=== PATIENT | female | born 1970 | race Caucasian/White ===

== ENCOUNTER 2024-03-07 08:49 | Outpatient (AMB) | payer MEDICARE, MEDICAID, SELFPAY ==
--- NOTE | 2024-03-07 08:51 | A.OFFPC_ITS ---
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 Appointment Specialist: Not Required per policy Accompanied by: Self / Same As Patient Allergies latex Allergy (Severe, Verified 03/07/24 09:18) Anaphylaxis Cephalosporins Allergy (Mild, Verified 03/07/24 09:18) Rash egg Allergy (Mild, Verified 03/07/24 09:18) Unknown ibuprofen [From Motrin] Adverse Reaction (Mild, Verified 03/07/24 09:18) Rash sulfur Allergy (Mild, Uncoded 03/07/24 09:18) Rash Medication List - Last Reconciled 03/07/24 by Mark Crane MD acarbose 100 mg PO TID albuterol sulfate 90 mcg/actuation 2 puffs inhalation QID cetirizine (Zyrtec) 10 mg PO DAILY PRN cyanocobalamin (vitamin B-12) 1,000 mcg IM .ONCE A MONTH escitalopram oxalate (Lexapro) 20 mg PO DAILY estradiol 1 patch transdermal QWEEK gabapentin 600 mg PO DAILY lansoprazole (Acid Scout Executive (lansoprazole)) 15 mg PO DAILY lorazepam (Ativan) 1 mg PO BEDTIME PRN ondansetron 4 mg PO Q8H sumatriptan succinate (Imitrex) 50 mg PO Q2-4H PRN Tobacco use date assessed: 03/07/24 Dental Screening Dental Screen Date: 03/07/24 Did you have a dental visit in the last 12 months?: No Did you have a dental problem in the last 6 months where you did not have access to dental care?: No Was dental information given to patient?: Patient has dentist 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 Details Patient comes in today for her annual physical examination and to establish care - is a new patient to the practice Patient states that she currently has multiple issues that she would like to have addressed as well She denies any dizziness but reports (+) on and off headaches (has Hx of migraine) - states that she takes Sumatriptan PRN with prompt relief of her headaches Denies any chest pains but reports experiencing frequent SOB, especially with increased activity Adds that her chest feels tight often - has Hx of asthma and uses her Albuterol inhaler as needed with temporary relief of her symptoms Relates that she has been tried on a few inhalers in the past and she's had trouble tolerating most of them, especially the ones that are powder-based Relates (+) on and off nausea and vomiting - states that she has cyclical vomiting and believes that these started after she had her gastric bypass surgery done back in 2009 She denies any abdominal pain but has been experiencing recurrent heartburns for a while now - states that she just takes some OTC Lansoprazole as needed with temporary relief of her heartburns No change in bowel habits noted She denies any acute urinary symptoms Adds that she has been experiencing increasing pain over both of her shoulders for a while now; does not recall any recent injury or trauma to her shoulders [facility] Medical History (Updated 03/12/24 @ 03:51 by Mark Crane MD) Vitamin B12 deficiency Allergic rhinitis GERD without esophagitis Pulmonary nodule, left Anxiety Neuropathy Asthma Diabetes mellitus Migraine Cyclical vomiting Surgical History (Updated 03/12/24 @ 03:52 by Mark Crane MD) Hx of colonoscopy Status post laparoscopic assisted vaginal hysterectomy (LAVH) (~2016) Hx of gastric bypass (~2009) Hx of cholecystectomy Family History (Updated 03/07/24 @ 09:10 by MOHAMUD Welsh) Other Diabetes Social History (Updated 03/07/24 @ 09:43 by Mark Crane MD) Housing: [place] Patient Tobacco Use Status: Former Tobacco user Quit Date: 2003 e-Cigarette/Vaping Use: Never Used Current occupational status: disabled Cognitive needs: No Hearing needs: No Vision needs: Yes Questionnaire PHQ-9 Over the last 2 weeks, how often have you been bothered by any of the following problems? 1. Little interest or pleasure in doing things: not at all 2. Feeling down, depressed, or hopeless: not at all 3. Trouble falling or staying asleep, or sleeping too much: not at all 4. Feeling tired or having little energy: not at all 5. Poor appetite or overeating: not at all 6. Feeling bad about yourself - or that you are a failure or have let yourself or your family down: not at all 7. Trouble concentrating on things, such as reading the newspaper or watching television: not at all 8. Moving or speaking so slowly that other people could have noticed. Or the opposite - being so fidgety or restless that you have been moving around a lot more than usual: not at all 9. Thoughts that you would be better off or of hurting yourself in some way: not at all Total score: 0 Depression Screening Interpretation: Negative Depression Screening Done: Yes 34492 - PHQ-9 Billing: Yes Source: Developed by Drs. Gaston Zhang, Leigh Dupree, Prashant Haley and colleagues, with an educational jenny from [employer]. Thrive Questionnaire Date Thrive assessed: 03/07/24 I am a: Patient What is your living situation today?: I have a steady place to live Within the past 12 months, did the food you bought not last and you didn't have the money to get more?: Never true Within the past 12 months, did you worry whether your food would run out before you got money to buy more?: Never true Do you have trouble paying for medicines?: No Do you have trouble getting transportation to medical appointments?: No Do you have trouble paying your heating and electricity bill?: No Do you have trouble taking care of your child, family member or friend?: No Do you have trouble with day-to-day activities such as bathing, preparing meals, shopping, managing finances, etc.?: No Are you currently unemployed and looking for a job?: No Are you interested in more education?: No Please select the resources that you would like help with: None Currently or been in a relationship where the following occur: no concerns reported THRIVE Score: 0 AUDIT C Alcohol Use Questionnaire (AUDIT-C) 1. How often do you have a drink containing alcohol?: Never 3. How often do you have six or more drinks on one occasion?: Never Total Score: 0 Score Reviewed/Action Taken: Yes KAYLENE-7 AMB Questionnaire KAYLENE-7 Date KAYLENE - 7 assessed: 03/07/24 Feeling nervous, anxious, or on edge: 3 = Nearly every day Not being able to stop or control worryin = Nearly every day Worrying too much about different things: 2 = More than half the days Trouble relaxin = More than half the days Being so restless that it is hard to sit still: 2 = More than half the days Becoming easily annoyed or irritable: 2 = More than half the days Feeling afraid as if something awful might happen: 2 = More than half the days Total KAYLENE-7 score (0-4 normal; 5-9 mild; 10-14 moderate; 15-21 severe): 16 Source: Developed by Drs. Gaston Zhang, Leigh Dupree, Prashant Haley and colleagues, with an educational jenny from [employer]. Review of Systems Const Denies chills, Reports fatigue (at times), Denies fever(s), Reports headache(s) (on and off - (+) migraines), Denies malaise and Denies night sweats Eyes Denies blurry vision, Denies change in vision, Denies irritation and Denies itchy eyes ENT Denies dysphagia, Denies dizziness, Denies otalgia, Reports headache(s) (on and off - (+) migraines), Denies nasal congestion, Denies neck pain, Denies odynophagia, Denies sinus pain and Denies sore throat Card Denies chest pain, Denies rapid heart rate, Denies irregular heart rhythm, Denies palpitations and Reports dyspnea on exertion (mild) Resp Denies chest congestion (but chest feels tight often, especially with increased activity), Denies cough, Reports dyspnea on exertion (mild) and Reports wheezing (occasionally) GI Denies abdominal pain, Denies bloating, Denies constipation, Denies dysphagia, Reports heartburn (recurrent - takes OTC Lansoprazole PRN ), Denies diarrhea, Reports nausea (on and off), Denies odynophagia and Reports vomiting (occasional) Denies hematuria, Denies urinary frequency, Reports hot flashes (on and off), Denies dysuria, Denies urinary incontinence and Denies urinary urgency Musc Denies back pain, Reports arthralgias (over both shoulders - increasing lately), Denies joint swelling, Denies muscle weakness and Denies neck pain Skin/Breast Denies breast pain, Denies breast mass, Denies change in pigmentation, Denies lesions, Denies rash and Denies unusual bruising Neuro Reports burning sensations (on and off in her feet, especially at night - (+) neuropathy), Denies dizziness, Reports headache(s) (on and off - (+) migraines) and Reports paresthesias (on and off in her feet - (+) neuropathy) Psych Reports anxiety, Denies depression and Denies suicidal ideation Endo Reports fatigue (at times) and Denies palpitations Melvin/Lymph Denies easy bruising Aller/Immun Denies itchy eyes and Reports wheezing (occasionally) Physical exam (Primary Care) Vital Signs: Last Vital Signs Pulse 63 03/07/24 08:53 BP 112/62 03/07/24 08:53 Pulse Ox 97 03/07/24 08:53 Oxygen Delivery Method Room Air 03/07/24 08:53 BMI result Body Mass Index 25.0 Tobacco/Smoking Status: Tobacco use Status Tobacco use date assessed 03/07/24 03/07/24 08:53 Patient Tobacco Use Status Former Tobacco user 03/07/24 09:43 e-Cigarette/Vaping Use Never Used 03/07/24 09:43 PHQ-9: PHQ-9 Score PHQ-9: Total score 0 03/07/24 09:23 Depression Screening Interpretation: Negative Thrive Assessment: Date of Thrive Assessment Date Thrive assessed 03/07/24 03/07/24 08:53 Currently or been in a relationship where the following occur: no concerns reported Const General: no acute distress, alert and awake Orientation/consciousness: patient oriented x3 HENMT Head: Yes normocephalic and Yes atraumatic Ears: external ears normal, TM's normal bilaterally and EAC's normal General nose exam: No nasal discharge present Face and sinus: Yes normal facial exam and Yes sinuses nontender Teeth and gingiva: dentition normal Throat: Yes posterior oropharynx normal and Yes tonsils normal (no TP congestion) Eyes Eyelids: Yes eyelids normal Conjunctivae: conjunctivae normal Pupils: Equal, round and reactive pupils present EOM: EOMs intact bilaterally Neck Neck: Yes no lymphadenopathy and Yes supple Thyroid: Thyroid normal Resp Auscultation: no rales, wheezes (occasional, faint) expiratory wheezes and throughout and diminished lung sounds bilateral Cardio Rate: regular rate Rhythm: regular rhythm Heart sounds: no murmurs GI Palpation (GI): Soft to palpation, nontender, no guarding and No hepatosplenomegaly present Auscultation: normal bowel sounds General: Yes no CVA tenderness Back/Spine/Pelvis Back: no CVA tenderness Thoracic/Lumbar Spine: thoracic and lumbar spine normal to inspection Skin Lesions: no lesions Rashes: no rashes Neuro General: patient oriented x3, moves all extremities, no focal motor deficits and CN's II-XI intact bilaterally Cranial nerves: Yes Equal, round and reactive pupils present Cognition (Neuro): normal cognition Gait exam (Neuro): Normal gait present Extrem General: Yes no clubbing, cyanosis or edema Right upper extremity: shoulder/upper arm Details: tenderness Location: of the A-C joint and normal ROM Left upper extremity: shoulder/upper arm Details: tenderness Location: of the A- C joint and normal ROM Assessment and Plan Assessment & Plan (1) Annual physical exam: Code(s): Z00.00 - Encounter for general adult medical examination without abnormal findings Plan: Check labs She is due for all of her cancer screenings and will be referred / ordered for these accordingly (2) Migraine: Code(s): G43.909 - Migraine, unspecified, not intractable, without status migrainosus Qualifiers: Intractability: not intractable Migraine type: unspecified Status migrainosus presence: without status migrainosus Qualified Code(s): G43.909 - Migraine, unspecified, not intractable, without status migrainosus Plan: Reinforced avoidance of any potential migraine triggers Continue Sumatriptan 50 mg PRN (3) Asthma: Code(s): J45.909 - Unspecified asthma, uncomplicated Qualifiers: Asthma severity: moderate Asthma persistence: persistent Asthma complication type: unspecified Qualified Code(s): J45.40 - Moderate persistent asthma, uncomplicated Plan: She is advised that she has some faint wheezing on auscultation of her lungs today, which indicates that her asthma is not really well-controlled Patient agrees as she states that her chest/lungs sometimes feel tight and congested, especially with increased activity and her symptoms are often only temporarily relieved with her rescue inhaler Relates that she's had problems tolerating steroid inhalers in the past, especially the powdered ones like Advair Diskus and Flovent Diskus, and that Dulera was the only one that she can remember using that did not give her too much trouble Will start her on Dulera 200-5 mcg 2 inhalations BID for now Continue Albuterol HFA 2 inhalations Q 6 hours PRN Will send her for PFTs for further evaluation and also refer her to pulmonary medicine for further evaluation and management (4) Cyclical vomiting: Code(s): R11.15 - Cyclical vomiting syndrome unrelated to migraine Plan: She believes that this started (was triggered?) by her gastric bypass surgery over 10 years ago Continue Ondansetron 4 mg Q 8 hours PRN (5) Diabetes mellitus: Code(s): E11.9 - Type 2 diabetes mellitus without complications Qualifiers: Diabetes mellitus type: type 2 Diabetes mellitus [facility] insulin use: without intermodal dispatcher use Diabetes mellitus complication status: without complication Qualified Code(s): E11.9 - Type 2 diabetes mellitus without complications Plan: Reinforced diabetic diet States that she used to be on meds for her diabetes but she started experiencing hypoglycemic episodes after her gastric bypass surgery back in 2009 Continue Acarbose 100 mg TID for now Will send her for some labs as well as her HgbA1c for further evaluation (6) Allergic rhinitis: Code(s): J30.9 - Allergic rhinitis, unspecified Qualifiers: Allergic rhinitis trigger: unspecified Allergic rhinitis seasonality: non-seasonal Qualified Code(s): J30.89 - Other allergic rhinitis Plan: Continue Cetirizine 10 mg QD PRN (7) Neuropathy: Code(s): G62.9 - Polyneuropathy, unspecified Plan: Continue Gabapentin 600 mg QD (8) Vitamin B12 deficiency: Code(s): E53.8 - Deficiency of other specified B group vitamins Plan: States that this started after she had her gastric bypass done back in 2009 Continue Vitamin B12 injections 1000 mcg IM once a month Will recheck her Vitamin B12 level for follow up (9) Pulmonary nodule, left: Code(s): R91.1 - Solitary pulmonary nodule Plan: Patient recalls being advised in the past that she has a left lung nodule that needs to be monitored and that it has been a while since she's had imaging studies done to check into this Will send her for chest x-rays for further evaluation (10) GERD without esophagitis: Code(s): K21.9 - Gastro-esophageal reflux disease without esophagitis Plan: Dietary restrictions reinforced Continue OTC Lansoprazole 15 mg QD PRN - notes that she's had to take this often lately due to recurrent symptoms (11) Bilateral shoulder pain: Code(s): M25.511 - Pain in right shoulder; M25.512 - Pain in left shoulder Qualifiers: Chronicity: unspecified Qualified Code(s): M25.511 - Pain in right shoulder; M25.512 - Pain in left shoulder Plan: Will send her for x-rays of both shoulders for further evaluation Will send her for some additional labs for further evaluation of her joint pains Will refer her to orthopedics for further evaluation and management of her shoulder pains (12) Menopausal symptoms: Code(s): N95.1 - Menopausal and female climacteric states Plan: Continue Estradiol 0.075 mg patch once a week (13) Anxiety: Code(s): F41.9 - Anxiety disorder, unspecified Plan: Continue Escitalopram 20 mg QD and Lorazepam 1 mg Q HS PRN (14) Breast cancer screening: Code(s): Z12.39 - Encounter for other screening for malignant neoplasm of breast Qualifiers: Breast cancer screening modality: mammogram Qualified Code(s): Z12.31 - Encounter for screening mammogram for malignant neoplasm of breast Plan: Will send her for annual mammogram (15) Colon cancer screening: Code(s): Z12.11 - Encounter for screening for malignant neoplasm of colon Plan: Will refer her to GI for repeat colonoscopy (16) Cervical cancer screening: Code(s): Z12.4 - Encounter for screening for malignant neoplasm of cervix Plan: Will refer her to gynecology for her annual pap smear and gynecology exam - states that she has not had one done in a few years (17) Osteoporosis screening: Code(s): Z13.820 - Encounter for screening for osteoporosis Plan: Will send her for BMD for osteoporosis screening - this will be her index screen Plan Follow up in 3 months Orders: Orders PFT pulmonary function test 03/07/24 J45.909 - Unspecified asthma, uncomplicated MM tomosynthesis screening BI 03/07/24 Z12.31 - Encounter for screening mammogram for malignant neoplasm of breast XR chest 2V 03/07/24 J45.909 - Unspecified asthma, uncomplicated, R91.1 - Solitary pulmonary nodule Complete Blood Count Auto Diff 03/07/24 D64.9 - Anemia, unspecified, Z00.00 - Encounter for general adult medical examination without abnormal findings Comprehensive [place]. Panel Fast 03/07/24 E78.00 - Pure hypercholesterolemia, unspecified, Z00.00 - Encounter for general adult medical examination without abnormal findings TSH reflex Free T4 03/07/24 E78.00 - Pure hypercholesterolemia, unspecified, Z00.00 - Encounter for general adult medical examination without abnormal findings Vitamin B12 and Folate 03/07/24 E53.8 - Deficiency of other specified B group vitamins, Z00.00 - Encounter for general adult medical examination without abnormal findings IRON PROFILE 03/07/24 D50.9 - Iron deficiency anemia, unspecified, Z00.00 - Encounter for general adult medical examination without abnormal findings JESSI Reflex Titer and Pattern 03/07/24 M25.50 - Pain in unspecified joint XR DEXA axial skeleton 03/07/24 Z78.0 - Asymptomatic menopausal state XR shoulder RT min 2V 03/07/24 M25.511 - Pain in right shoulder, M25.512 - Pain in left shoulder Lipid Panel 03/07/24 E78.00 - Pure hypercholesterolemia, unspecified, Z00.00 - Encounter for general adult medical examination without abnormal findings UA CC w/rflx Micro + Cult 03/07/24 R30.0 - Dysuria, Z00.00 - Encounter for general adult medical examination without abnormal findings Vitamin D 25-OH Total 03/07/24 E55.9 - Vitamin D deficiency, unspecified, Z00.00 - Encounter for general adult medical examination without abnormal findings Hemoglobin A1c 03/07/24 E11.9 - Type 2 diabetes mellitus without complications, Z00.00 - Encounter for general adult medical examination without abnormal findings Rheumatoid Factor 03/07/24 M25.50 - Pain in unspecified joint C Reactive Protein 03/07/24 M25.50 - Pain in unspecified joint Erythrocyte Sedimentation Rate 03/07/24 M25.50 - Pain in unspecified joint, M79.7 - Fibromyalgia Ferritin 03/07/24 D64.9 - Anemia, unspecified XR shoulder LT min 2V 03/07/24 M25.511 - Pain in right shoulder, M25.512 - Pain in left shoulder Referrals Gastroenterology Referral K21.9 - Gastro-esophageal reflux disease without esophagitis, Z12.11 - Encounter for screening for malignant neoplasm of colon Orthopedics Referral M25.511 - Pain in right shoulder, M25.512 - Pain in left shoulder Pulmonary Medicine Referral J45.40 - Moderate persistent asthma, uncomplicated, R91.1 - Solitary pulmonary nodule CURB SETTER HELPER Referral N95.1 - Menopausal and female climacteric states, Z90.710 - Acquired absence of both cervix and uterus Medications: New mometasone-formoterol 200-5 mcg/actuation (Dulera) 2 puffs inhalation BID 8.8 grams 3RF Coding Level of Care Code New Pt Prev Care 40-64y(33102) Diagnoses Annual physical exam Z00.00 Migraine without status migrainosus, not intractable, unspecified migraine type G43.909 Intractability: not intractable Migraine type: unspecified Status migrainosus presence: without status migrainosus Moderate persistent asthma, unspecified whether complicated J45.40 Asthma severity: moderate Asthma persistence: persistent Asthma complication type: unspecified Cyclical vomiting R11.15 Type 2 diabetes mellitus without complication, without long-term current use of insulin E11.9 Diabetes mellitus type: type 2 Diabetes mellitus [facility] insulin use: without [facility] use Diabetes mellitus complication status: without complication Non-seasonal allergic rhinitis, unspecified trigger J30.89 Allergic rhinitis trigger: unspecified Allergic rhinitis seasonality: non-seasonal Neuropathy G62.9 Vitamin B12 deficiency E53.8 Pulmonary nodule, left R91.1 GERD without esophagitis K21.9 Bilateral shoulder pain, unspecified chronicity M25.511; M25.512 Chronicity: unspecified Menopausal symptoms N95.1 Anxiety F41.9 Encounter for screening mammogram for malignant neoplasm of breast Z12.31 Breast cancer screening modality: mammogram Colon cancer screening Z12.11 Cervical cancer screening Z12.4 Osteoporosis screening Z13.820
[2024-03-07 08:53] VITALS: BP 112/62; PULSE 63; O2SAT 97; BMI 25.0
== END 2024-03-07 10:01 | disposition home or self-care (01) ==
PROVIDERS: PCP Internal Medicine; Visit Provider Internal Medicine
DX: Z00.00 Encounter for general adult medical examination without abnormal findings (principal); E11.51 Type 2 diabetes mellitus with diabetic peripheral angiopathy without gangrene; G43.909 Migraine, unspecified, not intractable, without status migrainosus; J45.40 Moderate persistent asthma, uncomplicated; R11.15 Cyclical vomiting syndrome unrelated to migraine; J30.89 Other allergic rhinitis; G62.9 Polyneuropathy, unspecified; E53.8 Deficiency of other specified B group vitamins; R91.1 Solitary pulmonary nodule; K21.9 Gastro-esophageal reflux disease without esophagitis; M25.511 Pain in right shoulder; M25.512 Pain in left shoulder
CPT/HCPCS: 99386

== ENCOUNTER 2024-03-13 06:40 | Outpatient (REF) | payer MEDICARE, MEDICAID, SELFPAY ==
[2024-03-13 10:27] LABS: MANUAL DIFF FLAG NO
[2024-03-13 10:40] LABS: Appearance Urine Clear; Color Urine Dark Yellow; Glucose Urine UA Negative (Negative); Leukocyte Esterase Urine Negative (Negative); Nitrite Urine Negative (Negative); Specific Gravity - Urine 1.025 (1.005-1.025); UMIC TRIGGER UACC YES; Urine Ketones Negative (Negative); Urine Protein Negative (Neg-Trace)
[2024-03-13 10:41] LABS: Basophils Percent Auto 2.1 % (0-2); Hematocrit 42.5 % (37.0-47.0); Mean Corpuscular HGB Conc 32.9 g/dl (31.0-35.0); Mean Corpuscular Volume 87.1 fL (80.0-98.0); Platelet Count 235 X10*3/uL (160-400); Red Blood Count 4.88 X10*6/uL (4.20-5.50); Red Cell Distribution Width 13.5 % (11.0-16.0); White Blood Count 3.9 X10*3/uL (4.8-10.8)
[2024-03-13 11:42] LABS: Alkaline Phosphatase 42 U/L (39-117); Anion Gap 12 (12-20); Calcium 8.6 mg/dL (8.4-10.2); Carbon Dioxide 23 mmol/L (22-29); Chloride 109 mmol/L (96-108); Cholesterol 218 mg/dL (<200); Estimated Glomerular Filt Rate > 60; Glucose Fasting 80 mg/dL (60-99); HDL Cholesterol 67 mg/dL (>40); LDL Cholesterol Calculated 130 mg/dL (<100); Sodium 140 mmol/L (135-145); Triglycerides 106 mg/dL (<150)
[2024-03-13 11:49] LABS: Vitamin D 25-OH Total 5.9 ng/mL (>30)
[2024-03-17 07:43] LABS: Anti Nuclear Antibody Screen NEGATIVE (NEGATIVE)
== END 2024-03-13 06:41 | disposition home or self-care (01) ==
LOC: HO.HMGCLDS 06:40
PROVIDERS: PCP Internal Medicine; Visit Provider Internal Medicine
DX: Z00.00 Encounter for general adult medical examination without abnormal findings (principal); E78.00 Pure hypercholesterolemia, unspecified; E53.8 Deficiency of other specified B group vitamins; E55.9 Vitamin D deficiency, unspecified; E11.9 Type 2 diabetes mellitus without complications; M25.50 Pain in unspecified joint; D50.9 Iron deficiency anemia, unspecified; M79.7 Fibromyalgia
CPT/HCPCS: 36415; 80053; 80061; 81001; 82306; 82607; 82728; 82746; 83036; 83540; 84443; 85025; 85652; 86038; 86140; 86431

== ENCOUNTER 2024-03-19 07:50 | Outpatient (AMB) | payer MEDICARE, MEDICAID, SELFPAY ==
[2024-03-19 07:51] VITALS: BMI 25.0
--- NOTE | 2024-03-19 07:51 | MHC.OFFVIS ---
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 The patient states that she injured her shoulders many years ago while playing football. She has undergone 2 surgeries on both of her shoulders. Those surgeries were performed in [place], [place]. The patient states that her symptoms have gotten worse over the last few years in spite of continued non operative treatments. She has had injections given into both shoulders which gave her minimal relief. She has also done physical therapy exercises which aggravated her pain. The patient states that she has difficulty lifting both of her hands above shoulder height. Allergies latex Allergy (Severe, Verified 03/07/24 09:18) Anaphylaxis Cephalosporins Allergy (Mild, Verified 03/07/24 09:18) Rash egg Allergy (Mild, Verified 03/07/24 09:18) Unknown ibuprofen [From Motrin] Adverse Reaction (Mild, Verified 03/07/24 09:18) Rash sulfur Allergy (Mild, Uncoded 03/07/24 09:18) Rash Medication List - Last Reconciled 03/19/24 by Pedro Cruz MD acarbose 100 mg PO TID albuterol sulfate 90 mcg/actuation 2 puffs inhalation QID cetirizine (Zyrtec) 10 mg PO DAILY PRN cyanocobalamin (vitamin B-12) 1,000 mcg IM .ONCE A MONTH escitalopram oxalate (Lexapro) 20 mg PO DAILY estradiol 1 patch transdermal QWEEK gabapentin 600 mg PO DAILY lansoprazole (Acid Rental Sales Associate (lansoprazole)) 15 mg PO DAILY lorazepam (Ativan) 1 mg PO BEDTIME PRN mometasone-formoterol 200-5 mcg/actuation (Dulera) 2 puffs inhalation BID ondansetron 4 mg PO Q8H sumatriptan succinate (Imitrex) 50 mg PO Q2-4H PRN PFSH Medical History (Updated 03/18/24 @ 14:25 by Pedro Cruz MD) Vitamin B12 deficiency Allergic rhinitis GERD without esophagitis Pulmonary nodule, left Anxiety Neuropathy Asthma Diabetes mellitus Migraine Cyclical vomiting Surgical History (Updated 03/19/24 @ 08:03 by Jessika Leos CMA) Hx of shoulder surgery Hx of shoulder surgery Hx of colonoscopy Status post laparoscopic assisted vaginal hysterectomy (LAVH) (~2016) Hx of gastric bypass (~2009) Hx of cholecystectomy Family History (Updated 03/07/24 @ 09:10 by MOHAMUD Welsh) Other Diabetes Social History (Updated 03/19/24 @ 08:03 by Jessika Leos CMA) Housing: House Patient Tobacco Use Status: Former Tobacco user Quit Date: 2003 e-Cigarette/Vaping Use: Never Used Current occupational status: disabled Current occupation: Left hand dominant Cognitive needs: No Hearing needs: No Vision needs: Yes Physical Exam Vital Signs: BMI result Body Mass Index 25.0 Const Other: Well-nourished well-developed very friendly female awake alert and oriented x3 in no acute distress Extrem Other: Bilateral upper extremity examination shows good capillary refill, no skin lesions noted, normal sensation light touch Bilateral shoulder examination shows active forward flexion to 130 degrees, 3/5 strength with supraspinatus testing, positive impingement signs, no instability Results Reviewed Results Reviewed: X-rays of the patient's bilateral shoulder show severe acromioclavicular joint narrowing, type 2 acromion, no acute bony abnormalities Assessment & Plan Assessment & Plan (1) Right shoulder pain: Code(s): M25.511 - Pain in right shoulder Category: Medical (2) Left shoulder pain: Code(s): M25.512 - Pain in left shoulder Category: Medical Plan Ms. Kim presents with bilateral shoulder pains and weakness, right greater than left, most likely due to full-thickness rotator cuff tears. Thus, I will send the patient for an MRI of her right shoulder for further evaluation. I will see the patient back once the MRI is available to discuss the findings and treatment options. Feel free to call me at any time should questions regarding her orthopedic management arise. Thank you very much for asking me to see this very friendly patient. I spent 20 minutes in reviewing the patient's records and imaging studies, seeing the patient and documenting in the medical record. Orders: Orders XR shoulder LT min 2V Today M25.512 - Pain in left shoulder XR shoulder RT min 2V Today M25.511 - Pain in right shoulder MR shoulder RT wo con Today M75.121 - Complete rotator cuff tear or rupture of right shoulder, not specified as traumatic Coding Level of Care Code New Pt Level 2 (61793) Diagnoses Right shoulder pain M25.511 Left shoulder pain M25.512
== END 2024-03-19 08:25 | disposition home or self-care (01) ==
PROVIDERS: PCP Internal Medicine; Visit Provider Orthopaedic Surgery
DX: M25.511 Pain in right shoulder (principal); M25.512 Pain in left shoulder
CPT/HCPCS: 99202

== ENCOUNTER 2024-03-19 08:35 | Outpatient (REF) | payer MEDICARE, MEDICAID, SELFPAY ==
--- NOTE | ~2024-03-19 | XR_ITS ---
EXAMINATION: XR SHOULDER, RIGHT CLINICAL INFORMATION: Pain in right shoulder COMPARISON: None available. TECHNIQUE: AP neutral and scapular Y views of the right shoulder. FINDINGS: The bones are intact no fracture. Glenohumeral and acromioclavicular alignment is anatomic with normal joint space. No abnormal soft tissue calcifications. XR/XR shoulder RT min 2V IMPRESSION: No bony abnormality.
--- NOTE | ~2024-03-19 | XR_ITS ---
EXAMINATION: XR SHOULDER, LEFT CLINICAL INFORMATION: Pain in left shoulder COMPARISON: None available. TECHNIQUE: AP neutral and scapular Y of the left shoulder. FINDINGS: The bones are intact. No fracture. Glenohumeral and acromioclavicular alignment is anatomic with normal joint space. No abnormal soft tissue calcifications. XR/XR shoulder LT min 2V IMPRESSION: No bony abnormality.
== END 2024-03-19 08:36 | disposition home or self-care (01) ==
LOC: HO.HOSX 08:35
PROVIDERS: Visit Provider Orthopaedic Surgery
DX: M25.511 Pain in right shoulder (principal); M25.512 Pain in left shoulder
CPT/HCPCS: 73030; 99202

== ENCOUNTER 2024-03-22 11:56 | Outpatient (REF) | payer MEDICARE, MEDICAID, SELFPAY ==
--- NOTE | ~2024-03-22 | XR_ITS ---
EXAMINATION: XR CHEST CLINICAL INFORMATION: Asthma. COMPARISON: None available. TECHNIQUE: 2 views of the chest were obtained. FINDINGS: Normal appearance of the cardiomediastinal silhouette. No focal airspace opacities, pleural effusion or pneumothorax. No acute osseous findings. Visualized upper abdomen is within normal limits. XR/XR chest 2V IMPRESSION: No acute cardiopulmonary findings.
== END 2024-03-22 11:57 | disposition home or self-care (01) ==
LOC: HO.HMGCX 11:56
PROVIDERS: PCP Internal Medicine; Visit Provider Internal Medicine
DX: J45.909 Unspecified asthma, uncomplicated (principal); R91.1 Solitary pulmonary nodule; M25.511 Pain in right shoulder; M25.512 Pain in left shoulder
CPT/HCPCS: 71046

== ENCOUNTER 2024-04-05 09:48 | Outpatient (REF) | payer MEDICARE, MEDICAID, SELFPAY ==
--- NOTE | ~2024-04-05 | MM_ITS ---
EXAMINATION: MM SCREENING DIGITAL BREAST TOMOSYNTHESIS, BILATERAL CLINICAL INFORMATION: Screening. Asymptomatic. History of 2 benign stereotactic biopsies left breast in 2021. COMPARISON: Mammography: 12/29/2022, 07/14/2022 stereo biopsy, 07/05/2022, 06/16/2022 ([place]) TECHNIQUE: Digital breast tomosynthesis is performed in both the craniocaudal and mediolateral oblique views along with computer-aided detection (CAD). Synthesized 2D images are generated from the tomosynthesis. In addition, an added full-field 3-D left CC view was obtained. FINDINGS: There are scattered areas of fibroglandular density (ACR BI-RADS breast composition Category b). In the right breast, upper outer quadrant, mid depth, approximately 10:00 axis, there is a subtle area of parenchymal distortion which in retrospect has been present on prior studies dating back to 2021. Despite stability, this may represent a radial scar or other etiology and is indeterminant. Recommend spot compression views in the CC and MLO projections, as well as targeted right breast ultrasound should it persist. Otherwise, no additional abnormality is noted in the right breast. There are 2 post benign biopsy marker is in the lower inner left breast, directly abutting each other. There is a stable focal asymmetry abutting the biopsy clips. There are no suspicious masses, grouped microcalcifications, or additional regions of architectural distortion in either breast. There is no skin or axillary abnormality. MM/MM tomosynthesis screening BI IMPRESSION: -Focus of architectural distortion right breast upper outer quadrant, approximately 10:00 axis, middle depth. Recommend diagnostic views as described above, with ultrasound to follow. -No suspicious abnormalities left breast. Post benign biopsy changes. ASSESSMENT: BI-RADS BI-RADS 0 - Incomplete: Needs additional Imaging. RECOMMENDATION: 1. Additional views of the right breast. 2. Targeted ultrasound if warranted after review of the additional views. 3. Radiology department staff will contact the patient for additional imaging. Additional Imaging required This examination should not preclude the clinical evaluation of a suspicious palpable abnormality.
--- NOTE | ~2024-04-05 | MM_ITS ---
EXAMINATION: BONE DENSITOMETRY CLINICAL INDICATION: Menopause. COMPARISON: This is the patient's baseline examination. TECHNIQUE: Using a [employer] DXA System (software version: 13.1) manufactured by [employer], dual-energy x-ray absorptiometry was performed of the lumbar spine and left hip. The images are of good technical quality. Summary results are attached. FINDINGS: LEFT FEMUR, NECK: BMD 0.976 g/cm2, Z-score 0.1, T-score -0.4, normal. LEFT FEMUR, TOTAL: BMD 1.002 g/cm2, Z-score 0.1, T-score 0.0, normal. AP SPINE L1-L2 (excluding L3 and L4): The data of L1-L4 has been changed to exclude the L3 and L4 vertebral bodies, because degenerative sclerosis at these levels may cause overestimation of lumbar spine density. BMD 1.361 g/cm2, Z-score 1.7, T-score 1.6, normal. IDENTIFIED RISK FACTORS: Early menopause, glucocorticoids (chronic), height loss, bilateral oophorectomy, history of fracture (adult), hysterectomy, low calcium intake, secondary osteoporosis (partial gastrectomy). HISTORY OF FRACTURE: Other. MEDICATIONS: Calcium or multivitamin. Vitamin D, ERT/SERMS. MM/XR DEXA axial skeleton IMPRESSION: 1. DIAGNOSIS: Normal bone density based on the lowest T-score value of -0.4 in the femoral neck applying World Health Organization criteria. 2. 10-YEAR FRACTURE RISK PREDICTION, FRAX: According to the guidelines, FRAX calculation should only be performed on patients in the osteopenia bone density category. Therefore, FRAX was not performed on this patient. 3. Treatment Recommendations: NOF guidelines recommend consideration for treatment in postmenopausal women and men age 50 and older presenting with the following: -A hip or vertebral (clinical or morphometric) fracture. -T-score less than or equal to -2.5 at the femoral neck or spine after appropriate evaluation to exclude secondary causes. -Low bone mass at the hip or spine and a 10-year fracture probability by FRAX of greater than or equal to 3% for hip fracture or greater than or equal to 20% for major osteoporotic fracture based on the [place] adapted WHO algorithm. 4. Other Recommendations: All treatment decisions require clinical judgment and consideration of individual patient factors, including patient preferences, comorbidities, previous drug use, risk factors not captured in the FRAX model (e.g. frailty, falls, vitamin D deficiency, increased bone turnover, interval significant decline in bone density) and possible under or overestimation of fracture risk by FRAX. FUTURE SCAN RECOMMENDATION: People with diagnosed cases of osteoporosis or at high risk for fracture should have regular bone mineral density tests. For patients eligible for Medicare, routine testing is allowed once every 2 years. The testing frequency can be increased to one year for patients who have rapidly progressing disease, those who are receiving or discontinuing medical therapy to restore bone mass, or have additional risk factors.
== END 2024-04-05 09:49 | disposition home or self-care (01) ==
LOC: HO.MAMMO 09:48
PROVIDERS: PCP Internal Medicine; Visit Provider Internal Medicine
DX: Z12.31 Encounter for screening mammogram for malignant neoplasm of breast (principal); Z13.820 Encounter for screening for osteoporosis; Z78.0 Asymptomatic menopausal state
CPT/HCPCS: 77063; 77067; 77080

== ENCOUNTER → 2024-04-05 10:30 | Outpatient (BNV) | payer MEDICARE, MEDICAID, SELFPAY | PROVIDERS: PCP Internal Medicine; Visit Provider Radiology Diagnostic Radiology | DX: Z12.31 Encounter for screening mammogram for malignant neoplasm of breast (principal) | CPT/HCPCS: 77063; 77067 ==

== ENCOUNTER 2024-04-11 20:10 | Outpatient (REF) | payer MEDICARE, MEDICAID, SELFPAY ==
--- NOTE | ~2024-04-11 | MR_ITS ---
EXAMINATION: MR SHOULDER WITHOUT CONTRAST, RIGHT CLINICAL INFORMATION: Rotator cuff tear. Patient reports pain, prior surgery 2019. COMPARISON: None available. TECHNIQUE: MRI of the shoulder without contrast was performed on a high-field scanner. FINDINGS: Motion artifact degrading some sequences, limiting evaluation. ROTATOR CUFF: Postsurgical changes in the greater tuberosity/lateral humeral head, with bone anchors present. There is prominent thinning of the supraspinatus tendon, with intermediate T2 signal changes. This involves the tendon involving a segment approximately 3.7 cm medial-lateral. No measurable full-thickness defect is identified. Mild distal infraspinatus tendinosis. Teres minor, subscapularis are intact. Mild supraspinatus muscle atrophy. BICEPS: Intact. CORACOACROMIAL ARCH: The undersurface of the acromion is flat with no subacromial spur. Mild acromioclavicular arthritis. Mild subacromial-subdeltoid bursitis. LABRUM/CAPSULE: No definitive labral tear. GLENOHUMERAL JOINT/MARROW: Postsurgical changes, as detailed above. No acute fracture. No significant glenohumeral joint arthropathy. No significant effusion. MR/MR shoulder RT wo con IMPRESSION: 1. Motion artifact degrading some sequences, limiting evaluation. 2. Supraspinatus tendon prominent thinning measuring approximately 3.7 cm ML with intermediate T2 signal changes. This could reflect postsurgical result, tendinosis/partial tearing, or a combination of these. No measurable full-thickness defect is identified. 3. Mild distal infraspinatus tendinosis. 4. Mild AC joint arthritis. Mild subacromial-subdeltoid bursitis.
== END 2024-04-11 20:11 | disposition home or self-care (01) ==
LOC: HO.MRI 20:10
PROVIDERS: PCP Internal Medicine; Visit Provider Orthopaedic Surgery
DX: M75.121 Complete rotator cuff tear or rupture of right shoulder, not specified as traumatic (principal)
CPT/HCPCS: 73221

== ENCOUNTER 2024-04-16 10:30 | Outpatient (AMB) | payer MEDICARE, MEDICAID, SELFPAY ==
[2024-04-16 10:32] VITALS: BP 102/64; PULSE 83; O2SAT 96; BMI 25.1
--- NOTE | 2024-04-16 10:32 | A.OFFVIS_ITS ---
Vital Signs 04/16/24 10:32 Height 6 ft Weight 185 lb BMI 25.1 BP 102/64 Blood Pressure Location Rt brachial Position Sitting Pulse 83 Pulse Source Doppler Pulse Oximetry (%) 96 Oxygen Delivery Method Room Air Intake Visit Reasons: Unspecified asthma Allergies latex Allergy (Severe, Verified 03/07/24 09:18) Anaphylaxis Cephalosporins Allergy (Mild, Verified 03/07/24 09:18) Rash egg Allergy (Mild, Verified 03/07/24 09:18) Unknown ibuprofen [From Motrin] Adverse Reaction (Mild, Verified 03/07/24 09:18) Rash sulfur Allergy (Mild, Uncoded 03/07/24 09:18) Rash HPI HPI Unspecified asthma: Details: 53-year-old lady, former approximately 10 pack-year smoker, quit over 20 years prior, with underlying history of asthma and environmental allergies since childhood, previously managed with Dulera and albuterol MDI with suboptimal control of her symptoms presents to [facility] care. Patient recently moved from [facility]. She does complain of multiple environmental allergies. Patient also has prior history of sleep apnea, with recent significant weight changes. She denies exposure to industrial dusts. Patient does have multiple first-degree relatives with asthma. [facility] Medical History (Updated 04/16/24 @ 10:54 by Varun Levy MD) Vitamin B12 deficiency Allergic rhinitis GERD without esophagitis Pulmonary nodule, left Anxiety Neuropathy Asthma Diabetes mellitus Migraine Cyclical vomiting Surgical History (Updated 03/19/24 @ 08:03 by Jessika Leos [facility]) Hx of shoulder surgery Hx of shoulder surgery Hx of colonoscopy Status post laparoscopic assisted vaginal hysterectomy (LAVH) (~2016) Hx of gastric bypass (~2009) Hx of cholecystectomy Family History (Updated 03/07/24 @ 09:10 by Tavia Thapa Shrei) Other Diabetes Social History (Updated 04/16/24 @ 10:38 by MOHAMUD Singer) Housing: House Patient Tobacco Use Status: Former Tobacco user Tobacco use type: Cigarette Cigarette Packs Per Day: 1.5 Years Smoked: quit more than 15 years ago, started as a teen e-Cigarette/Vaping Use: Never Used Current occupational status: disabled Current occupation: Left hand dominant Cognitive needs: No Hearing needs: No Vision needs: Yes Review of Systems Const Denies daytime sleepiness, Denies excessive sweating, Denies fatigue, Denies fever(s), Denies lethargy, Denies malaise, Denies night sweats, Denies snoring and Denies weight loss Eyes Denies blurry vision and Denies itchy eyes ENT Denies nasal congestion, Denies post nasal drip, Denies sinus pain, Denies sinus pressure and Denies other ( Thrush) Card Denies chest pain, Denies pedal edema, Denies dyspnea, Denies orthopnea and Denies paroxysmal nocturnal dyspnea Resp Denies cough, Denies hemoptysis, Denies excessive phlegm production, Denies dys pnea, Denies snoring and Reports wheezing GI Denies abdominal pain and Denies heartburn Musc Denies myalgias, Denies arthralgias and Denies joint swelling Skin/Breast Denies rash Neuro Denies memory loss and Denies seizure-like activity Psych Denies abnormal sleep pattern, Denies anxiety and Denies memory loss Endo Denies excessive sweating, Denies fatigue and Denies heat intolerance Melvin/Lymph Denies easy bruising Aller/Immun Denies itchy eyes, Denies seasonal rhinorrhea and Reports wheezing Physical Exam Vital Signs: Last Vital Signs Pulse 83 04/16/24 10:32 BP 102/64 04/16/24 10:32 Pulse Ox 96 04/16/24 10:32 Oxygen Delivery Method Room Air 04/16/24 10:32 BMI result Body Mass Index 25.1 Const General: no acute distress and alert Nutritional Appearance: not obese Orientation/consciousness: Other orientation findings ( oriented) HEENT Head: Yes atraumatic Eyes General: appearance normal, both eyes and all related structures Sclerae: sclerae normal EOM: EOMs intact bilaterally Neck Neck: Yes supple Lymphatic: no lymphadenopathy noted Resp Effort & Inspection: normal respiratory effort and no use of accessory muscles Auscultation: wheezes (Mild expiratory bilateral) Cardio Rate: regular rate Rhythm: regular rhythm Heart sounds: no gallops, no murmurs and no rubs Skin General skin exam: other ( warm) Extrem General: No clubbing, No cyanosis and No edema Assessment & Plan Assessment & Plan (1) Asthma: Code(s): J45.909 - Unspecified asthma, uncomplicated Category: Medical Qualifiers: Asthma severity: moderate Asthma persistence: persistent Asthma complication type: unspecified Qualified Code(s): J45.40 - Moderate persistent asthma, uncomplicated Plan: Suboptimally controlled on Dulera, will switch to BrezTri and obtain full PFT. Continue albuterol MDI. (2) GUNJAN (obstructive sleep apnea): Code(s): G47.33 - Obstructive sleep apnea (adult) (pediatric) Category: Medical Plan: Underlying unrestful sleep, snoring, prior history of sleep apnea with recent weight changes. [place] Sleepiness Scale score of 14. Will obtain home sleep study. (3) Environmental allergies: Code(s): Z91.09 - Other allergy status, other than to drugs and biological substances Category: Medical Plan: Will obtain IgE level, CBC with differential, and RAST panel for further evaluation. Orders: Orders Resp Allergy Profile Region I Today J45.40 - Moderate persistent asthma, uncomplicated PFT pulmonary function test Today J45.40 - Moderate persistent asthma, uncomplicated Complete Blood Count Auto Diff Today J45.40 - Moderate persistent asthma, uncomplicated RT home sleep study Today G47.33 - Obstructive sleep apnea (adult) (pediatric) Medications: New pgqmlxwkvk-ywardvwg-ifnougortx 160-9-4.8 mcg/actuation (Breztri Aerosphere) 2 inhalations inhalation BID 1 ea 6RF 30 days J45.40 - Moderate persistent asthma, uncomplicated Discontinued mometasone-formoterol 200-5 mcg/actuation (Dulera) Discontinued Reason: Doctor's Order 2 puffs inhalation BID 8.8 grams 3RF Coding Level of Care Code New Pt Level 4 (20758) Diagnoses Moderate persistent asthma, unspecified whether complicated J45.40 Asthma severity: moderate Asthma persistence: persistent Asthma complication type: unspecified GUNJAN (obstructive sleep apnea) G47.33 Environmental allergies Z91.09
== END 2024-04-16 10:53 | disposition home or self-care (01) ==
PROVIDERS: PCP Internal Medicine; Visit Provider Internal Medicine Pulmonary Disease
DX: J45.40 Moderate persistent asthma, uncomplicated (principal); G47.33 Obstructive sleep apnea (adult) (pediatric); Z91.09 Other allergy status, other than to drugs and biological substances
CPT/HCPCS: 99204

== ENCOUNTER 2024-04-16 10:30 | Outpatient (REF) | payer MEDICARE, MEDICAID, SELFPAY ==
[2024-04-16 11:09] LABS: MANUAL DIFF FLAG NO
[2024-04-16 12:47] LABS: Basophils Absolute Auto 0.1 X10*3/uL (0.0-0.2); Basophils Percent Auto 1.7 % (0-2); Eosinophils Absolute Auto 0.2 X10*3/uL (0.0-0.4); Hematocrit 43.1 % (37.0-47.0); Hemoglobin 14.3 g/dl (12.0-16.0); Imm Gran Abs Auto 0.02 X10*3/uL (0.00-0.03); Imm Gran Pct Auto 0.3 % (0.0-0.4); Lymphocytes Percent Auto 35.4 % (20-40); Mean Corpuscular HGB Conc 33.2 g/dl (31.0-35.0); Mean Corpuscular Hemoglobin 28.9 pg (27.0-33.0); Mean Corpuscular Volume 87.1 fL (80.0-98.0); Mean Platelet Volume 10.9 fL (9.4-12.3); Monocytes Absolute Auto 0.4 X10*3/uL (0.1-1.2); Monocytes Percent Auto 6.9 % (2-11); Neutrophils Percent Auto 51.7 % (45-73); Platelet Count 272 X10*3/uL (160-400); Red Blood Count 4.95 X10*6/uL (4.20-5.50); Red Cell Distribution Width 13.7 % (11.0-16.0); White Blood Count 5.8 X10*3/uL (4.8-10.8)
[2024-04-18 03:48] LABS: Class Alternaria alternata 0; Class Aspergillus fumigatus 0; Class Bermuda Grass 1; Class Birch 3; Class Cat Dander 6; Class Cladosporium herbarum 0; Class Cockroach 0; Class Common Ragweed 0/1; Class Cottonwood 0; Class Derm. pterony 3; Class Dermatophagoides farinae 3; Class Dog Dander 5; Class Elm 0/1; Class Maple Box Elder 0/1; Class Mountain Cedar 0; Class Mouse Urine Protein 3; Class Mugwort 0; Class Oak 3; Class Penicillium crysogenum 0; Class Rough Pigweed 0; Class Sheep Sorrel 0; Class Sycamore 0/1; Class Timothy Grass 2; Class Walnut Tree 0; Class White Ash 0; Class White Mulberry 0; D001 IgE D pteronyssinus 7.67 kU/L; D002 - IgE D farinae 5.25 kU/L; E001 - IgE Cat Dander >100 kU/L; G002 IgE Bermuda Grass 0.46 kU/L; G006 - IgE Timothy Grass 1.18 kU/L; I006-IgE Cockroach, German <0.10 kU/L; Immunoglobulin E 774 kU/L (<OR=114); M001 IgE Penicillium chrysogen <0.10 kU/L; M002 - IgE Cladosporium herbar <0.10 kU/L; M003 - IgE Aspergillus fumigat <0.10 kU/L; M006 - IgE Alternaria alternat <0.10 kU/L; T001 IgE Maple/Box Elder 0.21 kU/L; T006 - IgE Cedar, Mountain <0.10 kU/L; T007 - IgE Oak, White 3.73 kU/L; T008 IgE Elm, American 0.11 kU/L; T010 - IgE Walnut <0.10 kU/L; T011 - IgE Maple Leaf Sycamore 0.17 kU/L; T014 - IgE Cottonwood <0.10 kU/L; T015 - IgE Ash, White <0.10 kU/L; T070 - IgE White Mulberry <0.10 kU/L; W001 - IgE Ragweed, Short 0.28 kU/L; W006 - IgE Mugwort <0.10 kU/L; W014 IgE Pigweed, Common <0.10 kU/L; W018 IgE Sheep Sorrel <0.10 kU/L
== END 2024-04-16 10:31 | disposition home or self-care (01) ==
LOC: HO.LAB 10:30
PROVIDERS: PCP Internal Medicine; Visit Provider Internal Medicine Pulmonary Disease
DX: J45.40 Moderate persistent asthma, uncomplicated (principal)
CPT/HCPCS: 36415; 82785; 85025; 86003; 99202

== ENCOUNTER 2024-04-26 13:43 | Outpatient (AMB) | payer MEDICARE, MEDICAID, SELFPAY ==
--- NOTE | 2024-04-26 13:54 | A.OFFVIS_ITS ---
Vital Signs 04/26/24 13:55 Height 6 ft Weight 185 lb BMI 25.1 Handedness Left Intake Visit Reasons: OV - right shoulder MRI review Intake Note: Emani is a 53 year old Left hand dominant female who presents with progressively worsening bilateral shoulder pains and weakness, right greater than left. The patient states that she injured her shoulders many years ago while playing football. She has undergone 2 surgeries on both of her shoulders. Those surgeries were performed in [place], [place]. The patient states that after right shoulder surgery the shoulder surgeon told her that her rotator cuff tendon is ?quite thin and frayed?. The patient states that her symptoms have gotten worse over the last few years in spite of continued non operative treatments. She has had injections given into both shoulders which gave her minimal relief. She has also done physical therapy exercises which aggravated her pain. The patient states that she has difficulty lifting both of her hands above shoulder height. Allergies latex Allergy (Severe, Verified 04/26/24 13:57) Anaphylaxis Cephalosporins Allergy (Mild, Verified 04/26/24 13:57) Rash egg Allergy (Mild, Verified 04/26/24 13:57) Unknown ibuprofen [From Motrin] Adverse Reaction (Mild, Verified 04/26/24 13:57) Rash sulfur Allergy (Mild, Uncoded 03/07/24 09:18) Rash Medication List - Last Reconciled 04/26/24 by Pedro Cruz MD acarbose 100 mg PO TID albuterol sulfate 90 mcg/actuation 2 puffs inhalation QID usjpnekasr-aydrykoy-xgwyshktoi 160-9-4.8 mcg/actuation (Breztri Aerosphere) 2 inhalations inhalation BID 30 days cetirizine (Zyrtec) 10 mg PO DAILY PRN cyanocobalamin (vitamin B-12) 1,000 mcg IM .ONCE A MONTH escitalopram oxalate (Lexapro) 20 mg PO DAILY estradiol 1 patch transdermal QWEEK gabapentin 600 mg PO DAILY lansoprazole (Acid Chemical Equipment Repairer (lansoprazole)) 15 mg PO DAILY lorazepam (Ativan) 1 mg PO BEDTIME PRN ondansetron 4 mg PO Q8H ropinirole 1 - 2 mg PO BEDTIME sumatriptan succinate (Imitrex) 50 mg PO Q2-4H PRN PFSH Medical History Vitamin B12 deficiency Allergic rhinitis GERD without esophagitis Pulmonary nodule, left Anxiety Neuropathy Asthma Diabetes mellitus Migraine Cyclical vomiting Surgical History Hx of shoulder surgery Hx of shoulder surgery Hx of colonoscopy Status post laparoscopic assisted vaginal hysterectomy (LAVH) (~2017) Hx of gastric bypass (~2009) Hx of cholecystectomy Family History Other Diabetes Social History Housing: House Patient Tobacco Use Status: Former Tobacco user Tobacco use type: Cigarette Cigarette Packs Per Day: 1.5 Years Smoked: quit more than 15 years ago, started as a teen e-Cigarette/Vaping Use: Never Used Current occupational status: disabled Current occupation: Left hand dominant Cognitive needs: No Hearing needs: No Vision needs: Yes Physical Exam Vital Signs: BMI result Body Mass Index 25.1 Const Other: Well-nourished well-developed very friendly female awake alert and oriented x3 in no acute distress Extrem Other: Bilateral upper extremity examination shows good capillary refill, no skin lesions noted, normal sensation light touch Right shoulder examination shows decreased range of motion when compared to her left shoulder, 4/5 strength with supraspinatus testing, positive impingement signs, no instability Results Reviewed Results Reviewed: MRI of the patient's right shoulder shows diffuse thinning of her infraspinatus and supraspinatus tendons as well as a recurrent full-thickness tear of the supraspinatus tendon with retraction skilled nursing to the glenoid Assessment & Plan Assessment & Plan (1) Right shoulder pain: Code(s): M25.511 - Pain in right shoulder Category: Medical Plan Ms. Kim presents with right shoulder pain and weakness due to a large full-thickness rotator cuff tear. I had a lengthy discussion with the patient regarding the treatment options. At this point the patient has failed continued non operative treatments. The risks and benefits of revision right shoulder surgery were discussed at length with the patient. The patient is interested in proceeding with surgery. The patient did question the significance of her rotator cuff tendon ?thinning? and it is possible effect on having a strong tendon repair. I did discuss with the patient the fact that she may be a candidate for reinforcement of the repair if needed with a surgical patch. The patient is interested in learning more about this from Dr. Diaz. Thus, I will arrange for a follow-up appointment with Dr. Diaz. Feel free to call me at any time should questions regarding her orthopedic management arise. I spent 20 minutes in reviewing the patient's records and imaging studies, seeing the patient and documenting in the medical record. Coding Level of Care Code Est Pt Level 3 (07310) Diagnoses Right shoulder pain M25.511
[2024-04-26 13:55] VITALS: BMI 25.1
== END 2024-04-26 14:22 | disposition home or self-care (01) ==
PROVIDERS: PCP Internal Medicine; Visit Provider Orthopaedic Surgery
DX: M25.511 Pain in right shoulder (principal)
CPT/HCPCS: 99214

== ENCOUNTER → 2024-04-26 13:43 | Outpatient (BNVA) | payer MEDICARE, MEDICAID, SELFPAY | PROVIDERS: PCP Internal Medicine; Visit Provider Orthopaedic Surgery | DX: M75.101 Unspecified rotator cuff tear or rupture of right shoulder, not specified as traumatic (principal) | CPT/HCPCS: 99212 ==

== ENCOUNTER 2024-04-30 13:37 | Outpatient (REF) | payer MEDICARE, MEDICAID, SELFPAY ==
--- NOTE | ~2024-04-30 | MM_ITS ---
EXAMINATION: MM DIAGNOSTIC DIGITAL BREAST TOMOSYNTHESIS, RIGHT CLINICAL INFORMATION: Follow-up for right breast architectural distortion seen upper outer quadrant approximately 10:00 axis, middle one third. COMPARISON: Mammography: Screening mammography 04/05/2024, and mammography from [place] 06/16/2022. TECHNIQUE: Digital breast tomosynthesis is performed. 2D images are generated from the tomosynthesis. The following views are obtained: Full-field right 3-D mediolateral view, as well as small paddle spot compression 3-D right CC, and right MLO view x2. This was followed by targeted right breast ultrasound. FINDINGS: There are scattered areas of fibroglandular density (ACR BI-RADS breast composition Category b). Additional views demonstrate persistence of a focus of architectural distortion in the 10:00 axis of the right breast, middle one third, similar to 04/05/2024, and 06/16/2022 exams. Patient reports no history of trauma to this region. No history of surgeries. This likely represents either fat necrosis or region of radial scar. Recommend stereotactic biopsy of the distortion to err on the side of caution. No adenopathy evident. No additional suspicious findings right breast. MM/MM tomosynthesis added views R IMPRESSION: -Focus of architectural distortion right breast 10:00 axis, middle one third, for which stereotactic biopsy is recommended. This may be a radial scar. Differential also includes fat necrosis, and possibly lobular CA. -Findings and recommendations discussed with the patient in detail, who is in agreement with the overall plan. ASSESSMENT: BI-RADS BI-RADS 4 - Suspicious finding RECOMMENDATION: Biopsy recommended
--- NOTE | ~2024-04-30 | US_ITS ---
EXAMINATION: US DIAGNOSTIC ULTRASOUND BREAST, RIGHT CLINICAL INFORMATION: Subtle distortion right breast upper outer quadrant. Evaluate with ultrasound. COMPARISON: No prior right. Right diagnostic mammogram same date. TECHNIQUE: Ultrasound of the right breast is performed with real-time lópez scale imaging and color Doppler. The upper outer quadrant of the right breast was interrogated. FINDINGS: There is no mass, abnormal shadowing, cystic abnormality, or area of architectural distortion identified to correlate with the finding seen on mammography. Only normal scattered fibroglandular normal breast tissue is seen. Results were discussed with the patient at time of visit. US/US breast RT limited mamm only IMPRESSION: No sonographic correlate to the subtle distortion in the upper outer right breast approximately 10:00 axis. ASSESSMENT: BI-RADS 1: Negative RECOMMENDATION: Stereotactic biopsy right breast as per recommended on the right breast mammogram of same date.
== END 2024-04-30 13:38 | disposition home or self-care (01) ==
LOC: HO.MAMMO 13:37
PROVIDERS: PCP Internal Medicine; Visit Provider Internal Medicine
DX: N64.89 Other specified disorders of breast (principal)
CPT/HCPCS: 76642; 77061; 77065

== ENCOUNTER → 2024-04-30 14:00 | Outpatient (BNV) | payer MEDICARE, MEDICAID, SELFPAY | PROVIDERS: PCP Internal Medicine; Visit Provider Radiology Diagnostic Radiology | DX: N63.11 Unspecified lump in the right breast, upper outer quadrant (principal) | CPT/HCPCS: 76642; 77065; G0279 ==

== ENCOUNTER 2024-05-02 08:27 | Outpatient (AMB) | payer MEDICARE, MEDICAID, SELFPAY ==
--- NOTE | 2024-05-02 08:29 | MHC.OFFVIS ---
Vital Signs 05/02/24 08:34 Height 6 ft Weight 188 lb BMI 25.5 BP 104/65 Blood Pressure Location Rt brachial Position Sitting Pulse 74 Intake Visit Reasons: stereo Rt. brst. bx , RUQ architectural distortion Intake Note: Patient is seen in office for stereo biopsy consult of the right breast right upper quadrant, architectural distortion. Pt c/o: denies feeling lumps or bumps. No personal or family hx of breast CA. us & mm:04/30/24 Pharmacovigilance Specialist Required: No Accompanied by: Self / Same As Patient Allergies latex Allergy (Severe, Verified 05/02/24 08:33) Anaphylaxis Cephalosporins Allergy (Mild, Verified 05/02/24 08:33) Rash egg Allergy (Mild, Verified 05/02/24 08:33) Unknown ibuprofen [From Motrin] Adverse Reaction (Mild, Verified 05/02/24 08:33) Rash sulfur Allergy (Mild, Uncoded 05/02/24 08:33) Rash Medication List - Last Reconciled 05/02/24 by Duy Lara MD acarbose 100 mg PO TID albuterol sulfate 90 mcg/actuation 2 puffs inhalation QID tkhmsazhmu-ycpzcgjk-fqqeviqofs 160-9-4.8 mcg/actuation (Breztri Aerosphere) 2 inhalations inhalation BID 30 days cetirizine (Zyrtec) 10 mg PO DAILY PRN cyanocobalamin (vitamin B-12) 1,000 mcg IM .ONCE A MONTH escitalopram oxalate (Lexapro) 20 mg PO DAILY estradiol 1 patch transdermal QWEEK gabapentin 600 mg PO DAILY lansoprazole (Acid Tuckpointer Cleaner Caulker (lansoprazole)) 15 mg PO DAILY lorazepam (Ativan) 1 mg PO BEDTIME PRN ondansetron 4 mg PO Q8H ropinirole 1 - 2 mg PO BEDTIME sumatriptan succinate (Imitrex) 50 mg PO Q2-4H PRN HPI Comments Details: 53-year-old female patient presenting with a recent screening mammogram performed on 04/05/2024 with subsequent additional views of the right breast an ultrasound right breast performed on 04/30/2024. Studies revealed an area of architectural distortion in the upper outer quadrant of the right breast, confirmed on the additional views were not seen on ultrasound. Findings were felt to be suspicious for malignancy and stereotactic guided core biopsy recommended. She is scheduled for this procedure later today at the [facility]. She reports a previous left breast biopsy x2 with markers in the left breast several years ago. This was benign biopsy. Her family history is negative for breast cancer. Her mother from lung cancer. She is 10 para 3 with 6 miscarriages. She breastfed 2 of her children but does report developing mastitis in 1 of her breasts, unsure which side. She denies a history of breast trauma or breast surgery. [facility] Medical History Vitamin B12 deficiency Allergic rhinitis GERD without esophagitis Pulmonary nodule, left Anxiety Neuropathy Asthma Diabetes mellitus Migraine Cyclical vomiting Surgical History Hx of shoulder surgery Hx of shoulder surgery Hx of colonoscopy Status post laparoscopic assisted vaginal hysterectomy (LAVH) (~2016) Hx of gastric bypass (~2009) Hx of cholecystectomy Family History Other Diabetes Social History Housing: House Patient Tobacco Use Status: Former Tobacco user Tobacco use type: Cigarette Cigarette Packs Per Day: 1.5 Years Smoked: quit more than 15 years ago, started as a teen e-Cigarette/Vaping Use: Never Used Current occupational status: disabled Current occupation: Left hand dominant Cognitive needs: No Hearing needs: No Vision needs: Yes Review of Systems Const All systems reviewed & are unremarkable except as noted in HPI and below Denies chills, Denies fever(s), Denies headache(s), Denies poor appetite and Denies weakness ENT Denies headache(s) Card Denies chest pain, Denies irregular heart rhythm, Denies palpitations and Denies dyspnea Resp Denies cough, Denies excessive phlegm production and Denies dyspnea GI Denies abdominal pain, Denies bloating, Denies change in bowel habits, Denies constipation, Denies heartburn, Denies diarrhea, Denies nausea and Denies vomiting Denies urinary frequency Musc Denies back pain, Reports arthralgias (Right shoulder), Denies muscle weakness and Denies numbness Skin/Breast Denies changing lesions and Denies unusual bruising Neuro Denies headache(s), Denies numbness, Denies paresthesias and Denies weakness Psych Denies anxiety and Denies depression Endo Denies palpitations Melvin/Lymph Denies lymphadenopathy Physical Exam Vital Signs: Last Vital Signs Pulse 74 05/02/24 08:34 BP 104/65 05/02/24 08:34 BMI result Body Mass Index 25.5 Const General: cooperative and no acute distress Nutritional Appearance: well nourished Orientation/consciousness: patient oriented x3 Limitations: no limitations HEENT Head: Yes normocephalic and Yes atraumatic Ears: hearing grossly normal bilaterally Chest Other: Left breast: No skin change, no nipple retraction, no nipple discharge, no palpable mass, no enlarged lymph nodes. Right breast: No skin change, no nipple retraction, no nipple discharge, no palpable mass, no enlarged lymph nodes Resp Effort & Inspection: normal respiratory effort, no audible wheezes, no cough and no respiratory distress Cardio Jugular venous distension: no JVD GI Inspection: Yes normal to inspection Skin Other: Warm, dry, no rash Neuro Other: Mobility Assessment: 1. 3 meter assessment time (seconds):4 2. Gait observations: Normal balance and gait General: patient oriented x3 Extrem General: Yes no clubbing, cyanosis or edema Assessment & Plan Assessment & Plan (1) Abnormal mammogram of right breast: Code(s): R92.8 - Other abnormal and inconclusive findings on diagnostic imaging of breast Category: Medical Plan 53-year-old female patient presenting with an area of architectural distortion located in the right breast at the upper outer quadrant. Examination today reveals no suspicious findings in either breast and no enlarged lymph nodes. She has scheduled for a stereotactic guided core biopsy later today at the [facility]. We review the images and discussed the procedure in detail. She expressed understanding and agrees with the plan. I recommended she return in approximately 1 week to review the pathology results and discuss treatment options. Orders: Orders MM stereotactic biopsy RT Today R92.8 - Other abnormal and inconclusive findings on diagnostic imaging of breast Coding Level of Care Code New Pt Level 4 (61550) Diagnoses Abnormal mammogram of right breast R92.8
[2024-05-02 08:34] VITALS: BP 104/65; PULSE 74; BMI 25.5
== END 2024-05-02 08:49 | disposition home or self-care (01) ==
PROVIDERS: PCP Internal Medicine; Visit Provider Surgery
DX: R92.8 Other abnormal and inconclusive findings on diagnostic imaging of breast (principal)
CPT/HCPCS: 99204

== ENCOUNTER 2024-05-02 08:54 | Outpatient (REF) | payer MEDICARE, MEDICAID, SELFPAY ==
--- NOTE | ~2024-05-02 | MM_ITS ---
EXAMINATION: STEREOTACTIC TOMOSYNTHESIS-GUIDED VACUUM-ASSISTED BREAST BIOPSY, RIGHT POST PROCEDURE DIGITAL MAMMOGRAM, RIGHT CLINICAL INFORMATION: Subtle distortion mid right breast upper outer quadrant.? Radial scar versus other. COMPARISON: 04/30/2024 mammography and ultrasound. Mammography 06/16/2022 from [facility]. TECHNIQUE/PROCEDURE: Informed consent was obtained from the patient after discussion of the benefits, risks, and alternatives to biopsy today. Patient appeared to understand. Gave opportunity for questions. Patient signed consent form. BIOPSY TABLE: InCytu Affirm Prone Biopsy System. LESION: Focus of architectural distortion upper outer right breast, middle one third. LOCAL ANESTHESIA: 2 mL 1% lidocaine; 9 mL 1% lidocaine with epinephrine. DERMATOTOMY: Single skin stevan dermatotomy performed. NEEDLE: Optimizelyiva 9-gauge vacuum assisted core biopsy device. APPROACH: Lateral to medial. TARGETING: Combination of digital breast tomosynthesis and stereotactic digital mammography used for targeting. CORES: 7. CLIP: M[employer]friends SecurMark Cylinder-shaped marker. SPECIMEN RADIOGRAPH: Not required. POST PROCEDURE UNILATERAL DIGITAL MAMMOGRAM: The post biopsy mammogram is performed in separate room using separate digital mammography equipment from the biopsy procedure. Right CC and ML views are obtained. There are scattered areas of fibroglandular density (breast composition category: b). The biopsy clip is noted to have migrated approximately 3 cm medial and posteroinferior to the distortion. This migration happened after the biopsy, likely secondary to tissue rebound. The patient tolerated the procedure well. No immediate complications. Home instructions reviewed with the patient. Final pathology results are pending. MM/MM stereotactic biopsy RT IMPRESSION: 1. Digital tomosynthesis-guided core biopsy right breast distortion with clip placement. 2. Specimen radiograph taken and post procedure mammogram. Biopsy clip migrated 3 cm posteroinferior and medial to the distortion. This should be taken into account should this distortion require excision and localization. We will localize the distortion, not the biopsy clip. 3. Final pathology results pending. An addendum report will be issued.
[2024-05-02] MEDS: Lidocaine HCl 1 % 20 ML VIAL SUBCUT (11:03)
[2024-05-02] MEDS: Sodium Bicarbonate 8.4% 50 MEQ/50 ML VIAL SUBCUT (11:06)
== END 2024-05-02 08:55 | disposition home or self-care (01) ==
LOC: HO.MAMMO 08:54
PROVIDERS: PCP Internal Medicine; Visit Provider Surgery
DX: R92.8 Other abnormal and inconclusive findings on diagnostic imaging of breast (principal)
CPT/HCPCS: 19081; 88305; 88341; 88342; 99202; A4648

== ENCOUNTER 2024-05-09 09:49 | Outpatient (AMB) | payer MEDICARE, MEDICAID, SELFPAY ==
--- NOTE | 2024-05-09 09:54 | MHC.OFFVIS ---
Vital Signs 05/09/24 09:57 Height 6 ft Weight 186 lb BMI 25.2 BP 102/65 Blood Pressure Location Lt brachial Position Sitting Pulse 81 Intake Visit Reasons: s/p stereo Rt. brst. bx , RUQ Intake Note: Patient is seen in office for stereo biopsy results, right breast right upper quadrant. Pt c/o: admits to bruise, denies redness, discharge or other concerns Cvicu Nurse Required: No Accompanied by: Self / Same As Patient Allergies latex Allergy (Severe, Verified 05/09/24 09:57) Anaphylaxis Cephalosporins Allergy (Mild, Verified 05/09/24 09:57) Rash egg Allergy (Mild, Verified 05/09/24 09:57) Unknown ibuprofen [From Motrin] Adverse Reaction (Mild, Verified 05/09/24 09:57) Rash sulfur Allergy (Mild, Uncoded 05/09/24 09:57) Rash HPI Comments Details: 53-year-old female patient presenting with a recent screening mammogram performed on 04/05/2024 with subsequent additional views of the right breast an ultrasound right breast performed on 04/30/2024. Studies revealed an area of architectural distortion in the upper outer quadrant of the right breast, confirmed on the additional views were not seen on ultrasound. Findings were felt to be suspicious for malignancy and stereotactic guided core biopsy recommended. She reports a previous left breast biopsy x2 with markers in the left breast several years ago. This was benign biopsy. Her family history is negative for breast cancer. Her mother from lung cancer. She is 9 para 3 with 6 miscarriages. She breastfed 2 of her children but does report developing mastitis in 1 of her breasts, unsure which side. She denies a history of breast trauma or breast surgery. Stereotactic guided core biopsy was performed on 05/02/2024. Pathology revealed ?radial sclerosing lesion/radial scar with ductal hyperplasia without atypia, intraductal papilloma, sclerosing adenosis, apocrine metaplasia, and focal columnar cell change.? Wider excision is recommended to assure complete removal. [facility] Medical History Vitamin B12 deficiency Allergic rhinitis GERD without esophagitis Pulmonary nodule, left Anxiety Neuropathy Asthma Diabetes mellitus Migraine Cyclical vomiting Surgical History Hx of shoulder surgery Hx of shoulder surgery Hx of colonoscopy Status post laparoscopic assisted vaginal hysterectomy (LAVH) (~2017) Hx of gastric bypass (~2009) Hx of cholecystectomy Family History Other Diabetes Social History Housing: House Patient Tobacco Use Status: Former Tobacco user Tobacco use type: Cigarette Cigarette Packs Per Day: 1.5 Years Smoked: quit more than 15 years ago, started as a teen e-Cigarette/Vaping Use: Never Used Current occupational status: disabled Current occupation: Left hand dominant Cognitive needs: No Hearing needs: No Vision needs: Yes Review of Systems Const All systems reviewed & are unremarkable except as noted in HPI and below Denies chills, Denies fever(s), Denies headache(s), Denies poor appetite and Denies weakness ENT Denies headache(s) Card Denies chest pain, Denies irregular heart rhythm, Denies palpitations and Denies dyspnea Resp Denies cough, Denies excessive phlegm production and Denies dyspnea GI Denies abdominal pain, Denies bloating, Denies change in bowel habits, Denies constipation, Denies heartburn, Denies diarrhea, Denies nausea and Denies vomiting Denies urinary frequency Musc Denies back pain, Reports arthralgias (Right shoulder), Denies muscle weakness and Denies numbness Skin/Breast Denies changing lesions and Denies unusual bruising Neuro Denies headache(s), Denies numbness, Denies paresthesias and Denies weakness Psych Denies anxiety and Denies depression Endo Denies palpitations Melvin/Lymph Denies lymphadenopathy Physical Exam Vital Signs: Last Vital Signs Pulse 81 05/09/24 09:57 BP 102/65 05/09/24 09:57 BMI result Body Mass Index 25.2 Const General: cooperative and no acute distress Nutritional Appearance: well nourished Orientation/consciousness: patient oriented x3 Limitations: no limitations HEENT Head: Yes normocephalic and Yes atraumatic Ears: hearing grossly normal bilaterally Chest Other: Left breast: No skin change, no nipple retraction, no nipple discharge, no palpable mass, no enlarged lymph nodes. Right breast: No skin change, no nipple retraction, no nipple discharge, no palpable mass, no enlarged lymph nodes Resp Effort & Inspection: normal respiratory effort, no audible wheezes, no cough and no respiratory distress Cardio Jugular venous distension: no JVD GI Inspection: Yes normal to inspection Skin Other: Warm, dry, no rash Neuro Other: Mobility Assessment: 1. 3 meter assessment time (seconds):4 2. Gait observations: Normal balance and gait General: patient oriented x3 Extrem General: Yes no clubbing, cyanosis or edema Assessment & Plan Assessment & Plan (1) Abnormal mammogram of right breast: Code(s): R92.8 - Other abnormal and inconclusive findings on diagnostic imaging of breast Category: Medical Plan 53-year-old female patient presenting with an area of architectural distortion located in the right breast at the upper outer quadrant. Examination revealed no suspicious findings in either breast and no enlarged lymph nodes. She underwent a stereotactic guided core biopsy at the [facility] on 05/02/2024. Pathology revealed radial sclerosing lesion/radial scar with ductal hyperplasia without atypia, intraductal papilloma, sclerosing adenosis, apocrine metaplasia, and focal columnar cell change. A copy of the report was provided to the patient. We discussed lumpectomy with localizer to assure complete removal. After discussion of the procedure, risks and alternatives, she consents to a right breast lumpectomy with localizer. Coding Level of Care Code Est Pt Level 4 (93643) Diagnoses Abnormal mammogram of right breast R92.8
[2024-05-09 09:57] VITALS: BP 102/65; PULSE 81; BMI 25.2
== END 2024-05-09 10:11 | disposition home or self-care (01) ==
PROVIDERS: PCP Internal Medicine; Visit Provider Surgery
DX: R92.8 Other abnormal and inconclusive findings on diagnostic imaging of breast (principal)
CPT/HCPCS: 99214

== ENCOUNTER → 2024-05-09 09:49 | Outpatient (BNVA) | payer MEDICARE, MEDICAID, SELFPAY | PROVIDERS: PCP Internal Medicine; Visit Provider Surgery | DX: R92.8 Other abnormal and inconclusive findings on diagnostic imaging of breast (principal) | CPT/HCPCS: 99212 ==

== ENCOUNTER 2024-05-13 15:15 | Outpatient (AMB) | payer MEDICARE, MEDICAID, SELFPAY ==
[2024-05-13 15:15] VITALS: BP 126/68; BMI 25.2
--- NOTE | 2024-05-13 15:15 | MHC.OFFVIS ---
Vital Signs 05/13/24 15:15 Height 6 ft Weight 186 lb BMI 25.2 BP 126/68 Blood Pressure Location Lt brachial Position Sitting Intake Visit Reasons: menopause/referral/DO NOT RS x2 Allergies latex Allergy (Severe, Verified 05/13/24 15:16) Anaphylaxis Cephalosporins Allergy (Mild, Verified 05/13/24 15:16) Rash egg Allergy (Mild, Verified 05/13/24 15:16) Unknown ibuprofen [From Motrin] Adverse Reaction (Mild, Verified 05/13/24 15:16) Rash sulfur Allergy (Mild, Uncoded 05/13/24 15:16) Rash HPI Comments Details: Presenting complaining of urinary frequency and leakage upon coughing, sneezing or lifting heavy objects in addition to urgency and urge incontinence. The patient has been on estradiol patch 0.075 mg per week since her hysterectomy with BSO in 2017 for myomas and abnormal uterine bleeding. Recently had a breast biopsy, the pathology of which showed the following: Breast, right, stereotactic core biopsy of distortion, upper outer quadrant middle one third: -Radial sclerosing lesion/radial scar with ductal hyperplasia without atypia, intraductal papilloma, sclerosing adenosis, apocrine metaplasia, and focal columnar cell change. Negative for atypia or malignancy. Please see pathology report for comprehensive information regarding the specimen. Pathology results are considered concordant with imaging expectations. Results were communicated to Dr. Vega and myself via secure text and secure fax 05/06/2024, at 13;28. RECOMMENDATIONS: 1. Surgical management recommended due to radial scar and intraductal papilloma. Patient will require excision of this area The patient was seen by Dr. Lara and scheduled for a right breast lumpectomy on 05/29 [facility] Medical History Vitamin B12 deficiency Allergic rhinitis GERD without esophagitis Pulmonary nodule, left Anxiety Neuropathy Asthma Diabetes mellitus Migraine Cyclical vomiting Surgical History Hx of shoulder surgery Hx of shoulder surgery Hx of colonoscopy Status post laparoscopic assisted vaginal hysterectomy (LAVH) (~2016) Hx of gastric bypass (~2009) Hx of cholecystectomy Family History Other Diabetes Social History Housing: House Patient Tobacco Use Status: Former Tobacco user Tobacco use type: Cigarette Cigarette Packs Per Day: 1.5 Years Smoked: quit more than 15 years ago, started as a teen e-Cigarette/Vaping Use: Never Used Current occupational status: disabled Current occupation: Left hand dominant Cognitive needs: No Hearing needs: No Vision needs: Yes Review of Systems Const All systems reviewed & are unremarkable except as noted in HPI and below Reports as per HPI and Reports no additional complaints GI Reports no additional complaints Reports no additional complaints Physical Exam Vital Signs: Last Vital Signs BP 126/68 05/13/24 15:15 BMI result Body Mass Index 25.2 Assessment & Plan Assessment & Plan (1) Urine incontinence: Code(s): R32 - Unspecified urinary incontinence Category: Medical Plan: Discussed with the patient the different types of Urine incontinence, stress urinary incontinence, intrinsic sphincter deficiency, overactive bladder and its work up. We will refer to Urology. All questions answered, the patient verbalized understanding. Instructed the patient to call our office back in case a referral appointment is not scheduled, missed or canceled so that we will assist on rescheduling another appointment, the patient verbalized understanding agreed with the plan. (2) Abnormal mammogram of right breast: Code(s): R92.8 - Other abnormal and inconclusive findings on diagnostic imaging of breast Category: Medical Plan: Recommended the patient to discontinue her estradiol patch till breast lumpectomy pathology is back and negative and the pathology results is not associated with an increase in the risk of breast cancer. All questions answered the patient verbalized understanding and agreed with the plan Orders: Referrals Urology Referral R32 - Unspecified urinary incontinence Coding Level of Care Code New Pt Level 3 (95874) Diagnoses Urine incontinence R32 Abnormal mammogram of right breast R92.8
== END 2024-05-13 15:53 | disposition home or self-care (01) ==
PROVIDERS: PCP Internal Medicine; Visit Provider Obstetrics & Gynecology
DX: R32 Unspecified urinary incontinence (principal); R92.8 Other abnormal and inconclusive findings on diagnostic imaging of breast
CPT/HCPCS: 99203

== ENCOUNTER → 2024-05-13 15:15 | Outpatient (BNVA) | payer MEDICARE, MEDICAID, SELFPAY | PROVIDERS: PCP Internal Medicine; Visit Provider Obstetrics & Gynecology | DX: R32 Unspecified urinary incontinence (principal); R39.15 Urgency of urination; R92.8 Other abnormal and inconclusive findings on diagnostic imaging of breast; Z78.0 Asymptomatic menopausal state | CPT/HCPCS: 99202 ==

== ENCOUNTER 2024-05-20 | Outpatient (REF) | payer MEDICARE, MEDICAID, SELFPAY | END 2024-05-20 00:01 | disposition home or self-care (01) | LOC: CF | PROVIDERS: PCP Internal Medicine; Visit Provider Orthopaedic Surgery | DX: M75.101 Unspecified rotator cuff tear or rupture of right shoulder, not specified as traumatic (principal); J45.40 Moderate persistent asthma, uncomplicated; Z98.890 Other specified postprocedural states | CPT/HCPCS: 99212 ==

== ENCOUNTER 2024-05-20 12:52 | Outpatient (AMB) | payer MEDICARE, MEDICAID, SELFPAY ==
--- NOTE | 2024-05-20 12:58 | MHC.OFFVIS ---
Vital Signs 05/20/24 12:59 Height 6 ft Weight 186 lb BMI 25.2 Intake Visit Reasons: OV- discuss possible RT shoulder procedure per DR Intake Note: Emani is a 53 year old female who presents today for a follow up visit for right shoulder pain. Referred by Dr Cruz. Patient would like to discuss surgical treatment. Allergies latex Allergy (Severe, Verified 05/20/24 13:00) Anaphylaxis Cephalosporins Allergy (Mild, Verified 05/20/24 13:00) Rash egg Allergy (Mild, Verified 05/20/24 13:00) Unknown ibuprofen [From Motrin] Adverse Reaction (Mild, Verified 05/20/24 13:00) Rash sulfur Allergy (Mild, Uncoded 05/13/24 15:16) Rash HPI HPI OV- discuss possible RT shoulder procedure per DR: Details: Emani is a 53 year old female who presents today for a follow up visit for right shoulder pain. Referred by Dr Cruz. Patient would like to discuss surgical treatment. She had right RTC repair 5 years ago and has started having worsening pain over past 4 years. She has difficulty with overhead tasks such as cleaning curtains and states that the injections have not been helping. She has done lots of PT over the years [facility] Medical History Vitamin B12 deficiency Allergic rhinitis GERD without esophagitis Pulmonary nodule, left Anxiety Neuropathy Asthma Diabetes mellitus Migraine Cyclical vomiting Surgical History Hx of shoulder surgery Hx of shoulder surgery Hx of colonoscopy Status post laparoscopic assisted vaginal hysterectomy (LAVH) (~2017) Hx of gastric bypass (~2009) Hx of cholecystectomy Family History Other Diabetes Social History Housing: House Patient Tobacco Use Status: Former Tobacco user Tobacco use type: Cigarette Cigarette Packs Per Day: 1.5 Years Smoked: quit more than 15 years ago, started as a teen e-Cigarette/Vaping Use: Never Used Current occupational status: disabled Current occupation: Left hand dominant Cognitive needs: No Hearing needs: No Vision needs: Yes Physical Exam Vital Signs: BMI result Body Mass Index 25.2 Extrem Other: Right shoulder with 4+/5 EC + hawkin and Neer Neg lag Neg lift off 35/90/125/L5 Results Reviewed Results Reviewed: I personally reviewed relevant radiographs. Assessment & Plan Assessment & Plan (1) Rotator cuff tear, right: Code(s): M75.101 - Unspecified rotator cuff tear or rupture of right shoulder, not specified as traumatic Category: Medical Plan: This is a 53 yo F with a recurrent right rtc tear. She had a rtc 5 years ago. Her MRI and exam suggest reinjury and I recommend revision RTC tear. I suspect this will require bioinductive allograft as well. I explained this to her. I discussed the risks benefits and alternatives including but not limited to the risk of pain, infection, stiffness, need for further surgery as well as potential medical complications such as blood clots, pulmonary embolism and cardiac complications. She expressed understanding and would liek to proceed forward accordingly. (2) History of repair of right rotator cuff: Code(s): Z98.890 - Other specified postprocedural states Category: Surgical Plan: Coding Level of Care Code Est Pt Level 4 (98464) Diagnoses Rotator cuff tear, right M75.101 History of repair of right rotator cuff Z98.890
[2024-05-20 12:59] VITALS: BMI 25.2
== END 2024-05-20 13:25 | disposition home or self-care (01) ==
PROVIDERS: PCP Internal Medicine; Visit Provider Orthopaedic Surgery
DX: M75.101 Unspecified rotator cuff tear or rupture of right shoulder, not specified as traumatic (principal)
CPT/HCPCS: 99214

== ENCOUNTER → 2024-05-20 13:00 | Outpatient (BNV) | payer MEDICARE, MEDICAID, SELFPAY | PROVIDERS: PCP Internal Medicine; Visit Provider Internal Medicine | DX: R06.83 Snoring (principal) | CPT/HCPCS: 95806 ==

== ENCOUNTER → 2024-05-20 13:31 | Outpatient (REF) | payer MEDICARE, MEDICAID, SELFPAY | LOC: HO.SL 13:31 | PROVIDERS: PCP Internal Medicine; Visit Provider Internal Medicine Pulmonary Disease | DX: G47.33 Obstructive sleep apnea (adult) (pediatric) (principal) | CPT/HCPCS: 95806 ==

== ENCOUNTER 2024-05-21 07:47 | Outpatient (REF) | payer MEDICARE, MEDICAID, SELFPAY ==
--- NOTE | ~2024-05-21 | MM_ITS ---
EXAMINATION: MM MAMMOGRAM GUIDED RFID LOCALIZATION BREAST, RIGHT CLINICAL INFORMATION: -Radial sclerosing lesion/radial scar with ductal hyperplasia without atypia, intraductal papilloma right breast 10:00 axis, on stereotactic biopsy right breast 05/02/2024. COMPARISON: Stereotactic biopsy 05/02/2024, right breast ultrasound and diagnostic mammography 04/30/2024. Screening mammography 05/06/2024. TECHNIQUE NEEDLE LOC: Proper informed consent is obtained from the patient after discussion of the procedure, potential risks and complications, and alternatives including declining the procedure today. Patient was given an opportunity for questions. The patient appeared to understand. The patient consented to the procedure and signed the consent form. GUIDANCE: Digital mammography. APPROACH: Lateral Medial. TARGET: Distortion and cylinder shaped clip. ANESTHESIA: carbonated lidocaine 1%: 5 mL. LOCALIZATION SYSTEM: [employer] LOCallizer Wire-Free Guidance System with 7 cm, 12g needle applicator. RADIOFREQUENCY TAG: ID # [id number] DERMATOTOMY: Single 1 mm skin-stevan dermatotomy performed. RF Tag ID confirmed with LOCalizer Guidance System prior to placement. The skin is prepped and local anesthesia administered. The needle is positioned and RFID tag deployed. Final images demonstrate the LOCalizer RF tag to reside immediately adjacent to the biopsy clip and distortion, in good position for localization. The patient tolerated the procedure well and had no immediate complications. Dressing placed and home instructions reviewed. MM/MM RF Tag device RT IMPRESSION: -Status post right breast RFID localization for radial scar with intraductal papilloma 10:00 axis right breast, middle one third. -Final CC and ML images were appropriately labeled and marked for operating room reference.
== END 2024-05-21 07:48 | disposition home or self-care (01) ==
LOC: HO.MAMMO 07:47
PROVIDERS: Visit Provider Surgery
DX: R92.8 Other abnormal and inconclusive findings on diagnostic imaging of breast (principal)
CPT/HCPCS: 19281; C1819

== ENCOUNTER → 2024-05-21 08:00 | Outpatient (BNV) | payer MEDICARE, MEDICAID, SELFPAY | PROVIDERS: Visit Provider Radiology Diagnostic Radiology | DX: R92.8 Other abnormal and inconclusive findings on diagnostic imaging of breast (principal) | CPT/HCPCS: 19281 ==

== ENCOUNTER 2024-05-29 07:23 | Day surgery (SDC) | payer MEDICARE, MEDICAID, SELFPAY ==
[2024-05-27 08:32] VITALS: BMI 25.2
--- NOTE | 2024-05-27 14:38 | HO.ANESPROP2 ---
Documented by User: Barbara Brush NP 05/27/24 14:39 HPI - Anesthesia Eval Consult details Narrative: 54yo F for Breast Lumpectomy w/LOCalizer PMFSH Active Problems Active Problems: All Active Problems History of repair of right rotator cuff (Acute) Rotator cuff tear, right (Acute) Urine incontinence (Acute) Abnormal mammogram of right breast (Acute) Environmental allergies (Acute) GUNJAN (obstructive sleep apnea) (Acute) Right shoulder pain (Acute) Left shoulder pain (Acute) Menopausal symptoms (Acute) Vitamin B12 deficiency (Acute) Allergic rhinitis (Acute) Osteoporosis screening (Acute) Cervical cancer screening (Acute) Colon cancer screening (Acute) Bilateral shoulder pain (Acute) GERD without esophagitis (Acute) Breast cancer screening (Acute) Pulmonary nodule, left (Acute) Anxiety (Acute) Neuropathy (Acute) Asthma (Acute) Diabetes mellitus (Acute) Migraine (Acute) Cyclical vomiting (Acute) Annual physical exam (Acute) Past Medical History Medical History Vitamin B12 deficiency Allergic rhinitis GERD without esophagitis Pulmonary nodule, left Anxiety Neuropathy Asthma Diabetes mellitus Migraine Cyclical vomiting Family History Family History Other Diabetes Surgical History Surgical History Hx of shoulder surgery Hx of shoulder surgery Hx of colonoscopy Status post laparoscopic assisted vaginal hysterectomy (LAVH) (~2017) Hx of gastric bypass (~2009) Hx of cholecystectomy Social History Social History Housing: House Patient Tobacco Use Status: Former Tobacco user Tobacco use type: Cigarette Cigarette Packs Per Day: 1.5 Years Smoked: quit more than 15 years ago, started as a teen e-Cigarette/Vaping Use: Never Used Use of substances other than those prescribed or required for medical reasons: No Are you DNR?: No Advance Directives: No Advance Directives Information Provided: Yes Current occupational status: disabled Current occupation: Left hand dominant Cognitive needs: No Hearing needs: No Vision needs: Yes Meds Allergies Allergy/AdvReac Type Severity Reaction Status Date / Time latex Allergy Severe Anaphylaxis Verified 05/20/24 13:00 Cephalosporins Allergy Mild Rash Verified 05/20/24 13:00 egg Allergy Mild Unknown Verified 05/20/24 13:00 Sulfa (Sulfonamide Allergy Mild Rash Verified 05/29/24 07:51 Antibiotics) ibuprofen [From Motrin] AdvReac Mild Rash Verified 05/20/24 13:00 Home Medications ?Medication ?Instructions ?Recorded ?Confirmed ?Last Taken ?Type acarbose 100 mg tablet 100 mg PO TID 03/07/24 05/29/24 Unknown History albuterol sulfate 90 mcg/actuation 2 puff inhalation QID PRN 03/07/24 05/29/24 05/29/24 06:45 History aerosol inhaler Shortness Of Breath Or Wheezing cetirizine 10 mg tablet (Zyrtec) 10 mg PO DAILY PRN allergies 03/07/24 05/29/24 Unknown History cyanocobalamin (vitamin B-12) 1,000 mcg IM .ONCE A MONTH 03/07/24 05/29/24 Unknown History 1,000 mcg/mL injection kit escitalopram oxalate 20 mg tablet 20 mg PO DAILY 03/07/24 05/29/24 Unknown History (Lexapro) estradiol 0.075 mg/24 hr weekly 1 patch transdermal QWEEK 03/07/24 05/29/24 Unknown History transdermal patch gabapentin 600 mg tablet 600 mg PO DAILY 03/07/24 05/29/24 Unknown History lansoprazole 15 mg capsule,delayed 15 mg PO DAILY 03/07/24 05/29/24 05/29/24 06:45 History release (Acid Header Setup Operator (lansoprazole)) ondansetron 4 mg disintegrating 4 mg PO Q8H 03/07/24 05/29/24 Unknown History tablet sumatriptan succinate 50 mg tablet 50 mg PO Q2-4H PRN migraines 03/07/24 05/29/24 Unknown History (Imitrex) ropinirole 1 mg tablet 1 - 2 mg PO BEDTIME 04/16/24 05/29/24 Unknown History Exam Height,Weight and Vital Signs: Height 6 ft Weight 84.368 kg Pertinent Lab Results Pertinent Lab Results: Laboratory Tests 03/13/24 04/16/24 09:53 11:07 WBC 5.8 Hgb 14.3 Hct 43.1 Plt Count 272 Sodium 140 Potassium 4.0 Chloride 109 H Carbon Dioxide 23 BUN 9 Creatinine 0.71 Assessment and Plan Assessment Anesthesia Assessment: Chart Reviewed Documented by User: Tiffanie Vides MD 05/29/24 10:38 PMFSH Past Medical History Medical History Vitamin B12 deficiency Allergic rhinitis GERD without esophagitis Pulmonary nodule, left Anxiety Neuropathy Asthma Diabetes mellitus Migraine Cyclical vomiting Family History Family History Other Diabetes Family history of problems with anesthesia: No Surgical History Surgical History Hx of shoulder surgery Hx of shoulder surgery Hx of colonoscopy Status post laparoscopic assisted vaginal hysterectomy (LAVH) (~2016) Hx of gastric bypass (~2009) Hx of cholecystectomy History of Problems with Anesthesia: No Social History Social History Housing: House Patient Tobacco Use Status: Former Tobacco user Tobacco use type: Cigarette Cigarette Packs Per Day: 1.5 Years Smoked: quit more than 15 years ago, started as a teen e-Cigarette/Vaping Use: Never Used Use of substances other than those prescribed or required for medical reasons: No Are you DNR?: No Advance Directives: No Advance Directives Information Provided: Yes Current occupational status: disabled Current occupation: Left hand dominant Cognitive needs: No Hearing needs: No Vision needs: Yes Meds Allergies Allergy/AdvReac Type Severity Reaction Status Date / Time latex Allergy Severe Anaphylaxis Verified 05/20/24 13:00 Cephalosporins Allergy Mild Rash Verified 05/20/24 13:00 egg Allergy Mild Unknown Verified 05/20/24 13:00 Sulfa (Sulfonamide Allergy Mild Rash Verified 05/29/24 07:51 Antibiotics) ibuprofen [From Motrin] AdvReac Mild Rash Verified 05/20/24 13:00 Home Medications ?Medication ?Instructions ?Recorded ?Confirmed ?Last Taken ?Type acarbose 100 mg tablet 100 mg PO TID 03/07/24 05/29/24 Unknown History albuterol sulfate 90 mcg/actuation 2 puff inhalation QID PRN 03/07/24 05/29/24 05/29/24 06:45 History aerosol inhaler Shortness Of Breath Or Wheezing cetirizine 10 mg tablet (Zyrtec) 10 mg PO DAILY PRN allergies 03/07/24 05/29/24 Unknown History cyanocobalamin (vitamin B-12) 1,000 mcg IM .ONCE A MONTH 03/07/24 05/29/24 Unknown History 1,000 mcg/mL injection kit escitalopram oxalate 20 mg tablet 20 mg PO DAILY 03/07/24 05/29/24 Unknown History (Lexapro) estradiol 0.075 mg/24 hr weekly 1 patch transdermal QWEEK 03/07/24 05/29/24 Unknown History transdermal patch gabapentin 600 mg tablet 600 mg PO DAILY 03/07/24 05/29/24 Unknown History lansoprazole 15 mg capsule,delayed 15 mg PO DAILY 03/07/24 05/29/24 05/29/24 06:45 History release (Acid Header Setup Operator (lansoprazole)) ondansetron 4 mg disintegrating 4 mg PO Q8H 03/07/24 05/29/24 Unknown History tablet sumatriptan succinate 50 mg tablet 50 mg PO Q2-4H PRN migraines 03/07/24 05/29/24 Unknown History (Imitrex) ropinirole 1 mg tablet 1 - 2 mg PO BEDTIME 04/16/24 05/29/24 Unknown History Exam Airway Mallampati Class: II TM Dist: >3cm Neck ROM: Full Heart: rrr Lungs: cta Assessment and Plan Assessment Anesthesia Assessment: Anesthesia Plan Discussed Final Anesthetic Review Family History of Problems with Anesthesia: No History of Problems with Anesthesia: No NPO: Yes ASA Class: II Final Preanesthetic Review: No Changes in Pt Med Stat, Meds/Allgs Chart Reviewed, Consent Obtained/Reviewed and Anes Risks/Benef Reviewed Patient Risk: Low Procedure Risk: Low Anesthetic Plan Anesthetic Plan: GA Disposition: Standard PACU
--- NOTE | ~2024-05-29 | MM_ITS ---
EXAMINATION: MM SPECIMEN X-RAY BREAST, RIGHT BREAST CLINICAL INDICATION: Radial scar with intraductal papilloma. COMPARISON: RFID localization right breast 05/21/2024. Stereotactic right breast biopsy 12/02/2023. TECHNIQUE: Single radiograph of the excised right breast tissue is performed using digital mammography. FINDINGS: Specimen radiograph demonstrates the RF ID chip, the cylinder-shaped biopsy clip, and presumably the subtle distortion contained within the specimen. Await pathology. Results were called to Dr. Duy Lara in the operating room at the time of imaging.
[2024-05-29 07:50] VITALS: BMI 25.1
[2024-05-29] MEDS: Lactated Ringers 1,000 ML 100 ML IVCONT (08:15)
[2024-05-29 08:16] VITALS: BP 102/75; PULSE 64; RESP 18; TEMP 36.8; O2SAT 95
[2024-05-29] MEDS: vancomycin HCL 1,500 MG in 0.9 % Sodium Chloride 500 ML 333.33 MG IV (08:16)
--- NOTE | 2024-05-29 09:42 | MHC.SHP ---
Pre-Procedural Eval Section A - 24 Hr Update-Section A only Date of Service: 05/29/24 The patient is an INPATIENT: No Changes since office visit: Yes Patient answered all questions; No Cold of Flu in the past 2 weeks, No New Medical Problems and No Changes in Medication The patient has been examined within 24 hours of the surgical procedure. The History & Physical has been completed within 30 days and I have reviewed it.: Yes Section B - Complete if H&P > 30 days Chief Complaint: Other abnormal and inconclusive findings on diagno Allergies: Allergies Allergy/AdvReac Type Severity Reaction Status Date / Time latex Allergy Severe Anaphylaxis Verified 05/20/24 13:00 Cephalosporins Allergy Mild Rash Verified 05/20/24 13:00 egg Allergy Mild Unknown Verified 05/20/24 13:00 Sulfa (Sulfonamide Allergy Mild Rash Verified 05/29/24 07:51 Antibiotics) ibuprofen [From Motrin] AdvReac Mild Rash Verified 05/20/24 13:00 Plan Diagnosis/Plan: Unchanged I have reviewed the history and physical and performed a pertinent physical examination on my patient. No changes have occurred unless specified. Time Spent With Patient Time: Total time managing care of this patient today ____ minutes.
[2024-05-29] MEDS: Scopolamine 1.5 MG PATCH.TD.3 TRANSDERMA (10:00)
[2024-05-29 11:09] VITALS: BP 126/73; PULSE 81; RESP 18; TEMP 36.2; O2SAT 99
[2024-05-29 11:10] VITALS: BP 121/74; PULSE 70; RESP 18; O2SAT 98
[2024-05-29 11:15] VITALS: BP 112/68; PULSE 70; RESP 18; O2SAT 98
--- NOTE | 2024-05-29 11:18 | P.OP_ITS ---
Operative Note Operative Note Date of Service: 05/29/24 Narrative: Preoperative diagnosis:Right breast radial scar Postoperative diagnosis:same Procedure:Right breast lumpectomy with localizer Surgeon: Duy Lara MD Environmental Services Lead: Imani Sawant PA-C Anesthesia:general LMA Indications for procedure: 84-year-old female patient presenting with a radial scar located in the right breast at the upper outer quadrant, 10 o'clock position. Biopsy revealed intraductal papilloma and radial scar. Patient presents for wider excision to assure complete removal. Operative findings: Marking clip and localizer tag within the specimen. Specimen: Right breast lumpectomy with localizer Estimated blood loss: 5 mL Complications: None Procedure details: Patient was brought to the OR and placed in a supine position. After administering general anesthesia patient's right breast was prepped with ChloraPrep and draped in a sterile fashion. A surgical time-out was called the consent confirmed. Patient received preoperative antibiotics and Venodyne boots were in place. LOCalizer was identified using the scanner. A curvilinear incision was then made in the upper outer quadrant of the nipple- areolar complex. This was carried out through subcutaneous tissue using el ectrocautery. Superior and inferior skin flaps were then created. A core of tissue surrounding the localizer clip was then obtained beginning in the superior margin followed by the medial margin, inferior margin, posterior margin and lateral margin. Specimen was removed from the patient and marked with a long suture in the lateral margin, short suture in the superior margin, and looped suture in the deep margin. This was then passed off the table and specimen x-ray performed. This confirmed the marking clip and localizer clip within the specimen. Specimen was sent to pathology for further examination. Wounds were then irrigated with saline solution and suctioned dry. Wounds were checked for hemostasis. Deep breast tissue was then reapproximated using interrupted 3-0 Polysorb sutures. Dermis was reapproximated using interrupted 3-0 Polysorb sutures. Skin was closed using a running subcuticular 4-0 Polysorb suture. Steri-Strips, 2 x 2 gauze and Tegaderm were then applied. The patient tolerated the procedure well. Sponge, instrument, needle counts reported as correct. The patient was transferred to PACU in stable condition.
[2024-05-29 11:20] VITALS: BP 96/72; PULSE 70; RESP 16; O2SAT 96
[2024-05-29 11:30] VITALS: BP 113/69; PULSE 69; RESP 16; TEMP 36.1; O2SAT 96
== END 2024-05-29 11:56 | disposition home or self-care (01) ==
PROVIDERS: PCP Internal Medicine; Visit Provider Surgery
PROC: (CPT 19301; principal; 2024-05-29 09:00)
DX: N64.89 Other specified disorders of breast (principal); N60.11 Diffuse cystic mastopathy of right breast; D24.1 Benign neoplasm of right breast; N60.81 Other benign mammary dysplasias of right breast; N62 Hypertrophy of breast; G62.9 Polyneuropathy, unspecified; E11.9 Type 2 diabetes mellitus without complications; J45.909 Unspecified asthma, uncomplicated; Z79.51 Long term (current) use of inhaled steroids; Z79.899 Other long term (current) drug therapy; Z88.6 Allergy status to analgesic agent; Z88.2 Allergy status to sulfonamides; Z91.040 Latex allergy status; Z98.890 Other specified postprocedural states; Z98.84 Bariatric surgery status; Z87.891 Personal history of nicotine dependence
CPT/HCPCS: 19301; 88307; 88329; J0131; J1100; J1885; J2405; J2704; J2795; J3010; J3371

== ENCOUNTER → 2024-05-29 07:23 | Outpatient (BNV) | payer MEDICARE, MEDICAID, SELFPAY | PROVIDERS: PCP Internal Medicine; Visit Provider Surgery | DX: R92.8 Other abnormal and inconclusive findings on diagnostic imaging of breast (principal) | CPT/HCPCS: 19301 ==

== ENCOUNTER 2024-06-06 09:18 | Outpatient (AMB) | payer MEDICARE, MEDICAID, SELFPAY ==
--- NOTE | 2024-06-06 09:24 | MHC.OFFVIS ---
Vital Signs 06/06/24 09:27 Height 6 ft Weight 185 lb BMI 25.1 Handedness Left Intake Visit Reasons: Preop RT RTC 06/12/24 NE Intake Note: Emani is a 54 year old left hand dominant female who presents today for a pre op appointment for her RT RTC 06/12/24 NE. Allergies latex Allergy (Severe, Verified 05/20/24 13:00) Anaphylaxis Cephalosporins Allergy (Mild, Verified 05/20/24 13:00) Rash egg Allergy (Mild, Verified 05/20/24 13:00) Unknown Sulfa (Sulfonamide Antibiotics) Allergy (Mild, Verified 05/29/24 07:51) Rash ibuprofen [From Motrin] Adverse Reaction (Mild, Verified 05/20/24 13:00) Rash HPI HPI Preop RT RTC 06/12/24 NE: Details: 54-year-old left hand dominant female who presents in the office today for his/her preoperative history and physical exam prior to a right rotator cuff repair to be performed on 06/12/[address] Onofre Diaz.? ? Patient has an allergy history, as follows:? -Latex; anaphylaxis? -Cephalosporins; rash? -Egg; unknown? -Sulfa; rash? -Ibuprofen; rash? ? Patient is currently taking, as follows:? -Acarbose 100 mg PO TID? -Albuterol sulfate 90 mcg/actuation 2 puffs inhalation QID PRN? -Zygyebzkzx-cnrlpqmq-qpynyaqbgf 160-9-4.8 mcg/actuation 2 inhalations BID? -Cetirizine 10 mg PO daily PRN? -Cyanocobalamin 1,000 mcg once a month? -Escitalopram oxalate 20 mg PO daily? -Estradiol 1 patch transdermal QWeek? -Gabapentin 600 mg PO daily? -Lansoprazole 15 mg PO daily? -Ondansetron 4 mg PO Q8H? -Ropinirole 1-2 mg PO bedtime? -Sumatriptan succinate 50 PO Q2-4H PRN? ? Patient has a medical history, as follows:? -Urine incontinence? -Abnormal mammogram of right breast? -Enviromental allergies? -GUNJAN? -Menopausal syndrome? -Vitamin B12 deficiency? -Allergic rhinitis? -GERD without esophagitis? -Pulmonary nodule? -Anxiety? -Neuropathy? -Asthma? -Diabetes mellitus? -Migraine? -Cyclical vomiting? ? Patient has a surgical history, as follows:? -Hx of lumpectomy of right breast with localizer- uDy Lara MD - 05/29/24? -Hx of shoulder surgery; left x2, right x2? -Hx of colonoscopy? -Hx of?laparoscopic assisted vaginal hysterectomy (LAVH); 2017 w BSO? -Hx of gastric bypass; 2009? -Hx of cholecystectomy? ? Patient has a social history, as follows:? -Former smoker? ? PFSH Medical History Vitamin B12 deficiency Allergic rhinitis GERD without esophagitis Pulmonary nodule, left Anxiety Neuropathy Asthma Diabetes mellitus Migraine Cyclical vomiting Surgical History (Updated 06/05/24 @ 12:22 by Karina Yoon Sheri) History of lumpectomy of right breast (05/29/24) Hx of shoulder surgery Hx of shoulder surgery Hx of colonoscopy Status post laparoscopic assisted vaginal hysterectomy (LAVH) (~2016) Hx of gastric bypass (~2009) Hx of cholecystectomy Family History Other Diabetes Social History (Updated 06/06/24 @ 09:28 by Dulce Jim) Housing: House Alcohol intake: never Patient Tobacco Use Status: Former Tobacco user Tobacco use type: Cigarette Cigarette Packs Per Day: 1.5 Years Smoked: quit more than 15 years ago, started as a teen e-Cigarette/Vaping Use: Never Used Current occupational status: disabled Current occupation: Left hand dominant Cognitive needs: No Hearing needs: No Vision needs: Yes Review of Systems Const All systems reviewed & are unremarkable except as noted in HPI and below Physical Exam Vital Signs: BMI result Body Mass Index 25.1 Const General: cooperative, healthy appearing, comfortable, no acute distress, well developed, alert and awake Orientation/consciousness: patient oriented x3 HEENT Head: Yes normal to inspection, Yes normocephalic and Yes atraumatic Eyes General: appearance normal, both eyes and all related structures Neck Neck: Yes normal visual inspection and Yes no lymphadenopathy Resp Effort & Inspection: normal respiratory effort and able to speak in complete sentences Cardio Rate: regular rate Peripheral pulses: Peripheral pulses 2+ throughout GI Inspection: Yes normal to inspection Palpation (GI): Soft to palpation Skin General skin exam: no rashes or lesions noted Neuro General: patient oriented x3 Extrem Other: Right shoulder with 4+/5 EC + hawkin and Neer Neg lag Neg lift off 35/90/125/L5 Psych Mental Status: mental status grossly normal Assessment & Plan Assessment & Plan (1) Rotator cuff tear, right: Code(s): M75.101 - Unspecified rotator cuff tear or rupture of right shoulder, not specified as traumatic Category: Medical (2) History of repair of right rotator cuff: Code(s): Z98.890 - Other specified postprocedural states Category: Surgical Plan Ms. Kim is a 54-year-old left hand dominant female who presents in the office today for his/her preoperative history and physical exam prior to a right rotator cuff repair to be performed on 06/12/[address] Onofre Diaz.? ? Patient has an allergy history, as follows:? -Latex; anaphylaxis? -Cephalosporins; rash? -Egg; unknown? -Sulfa; rash? -Ibuprofen; rash? ? Patient is currently taking, as follows:? -Acarbose 100 mg PO TID? -Albuterol sulfate 90 mcg/actuation 2 puffs inhalation QID PRN? -Odojoxniry-gdegrchh-rrramqjtfz 160-9-4.8 mcg/actuation 2 inhalations BID? -Cetirizine 10 mg PO daily PRN? -Cyanocobalamin 1,000 mcg once a month? -Escitalopram oxalate 20 mg PO daily? -Estradiol 1 patch transdermal QWeek? -Gabapentin 600 mg PO daily? -Lansoprazole 15 mg PO daily? -Ondansetron 4 mg PO Q8H? -Ropinirole 1-2 mg PO bedtime? -Sumatriptan succinate 50 PO Q2-4H PRN? ? Patient has a medical history, as follows:? -Urine incontinence? -Abnormal mammogram of right breast? -Enviromental allergies? -GUNJAN? -Menopausal syndrome? -Vitamin B12 deficiency? -Allergic rhinitis? -GERD without esophagitis? -Pulmonary nodule? -Anxiety? -Neuropathy? -Asthma? -Diabetes mellitus? -Migraine? -Cyclical vomiting? ? Patient has a surgical history, as follows:? -Hx of lumpectomy of right breast with localizer- Duy Lara MD - 05/29/24? -Hx of shoulder surgery; left x2, right x2? -Hx of colonoscopy? -Hx of?laparoscopic assisted vaginal hysterectomy (LAVH); 2017 w BSO? -Hx of gastric bypass; 2009? -Hx of cholecystectomy? ? Patient has a social history, as follows:? -Former smoker? ? I discussed in detail the procedure and what to expect pre and post operatively. We discussed the risks, benefits, alternatives to the surgery and the rehabilitation course. The risks include infection, bleeding, nerve injury, ongoing pain, swelling, and stiffness, perioperative risk of injury to bones and soft tissues, and blood clots.?? ? I have answered all questions and with their understanding they have consented to move forward with a right rotator cuff repair to be performed on 06/12/[address] Onofre Diaz.? ? Post operative medications were sent to the pharmacy, oxycodone-acetaminophen 5-325 mg (Percocet) PO Q4-6H PRN, quantity 42 tabs for 7 days, morphine ER 15 mg (MS Contin) PO Q12H PRN quantity 6 tabs for 3 days and scopolamine patch 1 mg over a three day period per transdermal patch, while in the office today. The patient was instructed that she should obtain the prescription prior to surgery but should not consume until after the procedure; as these should only be taken for post operative pain management. Should the patient take these medications before surgery, a refill will not be sent to the pharmacy until their scheduled refill date.?? The office will also attempt to aid the patient in getting an ice machine for after surgery. ? Follow-up will be at the post operative appointment on 06/20/2024, or sooner if needed.? Orders: Orders PT Evaluation and Treatment Today M75.101 - Unspecified rotator cuff tear or rupture of right shoulder, not specified as traumatic Medications: New oxycodone-acetaminophen 5-325 mg Partial Fill upon patient request. 1 tab PO Q4-6H PRN 42 tabs 0RF pain 7 days scopolamine base 1 patch transdermal Q3D PRN 4 ea 0RF motion sickness morphine ER (MS Contin) Partial Fill upon patient request. 15 mg PO Q12H 6 tabs 0RF 3 days Patient Instructions: Scribed by Stella Osorio spanish medical interpreter, for Shakila Bermudez PA-C on 06/06/2024 at 9:34 am, EST.? Coding Level of Care Code Global (64217) Diagnoses Rotator cuff tear, right M75.101 History of repair of right rotator cuff Z98.890
[2024-06-06 09:27] VITALS: BMI 25.1
== END 2024-06-06 09:50 | disposition home or self-care (01) ==
PROVIDERS: PCP Internal Medicine; Visit Provider Physician Assistant
DX: M75.101 Unspecified rotator cuff tear or rupture of right shoulder, not specified as traumatic (principal); Z98.890 Other specified postprocedural states
CPT/HCPCS: 99024

== ENCOUNTER → 2024-06-06 09:18 | Outpatient (BNVA) | payer MEDICARE, MEDICAID, SELFPAY | PROVIDERS: PCP Internal Medicine; Visit Provider Physician Assistant | DX: M75.101 Unspecified rotator cuff tear or rupture of right shoulder, not specified as traumatic (principal); Z98.890 Other specified postprocedural states | CPT/HCPCS: 99212 ==

== ENCOUNTER 2024-06-07 10:23 | Outpatient (AMB) | payer MEDICARE, MEDICAID, SELFPAY ==
--- NOTE | 2024-06-07 10:24 | MHC.OFFVIS ---
Vital Signs 06/07/24 10:30 Height 6 ft Weight 191 lb 8 oz BMI 26.0 BP 81/51 L Blood Pressure Location Lt brachial Position Sitting Pulse 68 Intake Visit Reasons: S/P Rt. breast lumpectomy w/localizer Intake Note: Patient is seen in office for post op assessment post right breast lumpectomy with localizer. Pt c/o: denies any concerns healing as expected Op: 05/29/24 Picker Box Operator Required: No Accompanied by: Self / Same As Patient Allergies latex Allergy (Severe, Verified 06/07/24 10:31) Anaphylaxis Cephalosporins Allergy (Mild, Verified 06/07/24 10:31) Rash egg Allergy (Mild, Verified 06/07/24 10:31) Unknown Sulfa (Sulfonamide Antibiotics) Allergy (Mild, Verified 06/07/24 10:31) Rash ibuprofen [From Motrin] Adverse Reaction (Mild, Verified 06/07/24 10:31) Rash HPI Comments Details: 54-year-old female patient returning 1 week following lumpectomy with localizer for a architectural distortion. Pathology revealed no atypia or malignancy. She tolerated the procedure well and denies any ongoing breast symptoms. [facility] Medical History (Updated 06/07/24 @ 10:33 by Duy Lara MD) Vitamin B12 deficiency Allergic rhinitis GERD without esophagitis Pulmonary nodule, left Anxiety Neuropathy Asthma Diabetes mellitus Migraine Cyclical vomiting Surgical History (Updated 06/05/24 @ 12:22 by Karina Yoon Sheri) History of lumpectomy of right breast (05/29/24) Hx of shoulder surgery Hx of shoulder surgery Hx of colonoscopy Status post laparoscopic assisted vaginal hysterectomy (LAVH) (~2016) Hx of gastric bypass (~2009) Hx of cholecystectomy Family History Other Diabetes Social History (Updated 06/06/24 @ 09:28 by Dulce Jim) Housing: House Alcohol intake: never Patient Tobacco Use Status: Former Tobacco user Tobacco use type: Cigarette Cigarette Packs Per Day: 1.5 Years Smoked: quit more than 15 years ago, started as a teen e-Cigarette/Vaping Use: Never Used Current occupational status: disabled Current occupation: Left hand dominant Cognitive needs: No Hearing needs: No Vision needs: Yes Physical Exam Vital Signs: Last Vital Signs Pulse 68 06/07/24 10:30 BP 81/51 L 06/07/24 10:30 BMI result Body Mass Index 26.0 Const General: no acute distress Nutritional Appearance: well nourished Orientation/consciousness: patient oriented x3 Chest Other: Exam deferred Resp Effort & Inspection: normal respiratory effort Skin Other: Warm, dry, no rash Neuro General: patient oriented x3 Assessment & Plan Assessment & Plan (1) Abnormal mammogram of right breast: Code(s): R92.8 - Other abnormal and inconclusive findings on diagnostic imaging of breast Category: Medical (2) Radial scar of breast: Code(s): N64.89 - Other specified disorders of breast Category: Medical Plan Patient returns 1 week following right breast lumpectomy a radial scar. She tolerated the procedure well and her wounds are healing appropriately. Pathology revealed no evidence of atypia or malignancy. She should follow up as needed. Coding Level of Care Code Global (32760) Diagnoses Abnormal mammogram of right breast R92.8 Radial scar of breast N64.89
[2024-06-07 10:30] VITALS: BP 81/51; PULSE 68; BMI 26.0
== END 2024-06-07 10:34 | disposition home or self-care (01) ==
PROVIDERS: PCP Internal Medicine; Visit Provider Surgery
DX: R92.8 Other abnormal and inconclusive findings on diagnostic imaging of breast (principal); N64.89 Other specified disorders of breast
CPT/HCPCS: 99024

== ENCOUNTER → 2024-06-07 10:23 | Outpatient (BNVA) | payer MEDICARE, MEDICAID, SELFPAY | PROVIDERS: PCP Internal Medicine; Visit Provider Surgery | DX: R92.8 Other abnormal and inconclusive findings on diagnostic imaging of breast (principal); N64.89 Other specified disorders of breast | CPT/HCPCS: 99212 ==

== ENCOUNTER 2024-06-11 09:18 | Outpatient (AMB) | payer MEDICARE, MEDICAID, SELFPAY ==
--- NOTE | 2024-06-11 09:20 | A.OFFPC_ITS ---
Vital Signs 06/11/24 09:21 Height 6 ft Weight 190 lb BMI 25.8 BP 114/62 Blood Pressure Location Lt brachial Position Sitting Pulse 76 Pulse Source Pulse Oximeter Pulse Oximetry (%) 97 Oxygen Delivery Method Room Air Intake Visit Reasons: DM, asthma, migraine Allergies latex Allergy (Severe, Verified 06/11/24 09:36) Anaphylaxis Cephalosporins Allergy (Mild, Verified 06/11/24 09:36) Rash egg Allergy (Mild, Verified 06/11/24 09:36) Unknown Sulfa (Sulfonamide Antibiotics) Allergy (Mild, Verified 06/11/24 09:36) Rash ibuprofen [From Motrin] Adverse Reaction (Mild, Verified 06/11/24 09:36) Rash Medication List - Last Reconciled 06/11/24 by Mark Crane MD acarbose 100 mg PO TID albuterol sulfate 90 mcg/actuation 2 puffs inhalation QID PRN xgiemaakor-ersursxp-fytwsvnalc 160-9-4.8 mcg/actuation (Breztri Aerosphere) 2 inhalations inhalation BID 30 days cetirizine (Zyrtec) 10 mg PO DAILY PRN cyanocobalamin (vitamin B-12) 1,000 mcg IM .ONCE A MONTH escitalopram oxalate (Lexapro) 20 mg PO DAILY estradiol 1 patch transdermal QWEEK gabapentin 600 mg PO DAILY lansoprazole (Acid Shortage Worker (lansoprazole)) 15 mg PO DAILY lorazepam (Ativan) 1 mg PO BEDTIME PRN morphine ER (MS Contin) 15 mg PO Q12H 3 days ondansetron 4 mg PO Q8H oxycodone-acetaminophen 5-325 mg 1 tab PO Q4-6H PRN 7 days ropinirole 1 - 2 mg PO BEDTIME scopolamine base 1 patch transdermal Q3D PRN sumatriptan succinate (Imitrex) 50 mg PO Q2-4H PRN Tobacco use date assessed: 03/07/24 Dental Screening Dental Screen Date: 03/07/24 HPI DM, asthma, migraine HPI Details Patient comes in today for her follow up visit States that she feels okay She is scheduled for right shoulder surgery (rotator cuff repair) tomorrow with Dr. Diaz She also had breast biopsy done recently that came out benign She denies any headaches or dizziness Denies any chest pains, no increased SOB No nausea/vomiting, no abdominal pain No change in bowel habits noted She would like to go over the results of her labs and tests done over the past few months Adds that she has been on Lexapro for a few years now for her anxiety and feels that it has not been helping as much recently as she has been experiencing increased anxiety often lately despite her Rx She would also like to get a referral to dermatology to evaluate several skin lesions that she has, especially over her back She has also noticed a lot of freckles on her upper back and would like to have these checked out as well Needs several of her Rx refilled PFSH Medical History (Updated 06/11/24 @ 10:54 by Mark Crane MD) Pure hypercholesterolemia Vitamin D deficiency Vitamin B12 deficiency Allergic rhinitis GERD without esophagitis Pulmonary nodule, left Anxiety Neuropathy Asthma Diabetes mellitus Migraine Cyclical vomiting Surgical History History of lumpectomy of right breast (05/29/24) Hx of shoulder surgery Hx of shoulder surgery Hx of colonoscopy Status post laparoscopic assisted vaginal hysterectomy (LAVH) (~2016) Hx of gastric bypass (~2009) Hx of cholecystectomy Family History Other Diabetes Social History Housing: House Alcohol intake: never Patient Tobacco Use Status: Former Tobacco user Tobacco use type: Cigarette Cigarette Packs Per Day: 1.5 Years Smoked: quit more than 15 years ago, started as a teen e-Cigarette/Vaping Use: Never Used Current occupational status: disabled Current occupation: Left hand dominant Cognitive needs: No Hearing needs: No Vision needs: Yes Questionnaire PHQ-9 Over the last 2 weeks, how often have you been bothered by any of the following problems? 1. Little interest or pleasure in doing things: not at all 2. Feeling down, depressed, or hopeless: not at all 3. Trouble falling or staying asleep, or sleeping too much: not at all 4. Feeling tired or having little energy: not at all 5. Poor appetite or overeating: not at all 6. Feeling bad about yourself - or that you are a failure or have let yourself or your family down: not at all 7. Trouble concentrating on things, such as reading the newspaper or watching television: not at all 8. Moving or speaking so slowly that other people could have noticed. Or the opposite - being so fidgety or restless that you have been moving around a lot more than usual: not at all 9. Thoughts that you would be better off or of hurting yourself in some way: not at all Total score: 0 Depression Screening Interpretation: Negative Depression Screening Done: Yes 85043 - PHQ-9 Billing: Yes Source: Developed by Drs. Gaston Zhang, Leigh Dupree, Prashant Haley and colleagues, with an educational jenny from [employer]. Thrive Questionnaire Date Thrive assessed: 03/07/24 AUDIT C Alcohol Use Questionnaire (AUDIT-C) 1. How often do you have a drink containing alcohol?: Never 3. How often do you have six or more drinks on one occasion?: Never Total Score: 0 Score Reviewed/Action Taken: Yes KAYLENE-7 AMB Questionnaire KAYLENE-7 Date KAYLENE - 7 assessed: 03/07/24 Source: Developed by Drs. Gaston Zhang, Leigh Dupree, Prashant Haley and colleagues, with an educational jenny from [employer]. Review of Systems Const Denies chills, Reports difficulty sleeping, Denies fatigue, Denies fever(s) and Denies headache(s) ENT Denies dysphagia, Denies dizziness, Denies otalgia, Denies headache(s), Denies neck pain, Denies odynophagia and Denies sore throat Card Denies chest pain, Denies palpitations and Denies dyspnea Resp Denies cough and Denies dyspnea GI Denies abdominal pain, Denies constipation, Denies dysphagia, Denies heartburn, Denies diarrhea, Denies nausea, Denies odynophagia and Denies vomiting Denies difficulty voiding, Denies nocturia and Denies dysuria Musc Reports arthralgias (right shoulder) and Denies neck pain Skin/Breast Reports lesions (scattered multiple skin lesions, especially over her upper back) and Denies rash Neuro Denies dizziness and Denies headache(s) Psych Reports anxiety (increased) Endo Denies fatigue and Denies palpitations Physical exam (Primary Care) Vital Signs: Last Vital Signs Pulse 76 06/11/24 09:21 BP 114/62 06/11/24 09:21 Pulse Ox 97 06/11/24 09:21 Oxygen Delivery Method Room Air 06/11/24 09:21 BMI result Body Mass Index 25.8 Tobacco/Smoking Status: Tobacco use Status Tobacco use date assessed 03/07/24 06/11/24 09:25 Patient Tobacco Use Status Former Tobacco user 06/11/24 09:25 Tobacco use type Cigarette 06/11/24 09:25 e-Cigarette/Vaping Use Never Used 06/11/24 09:25 PHQ-9: PHQ-9 Score PHQ-9: Total score 0 06/11/24 09:25 Depression Screening Interpretation: Negative Thrive Assessment: Date of Thrive Assessment Date Thrive assessed 03/07/24 06/11/24 09:25 Const General: no acute distress and alert HENMT Ears: TM's normal bilaterally and EAC's normal Throat: Yes posterior oropharynx normal and Yes tonsils normal (no TP congesti on) Neck Neck: Yes no lymphadenopathy and Yes supple Thyroid: Thyroid normal Resp Auscultation: clear to auscultation bilaterally, no rales and no wheezes Cardio Rate: regular rate Rhythm: regular rhythm Heart sounds: no murmurs GI Palpation (GI): Soft to palpation and nontender Auscultation: normal bowel sounds General: Yes no CVA tenderness Back/Spine/Pelvis Back: no CVA tenderness Skin Other: (+) scattered hyperpigmented skin lesions, especially over her upper back Rashes: no rashes Extrem General: Yes no clubbing, cyanosis or edema Right upper extremity: shoulder/upper arm Details: tenderness Location: of the A-C joint Results Reviewed Results Reviewed: Laboratory Tests 03/13/24 03/13/24 03/13/24 06:53 06:56 09:53 WBC 3.9 L Hgb 14.0 Hct 42.5 Plt Count 235 Sodium 140 Potassium 4.0 Creatinine 0.71 Estimated GFR > 60 Fasting Glucose 80 Hemoglobin A1c % 5.2 Calcium 8.6 AST 14 ALT 8 Triglycerides 106 Cholesterol 218 H LDL Cholesterol, Calc 130 H HDL Cholesterol 67 Vitamin B12 554 25-OH Vitamin D Total 5.9 L TSH 2.31 Assessment and Plan Assessment & Plan (1) Migraine: Code(s): G43.909 - Migraine, unspecified, not intractable, without status migrainosus Qualifiers: Migraine type: unspecified Status migrainosus presence: without status migrainosus Intractability: not intractable Qualified Code(s): G43.909 - Migraine, unspecified, not intractable, without status migrainosus Plan: Reinforced avoidance of any potential migraine triggers Continue Sumatriptan 50 mg PRN (2) Asthma: Code(s): J45.909 - Unspecified asthma, uncomplicated Qualifiers: Asthma severity: moderate Asthma persistence: persistent Asthma complication type: unspecified Qualified Code(s): J45.40 - Moderate persistent asthma, uncomplicated Plan: Continue Breztri Aerosphere 160-9-4.8 mcg 2 inhalations BID (was started on this by pulmonary) and Albuterol HFA 2 inhalations Q 6 hours PRN Follow up with pulmonary as scheduled (3) Diabetes mellitus: Code(s): E11.9 - Type 2 diabetes mellitus without complications Qualifiers: Diabetes mellitus type: type 2 Diabetes mellitus terminal press operator insulin use: without correction use Diabetes mellitus complication status: without complication Qualified Code(s): E11.9 - Type 2 diabetes mellitus without co mplications Plan: Reinforced diabetic diet States that she used to be on meds for her diabetes but she started experiencing hypoglycemic episodes after her gastric bypass surgery back in 2009 Her HgbA1c was at 5.2% when last checked a couple of months ago in March 2024 Continue Acarbose 100 mg TID (4) Pure hypercholesterolemia: Code(s): E78.00 - Pure hypercholesterolemia, unspecified Plan: Results of her labs done a couple of months ago reviewed and discussed with patient - have advised her that her total and LDL cholesterol levels are elevated, with total cholesterol at 218 mg/dl and LDL cholesterol at 130 mg/dl Discussed low cholesterol diet Will recheck her labs and fasting lipids in 4 months for follow up (5) Allergic rhinitis: Code(s): J30.9 - Allergic rhinitis, unspecified Qualifiers: Allergic rhinitis trigger: unspecified Allergic rhinitis seasonality: non-seasonal Qualified Code(s): J30.89 - Other allergic rhinitis Plan: Continue Cetirizine 10 mg QD PRN (6) Neuropathy: Code(s): G62.9 - Polyneuropathy, unspecified Plan: Continue Gabapentin 600 mg QD (7) Vitamin B12 deficiency: Code(s): E53.8 - Deficiency of other specified B group vitamins Plan: States that this started after she had her gastric bypass done back in 2009 Continue Vitamin B12 injections 1000 mcg IM once a month Her Vitamin B12 level came back normal on her recent labs (8) Cyclical vomiting: Code(s): R11.15 - Cyclical vomiting syndrome unrelated to migraine Plan: She believes that this started (was triggered?) by her gastric bypass surgery over 10 years ago Continue Ondansetron 4 mg Q 8 hours PRN (9) Vitamin D deficiency: Code(s): E55.9 - Vitamin D deficiency, unspecified Plan: She is advised that her Vitamin D level is very low on her labs done a couple of months ago Will start her on Vitamin D3 2000 units QD Her BMD done a couple of months ago came out normal (10) GERD without esophagitis: Code(s): K21.9 - Gastro-esophageal reflux disease without esophagitis Plan: Dietary restrictions reinforced Continue OTC Lansoprazole 15 mg QD PRN (11) Rotator cuff tear, right: Code(s): M75.101 - Unspecified rotator cuff tear or rupture of right shoulder, not specified as traumatic Qualifiers: Rotator cuff tear extent: unspecified tear extent Rotator cuff tear trauma status: unspecified whether traumatic Qualified Code(s): M75.101 - Unspecified rotator cuff tear or rupture of right shoulder, not specified as traumatic Plan: MRI of the right shoulder done on 04/11/2024 revealed (+) tendinosis/partial tearing of the right supraspinatus tendon, mild distal infraspinatus tendinosis, mild AC joint arthritis and mild subacromial-subdeltoid bursitis She is scheduled for right shoulder rotator cuff repair at [facility] tomorrow Follow up with orthopedics as scheduled (12) Skin lesions, generalized: Code(s): L98.9 - Disorder of the skin and subcutaneous tissue, unspecified Plan: Will refer her to dermatology for further evaluation and management (13) Menopausal symptoms: Code(s): N95.1 - Menopausal and female climacteric states Plan: Continue Estradiol 0.075 mg patch once a week (14) Anxiety: Code(s): F41.9 - Anxiety disorder, unspecified Plan: Continue Escitalopram 20 mg QD and Lorazepam 1 mg Q HS PRN Will start her additionally on Wellbutrin XL 150 mg Q AM Plan Follow up in 4 months Orders: Orders Comprehensive Freedom. Panel Fast 4 Months E78.00 - Pure hypercholesterolemia, unspecified Complete Blood Count Auto Diff 4 Months D64.9 - Anemia, unspecified Hemoglobin A1c 4 Months E11.9 - Type 2 diabetes mellitus without complications Lipid Panel 4 Months E78.00 - Pure hypercholesterolemia, unspecified UA CC w/rflx Micro + Cult 4 Months R30.0 - Dysuria Referrals Dermatology Referral L98.9 - Disorder of the skin and subcutaneous tissue, unspecified Medications: New cholecalciferol (vitamin D3) 50 mcg PO DAILY 90 days 90 caps 3RF E55.9 - Vitamin D deficiency, unspecified bupropion HCl XL 150 mg PO QAM 30 days 30 tabs 3RF Changed From gabapentin 600 mg PO DAILY To gabapentin 600 mg PO DAILY 90 days 90 tabs 1RF From escitalopram oxalate (Lexapro) 20 mg PO DAILY To escitalopram oxalate (Lexapro) 20 mg PO DAILY 90 days 90 tabs 1RF From ropinirole 1 - 2 mg PO BEDTIME To ropinirole 1 to 2 tablets orally bedtime; 30 days 60 tabs 1RF Coding Level of Care Code Est Pt Level 4 (87000) Complex EM visit Add On G2211 Diagnoses Migraine without status migrainosus, not intractable, unspecified migraine type G43.909 Migraine type: unspecified Status migrainosus presence: without status migrainosus Intractability: not intractable Moderate persistent asthma, unspecified whether complicated J45.40 Asthma severity: moderate Asthma persistence: persistent Asthma complication type: unspecified Type 2 diabetes mellitus without complication, without long-term current use of insulin E11.9 Diabetes mellitus type: type 2 Diabetes mellitus terminal press operator insulin use: without terminal press operator use Diabetes mellitus complication status: without complication Pure hypercholesterolemia E78.00 Non-seasonal allergic rhinitis, unspecified trigger J30.89 Allergic rhinitis trigger: unspecified Allergic rhinitis seasonality: non-seasonal Neuropathy G62.9 Vitamin B12 deficiency E53.8 Cyclical vomiting R11.15 Vitamin D deficiency E55.9 GERD without esophagitis K21.9 Tear of right rotator cuff, unspecified tear extent, unspecified whether traumatic M75.101 Rotator cuff tear extent: unspecified tear extent Rotator cuff tear trauma status: unspecified whether traumatic Skin lesions, generalized L98.9 Menopausal symptoms N95.1 Anxiety F41.9
[2024-06-11 09:21] VITALS: BP 114/62; PULSE 76; O2SAT 97; BMI 25.8
== END 2024-06-11 09:50 | disposition home or self-care (01) ==
PROVIDERS: PCP Internal Medicine; Visit Provider Internal Medicine
DX: G43.909 Migraine, unspecified, not intractable, without status migrainosus (principal); J45.40 Moderate persistent asthma, uncomplicated; E11.42 Type 2 diabetes mellitus with diabetic polyneuropathy; E78.00 Pure hypercholesterolemia, unspecified; J30.89 Other allergic rhinitis; E53.8 Deficiency of other specified B group vitamins; R11.15 Cyclical vomiting syndrome unrelated to migraine; E55.9 Vitamin D deficiency, unspecified; K21.9 Gastro-esophageal reflux disease without esophagitis; M75.101 Unspecified rotator cuff tear or rupture of right shoulder, not specified as traumatic; L98.9 Disorder of the skin and subcutaneous tissue, unspecified; N95.1 Menopausal and female climacteric states; F41.9 Anxiety disorder, unspecified
CPT/HCPCS: 99214; G2211

== ENCOUNTER 2024-06-12 10:33 | Day surgery (SDC) | payer MEDICARE, MEDICAID, SELFPAY ==
[2024-06-10 11:13] VITALS: BMI 25.1
--- NOTE | 2024-06-11 10:24 | P.CONAN_ITS ---
Documented by User: Barbara Brush NP 06/11/24 10:25 HPI - Anesthesia Eval Consult details Narrative: 54yo F for Right Arthroscopic Rotator Cuff Repair/REVISION s/p lumptectomy 05/2024 with GA-LMA 4 (scop patch) PMFSH Active Problems Active Problems: All Active Problems Skin lesions, generalized (Acute) Radial scar of breast (Acute) History of repair of right rotator cuff (Acute) Rotator cuff tear, right (Acute) Urine incontinence (Acute) Abnormal mammogram of right breast (Acute) Environmental allergies (Acute) GUNJAN (obstructive sleep apnea) (Acute) Right shoulder pain (Acute) Left shoulder pain (Acute) Menopausal symptoms (Acute) Vitamin B12 deficiency (Acute) Allergic rhinitis (Acute) Osteoporosis screening (Acute) Cervical cancer screening (Acute) Colon cancer screening (Acute) Bilateral shoulder pain (Acute) GERD without esophagitis (Acute) Breast cancer screening (Acute) Pulmonary nodule, left (Acute) Anxiety (Acute) Neuropathy (Acute) Asthma (Acute) Diabetes mellitus (Acute) Migraine (Acute) Cyclical vomiting (Acute) Annual physical exam (Acute) Past Medical History Medical History Pure hypercholesterolemia Vitamin D deficiency Vitamin B12 deficiency Allergic rhinitis GERD without esophagitis Pulmonary nodule, left Anxiety Neuropathy Asthma Diabetes mellitus Migraine Cyclical vomiting Family History Family History Other Diabetes Family history of problems with anesthesia: No Surgical History Surgical History History of lumpectomy of right breast (05/29/24) Hx of shoulder surgery Hx of shoulder surgery Hx of colonoscopy Status post laparoscopic assisted vaginal hysterectomy (LAVH) (~2016) Hx of gastric bypass (~2009) Hx of cholecystectomy History of Problems with Anesthesia: No Social History Social History Housing: House Alcohol intake: never Patient Tobacco Use Status: Former Tobacco user Tobacco use type: Cigarette Cigarette Packs Per Day: 1.5 Years Smoked: quit more than 15 years ago, started as a teen e-Cigarette/Vaping Use: Never Used Use of substances other than those prescribed or required for medical reasons: No Are you DNR?: No Advance Directives: No Advance Directives Information Provided: Yes Current occupational status: disabled Current occupation: Left hand dominant Cognitive needs: No Hearing needs: No Vision needs: Yes Meds Allergies Allergy/AdvReac Type Severity Reaction Status Date / Time latex Allergy Severe Anaphylaxis Verified 06/11/24 09:36 Cephalosporins Allergy Mild Rash Verified 06/11/24 09:36 egg Allergy Mild Unknown Verified 06/11/24 09:36 Sulfa (Sulfonamide Allergy Mild Rash Verified 06/11/24 09:36 Antibiotics) ibuprofen [From Motrin] AdvReac Mild Rash Verified 06/11/24 09:36 Home Medications ?Medication ?Instructions ?Recorded ?Confirmed ?Last Taken ?Type acarbose 100 mg tablet 100 mg PO TID 03/07/24 06/11/24 Unknown History albuterol sulfate 90 mcg/actuation 2 puff inhalation QID PRN 03/07/24 06/11/24 05/29/24 06:45 History aerosol inhaler Shortness Of Breath Or Wheezing cetirizine 10 mg tablet (Zyrtec) 10 mg PO DAILY PRN allergies 03/07/24 06/11/24 Unknown History cyanocobalamin (vitamin B-12) 1,000 mcg IM .ONCE A MONTH 03/07/24 06/11/24 Unknown History 1,000 mcg/mL injection kit estradiol 0.075 mg/24 hr weekly 1 patch transdermal QWEEK 03/07/24 06/11/24 Unknown History transdermal patch lansoprazole 15 mg capsule,delayed 15 mg PO DAILY 03/07/24 06/11/24 06/12/24 History release (Acid Configuration Engineer (lansoprazole)) ondansetron 4 mg disintegrating 4 mg PO Q8H 03/07/24 06/11/24 Unknown History tablet sumatriptan succinate 50 mg tablet 50 mg PO Q2-4H PRN migraines 03/07/24 06/11/24 Unknown History (Imitrex) Exam Height,Weight and Vital Signs: Height 6 ft Weight 83.915 kg Pertinent Lab Results Pertinent Lab Results: Laboratory Tests 03/13/24 04/16/24 09:53 11:07 WBC 5.8 Hgb 14.3 Hct 43.1 Plt Count 272 Sodium 140 Potassium 4.0 Chloride 109 H Carbon Dioxide 23 BUN 9 Creatinine 0.71 Assessment and Plan Assessment Anesthesia Assessment: Chart Reviewed Final Anesthetic Review Family History of Problems with Anesthesia: No History of Problems with Anesthesia: No Documented by User: Tiffanie Vides MD 06/12/24 14:18 PMFSH Past Medical History Medical History Pure hypercholesterolemia Vitamin D deficiency Vitamin B12 deficiency Allergic rhinitis GERD without esophagitis Pulmonary nodule, left Anxiety Neuropathy Asthma Diabetes mellitus Migraine Cyclical vomiting Family History Family History Other Diabetes Surgical History Surgical History History of lumpectomy of right breast (05/29/24) Hx of shoulder surgery Hx of shoulder surgery Hx of colonoscopy Status post laparoscopic assisted vaginal hysterectomy (LAVH) (~2016) Hx of gastric bypass (~2009) Hx of cholecystectomy Social History Social History Housing: House Alcohol intake: never Patient Tobacco Use Status: Former Tobacco user Tobacco use type: Cigarette Cigarette Packs Per Day: 1.5 Years Smoked: quit more than 15 years ago, started as a teen e-Cigarette/Vaping Use: Never Used Use of substances other than those prescribed or required for medical reasons: No Are you DNR?: No Advance Directives: No Advance Directives Information Provided: Yes Current occupational status: disabled Current occupation: Left hand dominant Cognitive needs: No Hearing needs: No Vision needs: Yes Meds Allergies Allergy/AdvReac Type Severity Reaction Status Date / Time latex Allergy Severe Anaphylaxis Verified 06/11/24 09:36 Cephalosporins Allergy Mild Rash Verified 06/11/24 09:36 egg Allergy Mild Unknown Verified 06/11/24 09:36 Sulfa (Sulfonamide Allergy Mild Rash Verified 06/11/24 09:36 Antibiotics) ibuprofen [From Motrin] AdvReac Mild Rash Verified 06/11/24 09:36 Home Medications ?Medication ?Instructions ?Recorded ?Confirmed ?Last Taken ?Type acarbose 100 mg tablet 100 mg PO TID 03/07/24 06/11/24 Unknown History albuterol sulfate 90 mcg/actuation 2 puff inhalation QID PRN 03/07/24 06/11/24 05/29/24 06:45 History aerosol inhaler Shortness Of Breath Or Wheezing cetirizine 10 mg tablet (Zyrtec) 10 mg PO DAILY PRN allergies 03/07/24 06/11/24 Unknown History cyanocobalamin (vitamin B-12) 1,000 mcg IM .ONCE A MONTH 03/07/24 06/11/24 Unknown History 1,000 mcg/mL injection kit estradiol 0.075 mg/24 hr weekly 1 patch transdermal QWEEK 03/07/24 06/11/24 Unknown History transdermal patch lansoprazole 15 mg capsule,delayed 15 mg PO DAILY 03/07/24 06/11/24 06/12/24 History release (Acid Configuration Engineer (lansoprazole)) ondansetron 4 mg disintegrating 4 mg PO Q8H 03/07/24 06/11/24 Unknown History tablet sumatriptan succinate 50 mg tablet 50 mg PO Q2-4H PRN migraines 03/07/24 06/11/24 Unknown History (Imitrex) Exam Airway Mallampati Class: II TM Dist: >3cm Neck ROM: Full Heart: rrr Lungs: cta Assessment and Plan Assessment Anesthesia Assessment: Anesthesia Plan Discussed Final Anesthetic Review NPO: Yes ASA Class: III Final Preanesthetic Review: No Changes in Pt Med Stat, Meds/Allgs Chart Re viewed, Consent Obtained/Reviewed and Anes Risks/Benef Reviewed Patient Risk: Intermediate Procedure Risk: Intermediate Anesthetic Plan Anesthetic Plan: GA, Regional Block and Agree w/ Assess. and Plan Disposition: Standard PACU
[2024-06-12 11:34] VITALS: BMI 25.2
[2024-06-12 11:46] VITALS: BP 105/62; PULSE 73; RESP 18; TEMP 37.2; O2SAT 98
[2024-06-12] MEDS: Lactated Ringers 1,000 ML 100 ML IVCONT (11:59)
--- NOTE | 2024-06-12 11:59 | MHC.SHP ---
Pre-Procedural Eval Section A - 24 Hr Update-Section A only Date of Service: 06/12/24 The patient is an INPATIENT: No Changes since office visit: No Cold of Flu in the past 2 weeks, No New Medical Problems, No Changes in Medication and No Patient answered all questions The patient has been examined within 24 hours of the surgical procedure. The History & Physical has been completed within 30 days and I have reviewed it.: Yes Section B - Complete if H&P > 30 days Chief Complaint: Unspecified rotator cuff tear or rupture of right Allergies: Allergies Allergy/AdvReac Type Severity Reaction Status Date / Time latex Allergy Severe Anaphylaxis Verified 06/11/24 09:36 Cephalosporins Allergy Mild Rash Verified 06/11/24 09:36 egg Allergy Mild Unknown Verified 06/11/24 09:36 Sulfa (Sulfonamide Allergy Mild Rash Verified 06/11/24 09:36 Antibiotics) ibuprofen [From Motrin] AdvReac Mild Rash Verified 06/11/24 09:36 Plan I have reviewed the history and physical and performed a pertinent physical examination on my patient. No changes have occurred unless specified. Time Spent With Patient Time: Total time managing care of this patient today ____ minutes.
--- NOTE | 2024-06-12 15:57 | PM.OP ---
Brief Operative Note Date of Service: 06/12/24 Pre-op diagnosis: right rtc tear Post-op diagnosis: same Procedure: Revision RTC repair ( supraspinatus and SUbscapularis) Biceps tenotomy Implants: Irais and Nephlakia Healcoil 4.75 x 2 Knotless .0 x 1 Knotless 5.5 x 2 Regeneten bioinductive collagen allograft, large Surgeon: Onofre Diaz MD Anesthesia: GETA and regional Was an Bilingual Spanish Inbound Sales used for this Procedure?: No Bilingual Spanish Inbound Sales: Shakila Bermudez Estimated blood loss (mL): 25 IV fluids (mL): 1,000 Pathology: none sent Condition: stable Disposition: PACU Assessment and Plan (No Qualifiers) Assessment and Plan (1) Status post right rotator cuff repair: Status: Acute Plan: LARGE REPAIR PROTOCOL
[2024-06-12 16:07] VITALS: BP 112/66; PULSE 82; RESP 18; TEMP 36.6; O2SAT 95
[2024-06-12 16:12] VITALS: BP 104/63; PULSE 74; RESP 18; O2SAT 97
[2024-06-12 16:17] VITALS: BP 101/56; PULSE 73; RESP 20; O2SAT 96
[2024-06-12 16:22] VITALS: BP 106/56; PULSE 72; RESP 20; O2SAT 97
[2024-06-12 16:35] VITALS: BP 104/55; PULSE 69; RESP 20; TEMP 37.1; O2SAT 96
--- NOTE | 2024-06-21 11:53 | P.OP_ITS ---
Operative Note Operative Note Date of Service: 06/12/24 Narrative: Date of Service: 06/12/24 Pre-op diagnosis: right rtc tear Post-op diagnosis: same Procedure: Revision RTC repair ( supraspinatus and SUbscapularis) Biceps tenotomy Implants: Irais and Nephlakia Healcoil 4.75 x 2 Knotless .0 x 1 Knotless 5.5 x 2 Regeneten bioinductive collagen allograft, large Surgeon: Onofre Diaz MD Anesthesia: GETA and regional Was an Assembler Installer Structures used for this Procedure?: No Assembler Installer Structures: Shakila Bermudez Estimated blood loss (mL): 25 IV fluids (mL): 1,000 Pathology: none sent Condition: stable Disposition: PACU Procedure in detail: Patient was brought to the operating room and placed the the beach chair position. All bony prominences were well padded and the limb was prepped and draped in standard sterile fashion. A time out was called to identify proper site, proper procedure and proper surgeon. IV antibiotics per weight were administered. I began by making a posterolateral stab incision with a 15 blade. A blunt trochar was placed into the glenohumeral joint and I insufflated the joint with saline and a 30 degree arthroscope was placed. I established an outside- in anterior portal just distal to the biceps tendon. I then began my inspection of the glenohumeral joint. There were minimal cartilage changes at the inferior glenoid without humeral head changes. There was a full thickness undersurface RTC tear. The subcapularis was intact. I debrided the loose cartilage of the glenoid and the degenerative labral tearing. I then removed the trochar and entered the subacromial space. A direct lateral portal was then established and I performed a bursectomy. The cuff was then exam ined. There was a full thickness tear of the supra and infraspinatus with mild retraction. There were loose suture remnants and visible suture anchors. These were removed and the cuff debrided. I release anteriorly and medially and then placed two medial row double loaded anchors after using a tap just adjacent to the articular cartilage and then brought the suture limbs ( 8) through the medial cuff. I then debrided the bare area down to bleeding bone and, using a cross bridge configuration, brought 4 limbs to each of two lateral 5.0 anchors. This re-approximated the cuff anatomically. The tissue quality, however, was poor. I supplemented therefore with a Regeneten bioindctive graft, large. PEEK flakito were used medially and 2 bone flakito were used laterally. Once I was satisfied with the repair the final images were captured and I removed all instrumentation. Portals were closed with nylon. Patient was placed in an abduction sling, extubated and brought to the recovery room in stable condition. There were no known complications.
== END 2024-06-12 16:45 | disposition home or self-care (01) ==
LOC: HO.SSS 10:33
PROVIDERS: PCP Internal Medicine; Visit Provider Orthopaedic Surgery
PROC: (CPT 29827; principal; 2024-06-12 14:40)
DX: M75.101 Unspecified rotator cuff tear or rupture of right shoulder, not specified as traumatic (principal); E11.9 Type 2 diabetes mellitus without complications; G62.9 Polyneuropathy, unspecified; J45.909 Unspecified asthma, uncomplicated; R91.1 Solitary pulmonary nodule; G47.33 Obstructive sleep apnea (adult) (pediatric); Z79.51 Long term (current) use of inhaled steroids; Z79.899 Other long term (current) drug therapy; Z91.040 Latex allergy status; Z88.1 Allergy status to other antibiotic agents; Z88.2 Allergy status to sulfonamides; Z88.6 Allergy status to analgesic agent; Z98.890 Other specified postprocedural states; Z98.84 Bariatric surgery status; Z87.891 Personal history of nicotine dependence
CPT/HCPCS: 29827; 29822; C1713; C1763; J0131; J0171; J0665; J0736; J1100; J1885; J2250; J2405; J2704; J3010

== ENCOUNTER → 2024-06-12 10:33 | Outpatient (BNV) | payer MEDICARE, MEDICAID, SELFPAY | PROVIDERS: PCP Internal Medicine; Visit Provider Orthopaedic Surgery | DX: M75.121 Complete rotator cuff tear or rupture of right shoulder, not specified as traumatic (principal) | CPT/HCPCS: 29827 ==

== ENCOUNTER 2024-06-19 13:38 | Outpatient (AMB) | payer MEDICARE, MEDICAID, SELFPAY ==
--- NOTE | 2024-06-19 13:40 | MHC.OFFVIS ---
Vital Signs 06/19/24 13:43 Height 6 ft Weight 188 lb 4.396 oz BMI 25.5 BP 112/70 Blood Pressure Location Lt brachial Position Sitting Pulse 74 Pulse Source Pulse Oximeter Pulse Oximetry (%) 95 Oxygen Delivery Method Room Air Intake Visit Reasons: Gastroesophageal reflux disease (GERD) Intake Note: Emani presents in office today for an initial assessment. CC; Sx presenting as GERD. Pt reports that they are here to re[place]establish care [place]. Pt reports that they are doing fairly well with their lansoprazole. However, they do find they are experiencing intermittent breakthrough symptoms. Pt is open to changing the medication or dosage based on provider discretion. Insurance Follow Up Rep Required: No Allergies latex Allergy (Severe, Verified 06/20/24 14:19) Anaphylaxis Cephalosporins Allergy (Mild, Verified 06/20/24 14:19) Rash egg Allergy (Mild, Verified 06/20/24 14:19) Unknown Sulfa (Sulfonamide Antibiotics) Allergy (Mild, Verified 06/20/24 14:19) Rash ibuprofen [From Motrin] Adverse Reaction (Mild, Verified 06/20/24 14:19) Rash HPI HPI Gastroesophageal reflux disease (GERD): Details: 54-year-old female with past medical history of GERD, hypercholesteremia, vitamin-D deficiency, rotator cuff tear, environmental allergies, GUNJAN, allergic rhinitis, GERD, anxiety, neuropathy, diabetes, migraine headaches, cyclic vomiting, history of gastric bypass in 2009 is here today for initial consultation. Patient recently [place] [facility] and is trying to reestablish care with PCP and other providers. Patient previously seen by GI and was on lansoprazole for acid reflux. Patient reports that she usually feels well when taking the medication. Occasional nausea and vomiting. Patient states that she is trying to stay away from certain food. History of gastric bypass and she knows she is not supposed to eats certain food and eating small amounts. Low vitamin-D and vitamin-B levels most likely from bariatric surgery. Patient denies any melena, hematochezia, unintentional weight loss or ribbon like stools. Patient reports dyspepsia without dysphagia or odynophagia [facility] Medical History Pure hypercholesterolemia Vitamin D deficiency Vitamin B12 deficiency Allergic rhinitis GERD without esophagitis Pulmonary nodule, left Anxiety Neuropathy Asthma Diabetes mellitus Migraine Cyclical vomiting Surgical History History of lumpectomy of right breast (05/29/24) Hx of shoulder surgery Hx of shoulder surgery Hx of colonoscopy Status post laparoscopic assisted vaginal hysterectomy (LAVH) (~2017) Hx of gastric bypass (~2009) Hx of cholecystectomy Family History Other Diabetes Social History Housing: House Alcohol intake: never Patient Tobacco Use Status: Former Tobacco user Tobacco use type: Cigarette Cigarette Packs Per Day: 1.5 Years Smoked: quit more than 15 years ago, started as a teen e-Cigarette/Vaping Use: Never Used Current occupational status: disabled Current occupation: Left hand dominant Cognitive needs: No Hearing needs: No Vision needs: Yes Review of Systems Const Denies weight gain and Denies weight loss ENT Reports no additional complaints, Denies dysphagia and Denies odynophagia Card Reports no additional complaints Resp Reports no additional complaints GI Reports abdominal pain (Epigastric), Denies belching, Denies melena, Reports bloating, Denies change in bowel habits, Reports constipation, Denies dysphagia, Denies excessive flatus, Denies dyspepsia, Reports heartburn, Denies diarrhea, Denies loose stools, Reports nausea, Denies odynophagia and Denies vomiting Reports no additional complaints Musc Reports no additional complaints Neuro Reports no additional complaints Psych Reports no additional complaints Endo Reports no additional complaints Physical Exam Vital Signs: Last Vital Signs Pulse 74 06/19/24 13:43 BP 112/70 06/19/24 13:43 Pulse Ox 95 06/19/24 13:43 Oxygen Delivery Method Room Air 06/19/24 13:43 BMI result Body Mass Index 25.5 Const General: healthy appearing, no acute distress and well developed Nutritional Appearance: well nourished Orientation/consciousness: patient oriented x3 Resp Effort & Inspection: normal respiratory effort, able to speak in complete sentences, no tracheal deviation and symmetric chest movement Auscultation: clear to auscultation bilaterally Cardio Rate: regular rate GI Inspection: Yes normal to inspection and No distended Palpation (GI): Soft to palpation, not firm, nontender and No hepatosplenomegaly present Auscultation: normal bowel sounds General: Yes no CVA tenderness Back/Spine/Pelvis Back: no CVA tenderness Skin General skin exam: elasticity normal, turgor normal and dry skin Neuro General: patient oriented x3 Psych Appearance: grossly normal Mental Status: mental status grossly normal Assessment & Plan Assessment & Plan (1) GERD without esophagitis: Code(s): K21.9 - Gastro-esophageal reflux disease without esophagitis Category: Medical (2) Postprandial abdominal bloating: Code(s): R14.0 - Abdominal distension (gaseous) (3) Constipation: Code(s): K59.00 - Constipation, unspecified Qualifiers: Constipation type: slow transit constipation Qualified Code(s): K59.01 - Slow transit constipation (4) Postprandial epigastric pain: Code(s): R10.13 - Epigastric pain Plan Patient will continue taking lansoprazole in the gutierrez being and famotidine at bedtime. Avoid dietary triggers and late night snacking. Staying upright for minimum 3 hours after meals discussed with patient. Will check transglutaminase to rule out celiac. Will check lipase. Upper GI small-bowel ordered. Patient will start taking senna to help her move her bowels better. Increase fluid intake and activity to promote better bowel motility. Patient will follow-up in the office in 2 months, sooner on as needed basis. She is agreeable to this plan and verbalizes understanding of instructions. She was given the opportunity to ask questions and all questions answered. Thank you for allowing me to participate in her care Orders: Orders Transglutaminase Ab IgG 06/19/24 R10.9 - Unspecified abdominal pain Transglutaminase IgA 06/19/24 R10.9 - Unspecified abdominal pain FL upper GI small bowel 06/19/24 K21.9 - Gastro-esophageal reflux disease without esophagitis Lipase 06/19/24 R10.9 - Unspecified abdominal pain Medications: New famotidine 40 mg PO BEDTIME 30 tabs 3RF K21.9 - Gastro-esophageal reflux disease without esophagitis lansoprazole 30 mg PO DAILY 30 caps 3RF K21.9 - Gastro-esophageal reflux disease without esophagitis sennosides (Natural Senna Laxative) 17.2 mg (2 x 8.6 mg) PO BEDTIME 60 tabs 3RF constipation K59.00 - Constipation, unspecified Coding Level of Care Code New Pt Level 4 (59029) Diagnoses GERD without esophagitis K21.9 Postprandial abdominal bloating R14.0 Slow transit constipation K59.01 Constipation type: slow transit constipation Postprandial epigastric pain R10.13 Time Spent (min) 45 Comment 30 minutes spent with patient and additional 15 minutes spent reviewing her records
[2024-06-19 13:43] VITALS: BP 112/70; PULSE 74; O2SAT 95; BMI 25.5
== END 2024-06-19 14:55 | disposition home or self-care (01) ==
PROVIDERS: PCP Internal Medicine; Visit Provider Nurse Practitioner Family
DX: K21.9 Gastro-esophageal reflux disease without esophagitis (principal); R14.0 Abdominal distension (gaseous); K59.01 Slow transit constipation; R10.13 Epigastric pain
CPT/HCPCS: 99204

== ENCOUNTER → 2024-06-19 13:38 | Outpatient (BNVA) | payer MEDICARE, MEDICAID, SELFPAY | PROVIDERS: PCP Internal Medicine; Visit Provider Nurse Practitioner Family | DX: K21.9 Gastro-esophageal reflux disease without esophagitis (principal); K59.01 Slow transit constipation; R14.0 Abdominal distension (gaseous); R10.13 Epigastric pain | CPT/HCPCS: 99202 ==

== ENCOUNTER 2024-06-20 14:12 | Outpatient (AMB) | payer MEDICARE, MEDICAID, SELFPAY ==
--- NOTE | 2024-06-20 14:17 | MHC.OFFVIS ---
Intake Visit Reasons: PO RT RTC 06/12/24 NE Intake Note: Emani is a 54 year old partient who presents today for a post op appointment s/p right RTC 06/12/24 NE. Patient reports she is still having soreness. Allergies latex Allergy (Severe, Verified 06/20/24 14:19) Anaphylaxis Cephalosporins Allergy (Mild, Verified 06/20/24 14:19) Rash egg Allergy (Mild, Verified 06/20/24 14:19) Unknown Sulfa (Sulfonamide Antibiotics) Allergy (Mild, Verified 06/20/24 14:19) Rash ibuprofen [From Motrin] Adverse Reaction (Mild, Verified 06/20/24 14:19) Rash HPI HPI PO RT RTC 06/12/24 NE: Details: 54-year-old female who presents in the office today 8 days status post revision of a right rotator cuff repair, which was performed on 06/12/[address] Diaz.? ? While in the office today, the patient reports she is still having some soreness. ? PFSH Medical History Pure hypercholesterolemia Vitamin D deficiency Vitamin B12 deficiency Allergic rhinitis GERD without esophagitis Pulmonary nodule, left Anxiety Neuropathy Asthma Diabetes mellitus Migraine Cyclical vomiting Surgical History History of lumpectomy of right breast (05/29/24) Hx of shoulder surgery Hx of shoulder surgery Hx of colonoscopy Status post laparoscopic assisted vaginal hysterectomy (LAVH) (~2016) Hx of gastric bypass (~2009) Hx of cholecystectomy Family History Other Diabetes Social History Housing: House Alcohol intake: never Patient Tobacco Use Status: Former Tobacco user Tobacco use type: Cigarette Cigarette Packs Per Day: 1.5 Years Smoked: quit more than 15 years ago, started as a teen e-Cigarette/Vaping Use: Never Used Current occupational status: disabled Current occupation: Left hand dominant Cognitive needs: No Hearing needs: No Vision needs: Yes Review of Systems Const All systems reviewed & are unremarkable except as noted in HPI and below Physical Exam Const General: cooperative, healthy appearing and no acute distress Resp Effort & Inspection: normal respiratory effort and able to speak in complete sentences Cardio Rate: regular rate Peripheral pulses: Peripheral pulses 2+ throughout GI Palpation (GI): Soft to palpation Skin Lesions: no lesions Rashes: no rashes Extrem Other: Right shoulder: Incision sites are clean, dry, and intact. Sutures are intact. No surrounding erythema or drainage. No signs of infection. Forward flexion and abduction to 45 degrees. External rotation to neutral. NVI. ? Assessment & Plan Assessment & Plan (1) Status post right rotator cuff repair: Code(s): Z98.890 - Other specified postprocedural states Category: Surgical Plan Ms. Kim is a 54-year-old female who presents in the office today 8 days status post revision of a right rotator cuff repair, which was performed on 06/12/[address] Diaz.? ? While in the office today, the patient reports she is still having some soreness.? ? Sutures were removed and steri-stripes were applied. A refill of the oxycodone-acetaminophen 5-325 mg PO Q4-6H PRN for pain was sent to the pharmacy today. She has not been able to attend physical therapy and may not attend due to issues with finding a truly latex free facility. I stressed the importance of physical therapy. The protocol would be for a large rotator cuff repair. I did inform the patient she is able to take an anti-inflammatory and therefore I have sent ibuprofen 800 mg PO TID to the pharmacy. Follow-up will be in four weeks with , or sooner if needed. ? Medications: New ibuprofen 800 mg PO TID PRN 90 tabs 0RF pain Refilled oxycodone-acetaminophen 5-325 mg Partial Fill upon patient request. 1 tab PO Q4-6H PRN 42 tabs 0RF pain 7 days Patient Instructions: Scribed by Stella Osorio biomedical engineering internship, for Shakila Bermudez PA-C on 06/20/2024 at 2:18 pm, EST.? Coding Level of Care Code Global (58110) Diagnoses Status post right rotator cuff repair Z98.890
== END 2024-06-20 14:32 | disposition home or self-care (01) ==
PROVIDERS: PCP Internal Medicine; Visit Provider Physician Assistant
DX: Z98.890 Other specified postprocedural states (principal)
CPT/HCPCS: 99024

== ENCOUNTER → 2024-06-20 14:12 | Outpatient (BNVA) | payer MEDICARE, MEDICAID, SELFPAY | PROVIDERS: PCP Internal Medicine; Visit Provider Physician Assistant | DX: Z47.89 Encounter for other orthopedic aftercare (principal); Z98.890 Other specified postprocedural states | CPT/HCPCS: 99212 ==

== ENCOUNTER 2024-07-16 08:43 | Outpatient (AMB) | payer MEDICARE, MEDICAID, SELFPAY ==
[2024-07-16 08:57] VITALS: BP 90/60; PULSE 74; O2SAT 96; BMI 25.9
--- NOTE | 2024-07-16 08:57 | A.OFFVIS_ITS ---
Vital Signs 07/16/24 08:57 Height 6 ft Weight 190 lb 11.198 oz BMI 25.9 BP 90/60 Blood Pressure Location Lt brachial Position Sitting Pulse 74 Pulse Source Doppler Pulse Oximetry (%) 96 Oxygen Delivery Method Room Air Intake Visit Reasons: Asthma Allergies latex Allergy (Severe, Verified 06/20/24 14:19) Anaphylaxis Cephalosporins Allergy (Mild, Verified 06/20/24 14:19) Rash egg Allergy (Mild, Verified 06/20/24 14:19) Unknown Sulfa (Sulfonamide Antibiotics) Allergy (Mild, Verified 06/20/24 14:19) Rash ibuprofen [From Motrin] Adverse Reaction (Mild, Verified 06/20/24 14:19) Rash HPI HPI Asthma: Details: 54-year-old lady, former approximately 10 pack-year smoker, quit over 20 years prior, with underlying history of asthma and environmental allergies since childhood, previously managed with Dulera and albuterol MDI with suboptimal control of her symptoms presents to establish care. Patient recently moved from [facility]. She does complain of multiple environmental allergies. Patient also has prior history of sleep apnea, with recent significant weight changes. She denies exposure to industrial dusts. Patient does have multiple first-degree relatives with asthma. After the last office visit patient had home sleep study that showed no evidence of underlying obstructive sleep apnea. Her pulmonary function test is still pending. Her immunologic studies show significant allergic component to her underlying asthma symptoms. She also was switched to BrezTri and now reports improved, however still suboptimal symptom control. She requires to use albuterol MDI 2 to 3 times a day. [facility] Medical History Pure hypercholesterolemia Vitamin D deficiency Vitamin B12 deficiency Allergic rhinitis GERD without esophagitis Pulmonary nodule, left Anxiety Neuropathy Asthma Diabetes mellitus Migraine Cyclical vomiting Surgical History History of lumpectomy of right breast (05/29/24) Hx of shoulder surgery Hx of shoulder surgery Hx of colonoscopy Status post laparoscopic assisted vaginal hysterectomy (LAVH) (~2016) Hx of gastric bypass (~2009) Hx of cholecystectomy Family History Other Diabetes Social History Housing: House Alcohol intake: never Patient Tobacco Use Status: Former Tobacco user Tobacco use type: Cigarette Cigarette Packs Per Day: 1.5 Years Smoked: quit more than 15 years ago, started as a teen e-Cigarette/Vaping Use: Never Used Current occupational status: disabled Current occupation: Left hand dominant Cognitive needs: No Hearing needs: No Vision needs: Yes Review of Systems Const Denies daytime sleepiness, Denies excessive sweating, Denies fatigue, Denies fever(s), Denies lethargy, Denies malaise, Denies night sweats, Denies snoring and Denies weight loss Eyes Denies blurry vision and Denies itchy eyes ENT Denies nasal congestion, Denies post nasal drip, Denies sinus pain, Denies sinus pressure and Denies other ( Thrush) Card Denies chest pain, Denies pedal edema, Denies dyspnea, Denies orthopnea and Denies paroxysmal nocturnal dyspnea Resp Denies cough, Denies hemoptysis, Denies excessive phlegm production, Denies dy spnea, Denies snoring and Reports wheezing GI Denies abdominal pain and Denies heartburn Musc Denies myalgias, Denies arthralgias and Denies joint swelling Skin/Breast Denies rash Neuro Denies memory loss and Denies seizure-like activity Psych Denies abnormal sleep pattern, Denies anxiety and Denies memory loss Endo Denies excessive sweating, Denies fatigue and Denies heat intolerance Melvin/Lymph Denies easy bruising Aller/Immun Denies itchy eyes, Denies seasonal rhinorrhea and Reports wheezing Physical Exam Vital Signs: Last Vital Signs Pulse 74 07/16/24 08:57 BP 90/60 07/16/24 08:57 Pulse Ox 96 07/16/24 08:57 Oxygen Delivery Method Room Air 07/16/24 08:57 BMI result Body Mass Index 25.9 Const General: no acute distress and alert Nutritional Appearance: not obese Orientation/consciousness: Other orientation findings ( oriented) HEENT Head: Yes atraumatic Eyes General: appearance normal, both eyes and all related structures Sclerae: sclerae normal EOM: EOMs intact bilaterally Neck Neck: Yes supple Lymphatic: no lymphadenopathy noted Resp Effort & Inspection: normal respiratory effort and no use of accessory muscles Auscultation: clear to auscultation bilaterally Cardio Rate: regular rate Rhythm: regular rhythm Heart sounds: no gallops, no murmurs and no rubs Skin General skin exam: other ( warm) Extrem General: No clubbing, No cyanosis and No edema Assessment & Plan Assessment & Plan (1) Asthma: Code(s): J45.909 - Unspecified asthma, uncomplicated Category: Medical Qualifiers: Asthma severity: moderate Asthma persistence: persistent Asthma complication type: unspecified Qualified Code(s): J45.40 - Moderate persistent asthma, uncomplicated Plan: Improved, but still suboptimal control on BrezTri. PFT is pending. Will request Xolair approval. Continue current regimen. (2) Environmental allergies: Code(s): Z91.09 - Other allergy status, other than to drugs and biological substances Category: Medical Plan: Results immunologic testing reviewed. Patient does have significant allergic component to her symptoms. She is also complaining of worsening environmental allergies symptoms. Will request Xolair approval. Orders: Orders Rast Allergen Today Z91.09 - Other allergy status, other than to drugs and biological substances Coding Level of Care Code Est Pt Level 4 (37024) Diagnoses Moderate persistent asthma, unspecified whether complicated J45.40 Asthma severity: moderate Asthma persistence: persistent Asthma complication type: unspecified Environmental allergies Z91.09
== END 2024-07-16 09:15 | disposition home or self-care (01) ==
PROVIDERS: PCP Internal Medicine; Visit Provider Internal Medicine Pulmonary Disease
DX: J45.40 Moderate persistent asthma, uncomplicated (principal); Z91.09 Other allergy status, other than to drugs and biological substances
CPT/HCPCS: 99214

== ENCOUNTER → 2024-07-16 08:43 | Outpatient (BNVA) | payer MEDICARE, MEDICAID, SELFPAY | PROVIDERS: PCP Internal Medicine; Visit Provider Internal Medicine Pulmonary Disease | DX: Z13.89 Encounter for screening for other disorder (principal) | CPT/HCPCS: 99212 ==

== ENCOUNTER 2024-07-16 09:20 | Outpatient (REF) | payer MEDICARE, MEDICAID, SELFPAY ==
[2024-07-16 10:56] LABS: Lipase 22 U/L (8-78)
[2024-07-17 15:04] LABS: Transglutaminase Ab IgG <1.0 U/mL; Transglutaminase IgA <1.0 U/mL
== END 2024-07-16 09:21 | disposition home or self-care (01) ==
LOC: HO.RESP 09:20
PROVIDERS: Absent Provider Nurse Practitioner Family; PCP Internal Medicine; Visit Provider Internal Medicine Pulmonary Disease
DX: Z91.09 Other allergy status, other than to drugs and biological substances (principal); R10.9 Unspecified abdominal pain
CPT/HCPCS: 36415; 83690; 86003; 86364; 99212

== ENCOUNTER 2024-07-17 10:37 | Outpatient (REF) | payer MEDICARE, MEDICAID, SELFPAY ==
[2024-07-19 07:10] LABS: Urine Cytology See Pathology rpt
== END 2024-07-17 10:38 | disposition home or self-care (01) ==
LOC: HO.LNP 10:37
PROVIDERS: PCP Internal Medicine; Visit Provider Nurse Practitioner Family
DX: R31.29 Other microscopic hematuria (principal); R39.16 Straining to void; N39.3 Stress incontinence (female) (male); Z87.898 Personal history of other specified conditions
CPT/HCPCS: 51798; 81003; 88112; 99202

== ENCOUNTER 2024-07-17 10:37 | Outpatient (AMB) | payer MEDICARE, MEDICAID, SELFPAY ==
--- NOTE | 2024-07-17 10:47 | MHC.OFFVIS ---
Intake Visit Reasons: urinary incontinence/urinary urgency Intake Note: New Patient presents for initial visit for incontinence and urgency Urology Medications: none Blood Thinner: none PVR: 23ml's Non Destructive Testing Technician Required: No Accompanied by: Self / Same As Patient Allergies latex Allergy (Severe, Verified 07/17/24 11:30) Anaphylaxis Cephalosporins Allergy (Mild, Verified 07/17/24 11:30) Rash egg Allergy (Mild, Verified 07/17/24 11:30) Unknown Sulfa (Sulfonamide Antibiotics) Allergy (Mild, Verified 07/17/24 11:30) Rash ibuprofen [From Motrin] Adverse Reaction (Mild, Verified 07/17/24 11:30) Rash Medication List - Last Reconciled 07/17/24 by YUN Toscano acarbose 100 mg PO TID albuterol sulfate 90 mcg/actuation 2 puffs inhalation QID PRN albuterol sulfate mg inhalation Q4-6H PRN lcpkunrxgx-xpmpsasg-ajyxtkoafd 160-9-4.8 mcg/actuation (Breztri Aerosphere) 2 inhalations inhalation BID 30 days bupropion HCl XL 150 mg PO QAM 30 days cetirizine (Zyrtec) 10 mg PO DAILY PRN cholecalciferol (vitamin D3) 50 mcg PO DAILY 90 days cyanocobalamin (vitamin B-12) 1,000 mcg IM .ONCE A MONTH escitalopram oxalate (Lexapro) 20 mg PO DAILY 90 days estradiol 1 patch transdermal QWEEK famotidine 40 mg PO BEDTIME gabapentin 600 mg PO DAILY 90 days insulin syringe-needle U-100 (BD Insulin Syringe Ultra-Fine) As directed lansoprazole 30 mg PO DAILY lorazepam (Ativan) 1 mg PO BEDTIME PRN ondansetron 4 mg PO Q8H ropinirole 1 to 2 tablets orally bedtime; 30 days scopolamine base 1 patch transdermal Q3D PRN sennosides (Natural Senna Laxative) 17.2 mg (2 x 8.6 mg) PO BEDTIME sumatriptan succinate (Imitrex) 50 mg PO Q2-4H PRN HPI Comments Details: Adina a very pleasant 54-year-old female patient of Dr. Crane. She has a past medical history of hypercholesteremia, vitamin-D deficiency, vitamin B12 deficiency, allergic rhinitis, GERD, anxiety, neuropathy, asthma, diabetes, and migraines. She presents to the office today as a new patient for ongoing lower urinary tract symptoms. In discussion with the patient today she reports noting worsening ongoing lower urinary tract symptoms of stress incontinence, straining with urination, and urinary hesitancy. She reports symptoms have been present for quite some time however feels they are worsening. We discussed at length potential causes of lower urinary tract symptoms patient is experiencing. In review of patient's chart it appears last A1c 04/05 5.2. We discussed further treatment options to include pelvic floor therapy as well as near future in office urodynamics for further assessment evaluation. Will obtain retroperitoneal ultrasound for further assessment evaluation. In office urinalysis results reviewed with the patient today trace microscopic hematuria. When asked she denies any previous smoking history and or workplace chemical exposure. We discussed further workup to include in office cystoscopy. When asked she denies gross hematuria, dysuria, foul smelling urine, flank pain, fever, and or chills. PVR 23 mL. She otherwise offers no other issues or concerns at this time. [facility] Medical History Pure hypercholesterolemia Vitamin D deficiency Vitamin B12 deficiency Allergic rhinitis GERD without esophagitis Pulmonary nodule, left Anxiety Neuropathy Asthma Diabetes mellitus Migraine Cyclical vomiting Surgical History History of lumpectomy of right breast (05/29/24) Hx of shoulder surgery Hx of shoulder surgery Hx of colonoscopy Status post laparoscopic assisted vaginal hysterectomy (LAVH) (~2016) Hx of gastric bypass (~2009) Hx of cholecystectomy Family History Other Diabetes Social History Housing: House Alcohol intake: never Patient Tobacco Use Status: Former Tobacco user Tobacco use type: Cigarette Cigarette Packs Per Day: 1.5 Years Smoked: quit more than 15 years ago, started as a teen e-Cigarette/Vaping Use: Never Used Current occupational status: disabled Current occupation: Left hand dominant Cognitive needs: No Hearing needs: No Vision needs: Yes Review of Systems Eyes Reports no additional complaints ENT Reports no additional complaints Card Reports as per HPI Resp Reports no additional complaints GI Reports as per HPI Reports as per HPI Musc Reports no additional complaints Neuro Reports as per HPI Psych Reports as per HPI Endo Reports as per HPI Melvin/Lymph Reports no additional complaints Aller/Immun Reports no additional complaints Physical Exam Const General: cooperative, comfortable, no acute distress, well developed, alert and awake Orientation/consciousness: patient oriented x3 Limitations: no limitations HEENT Head: Yes normal to inspection, Yes normocephalic and Yes atraumatic Ears: hearing grossly normal bilaterally Eyes General: appearance normal, both eyes and all related structures Neck Neck: Yes normal visual inspection and Yes trachea midline Chest Chest palpation & inspection: normal inspection of the chest Resp Effort & Inspection: normal respiratory effort and able to speak in complete sentences Cardio Rate: regular rate GI Inspection: Yes normal to inspection General: Yes no CVA tenderness Back/Spine/Pelvis Back: no CVA tenderness Skin General skin exam: no rashes or lesions noted Neuro General: patient oriented x3 Extrem General: Yes normal to inspection Psych Appearance: grossly normal and well kempt Mental Status: mental status grossly normal Speech and movement: Normal speech and movement present and Clear speech present Affect: normal affect Attitude: cooperative Thought process: Normal thought process present Thought content: Normal thought content present Insight: Fair insight present (Psych) Judgement: Fair judgement present (Psych) Office Procedures Post Void Residual Post Residual Void Post Void Residual (PVR): 23 [id number]-[id number] Void Residual by ultrasound Results AMB Urinalysis, Automated UA Leukoctes 0 Bakari/uL Last Edit by Dillan Leonardo on 07/17/24 11:12 UA Nitrite Negative Last Edit by HolgerAcacia Interactivealanis Leonardo on 07/17/24 11:12 UA Urobilinogen 0.2 mg/dL Last Edit by Dillan Leonardo on 07/17/24 11:12 UA Protein 0 mg/dL Last Edit by [employer] Malissa on 07/17/24 11:12 UA pH 7.0 Last Edit by [employer] Malissa on 07/17/24 11:12 UA Blood 10 Keo/uL Last Edit by [employer]ana[employer] Leonardo on 07/17/24 11:12 UA Specific Alder 1.015 Last Edit by Picol[employer]alanis Leonardo on 07/17/24 11:12 UA Ketone Negative Last Edit by Picol[employer]alanis Leonardo on 07/17/24 11:12 UA Bilirubin 0 mg/dL Last Edit by Dillan Leonardo on 07/17/24 11:12 UA Glucose 0 mg/dL Last Edit by Dillan Leonardo on 07/17/24 11:12 Results Reviewed Results Reviewed: Laboratory Last Values Urine pH (Auto) 7.0 07/17/24 10:52 Specific Alder (Auto) 1.015 07/17/24 10:52 Urine Protein (Auto) 0 mg/dL 07/17/24 10:52 Glucose (UA)(Auto) 0 mg/dL 07/17/24 10:52 Urine Ketones (Auto) Negative 07/17/24 10:52 Urine Blood (Auto) 10 Keo/uL 07/17/24 10:52 Urine Nitrite (Auto) Negative 07/17/24 10:52 Urine Bilirubin (Auto) 0 mg/dL 07/17/24 10:52 Urine Urobilinogen (Auto) 0.2 mg/dL 07/17/24 10:52 Leukocyte Esterase (Auto) 0 Bakari/uL 07/17/24 10:52 Assessment & Plan Assessment & Plan (1) Hematuria, microscopic: Code(s): R31.29 - Other microscopic hematuria Category: Medical (2) History of urinary hesitancy: Code(s): Z87.898 - Personal history of other specified conditions Category: Medical (3) Straining on urination: Code(s): R39.16 - Straining to void Category: Medical Plan In office urinalysis results reviewed with the patient today; as noted above; will send for urine cytology. We discussed at length potential causes of microscopic hematuria we discussed further workup to include in office cystoscopy versus surveillance monitoring; risks and benefits of these interventions were discussed. PVR 23 mL. Discussed at length potential causes of lower urinary tract symptoms patient is experiencing Discussed pelvic floor therapy. Will obtain retroperitoneal ultrasound for further assessment evaluation. Discussed possible near future in office cystoscopy and or urodynamics if symptoms persist and/or worsen. Follow-up in 1-3 months with imaging to be completed prior; or sooner with any issues, concerns, and or questions. Orders: Orders AMB Post Void Residual by ultrasound Today R32 - Unspecified urinary incontinence Urine Cytology Today Z13.9 - Encounter for screening, unspecified US retroperitoneal comp Today N39.3 - Stress incontinence (female) (male), R31.29 - Other microscopic hematuria, R39.16 - Straining to void, Z87.898 - Personal history of other specified conditions AMB Urinalysis Automated Today Z13.9 - Encounter for screening, unspecified Patient Instructions: The patient had an opportunity to ask questions regarding the treatment plan. All questions were answered. Physical exam, labs, and imaging were discussed and reviewed in detail. As well as risks, benefits, and discussion of treatment choices. No major barriers to understanding were identified. The patient expressed understanding and agreement with the above treatment plan. The patient was made aware they should contact our office by phone for worsening of their current condition, the appearance of new symptoms, or with any questions or concerns. Compliance is encouraged with any medications and follow up testing that is ordered. It is a privilege to be allowed the opportunity to participate in? your urological care.? Again, if you have any questions or concerns If you have any questions or concerns please do not hesitate to contact me. The office is [phone]. This note is constructed using voice recognition software. While every effort has been made to ensure accuracy highway safety engineer errors may have been included. Yours sincerely, AMANDA Toscano- Coding Level of Care Code New Pt Level 3 (58802) Diagnoses Hematuria, microscopic R31.29 History of urinary hesitancy Z87.898 Straining on urination R39.16 CPT Codes Post Residual Void - PVR CPT Code: 71300-[id number] Void Residual by ultrasound ([id number]) Time Spent (min) 20
== END 2024-07-17 11:28 | disposition home or self-care (01) ==
PROVIDERS: PCP Internal Medicine; Visit Provider Nurse Practitioner Family
DX: R31.29 Other microscopic hematuria (principal); Z87.898 Personal history of other specified conditions; R39.16 Straining to void; Z13.9 Encounter for screening, unspecified
CPT/HCPCS: 99203; 99213

== ENCOUNTER 2024-07-18 13:52 | Outpatient (AMB) | payer MEDICARE, MEDICAID, SELFPAY ==
--- NOTE | 2024-07-18 13:53 | MHC.OFFVIS ---
Vital Signs 07/18/24 13:54 Height 6 ft Weight 190 lb BMI 25.8 Intake Visit Reasons: PO RT RTC 06/12/24 NE Intake Note: Emani is a 54 year old left hand dominant female who presents today for a follow up of her Right shoulder S/p Right RTC 06/12/24. Patient reports that she is kdong better, she has not present concerns. She has not yet started PT. Denies numbness and tingling. Allergies latex Allergy (Severe, Verified 07/17/24 11:30) Anaphylaxis Cephalosporins Allergy (Mild, Verified 07/17/24 11:30) Rash egg Allergy (Mild, Verified 07/17/24 11:30) Unknown Sulfa (Sulfonamide Antibiotics) Allergy (Mild, Verified 07/17/24 11:30) Rash ibuprofen [From Motrin] Adverse Reaction (Mild, Verified 07/17/24 11:30) Rash HPI HPI PO RT RTC 06/12/24 NE: Details: Emani is a 54 year old left hand dominant female who presents today for a follow up of her Right shoulder S/p Right RTC 06/12/24. Patient reports that she is doing better, she has not present concerns. She has not yet started PT. Denies numbness and tingling. PFSH Medical History Pure hypercholesterolemia Vitamin D deficiency Vitamin B12 deficiency Allergic rhinitis GERD without esophagitis Pulmonary nodule, left Anxiety Neuropathy Asthma Diabetes mellitus Migraine Cyclical vomiting Surgical History History of lumpectomy of right breast (05/29/24) Hx of shoulder surgery Hx of shoulder surgery Hx of colonoscopy Status post laparoscopic assisted vaginal hysterectomy (LAVH) (~2016) Hx of gastric bypass (~2009) Hx of cholecystectomy Family History Other Diabetes Social History Housing: House Alcohol intake: never Patient Tobacco Use Status: Former Tobacco user Tobacco use type: Cigarette Cigarette Packs Per Day: 1.5 Years Smoked: quit more than 15 years ago, started as a teen e-Cigarette/Vaping Use: Never Used Current occupational status: disabled Current occupation: Left hand dominant Cognitive needs: No Hearing needs: No Vision needs: Yes Physical Exam Vital Signs: BMI result Body Mass Index 25.8 Extrem Other: Portals clean dry and intact 70 degrees abduction 20 degrees external rotation 120 degrees forward flexion Assessment & Plan Assessment & Plan (1) History of repair of right rotator cuff: Code(s): Z98.890 - Other specified postprocedural states Category: Surgical Plan: Status post revision with 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 She is doing very well. I cautioned her to be careful in terms of activity. Continue physical therapy follow up in 6 weeks. Overall she is doing quite well. Coding Level of Care Code Global (90492) Diagnoses History of repair of right rotator cuff Z98.890
[2024-07-18 13:54] VITALS: BMI 25.8
== END 2024-07-18 15:22 | disposition home or self-care (01) ==
PROVIDERS: PCP Internal Medicine; Visit Provider Orthopaedic Surgery
DX: Z98.890 Other specified postprocedural states (principal)
CPT/HCPCS: 99024

== ENCOUNTER → 2024-07-18 13:52 | Outpatient (BNVA) | payer MEDICARE, MEDICAID, SELFPAY | PROVIDERS: PCP Internal Medicine; Visit Provider Orthopaedic Surgery | DX: Z47.89 Encounter for other orthopedic aftercare (principal); Z87.39 Personal history of other diseases of the musculoskeletal system and connective tissue; Z98.890 Other specified postprocedural states | CPT/HCPCS: 99212 ==

== ENCOUNTER 2024-07-20 13:53 | Outpatient (REF) | payer MEDICARE, MEDICAID, SELFPAY ==
[2024-07-20 10:20] VITALS: PULSE 72; RESP 16; O2SAT 98
--- NOTE | 2024-07-20 13:30 | PFT_ITS ---
Flows: FEV1: 91 % of predicted at 2.94 L FVC: 118 % of predicted at 4.88 L FEV1/FVC: 60 % Bronchodilator response: Absent Volumes: Total lung capacity: 121 % of predicted at 7.67 L Residual volume: 144 % of predicted at 2.79 L Slow vital capacity: 111 % of predicted at 4.88 L Expiratory reserve volume: 103 % of predicted at 1.29 L Diffusion capacity: Normal Impression: Mild obstructive ventilatory defect with no bronchodilator response. Increased total lung capacity suggests hyperinflation. Increased residual volume suggests air trapping. MTDD
== END 2024-07-20 13:54 | disposition home or self-care (01) ==
LOC: HO.RESP 13:53
PROVIDERS: PCP Internal Medicine; Visit Provider Internal Medicine Pulmonary Disease
DX: J45.40 Moderate persistent asthma, uncomplicated (principal)
CPT/HCPCS: 94010; 94640; 94727; 94729

== ENCOUNTER 2024-07-22 11:16 | Outpatient (REF) | payer MEDICARE, MEDICAID, SELFPAY ==
--- NOTE | ~2024-07-22 | US_ITS ---
EXAMINATION: US RETROPERITONEAL COMPLETE (RENAL) CLINICAL INFORMATION: Straining to void. COMPARISON: None available. TECHNIQUE: Real-time imaging of the kidneys and bladder. FINDINGS: RIGHT KIDNEY: 13.4 x 5.3 x 6.7 cm (SAG x AP x TRV). The kidney is normal in size, contour, and echogenicity. Renal cortical thickness is normal. No calculi or focal parenchymal lesions. Mild pelviectasis with mild proximal hydroureter. LEFT KIDNEY: 13.2 x 6.0 x 5.0 cm (SAG x AP x TRV). The kidney is normal in size, contour, and echogenicity. Renal cortical thickness is normal. No calculi or focal parenchymal lesions. No hydronephrosis. BLADDER: Focal nodular-like thickening of the anterior bladder wall measuring 1.7 x 0.9 x 2.3 cm. Bilateral ureteral jets are demonstrated. Prevoid bladder volume is 233 mL. Postvoid bladder volume is 43 mL. US/US retroperitoneal comp IMPRESSION: 1. Focal nodular-like thickening of the anterior bladder wall measuring up to 2.3 cm. Recommend urology referral and correlation with cystoscopy, underlying urothelial malignancy is not excluded. 2. Mild right-sided pelviectasis and hydroureter of indeterminate etiology. The report will be called to the ordering clinician by a [facility] Physician Permit Review Assistant. Electronically signed by: Jyoti Luna MD 07/25/2024 04:31 PM EDT
== END 2024-07-22 11:17 | disposition home or self-care (01) ==
LOC: HO.HMGCX 11:16
PROVIDERS: PCP Internal Medicine; Visit Provider Nurse Practitioner Family
DX: R39.16 Straining to void (principal); N39.3 Stress incontinence (female) (male); R31.29 Other microscopic hematuria; Z87.898 Personal history of other specified conditions
CPT/HCPCS: 76770

== ENCOUNTER 2024-07-27 10:27 | Outpatient (REF) | payer MEDICARE, MEDICAID, SELFPAY ==
[2024-07-27 11:24] LABS: Appearance Urine Clear; Color Urine Yellow; Glucose Urine UA Negative (Negative); Leukocyte Esterase Urine Negative (Negative); Nitrite Urine Negative (Negative); PH 7.5 (5.0-9.0); Urine Blood Negative (Negative); Urine Ketones Negative (Negative); Urine Protein Negative (Neg-Trace)
[2024-07-27 11:33] LABS: Bacteria Urine None Seen (None Seen); Hyaline Casts Urine 0-2 /LPF (0-2); RBC Urine 0-2 /HPF (0-2); Squamous Epithelial Cell Urine 0-2 /HPF (0-2); WBC Urine 0-5 /HPF (0-5)
== END 2024-07-27 10:28 | disposition home or self-care (01) ==
LOC: HO.LAB 10:27
PROVIDERS: PCP Internal Medicine; Visit Provider Nurse Practitioner Family
DX: R31.29 Other microscopic hematuria (principal); R39.16 Straining to void; R32 Unspecified urinary incontinence; Z87.898 Personal history of other specified conditions
CPT/HCPCS: 81001; 87086

== ENCOUNTER 2024-08-12 07:59 | Outpatient (REF) | payer MEDICARE, MEDICAID, SELFPAY ==
--- NOTE | ~2024-08-12 | FL_ITS ---
EXAMINATION: XR FLUOROSCOPY UPPER GI WITH AIR WITH SMALL BOWEL SERIES. CLINICAL INFORMATION: Reflux. History of gastric bypass. COMPARISON: None TECHNIQUE: Fluoroscopic air contrast upper GI examination was performed utilizing standard techniques with thin and thick barium and effervescent granules. Numerous spot images were obtained. FINDINGS: UPPER GI SERIES: Lateral cine images of the oropharynx and hypopharynx demonstrate normal swallow mechanism with normal epiglottic inversion and soft palate elevation. No tracheal penetration, glottic or subglottic aspiration identified. No nasopharyngeal reflux present. Hypopharyngeal structures appear normal without evidence of mass or diverticulum. There was no significant cricopharyngeal achalasia. Dual and single contrast images of the esophagus demonstrate normal caliber and contour. There is an irregular appearance/focal area of contrast pooling in the mid esophageal wall, suggestive of a small mucosal ulceration (RF 1-14,128/242). No strictures or masses are present.. Esophageal peristalsis was normal. A small type I hiatal hernia is present. Gastroesophageal reflux is seen up to the thoracic inlet. Dual contrast and single contrast images of the stomach demonstrated post surgical changes consistent with prior history of Rosemarie-en-Y gastric bypass. The gastrojejunostomy is widely patent, without evidence of stricture. No masses or ulcerations are seen. Contrast freely passed into the alimentary limb without delay. SMALL BOWEL SERIES: -Bottom Loader views of the abdomen and pelvis demonstrate abundant stool within the colon with sparing of the sigmoid and rectum. No abnormally dilated loops of bowel. -No organomegaly. Lung bases are clear. Anastomotic staple lines and surgical clips seen in the epigastric region and left upper quadrant from gastric bypass. -No abnormal soft tissue calcifications. -No suspicious bony abnormality is evident. Mild degenerative lumbar changes with a mild levoconvex scoliosis. -Normal SI joints and hip joints. -Imaged small bowel demonstrates normal fold pattern without definite mucosal abnormality, stricture, or mass lesion. After 120 minutes, the contrast has not yet reached the right colon. The patient declined further interval imaging, on the study was terminated. FLUOROSCOPY TIME: 4 minutes. Number of Spot Images: 8 Number of Cine: 14 DOSE AREA PRODUCT: 2049 uGy-m2 (microgray-meter squared) FL/FL upper GI w air w SBFT IMPRESSION: 1. Irregular appearance/focal area of contrast pooling in the mid right lateral esophageal wall, suggestive of a small superficial mucosal ulceration. Recommend correlation with EGD. 2. Small type I hiatal hernia with significant gastroesophageal reflux seen. 3. Post surgical changes consistent with prior history of Rosemarie-en-Y gastric bypass. No evidence of anastomotic stricture. 4. Normal-appearing small bowel series although contrast remained in the distal ileum after 120 minutes. The patient declined further interval imaging, and the study was terminated. 5. Ancillary findings as discussed in the body of the report. This procedure was performed by Joni Gill PA-C, and supervised by Dr. Ramos Electronically signed by: Jim Ramos MD 08/14/2024 03:20 PM EDT
== END 2024-08-12 08:00 | disposition home or self-care (01) ==
LOC: HO.XRAY 07:59
PROVIDERS: PCP Internal Medicine; Visit Provider Nurse Practitioner Family
DX: K21.9 Gastro-esophageal reflux disease without esophagitis (principal)
CPT/HCPCS: 74246; 74248

== ENCOUNTER → 2024-08-12 08:03 | Outpatient (BNV) | payer MEDICARE, MEDICAID, SELFPAY | PROVIDERS: PCP Internal Medicine; Visit Provider Radiology Diagnostic Radiology | DX: K21.9 Gastro-esophageal reflux disease without esophagitis (principal); Z98.84 Bariatric surgery status | CPT/HCPCS: 74246; 74248 ==

== ENCOUNTER 2024-08-29 10:33 | Outpatient (AMB) | payer MEDICARE, MEDICAID, SELFPAY ==
--- NOTE | 2024-08-29 10:43 | A.OFFVIS_ITS ---
Intake Visit Reasons: PO RT RTC 06/12/24 NE-6 week follow up Intake Note: Emani is a 54 year old left hand dominant female who presents today for a follow up of her Right shoulder S/p Right RTC 06/12/24. Patient reports that she is doing well with no concerns at this time. Allergies latex Allergy (Severe, Verified 07/17/24 11:30) Anaphylaxis Cephalosporins Allergy (Mild, Verified 07/17/24 11:30) Rash egg Allergy (Mild, Verified 07/17/24 11:30) Unknown Sulfa (Sulfonamide Antibiotics) Allergy (Mild, Verified 07/17/24 11:30) Rash ibuprofen [From Motrin] Adverse Reaction (Mild, Verified 07/17/24 11:30) Rash HPI HPI PO RT RTC 06/12/24 NE-6 week follow up: Details: Emani is a 54 year old left hand dominant female who presents today for a follow up of her Right shoulder S/p Right RTC 06/12/24. Patient reports that she is doing well with no concerns at this time. [facility] Medical History Pure hypercholesterolemia Vitamin D deficiency Vitamin B12 deficiency Allergic rhinitis GERD without esophagitis Pulmonary nodule, left Anxiety Neuropathy Asthma Diabetes mellitus Migraine Cyclical vomiting Surgical History History of lumpectomy of right breast (05/29/24) Hx of shoulder surgery Hx of shoulder surgery Hx of colonoscopy Status post laparoscopic assisted vaginal hysterectomy (LAVH) (~2016) Hx of gastric bypass (~2009) Hx of cholecystectomy Family History Other Diabetes Social History Housing: House Alcohol intake: never Patient Tobacco Use Status: Former Tobacco user Tobacco use type: Cigarette Cigarette Packs Per Day: 1.5 Years Smoked: quit more than 15 years ago, started as a teen e-Cigarette/Vaping Use: Never Used Current occupational status: disabled Current occupation: Left hand dominant Cognitive needs: No Hearing needs: No Vision needs: Yes Physical Exam Extrem Other: Excellent and full range of motion with a negative empty can. Assessment & Plan Assessment & Plan (1) Status post right rotator cuff repair: Code(s): Z98.890 - Other specified postprocedural states Category: Surgical Plan: Status post revision rotator cuff tear doing exceptionally well. I cautioned her with overhead lifting and recommend that she continue her motion and gentle strengthening. She can follow up as needed. Coding Level of Care Code Global (84782) Diagnoses Status post right rotator cuff repair Z98.890
== END 2024-08-29 11:21 | disposition home or self-care (01) ==
PROVIDERS: PCP Internal Medicine; Visit Provider Orthopaedic Surgery
DX: Z98.890 Other specified postprocedural states (principal)
CPT/HCPCS: 99024

== ENCOUNTER → 2024-08-29 10:33 | Outpatient (BNVA) | payer MEDICARE, MEDICAID, SELFPAY | PROVIDERS: PCP Internal Medicine; Visit Provider Orthopaedic Surgery | DX: Z47.89 Encounter for other orthopedic aftercare (principal); Z98.890 Other specified postprocedural states | CPT/HCPCS: 99212 ==

== ENCOUNTER 2024-09-06 08:16 | Outpatient (REF) | payer MEDICARE, MEDICAID, SELFPAY ==
--- NOTE | ~2024-09-06 | CT_ITS ---
EXAMINATION: CT ABDOMEN AND PELVIS WITHOUT AND WITH CONTRAST CLINICAL INFORMATION: Gross hematuria. COMPARISON: No prior CT imaging available. TECHNIQUE: Noncontrast CT urogram of the abdomen and pelvis is performed followed by split bolus contrast-enhanced images using 85 mL Omnipaque 350 contrast. Postcontrast imaging is performed during the combined nephrogram and excretion phase. Sagittal and coronal reformatted images were obtained on the technologist's workstation for both the precontrast and postcontrast phases. This CT examination was performed using dose optimization techniques as appropriate, variously including the following: *Automated exposure control *Adjustment of mA and/or kV according to patient size (this includes techniques or standardized protocols for targeted exams where dose is matched to indication/reason for exam; i.e. extremities or head) *Use of iterative reconstruction technique DLP: 1024 mGy-cm FINDINGS: LUNG BASES: -Lung bases are clear bilaterally. Heart size is normal. -No effusions. -Small hiatus hernia present above a gastric bypass procedure. LIVER, GALLBLADDER, AND BILIARY TREE: -The liver is normal in size, shape, and attenuation. No focal hepatic lesion. Gallbladder is not well seen and is likely surgically absent. -No intra or extrahepatic biliary ductal dilatation. PANCREAS: Unremarkable. SPLEEN: Unremarkable. ADRENAL GLANDS: Unremarkable. KIDNEYS AND URETERS: -Normal in size and attenuation. No masses or cysts. -No hydronephrosis. No calculi. -No pyelocalyceal filling defects on either side. -Normal opacification of both ureters: Normal in caliber and course. BLADDER: -There is contrast jet artifact in the left aspect of the urinary bladder from ureteral jet. Bladder is otherwise normal in appearance without evidence of mass or wall thickening. GASTROINTESTINAL TRACT: -Patient has undergone a Rosemarie-en-Y gastric bypass procedure. Anastomotic sites appear patent. -Excluded stomach is decompressed, and duodenal loop is normal. -Small bowel is normal in caliber and course. No inflammation. -Colon is normal in caliber, course, and appearance. There is a mobile appearing cecum. -A normal contrast-filled appendix is present. -No rectal abnormalities. ABDOMINAL WALL: No significant hernia is appreciated. LYMPH NODES: Normal. VASCULAR: -Minimal atheromatous calcification of the aorta. No aneurysms. -No venous thrombosis. PELVIC VISCERA: There has been a hysterectomy. No adnexal masses. OSSEUS STRUCTURES: -No suspicious lytic or blastic bone lesions. Mild levoconvex scoliosis with degenerative changes of the lumbar spine spanning L3-L5. CT/CT urogram IMPRESSION: 1. Normal kidneys, ureters, collecting systems, and urinary bladder. No explanation for hematuria. 2. Patient has undergone prior cholecystectomy and Rosemarie-en-Y gastric bypass. 3. No acute or suspicious findings in the abdomen or pelvis. Electronically signed by: Jim Ramos MD 09/20/2024 10:16 AM SARA
[2024-09-06] MEDS: iohexoL 350 MG/ML 100 ML INFUS..BTL IV (09:24)
[2024-09-09 06:08] LABS: Creatinine POC 0.9 mg/dL (0.5-1.4); GFR POC > 60
== END 2024-09-06 08:17 | disposition home or self-care (01) ==
LOC: HO.CT 08:16
PROVIDERS: PCP Internal Medicine; Visit Provider Nurse Practitioner Family
DX: R31.0 Gross hematuria (principal)
CPT/HCPCS: 74178; 82565; Q9967

== ENCOUNTER → 2024-09-06 08:46 | Outpatient (BNV) | payer MEDICARE, MEDICAID, SELFPAY | PROVIDERS: PCP Internal Medicine; Visit Provider Radiology Diagnostic Radiology | DX: R31.0 Gross hematuria (principal) | CPT/HCPCS: 74178 ==

== ENCOUNTER 2024-09-11 13:39 | Outpatient (AMB) | payer MEDICARE, MEDICAID, SELFPAY ==
[2024-09-11 13:41] VITALS: BP 100/70; PULSE 72; O2SAT 94; BMI 26.6
--- NOTE | 2024-09-11 13:41 | MHC.OFFVIS ---
Vital Signs 09/11/24 13:41 Height 6 ft Weight 196 lb 3.382 oz BMI 26.6 BP 100/70 Blood Pressure Location Rt brachial Position Sitting Pulse 72 Pulse Source Pulse Oximeter Pulse Oximetry (%) 94 Oxygen Delivery Method Room Air Intake Visit Reasons: 2 month follow up Intake Note: PRESCRIPTIONS LAST GENERATED sennosides 8.6 mg tablet?(Natural Senna Laxative)?17.2 mg (2 x 8.6 mg) PO BEDTIME 60 tabs 3RF Susan,Nora D 06/19/24 14:10 (Transmitted) famotidine 40 mg tablet?40 mg PO BEDTIME 30 tabs 3RF Susan,Nora D 06/19/24 14:10 (Transmitted) Pt reports no longer taking either of these medications. Relevant Flags or Indicators ? Requires Operations Support Coordinator? Dexter Venturaen presents in office today for a scheduled 2 mos FUV. CC; Labs and diagnostics performed since last visit (GI and Small Bowel included) Relevant GI Sx as reported per pt? Reflux ? Dysphagia ? Hx of any recent surgeries? None Operations Support Coordinator Required: No Allergies latex Allergy (Severe, Verified 09/25/24 14:45) Anaphylaxis Cephalosporins Allergy (Mild, Verified 09/25/24 14:45) Rash egg Allergy (Mild, Verified 09/25/24 14:45) Unknown Sulfa (Sulfonamide Antibiotics) Allergy (Mild, Verified 09/25/24 14:45) Rash ibuprofen [From Motrin] Adverse Reaction (Mild, Verified 09/25/24 14:45) Rash HPI HPI 2 month follow up: Details: LAST VISIT: GERD without esophagitis Postprandial abdominal bloating Constipation Postprandial epigastric pain Plan Patient will continue taking lansoprazole in the gutierrez being and famotidine at bedtime. Avoid dietary triggers and late night snacking. Staying upright for minimum 3 hours after meals discussed with patient. Will check transglutaminase to rule out celiac. Will check lipase. Upper GI small-bowel ordered. Patient will start taking senna to help her move her bowels better. Increase fluid intake and activity to promote better bowel motility. Patient will follow-up in the office in 2 months, sooner on as needed basis. She is agreeable to this plan and verbalizes understanding of instructions. She was given the opportunity to ask questions and all questions answered. ? Thank you for allowing me to participate in her care Orders Orders Transglutaminase Ab IgG 06/19/24 R10.9 Transglutaminase IgA 06/19/24 R10.9 FL upper GI small bowel 06/19/24 K21.9 Lipase 06/19/24 R10.9 Medications New famotidine 40 mg PO BEDTIME 30 tabs 3RF K21.9 lansoprazole 30 mg PO DAILY 30 caps 3RF K21.9 sennosides (Natural Senna Laxative) 17.2 mg (2 x 8.6 mg) PO BEDTIME 60 tabs 3RF constipation K59.00 TODAY'S VISIT: Patient is here today for follow-up and to discuss going for upper endoscopy. Patient had upper GI series which will be discussed with patient today as well. Disorganized motility as well as contrast pooling noted in esophagus suggesting ulceration. Patient has upper endoscopy scheduled for the . Patient reports trouble swallowing feels like the food is getting stuck, severe acid reflux with epigastric pain almost all the time not necessarily after meals. Currently patient is taking esomeprazole in the morning and sucralfate twice a day at 14:00 and at bedtime. Patient called couple weeks ago and was complaining of worsening symptoms at that time she was on lansoprazole in the morning and famotidine at bedtime and that is when we change PPI in added sucralfate. Patient reports that sucralfate helps, however she continues to have epigastric pain worse after meals and acid reflux worsening towards the end of the day. Patient denies any nausea or vomiting. [facility] Medical History Pure hypercholesterolemia Vitamin D deficiency Vitamin B12 deficiency Allergic rhinitis GERD without esophagitis Pulmonary nodule, left Anxiety Neuropathy Asthma Diabetes mellitus Migraine Cyclical vomiting Surgical History History of lumpectomy of right breast (05/29/24) Hx of shoulder surgery Hx of shoulder surgery Hx of colonoscopy Status post laparoscopic assisted vaginal hysterectomy (LAVH) (~2017) Hx of gastric bypass (~2009) Hx of cholecystectomy Family History Other Diabetes Social History Housing: House Are you a primary transitional care manager to a significant other at home: No Do you presently have visiting nurse or other home services: No Alcohol intake: never Patient Tobacco Use Status: Former Tobacco user Tobacco use type: Cigarette Cigarette Packs Per Day: 1.5 Years Smoked: quit more than 15 years ago, started as a teen e-Cigarette/Vaping Use: Never Used Current occupational status: disabled Current occupation: Left hand dominant Cognitive needs: No Hearing needs: No Vision needs: Yes Review of Systems Const Denies weight gain and Denies weight loss ENT Reports no additional complaints, Reports dysphagia and Denies odynophagia Card Reports no additional complaints Resp Reports no additional complaints GI Denies abdominal pain, Denies belching, Denies melena, Reports bloating, Denies change in bowel habits, Reports constipation, Reports dysphagia, Denies excessive flatus, Reports dyspepsia, Reports heartburn, Denies diarrhea, Denies loose stools, Denies nausea, Denies odynophagia and Denies vomiting Reports no additional complaints Musc Reports no additional complaints Neuro Reports no additional complaints Psych Reports no additional complaints Endo Reports no additional complaints Physical Exam Vital Signs: Last Vital Signs Pulse 72 09/11/24 13:41 BP 100/70 09/11/24 13:41 Pulse Ox 94 09/11/24 13:41 Oxygen Delivery Method Room Air 09/11/24 13:41 BMI result Body Mass Index 26.6 Const General: healthy appearing, no acute distress and well developed Nutritional Appearance: well nourished Orientation/consciousness: patient oriented x3 Resp Effort & Inspection: normal respiratory effort, able to speak in complete sentences, no tracheal deviation and symmetric chest movement Auscultation: clear to auscultation bilaterally Cardio Rate: regular rate GI Inspection: Yes normal to inspection and No distended Palpation (GI): Soft to palpation, not firm, nontender and No hepatosplenomegaly present Auscultation: normal bowel sounds General: Yes no CVA tenderness Back/Spine/Pelvis Back: no CVA tenderness Skin General skin exam: elasticity normal, turgor normal and dry skin Neuro General: patient oriented x3 Psych Appearance: grossly normal Mental Status: mental status grossly normal Results Reviewed Results Reviewed: UPPER GI SERIES 1. Irregular appearance/focal area of contrast pooling in the mid right lateral esophageal wall, suggestive of a small superficial mucosal ulceration. Recommend correlation with EGD. 2. Small type I hiatal hernia with significant gastroesophageal reflux seen. 3. Post surgical changes consistent with prior history of Rosemarie-en-Y gastric bypass. No evidence of anastomotic stricture. 4. Normal-appearing small bowel series although contrast remained in the distal ileum after 120 minutes. The patient declined further interval imaging, and the study was terminated. 5. Ancillary findings as discussed in the body of the report. Laboratory Tests 07/16/24 09:35 Lipase 22 Tiss Transglutamin IgG <1.0 Tiss Transglutamin IgA <1.0 ALLERGEN TEST Allergy to Patricia not, egg white, cow's milk, soy Assessment & Plan Assessment & Plan (1) Asthma: Comment: follows [facility] Pulmonology Code(s): J45.909 - Unspecified asthma, uncomplicated Category: Medical Qualifiers: Asthma complication type: unspecified Asthma persistence: persistent Asthma severity: moderate Qualified Code(s): J45.40 - Moderate persistent asthma, uncomplicated (2) GERD without esophagitis: Code(s): K21.9 - Gastro-esophageal reflux disease without esophagitis Category: Medical (3) Postprandial abdominal bloating: Code(s): R14.0 - Abdominal distension (gaseous) (4) Constipation: Code(s): K59.00 - Constipation, unspecified Qualifiers: Constipation type: slow transit constipation Qualified Code(s): K59.01 - Slow transit constipation (5) Postprandial epigastric pain: Code(s): R10.13 - Epigastric pain (6) Dysphagia: Code(s): R13.10 - Dysphagia, unspecified Qualifiers: Dysphagia type: unspecified Qualified Code(s): R13.10 - Dysphagia, unspecified Plan Patient will start taking Nexium twice a day. Patient does admit that her symptoms are worsened in the afternoon and at night time. She will take sucralfate at bedtime. Avoid dietary triggers and late night snacking. Upper endoscopy scheduled for the 23 of September. Will referral her to lard renderer. Patient was encouraged to rinse her mouth after using her inhaler. I will see patient after the procedure, sooner on as needed basis. She is agreeable to this plan and verbalizes understanding of instructions. She was the opportunity to ask questions and all questions answered. Thank you for allowing me to participate in her care Orders: Referrals Allergy & Immunology Referral J45.40 - Moderate persistent asthma, uncomplicated, Z91.018 - Allergy to other foods Medications: Changed From sucralfate 1 g PO BID 60 tabs 2RF K21.9 - Gastro-esophageal reflux disease without esophagitis To sucralfate 1 g PO BEDTIME 30 tabs 2RF K21.9 - Gastro-esophageal reflux disease without esophagitis From esomeprazole magnesium 40 mg PO DAILY 30 caps 5RF K21.9 - Gastro-esophageal reflux disease without esophagitis To esomeprazole magnesium (Nexium) 40 mg PO BID 60 caps 5RF K21.9 - Gastro-esophageal reflux disease without esophagitis Coding Level of Care Code Est Pt Level 4 (53755) Complex EM visit Add On G2211 Diagnoses Moderate persistent asthma, unspecified whether complicated J45.40 Asthma complication type: unspecified Asthma persistence: persistent Asthma severity: moderate GERD without esophagitis K21.9 Postprandial abdominal bloating R14.0 Slow transit constipation K59.01 Constipation type: slow transit constipation Postprandial epigastric pain R10.13 Dysphagia, unspecified type R13.10 Dysphagia type: unspecified Time Spent (min) 40 Comment 25 minutes spent with patient and additional 15 minutes spent reviewing her records
== END 2024-09-11 14:34 | disposition home or self-care (01) ==
LOC: HO.HGI 13:40
PROVIDERS: PCP Internal Medicine; Visit Provider Nurse Practitioner Family
DX: J45.40 Moderate persistent asthma, uncomplicated (principal); K21.9 Gastro-esophageal reflux disease without esophagitis; R14.0 Abdominal distension (gaseous); K59.01 Slow transit constipation; R10.13 Epigastric pain; R13.10 Dysphagia, unspecified
CPT/HCPCS: 99214; G2211

== ENCOUNTER → 2024-09-11 13:39 | Outpatient (BNVA) | payer MEDICARE, MEDICAID, SELFPAY | PROVIDERS: PCP Internal Medicine; Visit Provider Nurse Practitioner Family | DX: K21.9 Gastro-esophageal reflux disease without esophagitis (principal); K59.01 Slow transit constipation; J45.40 Moderate persistent asthma, uncomplicated; R14.0 Abdominal distension (gaseous); R10.13 Epigastric pain; R13.10 Dysphagia, unspecified | CPT/HCPCS: 99212 ==

== ENCOUNTER 2024-09-23 11:30 | Day surgery (SDC) | payer MEDICARE, MEDICAID, SELFPAY ==
[2024-09-19 13:09] VITALS: BMI 26.6
--- NOTE | 2024-09-20 12:47 | P.CONAN_ITS ---
Documented by User: Barbara Brush NP 09/20/24 12:48 HPI - Anesthesia Eval Consult details Narrative: 54yo F for Upper Endoscopy and Colonoscopy PMFSH Active Problems Active Problems: All Active Problems Severe persistent asthma (Acute) Hematuria, microscopic (Acute) History of urinary hesitancy (Acute) Straining on urination (Acute) Status post right rotator cuff repair (Acute) Skin lesions, generalized (Acute) Radial scar of breast (Acute) History of repair of right rotator cuff (Acute) Rotator cuff tear, right (Acute) Urine incontinence (Acute) Abnormal mammogram of right breast (Acute) Environmental allergies (Acute) GUNJAN (obstructive sleep apnea) (Acute) Right shoulder pain (Acute) Left shoulder pain (Acute) Menopausal symptoms (Acute) Osteoporosis screening (Acute) Cervical cancer screening (Acute) Colon cancer screening (Acute) Bilateral shoulder pain (Acute) Breast cancer screening (Acute) Annual physical exam (Acute) Pure hypercholesterolemia (Acute) Vitamin D deficiency (Acute) Vitamin B12 deficiency (Acute) Allergic rhinitis (Acute) GERD without esophagitis (Acute) Pulmonary nodule, left (Acute) Anxiety (Acute) Neuropathy (Acute) Asthma (Acute) Diabetes mellitus (Acute) Migraine (Acute) Cyclical vomiting (Acute) Past Medical History Medical History Pure hypercholesterolemia Vitamin D deficiency Vitamin B12 deficiency Allergic rhinitis GERD without esophagitis Pulmonary nodule, left Anxiety Neuropathy Asthma Diabetes mellitus Migraine Cyclical vomiting Family History Family History Other Diabetes Family history of problems with anesthesia: No Surgical History Surgical History History of lumpectomy of right breast (05/29/24) Hx of shoulder surgery Hx of shoulder surgery Hx of colonoscopy Status post laparoscopic assisted vaginal hysterectomy (LAVH) (~2017) Hx of gastric bypass (~2009) Hx of cholecystectomy History of Problems with Anesthesia: No Social History Social History Housing: House Are you a primary care provider to a significant other at home: No Do you presently have visiting nurse or other home services: No Alcohol intake: never Patient Tobacco Use Status: Former Tobacco user Tobacco use type: Cigarette Cigarette Packs Per Day: 1.5 Years Smoked: quit more than 15 years ago, started as a teen e-Cigarette/Vaping Use: Never Used Have you been hit, kicked, punched, or otherwise hurt by someone within the past year? If so, by whom?: No Are you DNR?: No Advance Directives: No Advance Directives Information Provided: Yes Recently lost weight without trying: No Nutrition Risks: No Nutritional Risk Current occupational status: disabled Current occupation: Left hand dominant Cognitive needs: No Hearing needs: No Vision needs: Yes Meds Allergies Allergy/AdvReac Type Severity Reaction Status Date / Time latex Allergy Severe Anaphylaxis Verified 09/23/24 12:35 Cephalosporins Allergy Mild Rash Verified 09/23/24 12:35 egg Allergy Mild Unknown Verified 09/23/24 12:35 Sulfa (Sulfonamide Allergy Mild Rash Verified 09/23/24 12:35 Antibiotics) ibuprofen [From Motrin] AdvReac Mild Rash Verified 09/23/24 12:35 Home Medications ?Medication ?Instructions ?Recorded ?Confirmed ?Last Taken ?Type acarbose 100 mg tablet 100 mg PO TID 03/07/24 09/19/24 Unknown History cetirizine 10 mg tablet (Zyrtec) 10 mg PO DAILY PRN allergies 03/07/24 09/19/24 Unknown History ondansetron 4 mg disintegrating 4 mg PO Q8H 03/07/24 09/19/24 Unknown History tablet sumatriptan succinate 50 mg tablet 50 mg PO Q2-4H PRN migraines 03/07/24 09/19/24 Unknown History (Imitrex) albuterol sulfate 2.5 mg/3 mL 2.5 mg inhalation Q4-6H PRN 06/19/24 09/19/24 Unknown History (0.083 %) solution for nebulization wheezing oxybutynin chloride 5 mg tablet 5 mg PO DAILY 09/11/24 09/19/24 Unknown History Exam Height,Weight and Vital Signs: Height 6 ft Weight 88.904 kg Assessment and Plan Assessment Anesthesia Assessment: Chart Reviewed Final Anesthetic Review Family History of Problems with Anesthesia: No History of Problems with Anesthesia: No Documented by User: Mariza Lu MD 09/23/24 13:41 PMF Past Medical History Medical History Pure hypercholesterolemia Vitamin D deficiency Vitamin B12 deficiency Allergic rhinitis GERD without esophagitis Pulmonary nodule, left Anxiety Neuropathy Asthma Diabetes mellitus Migraine Cyclical vomiting Family History Family History Other Diabetes Surgical History Surgical History History of lumpectomy of right breast (05/29/24) Hx of shoulder surgery Hx of shoulder surgery Hx of colonoscopy Status post laparoscopic assisted vaginal hysterectomy (LAVH) (~2016) Hx of gastric bypass (~2009) Hx of cholecystectomy Social History Social History Housing: House Are you a primary care provider to a significant other at home: No Do you presently have visiting nurse or other home services: No Alcohol intake: never Patient Tobacco Use Status: Former Tobacco user Tobacco use type: Cigarette Cigarette Packs Per Day: 1.5 Years Smoked: quit more than 15 years ago, started as a teen e-Cigarette/Vaping Use: Never Used Have you been hit, kicked, punched, or otherwise hurt by someone within the past year? If so, by whom?: No Are you DNR?: No Advance Directives: No Advance Directives Information Provided: Yes Recently lost weight without trying: No Nutrition Risks: No Nutritional Risk Current occupational status: disabled Current occupation: Left hand dominant Cognitive needs: No Hearing needs: No Vision needs: Yes Meds Allergies Allergy/AdvReac Type Severity Reaction Status Date / Time latex Allergy Severe Anaphylaxis Verified 09/23/24 12:35 Cephalosporins Allergy Mild Rash Verified 09/23/24 12:35 egg Allergy Mild Unknown Verified 09/23/24 12:35 Sulfa (Sulfonamide Allergy Mild Rash Verified 09/23/24 12:35 Antibiotics) ibuprofen [From Motrin] AdvReac Mild Rash Verified 09/23/24 12:35 Home Medications ?Medication ?Instructions ?Recorded ?Confirmed ?Last Taken ?Type acarbose 100 mg tablet 100 mg PO TID 03/07/24 09/19/24 Unknown History cetirizine 10 mg tablet (Zyrtec) 10 mg PO DAILY PRN allergies 03/07/24 09/19/24 Unknown History ondansetron 4 mg disintegrating 4 mg PO Q8H 03/07/24 09/19/24 Unknown History tablet sumatriptan succinate 50 mg tablet 50 mg PO Q2-4H PRN migraines 03/07/24 09/19/24 Unknown History (Imitrex) albuterol sulfate 2.5 mg/3 mL 2.5 mg inhalation Q4-6H PRN 06/19/24 09/19/24 Unknown History (0.083 %) solution for nebulization wheezing oxybutynin chloride 5 mg tablet 5 mg PO DAILY 09/11/24 09/19/24 Unknown History Exam Airway Mallampati Class: II TM Dist: >3cm Neck ROM: Full Heart: rrr Lungs: cta Assessment and Plan Assessment Anesthesia Assessment: Anesthesia Plan Discussed Final Anesthetic Review NPO: Yes ASA Class: III Final Preanesthetic Review: No Changes in Pt Med Stat, Meds/Allgs Chart Reviewed and Consent Obtained/Reviewed Patient Risk: Low Procedure Risk: Intermediate Anesthetic Plan Anesthetic Plan: MAC: Disposition: Standard PACU
[2024-09-23 12:36] VITALS: BMI 25.5
[2024-09-23] MEDS: Lactated Ringers 1,000 ML 100 ML IVCONT (12:40)
[2024-09-23 12:48] VITALS: BP 99/54; PULSE 69; RESP 18; TEMP 36.8; O2SAT 99
--- NOTE | 2024-09-23 13:15 | MHC.SHP ---
Pre-Procedural Eval Section A - 24 Hr Update-Section A only Date of Service: 09/23/24 The patient is an INPATIENT: No The patient has been examined within 24 hours of the surgical procedure. The History & Physical has been completed within 30 days and I have reviewed it.: No Section B - Complete if H&P > 30 days Chief Complaint: screening, GERD Relevant Family History (Specify if Yes): No Relevant Social History: Tobacco Use (Former smoker) Present Medications: see Short Stay Collaborative assessment Medical History: Significant History (Pure hypercholesterolemia Vitamin D deficiency Vitamin B12 deficiency Allergic rhinitis GERD without esophagitis Pulmonary nodule, left Anxiety Neuropathy Asthma Diabetes mellitus Migraine Cyclical vomiting) History of Previous Operations: Relevant previous surgery/procedure and date(s) (History of lumpectomy of right breast (05/29/24) Hx of shoulder surgery Hx of shoulder surgery Hx of colonoscopy Status post laparoscopic assisted vaginal hysterectomy (LAVH) (~2016) Hx of gastric bypass (~2009) Hx of cholecystectomy) Allergies: Allergies Allergy/AdvReac Type Severity Reaction Status Date / Time latex Allergy Severe Anaphylaxis Verified 09/23/24 12:35 Cephalosporins Allergy Mild Rash Verified 09/23/24 12:35 egg Allergy Mild Unknown Verified 09/23/24 12:35 Sulfa (Sulfonamide Allergy Mild Rash Verified 09/23/24 12:35 Antibiotics) ibuprofen [From Motrin] AdvReac Mild Rash Verified 09/23/24 12:35 Review of Systems Sugical H&P ROS: Negative: Constitution, Cardiovascular and Respiratory and Yes, Specify: Gastrointestinal (GERD) Exam Surgical H&P Exam: Normal: Heart, Normal: Lungs, Normal: Extremities and Normal: Abdomen Plan Diagnosis/Plan: Unchanged I have reviewed the history and physical and performed a pertinent physical examination on my patient. No changes have occurred unless specified. Time Spent With Patient Time: Total time managing care of this patient today ____ minutes.
--- NOTE | 2024-09-23 13:48 | HO.OPN-COLON ---
Colonoscopy Operative Note Operative Note Date of Service: 09/23/24 Narrative: FLEXIBLE TRANSORAL UPPER GASTROINTESTINAL ENDOSCOPY WITH BIOPSIES AND ESOPHAGEAL BRUSHINGS AND COLONOSCOPY TILL CECUM WITH SNARE POLYPECTOMY Pre-op diagnosis: Colon cancer screening, GERD, odynophagia Post-op diagnosis: Esophagitis, GERD, Gastritis, Rosemarie en Y gastric bypass status Colon Polyps, Diverticulosis, hemorrhoids Endoscopist:? Celeste Mansfield MD Anesthesia:?MAC UPPER ENDOSCOPY Consent: Indications for the procedure and potential complications of bleeding, perforation, reaction to medications and missed diagnosis were discussed with the patient and informed consent was obtained. Instrument: Olympus GIF H 190 mid size upper endoscope Monitoring: Vital signs and clinical assessment, continuous EKG monitoring, Pulse oximetry, Carbon Dioxide monitoring and blood pressure monitoring were done throughout the procedure. Procedure: The patient was placed in the left lateral decubitis position and pre-procedure medications were administered and a bite block was placed. The endoscope was inserted into the mouth and advanced under direct vision to the third part of duodenum. A careful inspection was made as the upper endoscope was withdrawn including a retroflexed examination of the proximal stomach; Findings and interventions are described below. Findings: Larynx: Normal Esophagus: GE junction at 40 cms. Irregular Z line - biopsies were obtained to check for Salvador's. Thick yellow exudates coating the entire esophagus - brushings were obtained to check for Amelia. Biopsies were obtained from proximal esophagus. Stomach: Gastro-jejunal anastomosis at 45 cms - biopsied Moderate diffuse gastric erythema of the gastric pouch mucosa - biopsies were obtained. Jejunum: Normal mucosa - Biopsies were obtained to check for celiac sprue Intervention: Biopsies as noted above COLONOSCOPY PROCEDURE NOTE Instrument: Olympus CF H 190 L variable stiffness adult colonoscope Monitoring: Vital signs and clinical assessment, intermittent blood pressure monitoring, continuous EKG monitoring, Pulse oximetry and Carbon Dioxide monitoring were done throughout the procedure. Please see anesthesia flowsheet. Colon withdrawl time was 25 minutes. Procedure: The patient was placed in the left lateral decubitis position and pre-procedure medications were administered. After a digital rectal examination of the ano-rectum, the video colonoscope was inserted into the rectum and advanced through the colon to the cecum. The colonoscope was slowly withdrawn in a retrograde panoramic fashion and the colon mucosa was carefully examined including a retroflexed view of the rectum. Findings and interventions are described below. Procedure Difficulty: without difficulty - colon was long and tortuous and there was some loop formation Findings: Terminal Ileum: Not evaluated Cecum: Two 8 to 10 mm sessile polyps -removed with a cold snare Ascending Colon: Normal Transverse Colon: Three 8 - 12 mm sessile polyps - removed with a hot snare Descending Colon: Normal Sigmoid Colon: Moderate diverticulosis Rectum: Normal Ano-rectum: Small internal hemorrhoids Colon preparation: Good Fair despite copious irrigation. Halsey Bowel Preparation Scale Right colon; 2 Transverse colon: 2 Left colon; 1 (0 = Unprepared colon segment with mucosa not seen due to solid stool that cannot be cleared. 1 = Portion of mucosa of the colon segment seen, but other areas of the colon segment not well seen due to staining, residual stool and/or opaque liquid. 2 = Minor amount of residual staining, small fragments of stool and/or opaque liquid, but mucosa of colon segment seen well. 3 = Entire mucosa of colon segment seen well with no residual staining, small fragments of stool or opaque liquid) Impression and Post Procedure Diagnosis: Endoscopy Findings: ESOPHAGUS: Irregular Z line - biopsies were obtained to check for Salvador's. Thick yellow exudates coating the entire esophagus - brushings were obtained to check for Amelia. STOMACH: Gastro-jejunal anastomosis at 45 cms - biopsied Moderate diffuse gastric erythema of the gastric pouch mucosa - biopsies were obtained. JEJUNUM: Normal - random biopsies were obtained to check for celiac sprue Colonoscopy Findings: Five small to medium sized polyps were removed Moderate diverticulosis seen in the sigmoid colon small hemorrhoids on retroflexed exam. Plan: Pt has a FU appointment on 10/15/24 with Radha Davis NP If biopsies and brushings confirm esophageal candidiasis, pt can be treated with Fluconazole (she will need to hold Escitalopram due tp QTc prolongation while taking the Fluconazole after checking with Dr Crane) Repeat Colonoscopy in 2-3 years if polyps are adenomatous and due to fair prep in the left colon (Duloclax 10 mg daily starting 5 days prior to next colonoscopy appointment) Above findings were reviewed with the patient and relevant handouts were given and the discharge area. BIOPSIES SHOWED: A. Small bowel, biopsy: Small intestinal mucosa with mildly increased intraepithelial lymphocytes and preserved villous architecture. See comment. B. Gastroduodenal anastomosis, biopsy: Oxyntic mucosa with mild chronic inactive inflammation; no Helicobacter organisms seen. C. Stomach, pouch, biopsy: Oxyntic mucosa within normal limits; no Helicobacter organisms seen. D. EG junction, biopsy: - Cardiofundic-type mucosa with moderate chronic active inflammation; no intestinal metaplasia seen. - No squamous epithelium present. E. Esophagus, proximal, biopsy: Amelia esophagitis. F. Colon, transverse, polypectomies: - Tubular adenomata (2); negative for high-grade dysplasia or carcinoma. - Colonic mucosa with prominent lymphoid aggregate. G. Cecum, polypectomies: Colonic mucosa with mild surface hyperplastic and inflammatory changes Pt called and biopsy results were reviewed with her Prescription sent for Fluconazole 200 mg daily x 14 days for esophageal candidiasis Pt advised to hold Escitalopram while taking the Fluconazole Repeat Colonoscopy in 3 years Patient was placed on the colonoscopy recall list.
[2024-09-23 15:00] VITALS: BP 112/71; PULSE 65; RESP 16; TEMP 36.5; O2SAT 99
[2024-09-23 15:15] VITALS: BP 102/57; PULSE 67; RESP 17; TEMP 36.2; O2SAT 96
== END 2024-09-23 15:33 | disposition home or self-care (01) ==
PROVIDERS: PCP Internal Medicine; Visit Provider Internal Medicine Gastroenterology
PROC: (CPT 45385; principal; 2024-09-23 14:10)
DX: Z12.11 Encounter for screening for malignant neoplasm of colon (principal); D12.3 Benign neoplasm of transverse colon; K63.5 Polyp of colon; K57.30 Diverticulosis of large intestine without perforation or abscess without bleeding; K64.8 Other hemorrhoids; K59.01 Slow transit constipation; K21.9 Gastro-esophageal reflux disease without esophagitis; B37.81 Candidal esophagitis; R14.0 Abdominal distension (gaseous); R10.13 Epigastric pain; K29.70 Gastritis, unspecified, without bleeding; Z98.84 Bariatric surgery status; Z98.0 Intestinal bypass and anastomosis status
CPT/HCPCS: 45385; 43239; 87102; 87106; 88305; 88313; 88342; J2003; J2405; J2704

== ENCOUNTER → 2024-09-23 11:30 | Outpatient (BNV) | payer MEDICARE, MEDICAID, SELFPAY | PROVIDERS: PCP Internal Medicine; Visit Provider Internal Medicine Gastroenterology | DX: Z12.11 Encounter for screening for malignant neoplasm of colon (principal); D12.3 Benign neoplasm of transverse colon; K63.5 Polyp of colon; K57.30 Diverticulosis of large intestine without perforation or abscess without bleeding; K21.00 Gastro-esophageal reflux disease with esophagitis, without bleeding; R13.10 Dysphagia, unspecified; K29.70 Gastritis, unspecified, without bleeding; Z98.84 Bariatric surgery status | CPT/HCPCS: 43239; 45385 ==

== ENCOUNTER 2024-09-24 10:10 | Outpatient (AMB) | payer MEDICARE, MEDICAID, SELFPAY ==
[2024-09-24 10:18] VITALS: BP 122/62; PULSE 76; O2SAT 96; BMI 26.3
--- NOTE | 2024-09-24 10:18 | A.OFFVIS_ITS ---
Vital Signs 09/24/24 10:18 Height 6 ft Weight 194 lb BMI 26.3 BP 122/62 Blood Pressure Location Rt brachial Position Sitting Pulse 76 Pulse Source Doppler Pulse Oximetry (%) 96 Oxygen Delivery Method Room Air Intake Visit Reasons: Asthma Allergies latex Allergy (Severe, Verified 09/23/24 12:35) Anaphylaxis Cephalosporins Allergy (Mild, Verified 09/23/24 12:35) Rash egg Allergy (Mild, Verified 09/23/24 12:35) Unknown Sulfa (Sulfonamide Antibiotics) Allergy (Mild, Verified 09/23/24 12:35) Rash ibuprofen [From Motrin] Adverse Reaction (Mild, Verified 09/23/24 12:35) Rash HPI HPI Asthma: Details: 54-year-old lady, former approximately 10 pack-year smoker, quit over 20 years prior, with underlying history of asthma and environmental allergies since childhood, previously managed with Dulera and albuterol MDI with suboptimal control of her symptoms presents to establish care. Patient recently moved from [facility]. She does complain of multiple environmental allergies. Patient also has prior history of sleep apnea, with recent significant weight changes. She denies exposure to industrial dusts. Patient does have multiple first-degree relatives with asthma. After the last office visit patient was approved for Xolair, however she has not started on yet. She continues on BrezTri and albuterol MDI with suboptimal control of her symptoms. She did food allergy profile that shows allergies to his on that is an egg whites. She does complain of a cough and inability to bring up phlegm. [facility] Medical History Pure hypercholesterolemia Vitamin D deficiency Vitamin B12 deficiency Allergic rhinitis GERD without esophagitis Pulmonary nodule, left Anxiety Neuropathy Asthma Diabetes mellitus Migraine Cyclical vomiting Surgical History History of lumpectomy of right breast (05/29/24) Hx of shoulder surgery Hx of shoulder surgery Hx of colonoscopy Status post laparoscopic assisted vaginal hysterectomy (LAVH) (~2016) Hx of gastric bypass (~2009) Hx of cholecystectomy Family History Other Diabetes Social History Housing: House Are you a primary urgent care physician to a significant other at home: No Do you presently have visiting nurse or other home services: No Alcohol intake: never Patient Tobacco Use Status: Former Tobacco user Tobacco use type: Cigarette Cigarette Packs Per Day: 1.5 Years Smoked: quit more than 15 years ago, started as a teen e-Cigarette/Vaping Use: Never Used Current occupational status: disabled Current occupation: Left hand dominant Cognitive needs: No Hearing needs: No Vision needs: Yes Review of Systems Const Denies daytime sleepiness, Denies excessive sweating, Denies fatigue, Denies fever(s), Denies lethargy, Denies malaise, Denies night sweats, Denies snoring and Denies weight loss Eyes Denies blurry vision and Denies itchy eyes ENT Denies nasal congestion, Denies post nasal drip, Denies sinus pain, Denies sinus pressure and Denies other ( Thrush) Card Denies chest pain, Denies pedal edema, Denies dyspnea, Denies orthopnea and Denies paroxysmal nocturnal dyspnea Resp Reports cough, Denies hemoptysis, Denies excessive phlegm production, Denies dyspnea, Denies snoring, Denies wheezing and Reports other (Rhonchus sound in the lung) GI Denies abdominal pain and Denies heartburn Musc Denies myalgias, Denies arthralgias and Denies joint swelling Skin/Breast Denies rash Neuro Denies memory loss and Denies seizure-like activity Psych Denies abnormal sleep pattern, Denies anxiety and Denies memory loss Endo Denies excessive sweating, Denies fatigue and Denies heat intolerance Melvin/Lymph Denies easy bruising Aller/Immun Denies itchy eyes, Denies seasonal rhinorrhea and Denies wheezing Physical Exam Vital Signs: Last Vital Signs Pulse 76 09/24/24 10:18 BP 122/62 09/24/24 10:18 Pulse Ox 96 09/24/24 10:18 Oxygen Delivery Method Room Air 09/24/24 10:18 BMI result Body Mass Index 26.3 Const General: no acute distress and alert Nutritional Appearance: not obese Orientation/consciousness: Other orientation findings ( oriented) HEENT Head: Yes atraumatic Eyes General: appearance normal, both eyes and all related structures Sclerae: sclerae normal EOM: EOMs intact bilaterally Neck Neck: Yes supple Lymphatic: no lymphadenopathy noted Resp Effort & Inspection: normal respiratory effort and no use of accessory muscles Auscultation: rhonchi (Bilateral) Cardio Rate: regular rate Rhythm: regular rhythm Heart sounds: no gallops, no murmurs and no rubs Skin General skin exam: other ( warm) Extrem General: No clubbing, No cyanosis and No edema Assessment & Plan Assessment & Plan (1) Environmental allergies: Code(s): Z91.09 - Other allergy status, other than to drugs and biological substances Category: Medical Plan: Results of allergy testing reviewed. Expect symptoms to improve on Xolair. (2) Severe persistent asthma: Code(s): J45.50 - Severe persistent asthma, uncomplicated Category: Medical Plan: Approved, but has not started on Xolair yet. First injection scheduled. Continue current regimen of BrezTri and albuterol MDI. Also with bronchitic symptoms, will treat with a course of azithromycin. Medications: New azithromycin For 250 mg dose pack: take 500 mg today (day 1), then 250 mg for 4 days (days 2-5) PO 6 tabs 0RF Coding Level of Care Code Est Pt Level 4 (24089) Diagnoses Environmental allergies Z91.09 Severe persistent asthma J45.50
== END 2024-09-24 10:44 | disposition home or self-care (01) ==
PROVIDERS: PCP Internal Medicine; Visit Provider Internal Medicine Pulmonary Disease
DX: Z91.09 Other allergy status, other than to drugs and biological substances (principal); J45.50 Severe persistent asthma, uncomplicated
CPT/HCPCS: 99214

== ENCOUNTER → 2024-09-24 10:10 | Outpatient (BNVA) | payer MEDICARE, MEDICAID, SELFPAY | PROVIDERS: PCP Internal Medicine; Visit Provider Internal Medicine Pulmonary Disease | DX: J45.50 Severe persistent asthma, uncomplicated (principal); G47.39 Other sleep apnea; Z91.09 Other allergy status, other than to drugs and biological substances; Z87.891 Personal history of nicotine dependence | CPT/HCPCS: 99212 ==

== ENCOUNTER 2024-09-25 14:41 | Outpatient (AMB) | payer MEDICARE, MEDICAID, SELFPAY ==
--- NOTE | 2024-09-25 14:44 | A.OFFVIS_ITS ---
Intake Visit Reasons: cysto Intake Note: Patient is present for Cystoscopy Urology Medication:VITAMIN B12,SOLIFENACIN Antibiotic Allergy:SULFA Blood Thinner:NONE Lot:[id number] Exp:09/16/27 Spout Worker Required: No Allergies latex Allergy (Severe, Verified 09/25/24 14:45) Anaphylaxis Cephalosporins Allergy (Mild, Verified 09/25/24 14:45) Rash egg Allergy (Mild, Verified 09/25/24 14:45) Unknown Sulfa (Sulfonamide Antibiotics) Allergy (Mild, Verified 09/25/24 14:45) Rash ibuprofen [From Motrin] Adverse Reaction (Mild, Verified 09/25/24 14:45) Rash HPI Comments Details: Review of chart: 07/17/24--Emani a very pleasant 54-year-old female patient of Dr. Crane. She has a past medical history of hypercholesteremia, vitamin-D deficiency, vitamin B12 deficiency, allergic rhinitis, GERD, anxiety, neuropathy, asthma, diabetes, and migraines. She presents to the office today as a new patient for ongoing lower urinary tract symptoms. In discussion with the patient today she reports noting worsening ongoing lower urinary tract symptoms of stress incontinence, straining with urination, and urinary hesitancy. She reports symptoms have been present for quite some time however feels they are worsening. We discussed at length potential causes of lower urinary tract symptoms patient is experiencing. In review of patient's chart it appears last A1c 04/05 5.2. We discussed further treatment options to include pelvic floor therapy as well as near future in office urodynamics for further assessment evaluation. Will obtain retroperitoneal ultrasound for further assessment evaluation. In office urinalysis results reviewed with the patient today trace microscopic hematuria. When asked she denies any previous smoking history and or workplace chemical exposure. We discussed further workup to include in office cystoscopy. When asked she denies gross hematuria, dysuria, foul smelling urine, flank pain, fever, and or chills. PVR 23 mL. She otherwise offers no other issues or concerns at this time. [facility] Medical History (Reviewed 09/23/24 @ 12: by Eliz Bell RN) Pure hypercholesterolemia Vitamin D deficiency Vitamin B12 deficiency Allergic rhinitis GERD without esophagitis Pulmonary nodule, left Anxiety Neuropathy Asthma Diabetes mellitus Migraine Cyclical vomiting Surgical History (Reviewed 09/23/24 @ 12: by Eliz Bell RN) History of lumpectomy of right breast (05/29/24) Hx of shoulder surgery Hx of shoulder surgery Hx of colonoscopy Status post laparoscopic assisted vaginal hysterectomy (LAVH) (~2017) Hx of gastric bypass (~2009) Hx of cholecystectomy Family History Other Diabetes Social History Housing: House Are you a primary healthcare administrative assistant to a significant other at home: No Do you presently have visiting nurse or other home services: No Alcohol intake: never Patient Tobacco Use Status: Former Tobacco user Tobacco use type: Cigarette Cigarette Packs Per Day: 1.5 Years Smoked: quit more than 15 years ago, started as a teen e-Cigarette/Vaping Use: Never Used Current occupational status: disabled Current occupation: Left hand dominant Cognitive needs: No Hearing needs: No Vision needs: Yes Office Procedures Cystoscopy Consent Discussed risk and benefit or proposed procedure with the patient. Information consent for procedure given to the patient. Discussed technical aspects, risks, benefits and alternatives in full. Addressed all of the patient's questions and concerns regarding the procedure. The patient demonstrated knowledge and understanding. They wish to proceed with this procedure. Preparation The patient was prepped in the usual manner. A cosmetic assembler was present and in the room. Genitalia was prepped with betadine solution in a sterile manner. Lidocaine Jelly 2% was placed into the urethra and 16Fr flexible Olympus cystoscope was inserted into the meatus after adequate lubrication. Results AMB Urinalysis, Automated UA Leukoctes 0 Bakari/uL Last Edit by LORA Marroquin on 09/25/24 14:54 UA Nitrite Negative Last Edit by LORA Marroquin on 09/25/24 14:54 UA Urobilinogen 0.2 mg/dL Last Edit by LORA Marroquin on 09/25/24 14:5 4 UA Protein 0 mg/dL Last Edit by LORA Marroquin on 09/25/24 14:54 UA pH 6.5 Last Edit by LORA Marroquin on 09/25/24 14:54 UA Blood 0 Keo/uL Last Edit by LORA Marroquin on 09/25/24 14:54 UA Specific Pepin 1.015 Last Edit by LORA Marroquin on 09/25/24 14: 54 UA Ketone Negative Last Edit by LORA Marroquin on 09/25/24 14:54 UA Bilirubin 1 mg/dL Last Edit by LORA Marroquin on 09/25/24 14:54 UA Glucose 0 mg/dL Last Edit by LORA Marroquin on 09/25/24 14:54 Results Reviewed Results Reviewed: Laboratory Last Values Urine pH (Auto) 6.5 09/25/24 14:53 Specific Pepin (Auto) 1.015 09/25/24 14:53 Urine Protein (Auto) 0 mg/dL 09/25/24 14:53 Glucose (UA)(Auto) 0 mg/dL 09/25/24 14:53 Urine Ketones (Auto) Negative 09/25/24 14:53 Urine Blood (Auto) 0 Keo/uL 09/25/24 14:53 Urine Nitrite (Auto) Negative 09/25/24 14:53 Urine Bilirubin (Auto) 1 mg/dL 09/25/24 14:53 Urine Urobilinogen (Auto) 0.2 mg/dL 09/25/24 14:53 Leukocyte Esterase (Auto) 0 Bakari/uL 09/25/24 14:53 Date of Service: 09/06/24 CT ABDOMEN AND PELVIS WITHOUT AND WITH CONTRAST CLINICAL INFORMATION: Gross hematuria. COMPARISON: No prior CT imaging available. TECHNIQUE: Noncontrast CT urogram of the abdomen and pelvis is performed followed by split bolus contrast-enhanced images using 85 mL Omnipaque 350 contrast. Postcontrast imaging is performed during the combined nephrogram and excretion phase. Sagittal and coronal reformatted images were obtained on the technologist's workstation for both the precontrast and postcontrast phases. This CT examination was performed using dose optimization techniques as appropriate, variously including the following: *Automated exposure control *Adjustment of mA and/or kV according to patient size (this includes techniques or standardized protocols for targeted exams where dose is matched to indication/reason for exam; i.e. extremities or head) *Use of iterative reconstruction technique DLP: 1024 mGy-cm FINDINGS: LUNG BASES: -Lung bases are clear bilaterally. Heart size is normal. -No effusions. -Small hiatus hernia present above a gastric bypass procedure. LIVER, GALLBLADDER, AND BILIARY TREE: -The liver is normal in size, shape, and attenuation. No focal hepatic lesion. Gallbladder is not well seen and is likely surgically absent. -No intra or extrahepatic biliary ductal dilatation. PANCREAS: Unremarkable. SPLEEN: Unremarkable. ADRENAL GLANDS: Unremarkable. KIDNEYS AND URETERS: -Normal in size and attenuation. No masses or cysts. -No hydronephrosis. No calculi. -No pyelocalyceal filling defects on either side. -Normal opacification of both ureters: Normal in caliber and course. BLADDER: -There is contrast jet artifact in the left aspect of the urinary bladder from ureteral jet. Bladder is otherwise normal in appearance without evidence of mass or wall thickening. GASTROINTESTINAL TRACT: -Patient has undergone a Rosemarie-en-Y gastric bypass procedure. Anastomotic sites appear patent. -Excluded stomach is decompressed, and duodenal loop is normal. -Small bowel is normal in caliber and course. No inflammation. -Colon is normal in caliber, course, and appearance. There is a mobile appearing cecum. -A normal contrast-filled appendix is present. -No rectal abnormalities. ABDOMINAL WALL: No significant hernia is appreciated. LYMPH NODES: Normal. VASCULAR: -Minimal atheromatous calcification of the aorta. No aneurysms. -No venous thrombosis. PELVIC VISCERA: There has been a hysterectomy. No adnexal masses. OSSEUS STRUCTURES: -No suspicious lytic or blastic bone lesions. Mild levoconvex scoliosis with degenerative changes of the lumbar spine spanning L3-L5. IMPRESSION: 1. Normal kidneys, ureters, collecting systems, and urinary bladder. No explanation for hematuria. 2. Patient has undergone prior cholecystectomy and Rosemarie-en-Y gastric bypass. 3. No acute or suspicious findings in the abdomen or pelvis. 07/22/2408/06/1126 TD/TT: 07/22/2408/06/1142 EXAMINATION: US RETROPERITONEAL COMPLETE (RENAL) CLINICAL INFORMATION: Straining to void. COMPARISON: None available. TECHNIQUE: Real-time imaging of the kidneys and bladder. FINDINGS: RIGHT KIDNEY: 13.4 x 5.3 x 6.7 cm (SAG x AP x TRV). The kidney is normal in size, contour, and echogenicity. Renal cortical thickness is normal. No calculi or focal parenchymal lesions. Mild pelviectasis with mild proximal hydroureter. LEFT KIDNEY: 13.2 x 6.0 x 5.0 cm (SAG x AP x TRV). The kidney is normal in size, contour, and echogenicity. Renal cortical thickness is normal. No calculi or focal parenchymal lesions. No hydronephrosis. BLADDER: Focal nodular-like thickening of the anterior bladder wall measuring 1.7 x 0.9 x 2.3 cm. Bilateral ureteral jets are demonstrated. Prevoid bladder volume is 233 mL. Postvoid bladder volume is 43 mL. US/US retroperitoneal comp IMPRESSION: 1. Focal nodular-like thickening of the anterior bladder wall measuring up to 2.3 cm. Recommend urology referral and correlation with cystoscopy, underlying urothelial malignancy is not excluded. 2. Mild right-sided pelviectasis and hydroureter of indeterminate etiology. Assessment & Plan Assessment & Plan (1) Hematuria, microscopic: Code(s): R31.29 - Other microscopic hematuria Category: Medical Orders: Orders AMB Urinalysis Automated Today Z13.9 - Encounter for screening, unspecified AMB Cystoscopy Today R31.29 - Other microscopic hematuria Medications: New ciprofloxacin HCl 500 mg PO ONCE 1 tab 0RF R31.29 - Other microscopic hematuria lidocaine HCl 2% 10 mL intra-urethral ONCE 10 mL 0RF R31.29 - Other microscopic hematuria naproxen 500 mg PO ONCE 1 tab 0RF R31.29 - Other microscopic hematuria Coding Diagnoses Hematuria, microscopic R31.29
== END 2024-09-25 15:54 | disposition home or self-care (01) ==
PROVIDERS: PCP Internal Medicine; Visit Provider Urology
DX: Z13.9 Encounter for screening, unspecified (principal)

== ENCOUNTER → 2024-09-25 14:41 | Outpatient (BNVA) | payer MEDICARE, MEDICAID, SELFPAY | PROVIDERS: PCP Internal Medicine; Visit Provider Urology | DX: R31.29 Other microscopic hematuria (principal); R39.11 Hesitancy of micturition; R39.15 Urgency of urination | CPT/HCPCS: 52000; 81003 ==

== ENCOUNTER 2024-10-09 08:23 | Outpatient (REF) | payer MEDICARE, MEDICAID, SELFPAY ==
[2024-10-09 08:38] LABS: MANUAL DIFF FLAG NO
[2024-10-09 09:05] LABS: Basophils Absolute Auto 0.1 X10*3/uL (0.0-0.2); Basophils Percent Auto 1.7 % (0-2); Eosinophils Absolute Auto 0.2 X10*3/uL (0.0-0.4); Eosinophils Percent Auto 2.9 % (0-4); Hematocrit 41.1 % (37.0-47.0); Hemoglobin 13.6 g/dl (12.0-16.0); Imm Gran Abs Auto 0.02 X10*3/uL (0.00-0.03); Imm Gran Pct Auto 0.3 % (0.0-0.4); Mean Corpuscular HGB Conc 33.1 g/dl (31.0-35.0); Mean Corpuscular Volume 84.6 fL (80.0-98.0); Mean Platelet Volume 10.3 fL (9.4-12.3); Monocytes Absolute Auto 0.5 X10*3/uL (0.1-1.2); Monocytes Percent Auto 7.6 % (2-11); Neutrophils Absolute Auto 3.2 x10*3/uL (2.0-8.3); Neutrophils Percent Auto 54.5 % (45-73); Platelet Count 266 X10*3/uL (160-400); Red Blood Count 4.86 X10*6/uL (4.20-5.50); Red Cell Distribution Width 14.2 % (11.0-16.0); White Blood Count 5.9 X10*3/uL (4.8-10.8)
[2024-10-09 09:15] LABS: Appearance Urine Cloudy; Color Urine Yellow; Glucose Urine UA Negative (Negative); Leukocyte Esterase Urine Negative (Negative); Nitrite Urine Negative (Negative); PH 6.5 (5.0-9.0); Specific Gravity - Urine 1.015 (1.005-1.025); Urine Blood Negative (Negative); Urine Ketones Trace mg/dL (Negative); Urine Protein Negative (Neg-Trace)
[2024-10-09 09:18] LABS: Estimated Average Glucose 103 mg/dL; Hemoglobin A1C 115.6161 umol/L; Hemoglobin A1c % 5.2 % (<6.0); Total Hemoglobin (HGBA1C) 3469.2396 umol/L
[2024-10-09 09:41] LABS: Alanine Aminotransferase 6 U/L (0-31); Alkaline Phosphatase 55 U/L (39-117); Anion Gap 12 (12-20); Aspartate Amino Transferase 16 U/L (5-31); Bilirubin Total 0.3 mg/dL (0.0-1.0); Blood Urea Nitrogen 6 mg/dL (9-16); Calcium 8.2 mg/dL (8.4-10.2); Carbon Dioxide 23 mmol/L (22-29); Chloride 109 mmol/L (96-108); Cholesterol 228 mg/dL (<200); Estimated Glomerular Filt Rate > 60; Glucose Fasting 83 mg/dL (60-99); HDL Cholesterol 61 mg/dL (>40); LDL Cholesterol Calculated 143 mg/dL (<100); Potassium 4.3 mmol/L (3.3-5.1); Sodium 140 mmol/L (135-145); Total Protein 6.6 g/dL (6.5-8.0); Triglycerides 122 mg/dL (<150)
== END 2024-10-09 08:24 | disposition home or self-care (01) ==
LOC: HO.LAB 08:23
PROVIDERS: PCP Internal Medicine; Visit Provider Internal Medicine
DX: D64.9 Anemia, unspecified (principal); R30.0 Dysuria; E78.00 Pure hypercholesterolemia, unspecified; E11.9 Type 2 diabetes mellitus without complications
CPT/HCPCS: 36415; 80053; 80061; 81003; 83036; 85025

== ENCOUNTER 2024-10-14 08:41 | Outpatient (AMB) | payer MEDICARE, MEDICAID, SELFPAY ==
[2024-10-14 08:49] VITALS: BP 110/68; PULSE 82; O2SAT 93; BMI 25.8
--- NOTE | 2024-10-14 08:49 | A.OFFPC_ITS ---
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 Required: No Accompanied by: Self / Same As Patient Allergies latex Allergy (Severe, Verified 10/14/24 09:11) Anaphylaxis Cephalosporins Allergy (Mild, Verified 10/14/24 09:11) Rash egg Allergy (Mild, Verified 10/14/24 09:11) Unknown Sulfa (Sulfonamide Antibiotics) Allergy (Mild, Verified 10/14/24 09:11) Rash ibuprofen [From Motrin] Adverse Reaction (Mild, Verified 10/14/24 09:11) Rash Medication List - Last Reconciled 10/14/24 by Mark Crane MD acarbose 100 mg PO TID albuterol sulfate 2.5 mg inhalation Q4-6H PRN [id number] 160-9-4.8 mcg/actuation (Breztri Aerosphere) 2 inhalations inhalation BID 30 days bupropion HCl XL 150 mg PO QAM 90 days cetirizine (Zyrtec) 10 mg PO DAILY PRN cholecalciferol (vitamin D3) 50 mcg PO DAILY 90 days cyanocobalamin (vitamin B-12) 1,000 mcg IM .ONCE A MONTH escitalopram oxalate (Lexapro) 20 mg PO DAILY 90 days esomeprazole magnesium (Nexium) 40 mg PO BID estradiol 1 patch transdermal QWEEK 4 weeks fluconazole 200 mg PO DAILY 14 days gabapentin 600 mg PO DAILY 90 days lorazepam (Ativan) 1 mg PO BEDTIME PRN ondansetron 4 mg PO Q8H ropinirole 1 to 2 tablets orally bedtime; 30 days solifenacin (Vesicare) 5 mg PO DAILY 90 days sucralfate 1 g PO BEDTIME sumatriptan succinate (Imitrex) 50 mg PO Q2-4H PRN Ventolin HFA 90 mcg/actuation (albuterol sulfate) 2 puffs inhalation QID PRN NS Tobacco use date assessed: 10/14/24 Dental Screening Dental Screen Date: 10/14/24 Did you have a dental visit in the last 12 months?: No Did you have a dental problem in the last 6 months where you did not have access to dental care?: No Was dental information given to patient?: No HPI 4 Month F/U HPI Details Patient comes in today for her follow up visit States that she feels okay She denies any headaches or dizziness Denies any chest pains; states that she has been experiencing recurrent chest tightness lately since she had to stop using her Breztri inhaler when she was diagnosed with oral thrush Is looking to see if she can be prescribed something steroid-free in the meantime while she is dealing with her thrush No nausea/vomiting, no abdominal pain No change in bowel habits noted She had her follow up labs done last week - to discuss her results [facility] Medical History Pure hypercholesterolemia Vitamin D deficiency Vitamin B12 deficiency Allergic rhinitis GERD without esophagitis Pulmonary nodule, left Anxiety Neuropathy Asthma Diabetes mellitus Migraine Cyclical vomiting Surgical History History of lumpectomy of right breast (05/29/24) Hx of shoulder surgery Hx of shoulder surgery Hx of colonoscopy Status post laparoscopic assisted vaginal hysterectomy (LAVH) (~2016) Hx of gastric bypass (~2009) Hx of cholecystectomy Family History Other Diabetes Social History Housing: House Are you a primary human services care specialist to a significant other at home: No Do you presently have visiting nurse or other home services: No Alcohol intake: never Patient Tobacco Use Status: Former Tobacco user Tobacco use type: Cigarette Cigarette Packs Per Day: 1.5 Years Smoked: quit more than 15 years ago, started as a teen e-Cigarette/Vaping Use: Never Used Current occupational status: disabled Current occupation: Left hand dominant Cognitive needs: No Hearing needs: No Vision needs: Yes Questionnaire PHQ-9 Over the last 2 weeks, how often have you been bothered by any of the following problems? 1. Little interest or pleasure in doing things: not at all 2. Feeling down, depressed, or hopeless: not at all 3. Trouble falling or staying asleep, or sleeping too much: not at all 4. Feeling tired or having little energy: not at all 5. Poor appetite or overeating: not at all 6. Feeling bad about yourself - or that you are a failure or have let yourself or your family down: not at all 7. Trouble concentrating on things, such as reading the newspaper or watching television: not at all 8. Moving or speaking so slowly that other people could have noticed. Or the opposite - being so fidgety or restless that you have been moving around a lot more than usual: not at all 9. Thoughts that you would be better off or of hurting yourself in some way: not at all Total score: 0 Depression Screening Interpretation: Negative Depression Screening Done: Yes 62221 - PHQ-9 Billing: Yes Source: Developed by Drs. Gaston Zhang, Leigh Dupree, Prashant Haley and colleagues, with an educational jenny from [employer]. Thrive Questionnaire Date Thrive assessed: 10/14/24 I am a: Patient What is your living situation today?: I have a steady place to live Within the past 12 months, did the food you bought not last and you didn't have the money to get more?: Never true Within the past 12 months, did you worry whether your food would run out before you got money to buy more?: Never true Do you have trouble paying for medicines?: No Do you have trouble getting transportation to medical appointments?: No Do you have trouble paying your heating and electricity bill?: No Do you have trouble taking care of your child, family member or friend?: No Do you have trouble with day-to-day activities such as bathing, preparing meals, shopping, managing finances, etc.?: No Are you currently unemployed and looking for a job?: No Are you interested in more education?: No Please select the resources that you would like help with: None Currently or been in a relationship where the following occur: No concerns reported THRIVE Score: 0 AUDIT C Alcohol Use Questionnaire (AUDIT-C) 1. How often do you have a drink containing alcohol?: Never 3. How often do you have six or more drinks on one occasion?: Never Total Score: 0 Score Reviewed/Action Taken: Yes KAYLENE-7 AMB Questionnaire KAYLENE-7 Date KAYLENE - 7 assessed: 10/14/24 Feeling nervous, anxious, or on edge: 0 = Not at all Not being able to stop or control worryin = Not at all Worrying too much about different things: 0 = Not at all Trouble relaxin = Not at all Being so restless that it is hard to sit still: 0 = Not at all Becoming easily annoyed or irritable: 0 = Not at all Feeling afraid as if something awful might happen: 0 = Not at all Total KAYLENE-7 score (0-4 normal; 5-9 mild; 10-14 moderate; 15-21 severe): 0 Source: Developed by Drs. Gaston Zhang, Leigh Dupree, Prashant Haley and colleagues, with an educational jenny from [employer]. Review of Systems Const Denies chills, Reports difficulty sleeping, Denies fatigue, Denies fever(s) and Denies headache(s) ENT Denies dysphagia, Denies dizziness, Denies otalgia, Denies headache(s), Denies neck pain, Denies odynophagia and Denies sore throat Card Denies chest pain, Denies palpitations and Denies dyspnea Resp Denies chest congestion, Denies cough and Denies dyspnea GI Denies abdominal pain, Denies constipation, Denies dysphagia, Denies heartburn, Denies diarrhea, Denies nausea, Denies odynophagia and Denies vomiting Denies difficulty voiding, Denies nocturia, Denies dysuria and Denies urinary urgency Musc Denies back pain, Reports arthralgias (right shoulder) and Denies neck pain Skin/Breast Denies rash Neuro Denies dizziness and Denies headache(s) Psych Reports anxiety Endo Denies fatigue and Denies palpitations Physical exam (Primary Care) Vital Signs: Last Vital Signs Pulse 82 10/14/24 08:49 BP 110/68 10/14/24 08:49 Pulse Ox 93 10/14/24 08:49 Oxygen Delivery Method Room Air 10/14/24 08:49 BMI result Body Mass Index 25.8 Tobacco/Smoking Status: Tobacco use Status Tobacco use date assessed 10/14/24 10/14/24 08:57 Patient Tobacco Use Status Former Tobacco user 10/14/24 08:57 Tobacco use type Cigarette 10/14/24 08:57 e-Cigarette/Vaping Use Never Used 10/14/24 08:57 PHQ-9: PHQ-9 Score PHQ-9: Total score 0 10/14/24 08:57 Depression Screening Interpretation: Negative Thrive Assessment: Date of Thrive Assessment Date Thrive assessed 10/14/24 10/14/24 08:57 Currently or been in a relationship where the following occur: No concerns reported Const General: no acute distress and alert HENMT Ears: TM's normal bilaterally and EAC's normal Throat: Yes posterior oropharynx normal and Yes tonsils normal (no TP congestion) Neck Neck: Yes no lymphadenopathy and Yes supple Thyroid: Thyroid normal Resp Auscultation: clear to auscultation bilaterally, no rales and no wheezes Cardio Rate: regular rate Rhythm: regular rhythm Heart sounds: no murmurs GI Palpation (GI): Soft to palpation and nontender Auscultation: normal bowel sounds General: Yes no CVA tenderness Back/Spine/Pelvis Back: no CVA tenderness Skin Rashes: no rashes Extrem General: Yes no clubbing, cyanosis or edema Right upper extremity: shoulder/upper arm Details: tenderness Location: of the A-C joint Results Reviewed Results Reviewed: Laboratory Tests 10/09/24 10/09/24 08:35 08:36 WBC 5.9 Hgb 13.6 Hct 41.1 Plt Count 266 Sodium 140 Potassium 4.3 Creatinine 0.78 Estimated GFR > 60 Fasting Glucose 83 Hemoglobin A1c % 5.2 Calcium 8.2 L AST 16 ALT 6 Triglycerides 122 Cholesterol 228 H LDL Cholesterol, Calc 143 H HDL Cholesterol 61 Urine pH 6.5 Ur Specific Carmen 1.015 Urine Protein Negative Urine Glucose (UA) Negative Urine Blood Negative Urine Nitrite Negative Ur Leukocyte Esterase Negative Coding Level of Care Code Est Pt Level 4 (35427) Complex EM visit Add On G2211 Diagnoses Pure hypercholesterolemia E78.00 Type 2 diabetes mellitus without complication, without long-term current use of insulin E11.9 Diabetes mellitus type: type 2 Diabetes mellitus jail insulin use: without terminal carman use Diabetes mellitus complication status: without complication Moderate persistent asthma, unspecified whether complicated J45.40 Asthma severity: moderate Asthma persistence: persistent Asthma complication type: unspecified Migraine without status migrainosus, not intractable, unspecified migraine type G43.909 Migraine type: unspecified Status migrainosus presence: without status migrainosus Intractability: not intractable Non-seasonal allergic rhinitis, unspecified trigger J30.89 Allergic rhinitis trigger: unspecified Allergic rhinitis seasonality: non-seasonal Neuropathy G62.9 Vitamin B12 deficiency E53.8 Vitamin D deficiency E55.9 Cyclical vomiting R11.15 GERD without esophagitis K21.9 Menopausal symptoms N95.1 Anxiety F41.9 Additional Codes PHQ-9 - 78507 - PHQ-9 Billing: Yes ([id number]) Assessment & Plan Assessment & Plan (1) Pure hypercholesterolemia: Code(s): E78.00 - Pure hypercholesterolemia, unspecified Category: Medical Plan: Results of her labs done last week reviewed and discussed with patient - she is cautioned that her LDL cholesterol has gone up from before and is now at 143 mg/dl (was at 130 mg/dl back in March 2024) Reinforced low cholesterol diet Will recheck her labs and fasting lipids in 4 months for follow up (2) Diabetes mellitus: Comment: no Rx at this time Code(s): E11.9 - Type 2 diabetes mellitus without complications Category: Medical Qualifiers: Diabetes mellitus type: type 2 Diabetes mellitus jail insulin use: without jail use Diabetes mellitus complication status: without complication Qualified Code(s): E11.9 - Type 2 diabetes mellitus without complications Plan: Reinforced diabetic diet States that she used to be on meds for her diabetes (including insulin) but she started experiencing hypoglycemic episodes after her gastric bypass surgery back in 2009 Her HgbA1c was again at 5.2% on her recent labs; was also at 5.2% back in March 2024 Continue Acarbose 100 mg TID (3) Asthma: Comment: follows /[facility] [place] Pulmonology Code(s): J45.909 - Unspecified asthma, uncomplicated Category: Medical Qualifiers: Asthma severity: moderate Asthma persistence: persistent Asthma complication type: unspecified Qualified Code(s): J45.40 - Moderate persistent asthma, uncomplicated Plan: She was on Breztri Aerosphere 160-9-4.8 mcg 2 inhalations BID (was started on this by pulmonary) and Albuterol HFA 1 to 2 inhalations every 6 hours PRN but had to stop that recently when she was diagnosed with oral thrush Is presently requesting for a steroid-free inhaler for now while she is currently trying to get her oral thrush cleared up Will start her for now on Combivent Respimat 1 inhalation Q 6 hours Have advised patient that she should check back with Dr. Levy as soon as possible to see how he wants to go about treating her asthma if she is unable to continue with Brelaurentri (4) Migraine: Code(s): G43.909 - Migraine, unspecified, not intractable, without status migrainosus Category: Medical Qualifiers: Migraine type: unspecified Status migrainosus presence: without status migrainosus Intractability: not intractable Qualified Code(s): G43.909 - Migraine, unspecified, not intractable, without status migrainosus Plan: Reinforced again avoidance of any potential migraine triggers Continue Sumatriptan 50 mg PRN (5) Allergic rhinitis: Code(s): J30.9 - Allergic rhinitis, unspecified Category: Medical Qualifiers: Allergic rhinitis trigger: unspecified Allergic rhinitis seasonality: non-seasonal Qualified Code(s): J30.89 - Other allergic rhinitis Plan: Continue Cetirizine 10 mg QD PRN States that she recently tested positive for multiple allergies, including dairy products She is now scheduled to be seen by an commercial credit specialist in a few weeks (11/07/24) for further evaluation (6) Neuropathy: Code(s): G62.9 - Polyneuropathy, unspecified Category: Medical Plan: Continue Gabapentin 600 mg QD (7) Vitamin B12 deficiency: Code(s): E53.8 - Deficiency of other specified B group vitamins Category: Medical Plan: States that this started after she had her gastric bypass done back in 2009 Continue Vitamin B12 injections 1000 mcg IM once a month Her Vitamin B12 level came back normal on her recent labs (8) Vitamin D deficiency: Code(s): E55.9 - Vitamin D deficiency, unspecified Category: Medical Plan: Continue Vitamin D3 2000 units QD Will recheck her Vitamin D level in 4 months for follow up (9) Cyclical vomiting: Code(s): R11.15 - Cyclical vomiting syndrome unrelated to migraine Category: Medical Plan: She believes that this started (was triggered?) by her gastric bypass surgery over 10 years ago Continue Ondansetron 4 mg Q 8 hours PRN (10) GERD without esophagitis: Code(s): K21.9 - Gastro-esophageal reflux disease without esophagitis Category: Medical Plan: Dietary restrictions reinforced Continue OTC Lansoprazole 15 mg QD PRN (11) Menopausal symptoms: Code(s): N95.1 - Menopausal and female climacteric states Category: Medical Plan: Continue Estradiol 0.075 mg patch once a week (12) Anxiety: Code(s): F41.9 - Anxiety disorder, unspecified Category: Medical Plan: Continue Escitalopram 20 mg QD, Wellbutrin XL 150 mg Q AM and Lorazepam 1 mg Q HS PRN States that she had to hold her Escitalopram for the past week as she is on oral Fluconazole for her thrush - plans to go back on Escitalopram as soon as she is done with her Fluconazole Plan Follow up in 4 months Orders: Orders Complete Blood Count Auto Diff 4 Months D64.9 - Anemia, unspecified Lipid Panel 4 Months E78.00 - Pure hypercholesterolemia, unspecified Hemoglobin A1c 4 Months E11.9 - Type 2 diabetes mellitus without complications Vitamin D 25-OH Total 4 Months E55.9 - Vitamin D deficiency, unspecified Comprehensive [place]. Panel Fast 4 Months E78.00 - Pure hypercholesterolemia, unspecified TSH reflex Free T4 4 Months E78.00 - Pure hypercholesterolemia, unspecified UA CC w/rflx Micro + Cult 4 Months R30.0 - Dysuria Vitamin B12 and Folate 4 Months E53.8 - Deficiency of other specified B group vitamins Medications: New ipratropium-albuterol 20-100 mcg/actuation (Combivent Respimat) 1 puff inhalation Q6H 4 grams 1RF
== END 2024-10-14 09:39 | disposition home or self-care (01) ==
PROVIDERS: PCP Internal Medicine; Visit Provider Internal Medicine
DX: E78.00 Pure hypercholesterolemia, unspecified (principal); E11.9 Type 2 diabetes mellitus without complications; J45.40 Moderate persistent asthma, uncomplicated; G43.909 Migraine, unspecified, not intractable, without status migrainosus; J30.89 Other allergic rhinitis; G62.9 Polyneuropathy, unspecified; E53.8 Deficiency of other specified B group vitamins; E55.9 Vitamin D deficiency, unspecified; R11.15 Cyclical vomiting syndrome unrelated to migraine; K21.9 Gastro-esophageal reflux disease without esophagitis; N95.1 Menopausal and female climacteric states; F41.9 Anxiety disorder, unspecified

== ENCOUNTER → 2024-10-14 08:41 | Outpatient (BNVA) | payer MEDICARE, MEDICAID, SELFPAY | PROVIDERS: PCP Internal Medicine; Visit Provider Internal Medicine | DX: E78.00 Pure hypercholesterolemia, unspecified (principal); E11.9 Type 2 diabetes mellitus without complications; J45.40 Moderate persistent asthma, uncomplicated; G43.909 Migraine, unspecified, not intractable, without status migrainosus; J30.89 Other allergic rhinitis; G62.9 Polyneuropathy, unspecified; E53.8 Deficiency of other specified B group vitamins; R11.15 Cyclical vomiting syndrome unrelated to migraine; E55.9 Vitamin D deficiency, unspecified | CPT/HCPCS: 96127; 99212 ==

== ENCOUNTER 2024-10-15 15:45 | Outpatient (AMB) | payer MEDICARE, MEDICAID, SELFPAY ==
[2024-10-15 15:47] VITALS: BP 98/60; PULSE 84; O2SAT 94; BMI 26.1
--- NOTE | 2024-10-15 15:47 | MHC.OFFVIS ---
Vital Signs 10/15/24 15:47 Height 6 ft Weight 192 lb 3.889 oz BMI 26.1 BP 98/60 Blood Pressure Location Rt brachial Position Sitting Pulse 84 Pulse Source Pulse Oximeter Pulse Oximetry (%) 94 Oxygen Delivery Method Room Air Intake Visit Reasons: s/p egd/colon Intake Note: Emani presents in office today for a scheduled s/p double FUV. CC; Relevant GI Sx as reported per pt? Any changes since last visit? Pt states that the thrush has improved since last visit. No other significant changes. ? Recent hx of relevant surgeries? No other recent surgeries. 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 Patient does admit that her symptoms are worsened in the afternoon and at night time. She will take sucralfate at bedtime. Avoid dietary triggers and late night snacking. Upper endoscopy scheduled for the 23 of September. Will referral her to highway engineer. Patient was encouraged to rinse her mouth after using her inhaler. I will see patient after the procedure, sooner on as needed basis. She is agreeable to this plan and verbalizes understanding of instructions. She was the opportunity to ask questions and all questions answered. ? Thank you for allowing me to participate in her care Orders Referrals Allergy & Immunology Referral J45.40, Z91.018 Medications Changed Changed From sucralfate 1 g PO BID 60 tabs 2RF K21.9 Changed To sucralfate 1 g PO BEDTIME 30 tabs 2RF K21.9 Changed From esomeprazole magnesium 40 mg PO DAILY 30 caps 5RF K21.9 Changed To esomeprazole magnesium (Nexium) 40 mg PO BID 60 caps 5RF K21.9 UPPER ENDOSCOPY AND COLONOSCOPY Findings: Larynx: Normal Esophagus: GE junction at 40 cms. Irregular Z line - biopsies were obtained to check for Salvador's. Thick yellow exudates coating the entire esophagus - brushings were obtained to check for Amelia. Biopsies were obtained from proximal esophagus. Stomach: Gastro-jejunal anastomosis at 45 cms - biopsied Moderate diffuse gastric erythema of the gastric pouch mucosa - biopsies were obtained. Jejunum: Normal mucosa - Biopsies were obtained to check for celiac sprue Intervention: Biopsies as noted above COLONOSCOPY PROCEDURE NOTE Instrument: Olympus CF H 190 L variable stiffness adult colonoscope Monitoring: Vital signs and clinical assessment, intermittent blood pressure monitoring, continuous EKG monitoring, Pulse oximetry and Carbon Dioxide monitoring were done throughout the procedure. Please see anesthesia flowsheet. Colon withdrawl time was 25 minutes. Procedure: The patient was placed in the left lateral decubitis position and pre-procedure medications were administered. After a digital rectal examination of the ano-rectum, the video colonoscope was inserted into the rectum and advanced through the colon to the cecum. The colonoscope was slowly withdrawn in a retrograde panoramic fashion and the colon mucosa was carefully examined including a retroflexed view of the rectum. Findings and interventions are described below. Procedure Difficulty: without difficulty - colon was long and tortuous and there was some loop formation Findings: Terminal Ileum: Not evaluated Cecum: Two 8 to 10 mm sessile polyps -removed with a cold snare Ascending Colon: Normal Transverse Colon: Three 8 - 12 mm sessile polyps - removed with a hot snare Descending Colon: Normal Sigmoid Colon: Moderate diverticulosis Rectum: Normal Ano-rectum: Small internal hemorrhoids Colon preparation: Good Fair despite copious irrigation. Dora Bowel Preparation Scale Right colon; 2 Transverse colon: 2 Left colon; 1 (0 = Unprepared colon segment with mucosa not seen due to solid stool that cannot be cleared. 1 = Portion of mucosa of the colon segment seen, but other areas of the colon segment not well seen due to staining, residual stool and/or opaque liquid. 2 = Minor amount of residual staining, small fragments of stool and/or opaque liquid, but mucosa of colon segment seen well. 3 = Entire mucosa of colon segment seen well with no residual staining, small fragments of stool or opaque liquid) Impression and Post Procedure Diagnosis: Endoscopy Findings: ESOPHAGUS: Irregular Z line - biopsies were obtained to check for Salvador's. Thick yellow exudates coating the entire esophagus - brushings were obtained to check for Amelia. STOMACH: Gastro-jejunal anastomosis at 45 cms - biopsied Moderate diffuse gastric erythema of the gastric pouch mucosa - biopsies were obtained. JEJUNUM: Normal - random biopsies were obtained to check for celiac sprue Colonoscopy Findings: Five small to medium sized polyps were removed Moderate diverticulosis seen in the sigmoid colon small hemorrhoids on retroflexed exam. Plan: If biopsies and brushings confirm esophageal candidiasis, pt can be treated with Fluconazole (she will need to hold Escitalopram due tp QTc prolongation while taking the Fluconazole after checking with Dr Crane) Repeat Colonoscopy in 2-3 years if polyps are adenomatous and due to fair prep in the left colon (Duloclax 10 mg daily starting 5 days prior to next colonoscopy appointment) Above findings were reviewed with the patient and relevant handouts were given and the discharge area. BIOPSIES SHOWED: A. Small bowel, biopsy: Small intestinal mucosa with mildly increased intraepithelial lymphocytes and preserved villous architecture. See comment. B. Gastroduodenal anastomosis, biopsy: Oxyntic mucosa with mild chronic inactive inflammation; no Helicobacter organisms seen. C. Stomach, pouch, biopsy: Oxyntic mucosa within normal limits; no Helicobacter organisms seen. D. EG junction, biopsy: - Cardiofundic-type mucosa with moderate chronic active inflammation; no intestinal metaplasia seen. - No squamous epithelium present. E. Esophagus, proximal, biopsy: Amelia esophagitis. F. Colon, transverse, polypectomies: - Tubular adenomata (2); negative for high-grade dysplasia or carcinoma. - Colonic mucosa with prominent lymphoid aggregate. G. Cecum, polypectomies: Colonic mucosa with mild surface hyperplastic and inflammatory changes Pt called and biopsy results were reviewed with her Prescription sent for Fluconazole 200 mg daily x 14 days for esophageal candidiasis Pt advised to hold Escitalopram while taking the Fluconazole Repeat Colonoscopy in 3 years Patient was placed on the colonoscopy recall list. TODAY'S VISIT Patient is here today for follow-up and to discuss upper endoscopy and colonoscopy results. Patient denies any ill effects from the prep, anesthesia or procedure itself. Patient denies any dyspepsia, dysphagia or odynophagia. Significant improvement after taking fluconazole. Patient was found to have Amelia esophagus. Prior to treatment she did reported having significant pain when swallowing and acid reflux. Trouble swallowing almost anything that she ate even drinking fluids were cousin her pain and dysphagia. Patient is taking Nexium daily and sucralfate at bedtime. Patient denies any nausea or vomiting. Reports that she is moving her bowels without any issues. Denies any melena, hematochezia, unintentional weight loss or ribbon like stools. Colonoscopy and endoscopy results discussed with patient in great detail. Two tubular adenoma found in transverse colon otherwise rest of the polyps were hyperplastic. Patient had suboptimal prep to left side of her colon and recommendation was made for patient to repeat colonoscopy in 2-3 years. [facility] Medical History (Updated 11/10/24 @ 14:55 by Nora Davis, [facility]) Tubular adenoma of colon Pure hypercholesterolemia Vitamin D deficiency Vitamin B12 deficiency Allergic rhinitis GERD without esophagitis Pulmonary nodule, left Anxiety Neuropathy Asthma Diabetes mellitus Migraine Cyclical vomiting Surgical History History of lumpectomy of right breast (05/29/24) Hx of shoulder surgery Hx of shoulder surgery Hx of colonoscopy Status post laparoscopic assisted vaginal hysterectomy (LAVH) (~2016) Hx of gastric bypass (~2009) Hx of cholecystectomy Family History Other Diabetes Social History Housing: House Are you a primary hospice patient care secretary to a significant other at home: No Do you presently have visiting nurse or other home services: No Alcohol intake: never Patient Tobacco Use Status: Former Tobacco user Tobacco use type: Cigarette Cigarette Packs Per Day: 1.5 Years Smoked: quit more than 15 years ago, started as a teen e-Cigarette/Vaping Use: Never Used Current occupational status: disabled Current occupation: Left hand dominant Cognitive needs: No Hearing needs: No Vision needs: Yes Physical Exam Vital Signs: Last Vital Signs Pulse 84 10/15/24 15:47 BP 98/60 10/15/24 15:47 Pulse Ox 94 10/15/24 15:47 Oxygen Delivery Method Room Air 10/15/24 15:47 BMI result Body Mass Index 26.1 Const General: healthy appearing, no acute distress and well developed Nutritional Appearance: well nourished Orientation/consciousness: patient oriented x3 Resp Effort & Inspection: normal respiratory effort, able to speak in complete sentences, no tracheal deviation and symmetric chest movement Auscultation: clear to auscultation bilaterally Cardio Rate: regular rate GI Inspection: Yes normal to inspection and No distended Palpation (GI): Soft to palpation, not firm, nontender and No hepatosplenomegaly present Auscultation: normal bowel sounds General: Yes no CVA tenderness Back/Spine/Pelvis Back: no CVA tenderness Skin General skin exam: elasticity normal, turgor normal and dry skin Neuro General: patient oriented x3 Psych Appearance: grossly normal Mental Status: mental status grossly normal Assessment & Plan Assessment & Plan (1) Esophageal candidiasis: Code(s): B37.81 - Candidal esophagitis Category: Medical (2) Asthma: Code(s): J45.909 - Unspecified asthma, uncomplicated Category: Medical Qualifiers: Asthma severity: moderate Asthma persistence: persistent Asthma complication type: unspecified Qualified Code(s): J45.40 - Moderate persistent asthma, uncomplicated (3) GERD without esophagitis: Code(s): K21.9 - Gastro-esophageal reflux disease without esophagitis Category: Medical (4) Tubular adenoma of colon: Code(s): D12.6 - Benign neoplasm of colon, unspecified Category: Medical (5) Postprandial abdominal bloating: Code(s): R14.0 - Abdominal distension (gaseous) (6) Constipation: Code(s): K59.00 - Constipation, unspecified Qualifiers: Constipation type: slow transit constipation Qualified Code(s): K59.01 - Slow transit constipation (7) Postprandial epigastric pain: Code(s): R10.13 - Epigastric pain (8) Dysphagia: Code(s): R13.10 - Dysphagia, unspecified Qualifiers: Dysphagia type: esophageal phase Qualified Code(s): R13.19 - Other dysphagia Plan Patient completed treatment with fluconazole and her symptoms have improved. She can continue taking Nexium as ordered and sucralfate at bedtime. Patient will start taking Linzess as she does have constipation and occasional abdominal cramping. Patient was encouraged to avoid dietary triggers and late night snacking. Staying upright for minimum 3 hours after meals discussed with patient. Two tubular adenoma found in transverse colon without high-grade dysplasia or carcinoma. Recommendation was made for patient to return for colorectal screening in 2-3 years due to TA and suboptimal prep to left side of her colon. Patient does report abdominal bloating occasionally which could be related to patient not emptying her bowels as well as diet. List of food recommended as well as list of food to avoid given to patient. Low FODMAP diet discussed with her. Simethicone order for her to take as needed for bloating. Patient will return in 3 months, sooner on as needed basis. She is agreeable to this plan and verbalizes understanding of instructions. She was given the opportunity to ask questions and all questions answered. Thank you for allowing me to participate in her care Medications: New simethicone 125 mg PO BID-QID PRN 120 caps 3RF abdominal distention K21.9 - Gastro-esophageal reflux disease without esophagitis linaclotide (Linzess) 145 mcg PO DAILY 30 caps 2RF Discontinued fluconazole Pt advised to hold Escitalopram while taking the Fluconazole Discontinued Reason: Patient Completed Course 200 mg PO DAILY 14 days 14 tabs 0RF B37.81 - Candidal esophagitis Coding Level of Care Code Est Pt Level 4 (80959) Complex EM visit Add On G2211 Diagnoses Esophageal candidiasis B37.81 Moderate persistent asthma, unspecified whether complicated J45.40 Asthma severity: moderate Asthma persistence: persistent Asthma complication type: unspecified GERD without esophagitis K21.9 Tubular adenoma of colon D12.6 Postprandial abdominal bloating R14.0 Slow transit constipation K59.01 Constipation type: slow transit constipation Postprandial epigastric pain R10.13 Esophageal dysphagia R13.19 Dysphagia type: esophageal phase Time Spent (min) 35 Comment 25 minutes spent with patient and additional 10 minutes spent reviewing her records
--- OUTSIDE RECORDS SUMMARY | 2024-10-22 15:19 | XMS_ITS | Clinical Summary ---
Author Organization Unknown Care Team Providers Care Reference Data Expert Name Role Phone IDALIA MEJIA, ROSEMARIE Unavailable Unavailable NICOLE PT, ELEUTERIO Unavailable Unavailable URBAN TRAILER TECHNICIAN, CHLOÉ Unavailable Unavailable SPAFFORD OT, KUMAR Unavailable Unavailable CONDINO ALYSON/GLASGOW, DOMINIQUE Unavailable Unav ailable Payers Payer Name Policy Type Policy Number Effective Date Expira tion Date MEDICARE.[facility] [place] [id number] Problems Condition Name Condition Details Condition Category Status Onset Date Resolution Date Last Treatment Date Treating Clinician Comments ENCOUNTER FOR OTHER ORTHOPEDIC AFTERCARE Active 07-05 00:00: 00 TYPE 2 DIABETES MELLITUS WITH DIABETIC NEUROPATHY, UNSP Active 11-13 00:00: 00 PURE HYPERCHOLEST EROLEMIA, UNSPECIFIED Active 11-13 00:00: 00 DEFICIENCY OF OTHER SPECIFIED B GROUP VITAMINS Active 11-13 00:00: 00 ALLERGIC RHINITIS, UNSPECIFIED Active 11-13 00:00: 00 GASTRO-ESOPH AGEAL REFLUX DISEASE WITHOUT ESOPHAGITIS Active 11-13 00:00: 00 ANXIETY DISORDER, UNSPECIFIED Active 11-13 00:00: 00 MIGRAINE, UNSP, NOT INTRACTABLE, WITHOUT STATUS MIGRAINOSUS Active 11-13 00:00: 00 UNSPECIFIED ASTHMA, UNCOMPLICATE D Active 11-13 00:00: 00 SOLITARY PULMONARY NODULE Active 11-13 00:00: 00 MULTILITH OPERATOR (CURRENT) USE OF OPIATE ANALGESIC Active 11-13 00:00: 00 BARIATRIC SURGERY STATUS Active 11-13 00:00: 00 ACQUIRED ABSENCE OF OTHER SPECIFIED PARTS OF DIGESTIVE TRACT Active 11-13 00:00: 00 PERSONAL HISTORY OF NICOTINE DEPENDENCE Active 11-13 00:00: 00 Allergies, Adverse Reactions, Alerts Allergy Name Allergy Type Status Severity Reaction(s) Onset Date Inactive Date Treating Clinician Comments LATEX, ALL Propensity to adverse reactions Active 07-06 15:08: 20 CEPHALOSPORI NS Propensity to adverse reactions Active 07-06 15:08: 33 EGG Propensity to adverse reactions Active 07-06 15:08: 47 SULFA ... Propensity to adverse reactions Active 07-06 15:09: 04 IBUPROFEN Propensity to adverse reactions Active 07-06 15:09: 20 Medications Ordered Medication Name Filled Medication Name Start Date Stop Date Current Medication? Ordering Clinician Indication Dosage Frequency Signature (SIG) Comments Components ropinirole 1 mg tablet 07-01 00:00: 00 Yes [id number] RESTLESS LEGS 1 tablet BEDTIME 1 tablet BEDTIME (route: oral) Med Classific ation: Central Nervous System Agents lorazepam 1 mg tablet 06-28 00:00: 00 Yes [id number] ANXIETY Per instruc tions AT BEDTIME NEEDED Per instructio ns AT BEDTIME NEEDED (route: oral) Med Classific ation: Central Nervous System Agents Ventolin HFA 90 mcg/actuati on aerosol inhaler 06-24 00:00: 00 Yes [id number] ASTHMA Per instruc tions INTO THE LUNGS EVERY 4 TO 6 HOURS NEEDED Per instructio ns INTO THE LUNGS EVERY 4 TO 6 HOURS NEEDED (route: inhalation ) Med Classific ation: Respirato ry Therapy Agents ibuprofen 800 mg tablet 06-20 00:00: 00 Yes [id number] PAIN Per instruc tions THREE TIMES DAILY NEEDED Per instructio ns THREE TIMES DAILY NEEDED (route: oral) Med Classific ation: Analgesic , Anti-infl ammatory or Antipyret ic oxycodone-a cetaminophe n 5 mg-325 mg tablet 06-20 00:00: 00 Yes [id number] PAIN Per instruc tions EVERY 4 TO 6 HOURS FOR 7 DAYS NEEDED Per instructio ns EVERY 4 TO 6 HOURS FOR 7 DAYS NEEDED (route: oral) Med Classific ation: Analgesic , Anti-infl ammatory or Antipyret ic famotidine 40 mg tablet 06-19 00:00: 00 Yes [id number] GERD Per instruc tions AT BEDTIME Per instructio ns AT BEDTIME (route: oral) Med Classific ation: Gastroint estinal Therapy Agents lansoprazol e 30 mg capsule,del ayed release 06-19 00:00: 00 Yes [id number] GERD Per instruc tions DAILY Per instructio ns DAILY (route: oral) Med Classific ation: Gastroint estinal Therapy Agents senna 8.6 mg tablet 06-19 00:00: 00 Yes [id number] 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 SOFTNER Per instruc tions AT BEDTIME Per instructio ns AT BEDTIME (route: oral) Med Classific ation: Gastroint estinal Therapy Agents bupropion HCl XL 150 mg 24 hr tablet, extended release 06-11 00:00: 00 Yes [id number] DEPRESSION Per instruc tions EVERY Per instructio ns EVERY (route: oral) Med Classific ation: Central Nervous System Agents escitalopra m 20 mg tablet 06-11 00:00: 00 Yes [id number] DEPRESSION Per instruc tions DAILY Per instructio ns DAILY (route: oral) Med Classific ation: Central Nervous System Agents gabapentin 600 mg tablet 06-11 00:00: 00 Yes [id number] NERVE PAIN Per instruc tions DAILY Per instructio ns DAILY (route: oral) Med Classific ation: Central Nervous System Agents morphine ER 15 mg tablet,exte nded release 06-11 00:00: 00 07-05 00:00 :00 No [id number] Per instruc tions EVERY 12 HOURS FOR 3 DAYS Per instructio ns EVERY 12 HOURS FOR 3 DAYS (route: oral) Med Classific ation: Analgesic , Anti-infl ammatory or Antipyret ic ropinirole 0.5 mg tablet 06-11 00:00: 00 Yes [id number] RESTLESS LEGS Per instruc tions NEEDED Per instructio ns NEEDED (route: oral) Med Classific ation: Central Nervous System Agents cholecalcif nora (vitamin D3) 50 mcg (2,000 unit) capsule 06-11 00:00: 00 Yes [id number] SUPPLEMENT Per instruc tions DAILY Per instructio ns DAILY (route: oral) Med Classific ation: Electroly te Balance-N utritiona l Products Breztri Aerosphere 160 mcg-9mcg-4. 8mcg/actuat ion HFA aerosol inhaler 06-10 00:00: 00 Yes [id number] ASTHMA Per instruc tions TWICE DAILY Per instructio ns TWICE DAILY (route: inhalation ) Med Classific ation: Respirato ry Therapy Agents Dulera 200 mcg-5 mcg/actuati on HFA aerosol inhaler 06-10 00:00: 00 07-05 00:00 :00 No [id number] Per instruc tions TWICE DAILY Per instructio ns TWICE DAILY (route: inhalation ) Med Classific ation: Respirato ry Therapy Agents scopolamine 1 mg over 3 days transdermal patch 06-06 00:00: 00 Yes [id number] MOTION SICKNESS Per instruc tions EVERY 3 DAYS NEEDED Per instructio ns EVERY 3 DAYS NEEDED (route: transderma l) Med Classific ation: Gastroint estinal Therapy Agents acarbose 100 mg tablet 06-12 00:00: 00 Yes [id number] HYPERGLYCEM IA 1 tablet 3 TIMES DAILY 1 tablet 3 TIMES DAILY (route: oral) Med Classific ation: Endocrine albuterol sulfate 2.5 mg/3 mL (0.083 %) solution for nebulizatio n 06-12 00:00: 00 Yes [id number] ASTHMA Per instruc tions DIRECTED Per instructio ns DIRECTED (route: inhalation ) Med Classific ation: Respirato ry Therapy Agents cyanocobala min (vit B-12) 1,000 mcg/mL injection solution 06-12 00:00: 00 Yes [id number] SUPPLEMENT Per instruc tions MONTHLY Per instructio ns MONTHLY (route: injection) Med Classific ation: Electroly te Balance-N utritiona l Products estradiol 0.075 mg/24 hr weekly transdermal patch 06-12 00:00: 00 Yes [id number] POST HYSTERECTOM Y 1 patch, transde rmal weekly WEEKLY 1 patch, transderma l weekly WEEKLY (route: transderma l) Med Classific ation: Endocrine Imitrex 50 mg tablet 06-12 00:00: 00 Yes [id number] MIGRAINES 1 tablet DIRECTED 1 tablet DIRECTED (route: oral) Med Classific ation: Central Nervous System Agents ondansetron 4 mg disintegrat ing tablet 06-12 00:00: 00 Yes [id number] NAUSEA 1 tablet EVERY 8 HOURS 1 tablet EVERY 8 HOURS (route: oral) Med Classific ation: Gastroint estinal Therapy Agents Zyrtec 10 mg tablet 06-12 00:00: 00 Yes [id number] ALLERGIES 1 tablet DAILY 1 tablet DAILY (route: oral) Med Classific ation: Respirato ry Therapy Agents Vital Signs Vital Name Observation Time Observation Value Commen ts Temperature 2024-09-02 16:22:00.000 97.1 [degF] Temperature 2024-08-25 10:01:00.000 97.2 [degF] Temperature 2024-08-17 08:55:00.000 97.2 [degF] Temperature 2024-08-09 10:25:00.000 97.7 [degF] Temperature 2024-07-17 09:29:00.000 97.2 [degF] Temperature 2024-07-10 10:28:00.000 97.3 [degF] Temperature 2024-07-05 13:03:00.000 97.2 [degF] BMI (%) 2024-07-05 13:03:00.000 25 kg/m2 Height 2024-07-05 13:03:00.000 72 [in_us] Pulse 2024-09-02 16:22:00.000 80 /min Pulse 2024-08-25 10:01:00.000 80 /min Pulse 2024-08-17 08:55:00.000 80 /min Pulse 2024-08-09 10:25:00.000 67 /min Pulse 2024-07-17 09:29:00.000 64 /min Pulse 2024-07-10 10:28:00.000 78 /min Pulse 2024-07-05 13:03:00.000 69 /min O2 Saturation (%) 2024-09-02 16:22:00.000 97 % O2 Saturation (%) 2024-08-17 08:56:00.000 98 % O2 Saturation (%) 2024-08-09 10:25:00.000 97 % O2 Saturation (%) 2024-07-17 09:30:00.000 98 % O2 Saturation (%) 2024-07-10 10:28:00.000 98 % Respirations 2024-09-02 16:22:00.000 18 /min Respirations 2024-08-25 10:01:00.000 18 /min Respirations 2024-08-17 08:55:00.000 18 /min Respirations 2024-08-09 10:25:00.000 18 /min Respirations 2024-07-17 09:29:00.000 18 /min Respirations 2024-07-10 10:28:00.000 18 /min Respirations 2024-07-05 13:03:00.000 18 /min Weight (lbs) 2024-07-05 13:03:00.000 185 [lb_av] Systolic Blood Pressure 2024-09-02 16:22:00.000 100 mm [Hg] Systolic Blood Pressure 2024-08-25 10:01:00.000 110 mm [Hg] Systolic Blood Pressure 2024-08-17 08:55:00.000 126 mm [Hg] Systolic Blood Pressure 2024-07-17 09:29:00.000 100 mm [Hg] Systolic Blood Pressure 2024-07-10 10:28:00.000 100 mm [Hg] Systolic Blood Pressure 2024-07-05 13:03:00.000 100 mm [Hg] Diastolic Blood Pressure 2024-09-02 16:22:00.000 58 mm [Hg] Diastolic Blood Pressure 2024-08-25 10:01:00.000 62 mm [Hg] Diastolic Blood Pressure 2024-08-17 08:55:00.000 66 mm [Hg] Diastolic Blood Pressure 2024-07-17 09:29:00.000 58 mm [Hg] Diastolic Blood Pressure 2024-07-10 10:28:00.000 64 mm [Hg] Diastolic Blood Pressure 2024-07-05 13:03:00.000 64 mm [Hg] Plan of Treatment Planned Activity Planned Date Details Comments Future Scheduled Test AGENCY MAY PERFORM A RESUMPTION OF CARE VISIT FOLLOWING ANY HOSPITAL ADMISSION. PT TO EVALUATE, OBSERVE / ASSESS, AND MONITOR, TRAILER TECHNICIAN TO OBSERVE AND MONITOR, PROVIDE SKILLED THERAPEUTIC INTERVENTION, ACTIVITY, EDUCATION, AND TRAINING TO ADDRESS; [code = AGENCY MAY PERFORM A RESUMPTION OF CARE VISIT FOLLOWING ANY HOSPITAL ADMISSION. PT TO EVALUATE, OBSERVE / ASSESS, AND MONITOR, TRAILER TECHNICIAN TO OBSERVE AND MONITOR, PROVIDE SKILLED THERAPEUTIC INTERVENTION, ACTIVITY, EDUCATION, AND TRAINING TO ADDRESS;] Future Scheduled Test SIT TO/FRO M STAND TRANSFERS (PT/TRAILER TECHNICIAN) [code = SIT TO/FROM STAND TRANSFERS (PT/TRAILER TECHNICIAN)] Future Scheduled Test PT/TRAILER TECHNICIAN TO PROVIDE GAIT TRAINING FOR IMPROVED MOBILITY AND /OR TO NORMALIZE GAIT PATTERN [code = PT/TRAILER TECHNICIAN TO PROVIDE GAIT TRAINING FOR IMPROVED MOBILITY AND /OR TO NORMALIZE GAIT PATTERN] Future Scheduled Test PT/TRAILER TECHNICIAN TO PROVIDE STAIR TRAINING [code = PT/TRAILER TECHNICIAN TO PROVIDE STAIR TRAINING] Future Scheduled Test THERAPEUTI C EXERCISES AND ESTABLISHING A HOME EXERCISE PROGRAM (PT/TRAILER TECHNICIAN) [code = THERAPEUTIC EXERCISES AND ESTABLISHING A HOME EXERCISE PROGRAM (PT/TRAILER TECHNICIAN)] Future Scheduled Test PT / TRAILER TECHNICIAN T O EDUCATE ON ROTATOR CUFF REPAIR SELF-MANAGEMENT [code = PT / TRAILER TECHNICIAN TO EDUCATE ON ROTATOR CUFF REPAIR SELF-MANAGEMENT] Future Scheduled Test PT TO ASSE SS / TRAILER TECHNICIAN TO MONITOR CARDIO/RESPIRATORY SYSTEM; AND NOTIFY THE PHYSICIAN AND/OR THE RN CLINICAL PLIER WORKER FOR PHYSICIAN NOTIFICATION FOR EARLY SIGNS AND SYMPTOMS OF EXACERBATION OR DETERIORATION. [code = PT TO ASSESS / TRAILER TECHNICIAN TO MONITOR CARDIO/RESPIRATORY SYSTEM; AND NOTIFY THE PHYSICIAN AND/OR THE RN CLINICAL PLIER WORKER FOR PHYSICIAN NOTIFICATION FOR EARLY SIGNS AND SYMPTOMS OF EXACERBATION OR DETERIORATION.] Future Scheduled Test PT / TRAILER TECHNICIAN T O MONITOR AND EDUCATE ON OXYGEN SATURATION DURING ADLS/IADLS, NOTIFY PHYSICIAN AND/OR THE RN CLINICAL PLIER WORKER FOR PHYSICIAN NOTIFICATION AND IF O2 SATS BELOW PHYSICIAN ORDERED PARAMETERS AFTER 10 MIN OF REST [code = PT / TRAILER TECHNICIAN TO MONITOR AND EDUCATE ON OXYGEN SATURATION DURING ADLS/IADLS, NOTIFY PHYSICIAN AND/OR THE RN CLINICAL PLIER WORKER FOR PHYSICIAN NOTIFICATION AND IF O2 SATS BELOW PHYSICIAN ORDERED PARAMETERS AFTER 10 MIN OF REST] Future Scheduled Test PT / TRAILER TECHNICIAN M AY EDUCATE ON PAIN MANAGEMENT CLINICALLY INDICATED, INCLUDING NON-PHARMACOLOGICAL PAIN REDUCTION TECHNIQUES AND USE OF CRYOTHERAPY OR HEAT UP TO 20 MIN AT A TIME FOR PAIN MANAGEMENT 3 TIMES PER DAY TO RIGHT SHOULDER [code = PT / TRAILER TECHNICIAN MAY EDUCATE ON PAIN MANAGEMENT CLINICALLY INDICATED, INCLUDING NON-PHARMACOLOGICAL PAIN REDUCTION TECHNIQUES AND USE OF CRYOTHERAPY OR HEAT UP TO 20 MIN AT A TIME FOR PAIN MANAGEMENT 3 TIMES PER DAY TO RIGHT SHOULDER ] Future Scheduled Test OCCUPATION AL THERAPIST TO EVALUATE FOR UE STRENGTH, ROM AND SAFETY WITH ADLS AND IADLS [code = OCCUPATIONAL THERAPIST TO EVALUATE FOR UE STRENGTH, ROM AND SAFETY WITH ADLS AND IADLS ] Future Scheduled Test AGENCY MAY PERFORM A RESUMPTION OF CARE VISIT FOLLOWING ANY HOSPITAL ADMISSION. OT TO EVALUATE, OBSERVE / ASSESS, AND MONITOR, STORE ADMINISTRATOR TO OBSERVE AND MONITOR, PROVIDE SKILLED THERAPEUTIC INTERVENTION, ACTIVITY, EDUCATION, AND TRAINING TO ADDRESS; R ROTATOR CUFF REPAIR REVISION WITH BICEP TENDONOTOMY. OT/STORE ADMINISTRATOR TO MONITOR AND EDUCATE ON OXYGEN SATURATION DURING ADLS/IADLS, NOTIFY PHYSICIAN AND/OR THE RN CLINICAL PLIER WORKER FOR PHYSICIAN NOTIFICATION AND IF O2 SATS BELOW 90% AFTER 10 MIN OF REST. OT / ALYSON TO IDENTIFY FALL RISK FACTORS; EDUCATE THE PATIENT/CAREGIVER ON WAYS TO REDUCE FALL RISK FACTORS AND ESTABLISH HOME EXERCISE PROGRAM TO MINIMIZE FALL RISK. MAY TEACH THE PATIENT FLOOR RECOVERY WHEN CLINICALLY APPROPRIATE. OT/STORE ADMINISTRATOR TO TEACH ROTATOR CUFF REPAIR SELF-MANAGEMENT [code = AGENCY MAY PERFORM A RESUMPTION OF CARE VISIT FOLLOWING ANY HOSPITAL ADMISSION. OT TO EVALUATE, OBSERVE / ASSESS, AND MONITOR, STORE ADMINISTRATOR TO OBSERVE AND MONITOR, PROVIDE SKILLED THERAPEUTIC INTERVENTION, ACTIVITY, EDUCATION, AND TRAINING TO ADDRESS; R ROTATOR CUFF REPAIR REVISION WITH BICEP TENDONOTOMY. OT/ALYSON TO MONITOR AND EDUCATE ON OXYGEN SATURATION DURING ADLS/IADLS, NOTIFY PHYSICIAN AND/OR THE RN CLINICAL PLIER WORKER FOR PHYSICIAN NOTIFICATION AND IF O2 SATS BELOW 90% AFTER 10 MIN OF REST. OT / STORE ADMINISTRATOR TO IDENTIFY FALL RISK FACTORS; EDUCATE THE PATIENT/CAREGIVER ON WAYS TO REDUCE FALL RISK FACTORS AND ESTABLISH HOME EXERCISE PROGRAM TO MINIMIZE FALL RISK. MAY TEACH THE PATIENT FLOOR RECOVERY WHEN CLINICALLY APPROPRIATE. OT/ALYSON TO TEACH ROTATOR CUFF REPAIR SELF-MANAGEMENT] Goal 2024-09-02 Patient Goal - BE ABLE TO USE MY ARM WITHOUT PAIN Goal Provider Goal - Goal Provider Goal - PT STG: PATIENT WILL DEMONSTRATE IMPROVED ABILITY TO PERFORM SIT TO/FROM STAND TRANSFERS TO REDUCE THE RISK OF SKIN BREAKDOWN AND REDUCE FALL RISK FROM SBA TO INDEPENDENT WITHIN 2 WEEKS Goal Provider Goal - PT LTG: PATIENT WILL DEMONSTRATE REDUCED GAIT DEVIATIONS TO REDUCE THE RISK FOR FALLING EVIDENCED BY IMPROVED POSTURE AND FOOT CLEARANCE BILATERALLY TO WALK WITHOUT AD INDEPENDENTLY IN ORDER TO ACCESS ALL AREAS OF THE HOME WITHIN 2 WEEKS PT LTG: PATIENT WILL DEMONSTRATE REDUCED FALL RISK EVIDENCED BY IMPROVED SELF- SELECTED WALKING SPEED (SSWS CUT SCORE 0.6 TO 0.9 INDICATES MODERATE FALL RISK, 0.6 M/S INDICATES HIGH FALL RISK) FROM 0.8M/SEC TO 1.0M/SEC WITHIN 2 WEEKS Goal Provider Goal - PT LTG: PATIENT WILL DEMONSTRATE IMPROVED ABILITY TO SAFELY NEGOTIATE STAIRS FROM SBA TO INDEPENDENT WITH RAIL IN ORDER TO IMPROVE SAFETY WITH ACCESSING TRANSPORTATION TO MEDICAL APPOINTMENTS WITHIN 2 WEEKS Goal Provider Goal - PT STG: PATIENT WILL DEMONSTRATE INDEPENDENCE WITH LOWER EXTREMITY HOME EXERCISE PROGRAM WITHIN 2 WEEKS PT LTG: PATIENT WILL DEMONSTRATE IMPROVED FUNCTIONAL STRENGTH EVIDENCED BY FIVE TIMES SIT TO STAND TEST (CUT SCORE >12 SECONDS INDICATES AN INCREASED FALL RISK) IMPROVING FROM 20 SECONDS TO 12 SECONDS WITHIN 2 WEEKS PT LTG: PATIENT WILL DEMONSTRATE INCREASED STRENGTH OF BILATERAL LES FROM 3+/5 TO 4/5 WITHIN 2 WEEKS IN ORDER TO IMPROVE SAFETY AND STABILITY WITH GAIT AND STAIRS Goal Provider Goal - PT GOAL: PATIENT WILL DEMONSTRATE OPTIMAL OUTCOMES INCLUDING INCREASED ROM AND STRENGTH WITH NO COMPLICATIONS FOLLOWING ROTATOR CUFF REPAIR BY END OF EPISODE Goal Provider Goal - PT LTG: PATIENT WILL NOT EXPERIENCE CARDIAC OR RESPIRATORY COMPLICATIONS THROUGHOUT THE EPISODE OF CARE. Goal Provider Goal - PT LTG: PATIENT WILL MAINTAIN OXYGEN SATURATION WITHIN PHYSICIAN ORDERED PARAMETERS THROUGHOUT EPISODE OF CARE. Goal Provider Goal - PT GOAL: PATIENT WILL DEMONSTRATE UNDERSTANDING OF PAIN MANAGEMENT TECHNIQUES EVIDENCED BY REDUCED PAIN IN RIGHT SHOULDER FROM 8/10 TO 5/10 WITHIN 2 WEEKS Goal Provider Goal - Goal Provider Goal - OT LTG: PATIENT WILL MAINTAIN OXYGEN SATURATION WITHIN PHYSICIAN ORDERED PARAMETERS THROUGHOUT THE EPISODE OF CARE. OT LTG: PATIENT/CAREGIVER WILL BE ABLE TO IMPLEMENT RECOMMENDATIONS SPECIFIC TO FALL REDUCTION FOR IMPROVED ADL/IADL COMPLETION AND HOME SAFETY BY END OF EPISODE. OT LTG: PATIENT WILL BE INDEPENDENT WITH IMPLEMENTATION OF HEP WITHIN 8 WEEKS. OT STG: PATIENT WILL DEMONSTRATE IMPROVED UE HEP TRAINING WITH MOD ASSIST WITHIN 2 WEEKS. OT GOAL: PATIENT WILL DEMONSTRATE OPTIMAL OUTCOMES INCLUDING INCREASED ROM AND STRENGTH FOR INCREASED INDEPENDENCE WITH ADLS AND WITH NO COMPLICATIONS FOLLOWING ROTATOR CUFF REPAIR BY END OF EPISODE. Reason for Visit INDEPENDENT IN THE COMMUNITY Encounters Start Date/Time End Date/Time Encounter Type Admission Type Attending [facility] Care Department Encounter ID Discharge Date Discharge Status Discharge Condition Discharge Reason Percent Goals Met 2024-07-05 00:00:00 2024-09-02 00:00:00 Outpatient NEW ADMISSION ELEUTERIO RIVERA [facility] [id number] 2024-09-02 00:00:00 DISCHARGE TO HOME OR SELF CARE INDEPENDEN T IN THE COMMUNITY HH OR PAL- GOALS MET 94.44
== END 2024-10-15 16:36 | disposition home or self-care (01) ==
PROVIDERS: PCP Internal Medicine; Visit Provider Nurse Practitioner Family
DX: B37.81 Candidal esophagitis (principal); J45.40 Moderate persistent asthma, uncomplicated; K21.9 Gastro-esophageal reflux disease without esophagitis; D12.6 Benign neoplasm of colon, unspecified; R14.0 Abdominal distension (gaseous); K59.01 Slow transit constipation; R10.13 Epigastric pain; R13.19 Other dysphagia
CPT/HCPCS: 99214; G2211

== ENCOUNTER → 2024-10-15 15:45 | Outpatient (BNVA) | payer MEDICARE, MEDICAID, SELFPAY | PROVIDERS: PCP Internal Medicine; Visit Provider Nurse Practitioner Family | DX: K21.9 Gastro-esophageal reflux disease without esophagitis (principal); B37.81 Candidal esophagitis; D12.6 Benign neoplasm of colon, unspecified; R14.0 Abdominal distension (gaseous); K59.01 Slow transit constipation; R10.13 Epigastric pain; R13.19 Other dysphagia; Z71.2 Person consulting for explanation of examination or test findings; Z98.890 Other specified postprocedural states | CPT/HCPCS: 99212 ==

== ENCOUNTER 2024-11-25 08:55 | Outpatient (AMB) | payer MEDICARE, MEDICAID, SELFPAY ==
[2024-11-25 09:01] VITALS: BP 98/62; PULSE 81; O2SAT 96; BMI 25.9
--- NOTE | 2024-11-25 09:01 | MHC.OFFVIS ---
Vital Signs 11/25/24 09:01 Height 6 ft Weight 191 lb BMI 25.9 BP 98/62 Blood Pressure Location Rt brachial Position Sitting Pulse 81 Pulse Source Doppler Pulse Oximetry (%) 96 Oxygen Delivery Method Room Air Intake Visit Reasons: Asthma Allergies latex Allergy (Severe, Verified 10/15/24 15:48) Anaphylaxis Cephalosporins Allergy (Mild, Verified 10/15/24 15:48) Rash egg Allergy (Mild, Verified 10/15/24 15:48) Unknown Sulfa (Sulfonamide Antibiotics) Allergy (Mild, Verified 10/15/24 15:48) Rash ibuprofen [From Motrin] Adverse Reaction (Mild, Verified 10/15/24 15:48) Rash HPI HPI Asthma: Details: 54-year-old lady, former approximately 10 pack-year smoker, quit over 20 years prior, with underlying history of asthma and environmental allergies since childhood, previously managed with Dulera and albuterol MDI with suboptimal control of her symptoms presents to [facility] care. Patient recently moved from [facility]. She does complain of multiple environmental allergies. Patient also has prior history of sleep apnea, with recent significant weight changes. She denies exposure to industrial dusts. Patient does have multiple first-degree relatives with asthma. After the last office visit patient started on Xolair with slowly improving control. She did develop thrush with BrezTri despite rinsing her mouth after its use and is not interested in using inhaled corticosteroids anymore. She does complain of a mild exacerbation. [facility] Medical History (Updated 11/12/24 @ 10:53 by Dai Hall MD) Tubular adenoma of colon Pure hypercholesterolemia Vitamin D deficiency Vitamin B12 deficiency Allergic rhinitis GERD without esophagitis Pulmonary nodule, left Anxiety Neuropathy Asthma Diabetes mellitus Migraine Cyclical vomiting Surgical History History of lumpectomy of right breast (05/29/24) Hx of shoulder surgery Hx of shoulder surgery Hx of colonoscopy Status post laparoscopic assisted vaginal hysterectomy (LAVH) (~2016) Hx of gastric bypass (~2009) Hx of cholecystectomy Family History Other Diabetes Social History Housing: House Are you a primary career discovery teacher to a significant other at home: No Do you presently have visiting nurse or other home services: No Alcohol intake: never Patient Tobacco Use Status: Former Tobacco user Tobacco use type: Cigarette Cigarette Packs Per Day: 1.5 Years Smoked: quit more than 15 years ago, started as a teen e-Cigarette/Vaping Use: Never Used Current occupational status: disabled Current occupation: Left hand dominant Cognitive needs: No Hearing needs: No Vision needs: Yes Review of Systems Const Denies daytime sleepiness, Denies excessive sweating, Denies fatigue, Denies fever(s), Denies lethargy, Denies malaise, Denies night sweats, Denies snoring and Denies weight loss Eyes Denies blurry vision and Denies itchy eyes ENT Denies nasal congestion, Denies post nasal drip, Denies sinus pain, Denies sinus pressure and Denies other ( Thrush) Card Denies chest pain, Denies pedal edema, Denies dyspnea, Denies orthopnea and Denies paroxysmal nocturnal dyspnea Resp Denies cough, Denies hemoptysis, Denies excessive phlegm production, Denies dyspnea, Denies snoring and Denies wheezing GI Denies abdominal pain and Denies heartburn Musc Denies myalgias, Denies arthralgias and Denies joint swelling Skin/Breast Denies rash Neuro Denies memory loss and Denies seizure-like activity Psych Denies abnormal sleep pattern, Denies anxiety and Denies memory loss Endo Denies excessive sweating, Denies fatigue and Denies heat intolerance Melvin/Lymph Denies easy bruising Aller/Immun Denies itchy eyes, Denies seasonal rhinorrhea and Denies wheezing Physical Exam Vital Signs: Last Vital Signs Pulse 81 11/25/24 09:01 BP 98/62 11/25/24 09:01 Pulse Ox 96 11/25/24 09:01 Oxygen Delivery Method Room Air 11/25/24 09:01 BMI result Body Mass Index 25.9 Const General: no acute distress and alert Nutritional Appearance: not obese Orientation/consciousness: Other orientation findings ( oriented) HEENT Head: Yes atraumatic Eyes General: appearance normal, both eyes and all related structures Sclerae: sclerae normal EOM: EOMs intact bilaterally Neck Neck: Yes supple Lymphatic: no lymphadenopathy noted Resp Effort & Inspection: normal respiratory effort and no use of accessory muscles Auscultation: wheezes Cardio Rate: regular rate Rhythm: regular rhythm Heart sounds: no gallops, no murmurs and no rubs Skin General skin exam: other ( warm) Extrem General: No clubbing, No cyanosis and No edema Assessment & Plan Assessment & Plan (1) Severe persistent asthma: Code(s): J45.50 - Severe persistent asthma, uncomplicated Category: Medical Plan: Unable to tolerate inhaled corticosteroid. Start Anoro. Continue albuterol MDI. Continue Xolair. Overall symptom control is improving. Now with mild exacerbation, will treat with a prednisone pulse. (2) Pulmonary nodule, left: Code(s): R91.1 - Solitary pulmonary nodule Category: Medical Plan: Will obtain CT chest for further evaluation. (3) Environmental allergies: Code(s): Z91.09 - Other allergy status, other than to drugs and biological substances Category: Medical Plan: Improving control on Xolair. Orders: Orders CT chest wo IV con Today R91.1 - Solitary pulmonary nodule Medications: New albuterol sulfate 90 mcg/actuation 2 puffs inhalation Q4-6H PRN 1 ea 6RF shortness of breath or wheezing umeclidinium-vilanterol 62.5-25 mcg/actuation (Anoro Ellipta) 1 inh inhalation DAILY 1 ea 6RF prednisone 40 mg (2 x 20 mg) PO DAILY 10 tabs 0RF Discontinued Ventolin HFA 90 mcg/actuation (albuterol sulfate) Discontinued Reason: Doctor's Order 2 puffs inhalation QID PRN 18 grams 5RF Shortness Of Breath Or Wheezing NS ipratropium-albuterol 20-100 mcg/actuation (Combivent Respimat) Discontinued Reason: Doctor's Order 1 puff inhalation Q6H 4 grams 1RF Coding Level of Care Code Est Pt Level 4 (08793) Complex EM visit Add On G2211 Diagnoses Severe persistent asthma J45.50 Pulmonary nodule, left R91.1 Environmental allergies Z91.09
== END 2024-11-25 09:17 | disposition home or self-care (01) ==
PROVIDERS: PCP Internal Medicine; Visit Provider Internal Medicine Pulmonary Disease
DX: J45.50 Severe persistent asthma, uncomplicated (principal); R91.1 Solitary pulmonary nodule; Z91.09 Other allergy status, other than to drugs and biological substances
CPT/HCPCS: 99214; G2211

== ENCOUNTER → 2024-11-25 08:55 | Outpatient (BNVA) | payer MEDICARE, MEDICAID, SELFPAY | PROVIDERS: PCP Internal Medicine; Visit Provider Internal Medicine Pulmonary Disease | DX: J45.50 Severe persistent asthma, uncomplicated (principal); R91.1 Solitary pulmonary nodule; Z91.09 Other allergy status, other than to drugs and biological substances | CPT/HCPCS: 99212 ==

== ENCOUNTER 2024-11-28 14:14 | Outpatient (REF) | payer MEDICARE, MEDICAID, SELFPAY ==
--- OUTSIDE RECORDS SUMMARY | 2024-11-28 18:53 | XMS_ITS | Clinical Summary ---
Author Organization Unknown Care Team Providers Care Order Administrator Name Role Phone IDALIA MEJIA, ROSEMARIE Unavailable Unavailable NICOLE PT, ELEUTERIO Unavailable Unavailable URBAN EDUCATION INTERN, CHLOÉ Unavailable Unavailable SPAFFORD OT, KUMAR Unavailable Unavailable CONDINO ALYSON/GLASGOW, DOMINIQUE Unavailable Unav ailable Payers Payer Name Policy Type Policy Number Effective Date Expira tion Date MEDICARE.[facility] [id number] Problems Condition Name Condition Details Condition Category [...] SOLITARY PULMONARY NODULE Active 11-13 00:00: 00 CUSTODIAL (CURRENT) USE OF OPIATE ANALGESIC Active 11-13 [...] 1 mg tablet 07-01 00:00: 00 Yes [id number] RESTLESS LEGS 1 tablet BEDTIME 1 tablet BEDTIME (route: oral) Med Classific ation: Central Nervous System Agents lorazepam 1 mg tablet 06-28 00:00: 00 Yes [id number] ANXIETY Per instruc tions AT BEDTIME NEEDED Per instructio ns AT BEDTIME NEEDED (route: oral) Med Classific ation: Central Nervous System Agents Ventolin HFA 90 mcg/actuati on aerosol inhaler 06-24 00:00: 00 Yes [id number] ASTHMA Per instruc tions INTO THE LUNGS EVERY 4 TO 6 HOURS NEEDED Per instructio ns INTO THE LUNGS EVERY 4 TO 6 HOURS NEEDED (route: inhalation ) Med Classific ation: Respirato ry Therapy Agents ibuprofen 800 mg tablet 06-20 00:00: 00 Yes [id number] PAIN Per instruc tions THREE TIMES DAILY NEEDED Per instructio ns THREE TIMES DAILY NEEDED (route: oral) Med Classific ation: Analgesic , Anti-infl ammatory or Antipyret ic oxycodone-a cetaminophe n 5 mg-325 mg tablet 06-20 00:00: 00 Yes [id number] PAIN Per instruc tions EVERY 4 TO 6 HOURS FOR 7 DAYS NEEDED Per instructio ns EVERY 4 TO 6 HOURS FOR 7 DAYS NEEDED (route: oral) Med Classific ation: Analgesic , Anti-infl ammatory or Antipyret ic famotidine 40 mg tablet 06-19 00:00: 00 Yes [id number] GERD Per instruc tions AT BEDTIME Per instructio ns AT BEDTIME (route: oral) Med Classific ation: Gastroint estinal Therapy Agents lansoprazol e 30 mg capsule,del ayed release 06-19 00:00: 00 Yes [id number] GERD Per instruc tions DAILY Per instructio ns DAILY (route: oral) Med Classific ation: Gastroint estinal Therapy Agents senna 8.6 mg tablet 06-19 00:00: 00 Yes [id number] STOOL SOFTNER Per instruc tions AT BEDTIME Per instructio ns AT BEDTIME (route: oral) Med Classific ation: Gastroint estinal Therapy Agents bupropion HCl XL 150 mg 24 hr tablet, extended release 06-11 00:00: 00 Yes [id number] DEPRESSION Per instruc tions EVERY Per instructio ns EVERY (route: oral) Med Classific ation: Central Nervous System Agents escitalopra m 20 mg tablet 06-11 00:00: 00 Yes [id number] DEPRESSION Per instruc tions DAILY Per instructio ns DAILY (route: oral) Med Classific ation: Central Nervous System Agents gabapentin 600 mg tablet 06-11 00:00: 00 Yes [id number] NERVE PAIN Per instruc tions DAILY Per instructio ns DAILY (route: oral) Med Classific ation: Central Nervous System Agents morphine ER 15 mg tablet,exte nded release 06-11 00:00: 00 07-05 00:00 :00 No [id number] Per instruc tions EVERY 12 HOURS FOR 3 DAYS Per instructio ns EVERY 12 HOURS FOR 3 DAYS (route: oral) Med Classific ation: Analgesic , Anti-infl ammatory or Antipyret ic ropinirole 0.5 mg tablet 06-11 00:00: 00 Yes [id number] RESTLESS LEGS Per instruc tions NEEDED Per instructio ns NEEDED (route: oral) Med Classific ation: Central Nervous System Agents cholecalcif nora (vitamin D3) 50 mcg (2,000 unit) capsule 06-11 00:00: 00 Yes [id number] SUPPLEMENT Per instruc tions DAILY Per instructio ns DAILY (route: oral) Med Classific ation: Electroly te Balance-N utritiona l Products Breztri Aerosphere 160 mcg-9mcg-4. 8mcg/actuat ion HFA aerosol inhaler 06-10 00:00: 00 Yes [id number] ASTHMA Per instruc tions TWICE DAILY Per instructio ns TWICE DAILY (route: inhalation ) Med Classific ation: Respirato ry Therapy Agents Dulera 200 mcg-5 mcg/actuati on HFA aerosol inhaler 06-10 00:00: 00 07-05 00:00 :00 No [id number] Per instruc tions TWICE DAILY Per instructio ns TWICE DAILY (route: inhalation ) Med Classific ation: Respirato ry Therapy Agents scopolamine 1 mg over 3 days transdermal patch 06-06 00:00: 00 Yes [id number] MOTION SICKNESS Per instruc tions EVERY 3 DAYS NEEDED Per instructio ns EVERY 3 DAYS NEEDED (route: transderma l) Med Classific ation: Gastroint estinal Therapy Agents acarbose 100 mg tablet 06-12 00:00: 00 Yes [id number] HYPERGLYCEM IA 1 tablet 3 TIMES DAILY 1 tablet 3 TIMES DAILY (route: oral) Med Classific ation: Endocrine albuterol sulfate 2.5 mg/3 mL (0.083 %) solution for nebulizatio n 06-12 00:00: 00 Yes [id number] ASTHMA Per instruc tions DIRECTED Per instructio ns DIRECTED (route: inhalation ) Med Classific ation: Respirato ry Therapy Agents cyanocobala min (vit B-12) 1,000 mcg/mL injection solution 06-12 00:00: 00 Yes [id number] SUPPLEMENT Per instruc tions MONTHLY Per instructio ns MONTHLY (route: injection) Med Classific ation: Electroly te Balance-N utritiona l Products estradiol 0.075 mg/24 hr weekly transdermal patch 06-12 00:00: 00 Yes [id number] POST HYSTERECTOM Y 1 patch, transde rmal weekly WEEKLY 1 patch, transderma l weekly WEEKLY (route: transderma l) Med Classific ation: Endocrine Imitrex 50 mg tablet 06-12 00:00: 00 Yes [id number] MIGRAINES 1 tablet DIRECTED 1 tablet DIRECTED (route: oral) Med Classific ation: Central Nervous System Agents ondansetron 4 mg disintegrat ing tablet 06-12 00:00: 00 Yes [id number] NAUSEA 1 tablet EVERY 8 HOURS 1 tablet EVERY 8 HOURS (route: oral) Med Classific ation: Gastroint estinal Therapy Agents Zyrtec 10 mg tablet 06-12 00:00: 00 Yes [id number] ALLERGIES 1 tablet DAILY 1 tablet DAILY [...] TO EVALUATE, OBSERVE / ASSESS, AND MONITOR, EDUCATION INTERN TO OBSERVE AND MONITOR, PROVIDE SKILLED THERAPEUTIC INTERVENTION, ACTIVITY, EDUCATION, AND TRAINING TO ADDRESS; [code = AGENCY MAY PERFORM A RESUMPTION OF CARE VISIT FOLLOWING ANY HOSPITAL ADMISSION. PT TO EVALUATE, OBSERVE / ASSESS, AND MONITOR, EDUCATION INTERN TO OBSERVE AND MONITOR, PROVIDE SKILLED THERAPEUTIC INTERVENTION, ACTIVITY, EDUCATION, AND TRAINING TO ADDRESS;] Future Scheduled Test SIT TO/FRO M STAND TRANSFERS (PT/EDUCATION INTERN) [code = SIT TO/FROM STAND TRANSFERS (PT/EDUCATION INTERN)] Future Scheduled Test PT/EDUCATION INTERN TO PROVIDE GAIT TRAINING FOR IMPROVED MOBILITY AND /OR TO NORMALIZE GAIT PATTERN [code = PT/EDUCATION INTERN TO PROVIDE GAIT TRAINING FOR IMPROVED MOBILITY AND /OR TO NORMALIZE GAIT PATTERN] Future Scheduled Test PT/EDUCATION INTERN TO PROVIDE STAIR TRAINING [code = PT/EDUCATION INTERN TO PROVIDE STAIR TRAINING] Future Scheduled Test THERAPEUTI C EXERCISES AND ESTABLISHING A HOME EXERCISE PROGRAM (PT/EDUCATION INTERN) [code = THERAPEUTIC EXERCISES AND ESTABLISHING A HOME EXERCISE PROGRAM (PT/EDUCATION INTERN)] Future Scheduled Test PT / EDUCATION INTERN T O EDUCATE ON ROTATOR CUFF REPAIR SELF-MANAGEMENT [code = PT / EDUCATION INTERN TO EDUCATE ON ROTATOR CUFF REPAIR SELF-MANAGEMENT] Future Scheduled Test PT TO ASSE SS / EDUCATION INTERN TO MONITOR CARDIO/RESPIRATORY SYSTEM; AND NOTIFY THE PHYSICIAN AND/OR THE RN CLINICAL BRANNER MACHINE TENDER FOR PHYSICIAN NOTIFICATION FOR EARLY SIGNS AND SYMPTOMS OF EXACERBATION OR DETERIORATION. [code = PT TO ASSESS / EDUCATION INTERN TO MONITOR CARDIO/RESPIRATORY SYSTEM; AND NOTIFY THE PHYSICIAN AND/OR THE RN CLINICAL BRANNER MACHINE TENDER FOR PHYSICIAN NOTIFICATION FOR EARLY SIGNS AND SYMPTOMS OF EXACERBATION OR DETERIORATION.] Future Scheduled Test PT / EDUCATION INTERN T O MONITOR AND EDUCATE ON OXYGEN SATURATION DURING ADLS/IADLS, NOTIFY PHYSICIAN AND/OR THE RN CLINICAL BRANNER MACHINE TENDER FOR PHYSICIAN NOTIFICATION AND IF O2 SATS BELOW PHYSICIAN ORDERED PARAMETERS AFTER 10 MIN OF REST [code = PT / EDUCATION INTERN TO MONITOR AND EDUCATE ON OXYGEN SATURATION DURING ADLS/IADLS, NOTIFY PHYSICIAN AND/OR THE RN CLINICAL BRANNER MACHINE TENDER FOR PHYSICIAN NOTIFICATION AND IF O2 SATS BELOW PHYSICIAN ORDERED PARAMETERS AFTER 10 MIN OF REST] Future Scheduled Test PT / EDUCATION INTERN M AY EDUCATE ON PAIN MANAGEMENT CLINICALLY INDICATED, INCLUDING NON-PHARMACOLOGICAL PAIN REDUCTION TECHNIQUES AND USE OF CRYOTHERAPY OR HEAT UP TO 20 MIN AT A TIME FOR PAIN MANAGEMENT 3 TIMES PER DAY TO RIGHT SHOULDER [code = PT / EDUCATION INTERN MAY EDUCATE ON PAIN MANAGEMENT CLINICALLY INDICATED, [...] TO EVALUATE, OBSERVE / ASSESS, AND MONITOR, CHAMBER WALKER TO OBSERVE AND MONITOR, PROVIDE SKILLED THERAPEUTIC INTERVENTION, ACTIVITY, EDUCATION, AND TRAINING TO ADDRESS; R ROTATOR CUFF REPAIR REVISION WITH BICEP TENDONOTOMY. OT/ALYSON TO MONITOR AND EDUCATE ON OXYGEN SATURATION DURING ADLS/IADLS, NOTIFY PHYSICIAN AND/OR THE RN CLINICAL BRANNER MACHINE TENDER FOR PHYSICIAN NOTIFICATION AND IF O2 SATS BELOW 90% AFTER 10 MIN OF REST. OT / CHAMBER WALKER TO IDENTIFY FALL RISK FACTORS; EDUCATE THE PATIENT/CAREGIVER ON WAYS TO REDUCE FALL RISK FACTORS AND ESTABLISH HOME EXERCISE PROGRAM TO MINIMIZE FALL RISK. MAY TEACH THE PATIENT FLOOR RECOVERY WHEN CLINICALLY APPROPRIATE. OT/CHAMBER WALKER TO TEACH ROTATOR CUFF REPAIR SELF-MANAGEMENT [code = AGENCY MAY PERFORM A RESUMPTION OF CARE VISIT FOLLOWING ANY HOSPITAL ADMISSION. OT TO EVALUATE, OBSERVE / ASSESS, AND MONITOR, CHAMBER WALKER TO OBSERVE AND MONITOR, PROVIDE SKILLED THERAPEUTIC INTERVENTION, ACTIVITY, EDUCATION, AND TRAINING TO ADDRESS; R ROTATOR CUFF REPAIR REVISION WITH BICEP TENDONOTOMY. OT/ALYSON TO MONITOR AND EDUCATE ON OXYGEN SATURATION DURING ADLS/IADLS, NOTIFY PHYSICIAN AND/OR THE RN CLINICAL BRANNER MACHINE TENDER FOR PHYSICIAN NOTIFICATION AND IF O2 SATS BELOW 90% AFTER 10 MIN OF REST. OT / CHAMBER WALKER TO IDENTIFY FALL RISK FACTORS; EDUCATE THE PATIENT/CAREGIVER ON WAYS TO REDUCE FALL RISK FACTORS AND ESTABLISH HOME EXERCISE PROGRAM TO MINIMIZE FALL RISK. MAY TEACH THE PATIENT FLOOR RECOVERY WHEN CLINICALLY APPROPRIATE. OT/CHAMBER WALKER TO TEACH ROTATOR CUFF REPAIR SELF-MANAGEMENT] Goal [...] End Date/Time Encounter Type Admission Type Attending [facility] Care Department Encounter ID Discharge Date Discharge Status Discharge Condition Discharge Reason Percent Goals Met 2024-07-05 00:00:00 2024-09-02 00:00:00 Outpatient NEW ADMISSION ELEUTERIO RIVERA [facility] [id number] 2024-09-02 00:00:00 DISCHARGE TO HOME OR SELF CARE INDEPENDEN T IN THE [facility] OR [facility]- GOALS MET [phone]
== END 2024-11-28 14:15 | disposition home or self-care (01) ==
LOC: HO.CT 14:14
PROVIDERS: Visit Provider Internal Medicine Pulmonary Disease
DX: R91.1 Solitary pulmonary nodule (principal)
CPT/HCPCS: 71250

== ENCOUNTER → 2024-11-28 14:16 | Outpatient (BNV) | payer MEDICARE, MEDICAID, SELFPAY | PROVIDERS: Visit Provider Radiology Diagnostic Radiology | DX: R91.1 Solitary pulmonary nodule (principal) | CPT/HCPCS: 71250 ==

== ENCOUNTER 2024-12-25 08:09 | Outpatient (AMB) | payer MEDICARE, MEDICAID, SELFPAY ==
--- OUTSIDE RECORDS SUMMARY | 2024-12-25 08:13 | XMS_ITS | Clinical Summary ---
Author Organization [employer] Address [address] [place] [address] Care Team Providers Care Sight Mounter Name Role Phone Unavailable Primary Care Provider Unavailabl e Social History Tobacco Use Types Packs/Day Years Used Date Smoking Tobacco: Never Assessed Comments Unknown Sex and Gender Information Value Date Recorded Sex Assigned at Female 07/11/2023 11:28 AM EDT Legal Sex Female 11:27 AM EDT Gender Identity Female 07/11/2023 11:28 AM EDT Sexual Orientation Don't know 07/11/2023 11 :28 AM EDT Plan of Treatment Health Maintenance Due Date Last Done Comments CT Colonography 1971 Colonoscopy 1971 Colorectal Cancer Screening 1971 Depression Screening 1971 FIT DNA/Cologuard 1971 FIT 1971 FOBT 1971 Sigmoidoscopy 1971 Alcohol/Substance Use Screening 1983 Tobacco Screening 1983 DTaP/Tdap/Td Vaccines (1 - Tdap) 1990 Hepatitis B Vaccines (1 of 3 - 19+ 3-dose series) 1990 Pap Smear 1992 Cervical Cancer Screening 2001 HPV/Cotest 2001 Pneumococcal Vaccine: 50+ Years (1 of 1 - PCV) 2021 Zoster Vaccines (1 of 2) 2021 COVID-19 Vaccine (1 - 2023- season) 2024 Influenza Vaccine (#1) 2024 Mammogram 12/29/2024 12/29/2022, 08/2 01/2022, 06/16/2022, Additional history exists RSV Patients and Patients Aged 60 years or older (1 - 1-dose 75+ series) 2046 HIB Vaccines Aged Out No longer eligi ble based on patient's age to complete this topic HPV Vaccines Aged Out No longer eligi ble based on patient's age to complete this topic Hepatitis A Vaccines Aged Out No long er eligible based on patient's age to complete this topic IPV Vaccines Aged Out No longer eligi ble based on patient's age to complete this topic Meningococcal Vaccine Aged Out No ollie lois eligible based on patient's age to complete this topic Pneumococcal Vaccine: Pediatrics (0 to 5 Years) and At-Risk Patients (6 to 49) Years) Aged Out No longer eligible based on patient's age to complete this topic RSV under 20 months Aged Out No longe r eligible based on patient's age to complete this topic Rotavirus Vaccines Aged Out No longer eligible based on patient's age to complete this topic
--- OUTSIDE RECORDS SUMMARY | 2024-12-25 08:13 | XMS_ITS | Continuity of Care Document ---
Author Organization [facility] Address [address] [place] [address] Phone Care Team Providers Care Property Officer Name Role Phone Evette Mahoney PA-C Unavailable Unavailab le Allergies, Adverse Reactions, Alerts Substance Reaction Status Criticality No Known Allergies Active No Inform ation Medications Medication Instructions Dosage Effective Dates (start - stop) Status Comments Xanax 0.5 mg tablet take 1 tablet by ora l route every day prn only - Active Procedures Procedure Date OFFICE/OUTPATIENT VISIT, EST-Problem Foc used Destruct B9 Lesion Or Warts, 1-14 OFFICE/OUTPATIENT VISIT, NEW Admin Of Pt Focused Health Risk Assessme nt Instr Electrocardiogram, Complete Prev Visit, Est, Age 40-64 OFFICE/OUTPATIENT VISIT EST Combo Routine Venipuncture Office/Outpatient Visit, Est Complex e/m visit add on Extremity Study Consultation Vein Clinic Self Referred S Obtaining screen pap smear Prev Visit, Est, Age 40-64 Admin Of Pt Focused Health Risk Assessme nt Instr Immunization Admin Td Vaccine No Prsrv >/= 7 Im Routine Venipuncture Prev Visit, Est, Age 40-64 Admin Of Pt Focused Health Risk Assessme nt Instr Office/Outpatient Visit, New VISUAL ACUITY SCREEN OFFICE/OUTPATIENT VISIT, NEW Urgent care center [facility] X-Ray Hip W/Pelvis, Uni, 2- Views Office/Outpatient Visit, Est OFFICE/OUTPATIENT VISIT, EST-Expanded Ja Electrocardiogram, Complete Immunization Admin Flu Vaccine, Quadrivalent, Split, >3yrs Prev Visit, Est, Age 40-64 Routine Venipuncture OFFICE/OUTPATIENT VISIT, NEW Medical Records Insurance Routine Venipuncture Obtaining screen pap smear Prev Visit, Est, Age 40-64 Electrocardiogram, Complete Office/Outpatient Visit, Est Office/Outpatient Visit, Est Office/Outpatient Visit, Est Flu Vaccine, 3 Yrs & >, Im Immunization Admin Office/Outpatient Visit, Est Office/Outpatient Visit, Est Advance Directives Directive Yes / No Effective Date File Name No Information Encounters Encounter Description Practice Location Reason(s) For Visit Diagnoses Date Provider Providers Copied on Encounter [facility] , [address] [place] [address], [facility], tel:[phone] [facility] Jameson (chief complaint) No Information 5 Maru Alas. [address] [place] [address], [facility], . tel:[phone] Referring Provider: Evette Mahoney, [address] [place] [address], [facility]. tel:[phone] OFFICE/OUTPAT IENT VISIT, EST-Problem Focused [facility] , [address] [place] [address], [facility], tel:[phone] [facility] lesions (chief complaint)w art (chief complaint) Neoplasm of uncertain behavior of skinOther viral warts 5 Maru Alas. [address] [place] [address], [facility], . tel:[phone] Referring Provider: Evette Mahoney, [address] [place] [address], [facility]. tel:[phone] OFFICE/OUTPAT IENT VISIT, [facility] , [address] [place] [address], [facility], tel:[phone] [facility] lesions (chief complaint) LentiginesMe lanocytic nevus of trunkSeborrh eic keratosis 4 Maru Alas. [address] [place] [address], [facility], . tel:[phone] Referring Provider: Evette Mahoney, [address] [place] [address], [facility]. tel:[phone] [facility], [facility] [address] [place] [address], [facility], tel:[phone] [facility] No Information Jul- 4 Johan Fabian. [address] [place] [address], [address] [place] [address], . tel:[phone] Prev Visit, Est, Age 40-64 [facility], [address] [place] [address], [facility], tel:[phone] [facility] Nurse Comments (chief complaint) General medical examinationB jackie mass index [BMI] 25.0-25.9, adultChest tightnessMur murAnxietyMi xed hyperlipidem iaElevated BP without diagnosis of hypertension Encounter for screening for other disorder Sep- 4 Johan Fabian. [address] [place] [address], [id number], . tel:[phone] Referring Provider: Caren Prado, [address] [place] [address]e [address] [place] [address], [address]. tel:[phone] Office/Outpat ient Visit, Est [facility], [address], [place], [place], [facility], tel:[phone] [facility] Nurse Comments (chief complaint)C hronic Conditions (chief complaint) AnxietyBody mass index (BMI) 25.0-25.9, adultVenous insufficienc y (chronic) (peripheral) Mixed hyperlipidem iaEffusion, right elbow Mar-0 4 Johan Fabian. [address] [place] [address] [facility] [address], [place], [place], [id number], [place]. tel:[phone] Referring Provider: Caren Prado, [address] [place] [address] [address], [place], [address]. tel:[phone] [facility], [address] [place] [address], [address], [place], [place], [facility], tel:[phone] [facility] No Information Sep-2 2 Irma Holland. [address], [address] [facility], [place], [place], [id number], [place]. tel:[phone] Referring Provider: Adonis Jordan, [address] [facility], [place], [address]. tel:[phone] Consultation Vein Clinic Self Referred [facility], [address] [place], [place] [address], [place], [address], [place] tel:[phone] [facility] Office Vein Consult (chief complaint)V ein Note (chief complaint) Venous insufficienc y (chronic) (peripheral) Sep-0 2 Mehul Lamb. [address], [address] [facility] [address] [facility], [place], [place], [id number], . tel:[phone] Referring Provider: Adonis Jordan, [address], [address]. tel:[phone] Prev Visit, Est, Age 40-64 [facility], [address], [facility], tel:[phone] [facility] Nurse Comments (chief complaint)p reventive exam (chief complaint)B ack pain (chief complaint) General medical examinationM ixed hyperlipidem iaAnxietyEnc ounter for gynecologica l examination (general) (routine) without abnormal findingsBody mass index [BMI] 27.0-27.9, adultAcute left-sided low back pain without sciaticaNume lin moles 1 Viktor Galvan. [facility] [address] , [place] [address], [place], [place], [facility], . tel:[phone] Referring Provider: Mandy Hoang [address] [place] [address], [facility]. tel:[phone] Prev Visit, Est, Age 40-64 [facility], [address] [place] [address], [facility], tel:[phone] [facility] Nurse Comments (chief complaint)p reventive exam (chief complaint)a nxiety (chief complaint)H x of URI (chief complaint) General medical examinationM ixed hyperlipidem iaAnxietyBod y mass index (BMI) 25.0-25.9, adultHistory of upper respiratory infection 0 Viktor Galvan. [facility] [address] [place] [address], [place], [place], [facility], . tel:[phone] Referring Provider: Mandy Hoang [address] [place] [address], [facility]. tel:[phone] Office/Outpat ient Visit, [facility], [facility] [address], [facility], tel:[phone] [facility] Nurse Comments (chief complaint) Bacterial conjunctivit isBody mass index (BMI) 24.0-24.9, adultSore throat 0 Johan Medleybeth. [address] [facility] [address] , [place], [place], [id number], [place]. tel:[phone] Referring Provider: Caren Prado, [address] [facility] [address], [place], [address]. tel:[phone] OFFICE/OUTPAT IENT VISIT, [facility] , [address] [place] [address], [id number], [place] tel:[phone] [facility] eye problem (chief complaint) Acute conjunctivit is of right eye, unspecified acute conjunctivit is typeEncounte r for exam of eyes and vision w/o abnormal findings 0 Venkatesh Gordillo. [address] [place] [address], [id number], [place]. tel:[phone] Referring Provider: Duy Riddle, [address] [place] [address], [address]. tel:[phone] Office/Outpat ient Visit, Est [facility], [address] [facility] [address] [place] [address], [id number], [place] tel:[phone] [facility] Left hip pain (chief complaint) Pain in left hip 7 Newton Barrow. [address] [facility], [facility] [place], [address], [place]. tel:[phone] Referring Provider: Danial Prajapati, [address] [facility] [place], [address]. tel:[phone] OFFICE/OUTPAT IENT VISIT, EST-[facility] , [address] [place] [address], [address], [place] tel:[phone] [facility] lesions (chief complaint) Epidermal cyst 6 Lorenzo Bell. [facility] [address] [facility], [place], [place], [id number], [place]. tel:[phone] Referring Provider: Bell Ventura, [facility] [address] [facility], [place], [address]. tel:[phone] Prev Visit, Est, Age 40-64 [facility], [address], [address], tel:[phone] [facility] Nurse Comments (chief complaint) Encntr for general adult medical exam w/o abnormal findingsBody mass index (BMI) 22.0-22.9, adultOther fatigueVitam in D deficiency 5 Jason Tatum. [address] [facility] 6, Johnny. [address] [place] [address], [address], [place]. tel:[phone] Referring Provider: Deepti Gomez H, [address] [facility] 6, [address], [place], [address]. tel:[phone] OFFICE/OUTPAT IENT VISIT, [facility] , [address] [place] [address], [facility], tel:[phone] [facility] mole(s) (chief complaint) Other benign neoplasm of skin of trunkOther seborrheic keratosis 5 Lorenzo Luu. [address] [facility] [address] [place] [address], [id number], . tel:[phone] Referring Provider: Bell Ventura, [address] [facility] [address] [facility], [place], [address]. tel:[phone] [facility], [address], [address], [place] tel:[phone] [facility] No Information 4 Ashwin Grant. [address], [address], [address], [place]. tel:[phone] Referring Provider: Juanita Christopher, [address] [place] [address], [facility]. tel:[phone] [facility], [address] [place] [address], [address], [phone] [facility] No Information 4 Ashwin Grant. [address], [place], [address], . tel:[phone] Prev Visit, Est, Age 40-64 [facility], [address] [facility], [place], [address], tel:[phone] [facility] Nurse Comments (chief complaint) Rout[facility] facilityRout ine gynecologica l examinationB jackie Mass Index 26.0-26.9, adult 4 Jason Tatum. [address], [place]. [address], [place], [facility], . tel:[phone] Referring Provider: Mirta Lowe[address], [place]. [address], [place], [facility]. [phone] Office/Outpat ient Visit, Est [facility], [address], [address], [phone] [facility] Nurse Comments (chief complaint) Chest TightnessChe st Tightness 4 No Information Office/Outpat ient Visit, Est [facility], [address], [address], tel:[phone] [facility] Nurse Comments (chief complaint) SEBACEOUS CYST 3 Jason Tatum. [address], [address], [place], [place], [facility], [place]. [phone] Referring Provider: Deepti Lee, [address], [address], [place], [place], [facility]. [phone] Office/Outpat ient Visit, Est [facility], [address], [facility], tel:[phone] [facility] Nurse Comments (chief complaint) Chest Pain, UnspecifiedJ OINT PAIN-FOREARM 3 Jason Tatum. [address] [facility] 6, Johnny. [address] [place] [address], [facility], . tel:[phone] Referring Provider: Deepti Lee, [address] [facility] 6, [address], [place], [place], [facility]. tel:[phone] Office/Outpat ient Visit, [facility], [address], [facility], tel:[phone] [facility] Nurse Comments (chief complaint) Influenza VaccineANXIE TY DISORDER NOSInfluenza VaccineANXIE TY DISORDER NOSREASON FOR CONSULT NOS 2 Jason Tatum. [address] [facility] 6, [address], [place], [place], [facility], . tel:[phone] Referring Provider: Deepti Lee, [address] [facility] 6, Johnny. [address] [place] [address], [facility]. tel:[phone] Office/Outpat ient Visit, [facility], [facility] [address] [place] [address], [address] [place] [address] tel:[phone] [facility] Nurse Comments (chief complaint) ACUTE CONJUNCTIVIT IS NOS Jan- 2 No Information Family History Family Member Type Diagnosis Age At Onset No Information Immunizations Vaccine Date Status Comments influenza, injectable, quadrivalent, MDCK, preservative free, 0.5mL administered Source: Other P rovider Zoster, recombinant subunit (Shingrix) administered Source: Other Regist ry Zoster, recombinant subunit (Shingrix) administered Source: Other Regist ry SARS-COV-2 (COVID-19) Pfizer vaccine, mRNA, spike protein, LNP, preservative free, 30 mcg/0.3mL dose administered Source: Public Agenh y SARS-COV-2 (COVID-19) Pfizer vaccine, mRNA, spike protein, LNP, preservative free, 30 mcg/0.3mL dose administered Source: Public Agenh y Td (adult), adsorbed administered Source: New Immunization Record influenza, injectable, quadrivalent, MDCK, preservative free, 0.5mL administered Note: pharmacy ; Source: Public Agency Influenza, split virus, injectable, quadrivalent, 3 years or older Fluzone Quad administered Source: New Immuniza tion Record Fluzone (3years and up - 0.5ml) refused Source: New Immuniza tion Record Flu (split) (3 yrs or older) administered Source: New Immunization Record Tdap (Adacel ???) administered Source: Ne w Immunization Record Payers Payer name Insurance type Covered constitution party ID Authoriza tion(s) [employer] CI [id number] [facility] CI [id number] [employer] CI [id number] [employer] CI [id number] Social History Type Description Quantity Date Captured Comments Alcohol Use Details Unknown Caffeine Use Details Unknown Tobacco Use Status No Information Smoking Status No Information Sex Female Sexual Orientation Choose not to disclose Gender Identity Choose not to disclose 024 Chief Complaint And Reason For Visit From encounter dated '12/24/2024 11:15'. Wart (chief complaint). Description: Patient is present today for wart follow up on left foot.Previously treated with LN2.Patient states no new lesions. Reason For Referral Reason For Referral No Information Plan Of Treatment Date Type Action Status Goal HIV. Due on due Goal Hep C Ab. Due on due Goal Drug Abuse Scree joelle. Due on due Goal Diabetes Screeni ng. Due on due Goal Colonoscopy. Due on due Goal Alcohol Misuse s creen. Due on due Goal Lifestyle educat ion regarding diet completed Goal Preventive Exam, 19 yr - 64 yr. Due on due Goal PHQ9. Due on due Goal HIV. Due on due Goal Hep C Ab. Due on due Goal Drug Abuse Scree joelle. Due on due Goal Diabetes Screeni ng. Due on due Goal Depression scree joelle. Due on due Goal Colonoscopy. Due on due Goal Alcohol Misuse s creen. Due on due Goal Lifestyle educat ion regarding diet completed Goal PHQ9. Due on due Goal HIV. Due on due Goal Hep C Ab. Due on due Goal Drug Abuse Scree joelle. Due on due Goal Diabetes Screeni ng. Due on due Goal Colonoscopy. Due on 021 due Goal Alcohol Misuse s creen. Due on due Goal Lifestyle educat ion regarding diet completed Goal Mammogram. Due on 7 due Goal Intimate Partner Violence Scrn. Due on due Goal HIV. Due on due Goal Hep C Ab. Due on due Goal Drug Abuse Scree joelle. Due on due Goal Diabetes Screeni ng. Due on due Goal Alcohol Misuse s creen. Due on due Goal Lifestyle educat ion regarding diet completed Goal Preventive Exam, 19 yr - 64 yr. Due on due Goal Intimate Partner Violence Scrn. Due on due Goal HIV. Due on due Goal Diabetes Screeni ng. Due on due Goal Alcohol Misuse s creen. Due on due Goal Lifestyle educat ion regarding diet completed Goal Mammogram. Due on 7 due Goal Tdap due Goal Breast exam. Due on 98 due Goal Influenza vaccin e. Due on due Goal SYSTEMS MECHANIC exam. Due on due Goal Lifestyle educat ion regarding diet completed Goal Tdap due Goal Breast exam. Due on due Goal Mammogram. Due on 5 due Goal SYSTEMS MECHANIC exam. Due on due Goal Mammogram. Due on 5 due Goal Tdap due Goal Breast exam. Due on 98 due Goal Dietary manageme nt education, guidance, and counseling completed Goal Tdap due Goal Breast exam. Due on 98 due Goal SYSTEMS MECHANIC exam. Due on due Goal Influenza vaccin e. Due on due Goal Mammogram. Due on 5 due Goal SYSTEMS MECHANIC exam. Due on due Goal Preventive Exam, 19yr - 64 yr. Due on due Goal Influenza vaccin e. Due on due Goal Breast exam. Due on 014 due Goal PAP. Due on due Goal Dietary manageme nt education, guidance, and counseling completed Goal Breast exam. Due on 014 due Goal PAP. Due on due Goal Influenza vaccin e. Due on due Goal SYSTEMS MECHANIC exam. Due on due Goal Preventive Exam, 19yr - 64 yr. Due on due Referral Ordered: Cardiology (related to Murmur) ordered Referral Ordered: Colon Screen (related to SCREEN MALIG NEOP-COLON) ordered Referral Referred To: [address] [place] [address]
[facility] [address] [place], [phone] Ordered: Referrals: Cardiology. Location: [facility]. Consult and Treat Appointment date/timeframe: 10/22/2024 ordered Referral Ordered: Colon Screen (related to SCREEN MALIG NEOP-COLON) ordered Referral Referred To: Walker Alonso [address] [place] [address], [id number] Ordered: Referrals: Dermatology. Walker Alonso Consult and Treat Appointment date/timeframe: 07/19/2021 ordered Referral Ordered: Referral for Colon Screening Appointment date/timeframe: 10/21/2021 ordered Appointment Emani Kim BOOKED Future Order: Radiology Order Ma mmo Digital Screen w/Benjamín Bilat: Diag Mammo Or US As Needed (MAMTOMOBIL), Appointment on: Ordered Future Order: Lab Order COMP MET ABOLIC PANEL [14] ([id number]), Appointment on: , Sent on: Sent Future Order: Lab Order CBC (inc ludes Diff/Plt) ([id number]), Appointment on: , Sent on: Sent Future Order: Lab Order LIPID PA IDANIA ([id number]), Appointment on: , Sent on: Sent Future Order: Lab Order TSH ([id number] ), Appointment on: , Sent on: Sent Future Order: Radiology Order Ma mmo Digital Screen w/Benjamín Bilat: Diag Mammo Or US As Needed (MAMTOMOBIL), Appointment on: Ordered Future Order: Radiology Order Ma mmo Digital Screen w/Benjamín Bilat: Diag Mammo Or US As Needed (MAMTOMOBIL), Appointment on: Ordered Future Order: Radiology Order Ar throgram MRI Joint Of Lower Extremity With Contrast Left hip ([id number]), Body Site: Left, Ordered on: Ordered Future Order: Radiology Order Ma mmo Digital Screen, Bilat: Diag Mammo Or Diag US As Needed ([id number]), Ordered on: Ordered History Of Present Illness Encounter Date Complaint History Of Prese nt Illness Wart Patient is prese nt today for wart follow up on left foot.Previously treated with LN2.Patient states no new lesions. wart Patient is prese nt today for wart on left foot. Previously treated with LN2. lesions Patient is prese nt today for lesion on right elbow.Patient states it is filled with fluid, it swells up every once and a while. Patient state no pain associated with fluid on elbow. lesions Patient is here today for an evaluation of lesionsPatient stated nothing new to note about current lesionsNo personal hx of skin cancerNo family hx of skin cancerWears sunscreen, Hx of blistering sunburns, no hx of tanning bed use.No interval health changes in the last 6 months. No new medications. Feels well.PMSFhx see intake sheet. 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 The symptoms are located in the calves bilaterally. The CEAP classification is: C2- Varicose veins - bilaterally. The Patient complains of aching/pain of extremity. The symptoms worsen with sitting with legs dependent. The Patient has the following risk factors for venous disease: . Duration of VV/SV Sxs: 2 years. Right VCSS is 4 Left VCSS is 4 Vein Consult Emani is a pleas ant 52 year old who was self referred for evaluation of aching and cramping of her legs that has been going on for at least two years. The left leg is worse than the right. 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 She has had 2 children. She has a family history of venous diease. She has never had previous venous procedures or blood clots. She has worn medical compression socks for over 3 months with minimal relief of symptoms.On examination, there are moderate varicosities in the posterior aspect of the right thigh. There are smaller varicosities on bilateral distal thighs and calves. There is scattered telangiectasias on both legs. Based on the patient's anatomy and symptoms, I recommend a venous ultrasound. This will assist me in determining which vessels are incompetent. A treatment plan will be determined based on those results. This patient has worn medical compression socks previously for a minimum of 3 months. I encouraged patient to continue to wear medical grade compression socks. They will; however, be measured in the office today to ensure they are wearing the correct size. I have instructed this patient to keep their lower extremities elevated when sedentary. It was recommended to keep elevation above hip level. They were encouraged to walk daily for a minimum of 20 minutes in order to help strengthen their calf muscle pump. They will return to our office after completing their ultrasound. Back pain Onset: 4 months ago. Location of pain is lower back.There is no radiation of pain. The patient describes the pain as an ache. Symptoms are aggravated by sitting. Symptoms are relieved by rest. Pertinent negatives include abdominal pain, bladder dysfunction not spinal related, bladder incontinence, bladder retention, bowel dysfunction not spinal related, bowel incontinence, bowel retention, decreased mobility, diarrhea, joint pain, limping, loss of balance, numbness, rash, spasms, tenderness, tingling in the legs and weakness. Additional information: No trauma. Not sure what caused the pain but it is getting worse with prolonged sitting - long car drives. preventive exam Currently pregna nt: no. : 2. Parity: Term: 2. Livin. The Patient states she uses vasectomy for control. Last LMP was 05/20/2021. Her menses is regular with normal flow with a frequency of every 28 days. Negative for: breast discharge, breast lump(s) and breast pain. Positive for: breast self exam. Pertinent negatives include anxiety, depression and sleep disturbances. Diet fair.The Patient states her exercise frequency is daily. The Patient no longer uses tobacco. She does drink alcohol. Nurse Comments CPEnot fasting, wants lab slip to go for [facility] flu shot refusedCOVID shot UTD pt see's no eye dentist [employer] LMP 78, needs order for MAMMO gi needs order for COLONOSCOPY no cardio, no cardiac sx former smoker, no h/o asthma/COPDmed ref needed pt would like to discuss lower back pain for months Nurse Comments CPE, FBW does no t have regular eye, does not see territory sales manager medical but no BPP todayno htn, no asthma, former smokerdiscuss results of fbw from 2018 - scanned in preventive exam : 2. Christina ty: Term: 2. Livin. The patient states she uses vasectomy for control. Last LMP was 05/09/2020. Her menses is irregular with normal flow with a frequency of every 28 days. Negative for dysmenorrhea and menorrhagia. Negative for: breast discharge, breast lump(s) and breast pain. Menopausal symptoms negative for: vaginal dryness. Menopausal symptoms positive for: hot flashes, insomnia and night sweats. Associated symptoms include anxiety and sleep disturbances. Pertinent negatives include depression and difficulty falling sleep. Diet well balanced.The patient states her exercise frequency is daily. The patient no longer uses tobacco. She does drink alcohol. Additional information: hot flashes at night (very mild). anxiety The patient repo rts functioning as not difficult at all. The patient presents with anxious/fearful thoughts and diminished interest or pleasure but denies depressed mood, difficulty concentrating, difficulty falling asleep, difficulty staying asleep, excessive worry, fatigue, loss of appetite, restlessness or thoughts of or suicide. The patient denies any headache, nausea, urinary frequency, vomiting and weight gain. Additional information: Pt states she used to be on Cymbalta and lately anxious again. Since start of Covid-19. Main sxs: highly emotional. Hx of URI Patient states b ack in Nov 2019 she had cough, chest pain, fatigue and B/L conjunctivitis. She thinks that may have been Covid-19. Wants AB testing. Nurse Comments new pt - reestab lishing care with us; right eye red and itchy; seen at urgent care on monday , started drops, not any better eye problem started with R e ye redness, irritation, discharge and crusting. does not wear contacts eye problem (comments) no contac ts trauma or fb sensation Left hip pain Onset 6 weeks. S everity level is 4/10. It occurs occasionally and is stable. Location: Anterior, left and Lateral and Hip. The pain radiates to the None. The pain is Sharp. Context: there is No injury. The pain is aggravated by walking and standing. Associated symptoms include popping. Additional information: Pain and Instability. lesions Other benign christopher plasm of skin of trunk (D23.5). The observed moles have a benign appearance and can be followed for any changes or symptoms. Remember to avoid excess sun exposure and tanning beds. Remember to use sunscreen and perform regular self skin exams.Other seborrheic keratosis (L82.1). The lesions we observed have a safe appearance and treatment is not medically necessary. They can be observed for any changes, pain or bleeding.R 1 yearC/o cyst on her chest x 6 months. Last week it became infected, not draining, is red swollen and painful. Was more red and painful past week. No interval health changes since last visit. No new medications. Feeling well. Nurse Comments cpe date lmp no obc, sbe, no abn pap, non smoker, wants flu shotFeels wellM/one son Jarad & one daughter Kaseyends sandhu LBI, belongs to [employer] clubAdopted,no fam HxEating much healthier, followed lower carb diet and has lost >20lbs. mole(s) C/o moles. None changing, itching, bleeding, or growing.C/o lesion on L neck x 6 months. Asymptomatic. No bleeding. Unsure of any growth or change. No personal or family Hx of skin cancer. Has Hx of tanning bed use. Escalera easily. Has Hx of blistering sunburns. Does wear sunscreen. PMSFhx See intake sheet Nurse Comments Pt refused flu s hot. 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 Remember to avoid excess sun exposure and tanning beds. Remember to use sunscreen and perform regular self skin exams. Related to Melanocytic nevus of trunk Educated. Explained that lesions are benign overgrowths of the skin that occur in 80% of individuals during normal aging process. Because they are benign and pose no medical harm no treatment is required. If lesions become inflamed or bothersome they can be treated with cryotherapy, shave removal, electrodesication/currette.few lesions treated out of courtesy to patient Related to Seborrheic keratosis Educated. Explained that lesions are result of sun accumulated over time. Recommended regular use of sunscreen (SPF30 at least). Advised a full skin exam at the patient's convenience. Related to Lentigines cardiac dietexercise Related to Elevated BP without diagnosis of hypertension cardiology consult Related to Mu rmur -reconsider flu shot -pap [id number] utd-colonoscopy due-continue regular dental and vision exams-healthy diet and exercise.-derm for skin check- scheduled for next week-stop smoking Related to General medical examination Lifestyle education regarding di et Related to Body mass index (BMI) 25.0-25.9, adult Healthy Lifestyle Care Plan Healthy Lifestyle Care Plan Healthy Lifestyle Care Plan Giving encouragement to exercise Related to Body mass index (BMI) 25.0-25.9, adult avoid leaning on elb owf/u with ortho if persists Related to Effusion, right elbow Healthy Lifestyle Care Plan Giving encouragement to exercise Related to Body mass index (BMI) 25.0-25.9, adult Lifestyle education regarding di et Related to Body mass index (BMI) 25.0-25.9, adult -Refer derm Related to Numer ous moles -. Patient advised t o take Naprosyn as prescribed (side effects discussed), alternate between moist heat and ice, and start mild stretching exercises. Call in one week if sxs persist or earlier if sxs worsen. Will consider PT if not making improvement. Related to Acute left-sided low back pain without sciatica -Conservative measur es such as therapy, support groups, exercise and healthy diet, yoga and meditation and self help books discussed-Xanax prn only-RTO as needed for re-eval. Related to Anxiety -Ordered Lipid Panel and CMP today-EKG wnl-Encouraged low fat diet and exercise-Further recommendations pending results. Related to Mixed hyperlipidemia -Covid-19 Vaccine UT D-Tdap/Td UTD-Discussed Shingrix, pt will RTO as NV as we are out of it at this time -Routine lab work ordered including CBC, CMP, TSH, Lipids -PAP done today, mammogram rx given to her today-Family planning discussed - pt's had vasectomy-Referred for colonoscopy -Advised regular dental and vision exams-Advised healthy diet and exercise. Related to General medical examination Giving encouragement to exercise Related to Body mass index (BMI) 27.0-27.9, adult Lifestyle education regarding di et Related to Body mass index (BMI) 27.0-27.9, adult Healthy Lifestyle Care Plan -SARS Covid-19 antib jackie test ordered-Pt informed about the following: That many tests available from different companies - not all give reliable results, some are not FDA approved but claim to be. Pt informed may give false positive results (for ex, from exposure to other viruses your body has seen in the past, like other coronaviruses that cause the common cold). May give false negative results (for ex, mild exposure not creating antibody response). It is NOT used to diagnosis, only to assess exposure to virus. Does not mean immunity as we do not know how long the antibodies will remain in your body OR if they will even confer immunity in the future--maybe you had no symptoms, maybe you had mild symptoms???your immune system made antibodies showing that you were exposed but they may not have made enough or triggered the right kind of immune cell response to actually fight the virus again if you are re-exposed. Still need to practice same precautions. Consider plasma donation. Related to History of upper respiratory infection -Start Xanax prn onl y because it sounds very situational -Encouraged regular exercise and healthy, well balanced diet-Discussed breathing exercises, meditation, yoga and other wellness therapies-VV in 2 months for recheck Related to Anxiety -Td given today-Rout ine lab work ordered including CBC, CMP, TSH, Lipids -Patient sees outside elementary school tutor, PAP UDT, mammogram rx given today-Family planning discussed - pt's had a vasectomy-Advised regular dental and vision exams-Advised healthy diet and exercise Related to General medical examination -Ordered Lipid Panel and CMP today-Encouraged low fat diet and exercise-Further recommendations pending results Related to Mixed hyperlipidemia Lifestyle education regarding di et Related to Body mass index (BMI) 25.0-25.9, adult Mental health care education Rel ated to Adjustment disorder with depressed mood Depression and Anxiety Care Plan Healthy Lifestyle Care Plan warm salt water elaine lesrest, fluidscall office if s/s worsen change or do not resolve Related to Sore throat stop polymixin bstar t cipro eye drops as directedophthalmologist tomorrow if s/s do not improve with Cipro hand hygienewarm compresses Related to Bacterial conjunctivitis Depression and Anxiety Care Plan Healthy Lifestyle Care Plan Giving encouragement to exercise Related to Body mass index (BMI) 24.0-24.9, adult Lifestyle education regarding di et Related to Body mass index (BMI) 24.0-24.9, adult rx eye drops We exam ined and treated you today on an urgent care basis only. This was not a substitute for, or an effort to provide on-going care. In most cases, you should let your doctor check you again. If you do not have a regular doctor, we can recommend one to you, or you can call the Physician Referral Service at . Tell your doctor about this visit and any new or lasting problems. We cannot recognize and treat all injuries or illnesses in one urgent care visit. If you had special tests, such as X-Rays, we will review them again in 24 hours. We will call you if there are any new suggestions. Related to Acute conjunctivitis of right eye, unspecified acute conjunctivitis type The patient has pers istent Left hip pain, with exam consistent with a labral tear of the hip. Xrays show some and very mild OA. Will obtain an MRA of the hip for eval of intra-articular pathology, possible labral tear. I will call after the study to finalize the plan. Related to Pain in left hip Lifestyle education regarding di et Related to Body mass index (BMI) 23.0-23.9, adult - inflamed cyst on c hest, seems to be resolving on its own, declines ILK- consider excision with general surgeon if continues to be symptomaticR prn Related to Epidermal cyst BW done, EKG, Pap/hp vscr mammogramExercise regularly & follow healthy eating habits Related to Encntr for general adult medical exam w/o abnormal findings Dietary management e ducation, guidance, and counseling Related to Body mass index (BMI) 22.0-22.9, adult recommendation to exercise Relat ed to Body mass index (BMI) 22.0-22.9, adult The observed moles h ave a benign appearance and can be followed for any changes or symptoms. Remember to avoid excess sun exposure and tanning beds. Remember to use sunscreen and perform regular self skin exams. Related to Other benign neoplasm of skin of trunk The lesions we obser oh have a safe appearance and treatment is not medically necessary. They can be observed for any changes, pain or bleeding.R 1 year Related to Other seborrheic keratosis Pap/hpv Related to Routi ne gynecological examination Bloodwork, Exercise regularly, healthy eating habits Related to Routine general medical examination at a health care facility recommendation to exercise Relat ed to Body Mass Index 26.0-26.9, adult Dietary management e ducation, guidance, and counseling Related to Body Mass Index 26.0-26.9, adult Assessments Type Assessment Date No Information Patient Care Teams Name Effective Dates (start - stop) Status Members No Information
--- OUTSIDE RECORDS SUMMARY | 2024-12-25 08:13 | XMS_ITS | Encounter Summary ---
Author Organization [employer] Address [address] [facility] [address] [place] [address] Care Team Providers Care Wax Cutter Name Role Phone Unavailable Primary Care Provider Unavailabl e Reason for Visit * Reason Onset Date Comments New Patient 07/11/2023 Encounter Details Date Type Department Care Team (Late st Contact Info) Description 07/11/2023 Telephone [facility] [address] [place] [address] Pio Liu MD [address] [place] [address] New Patient Social History Tobacco Use Types Packs/Day Years Used Date Smoking Tobacco: Never Assessed Comments Unknown Sex and Gender Information Value Date Recorded Sex Assigned at Female 07/11/2023 11:28 AM EDT Legal Sex Female 11:27 AM EDT Gender Identity Female 07/11/2023 11:28 AM EDT Sexual Orientation Don't know 07/11/2023 11 :28 AM EDT documented as of this encounter Miscellaneous Notes * Telephone Encounter - Bennie Warren - 07/11/2023 11:32 AM EDT Pt has been transfer over to wait list for [facility]. EFFECTIVE SINCE 07/06/2023 documented in this encounter Plan of Treatment Not on file documented as of this encounter Visit Diagnoses Not on filedocumented in this encounter
--- NOTE | 2024-12-25 08:29 | A.OFFVIS_ITS ---
Intake Visit Reasons: 3M follow up Intake Note: Patient is Present for Follow Up PVR Urology Medication: Vesicare Antibiotic Allergies: Sulfa Blood Thinner: None Last PVR:23ml Todays PVR: 0ml Patient states the Vesicare works well, but reports that she still has to strain to finish urinating would like to discuss to take Vesicare twice a day to instead of once a day Referral Specialist Required: No Accompanied by: Self / Same As Patient Allergies latex Allergy (Severe, Verified 12/25/24 09:35) Anaphylaxis Cephalosporins Allergy (Mild, Verified 12/25/24 09:35) Rash egg Allergy (Mild, Verified 12/25/24 09:35) Unknown Sulfa (Sulfonamide Antibiotics) Allergy (Mild, Verified 12/25/24 09:35) Rash ibuprofen [From Motrin] Adverse Reaction (Mild, Verified 12/25/24 09:35) Rash Medication List - Last Reconciled 12/25/24 by AMANDA Toscano- acarbose 100 mg PO TID albuterol sulfate 2.5 mg inhalation Q4-6H PRN albuterol sulfate 90 mcg/actuation 2 puffs inhalation Q4-6H PRN bupropion HCl XL 150 mg PO QAM 90 days cetirizine (Zyrtec) 10 mg PO DAILY PRN cholecalciferol (vitamin D3) 50 mcg PO DAILY 90 days cyanocobalamin (vitamin B-12) 1,000 mcg IM .ONCE A MONTH escitalopram oxalate (Lexapro) 20 mg PO DAILY 90 days esomeprazole magnesium (Nexium) 40 mg PO BID estradiol 1 patch transdermal QWEEK 4 weeks gabapentin 600 mg PO DAILY 90 days ipratropium-albuterol 20-100 mcg/actuation (Combivent Respimat) 1 puff inhalation Q6H lorazepam (Ativan) 1 mg PO BEDTIME PRN ondansetron 4 mg PO Q8H ropinirole 1 to 2 tablets orally bedtime; 30 days simethicone 125 mg PO BID-QID PRN solifenacin (Vesicare) 10 mg (2 x 5 mg) PO DAILY 90 days sumatriptan succinate (Imitrex) 50 mg PO Q2-4H PRN umeclidinium-vilanterol 62.5-25 mcg/actuation (Anoro Ellipta) 1 inh inhalation DAILY HPI Comments Details: Emani a very pleasant 54-year-old female patient of Dr. Crane. She has a past medical history of hypercholesteremia, vitamin-D deficiency, vitamin B12 deficiency, allergic rhinitis, GERD, anxiety, neuropathy, asthma, diabetes, and migraines. She presents to the office today for follow-up of her ongoing lower urinary tract symptoms. Of note, patient was last seen approximate 3 months ago at which time she underwent an office cystoscopy with Dr. Evelyne Leong. Cystoscopy findings: no suspicious bladder lesions, mild to moderate bladder wall thickening. During last office visit recommendations were made for trial of VESIcare for ongoing reports of LUTS, hesitancy, and urinary urgency. In office cystoscopy was performed as previous imaging noted question of bladder wall lesion however this was not noted during cystoscopy. In discussion with the patient today she reports significant improvement in lower urinary tract symptoms she had been experiencing however she does continue with urinary hesitancy. In office urinalysis results reviewed with the patient today. PVR 0ml's. We discussed pelvic floor therapy/exercises regarding urinary hesitancy patient states she would like to think about this. She denies hematuria, dysuria, foul smelling urine, flank pain, fever, and or chills. PVR 23 mL. She discusses also having had a colonoscopy since her last office visit here and feels she is doing significantly better with her bowels and feels this has also been helpful with lower urinary tract symptoms she had been experiencing.She otherwise offers no other issues or concerns at this time. Cytology 08/06: Negative for high-grade urothelial carcinoma PFSH Medical History Tubular adenoma of colon Pure hypercholesterolemia Vitamin D deficiency Vitamin B12 deficiency Allergic rhinitis GERD without esophagitis Pulmonary nodule, left Anxiety Neuropathy Asthma Diabetes mellitus Migraine Cyclical vomiting Surgical History History of lumpectomy of right breast (05/29/24) Hx of shoulder surgery Hx of shoulder surgery Hx of colonoscopy Status post laparoscopic assisted vaginal hysterectomy (LAVH) (~2016) Hx of gastric bypass (~2009) Hx of cholecystectomy Family History Other Diabetes Social History Housing: House Are you a primary child care attendant school to a significant other at home: No Do you presently have visiting nurse or other home services: No Alcohol intake: never Patient Tobacco Use Status: Former Tobacco user Tobacco use type: Cigarette Cigarette Packs Per Day: 1.5 Years Smoked: quit more than 15 years ago, started as a teen e-Cigarette/Vaping Use: Never Used Current occupational status: disabled Current occupation: Left hand dominant Cognitive needs: No Hearing needs: No Vision needs: Yes Review of Systems Eyes Reports no additional complaints ENT Reports no additional complaints Card Reports as per HPI Resp Reports no additional complaints GI Reports as per HPI Reports as per HPI Musc Reports no additional complaints Neuro Reports as per HPI Psych Reports as per HPI Endo Reports as per HPI Melvin/Lymph Reports no additional complaints Aller/Immun Reports no additional complaints Physical Exam Const General: cooperative, healthy appearing, comfortable, no acute distress, well developed, alert and awake Orientation/consciousness: patient oriented x3 Limitations: no limitations HEENT Head: Yes normal to inspection, Yes normocephalic and Yes atraumatic Ears: hearing grossly normal bilaterally Eyes General: appearance normal, both eyes and all related structures Neck Neck: Yes normal visual inspection and Yes trachea midline Chest Chest palpation & inspection: normal inspection of the chest Resp Effort & Inspection: normal respiratory effort and able to speak in complete sentences Cardio Rate: regular rate GI Inspection: Yes normal to inspection General: Yes no CVA tenderness Back/Spine/Pelvis Back: no CVA tenderness Skin General skin exam: no rashes or lesions noted Neuro General: patient oriented x3 Extrem General: Yes normal to inspection Psych Appearance: grossly normal and well kempt Mental Status: mental status grossly normal Speech and movement: Normal speech and movement present and Clear speech present Affect: normal affect Attitude: cooperative Thought process: Normal thought process present Thought content: Normal thought content present Insight: Fair insight present (Psych) Judgement: Fair judgement present (Psych) Office Procedures Post Void Residual Post Residual Void Post Void Residual (PVR): 0 [id number] Void Residual by ultrasound Results AMB Urinalysis, Automated UA Leukoctes 0 Bakari/uL Last Edit by MOHAMUD Dela Cruz on 12/25/24 08:49 UA Nitrite Negative Last Edit by MOHAMUD Dela Cruz on 12/25/24 08:49 UA Urobilinogen 0.2 mg/dL Last Edit by Namita Almazan, RMA on 12/25/24 08:4 9 UA Protein 0 mg/dL Last Edit by Namita Almazan, RMA on 12/25/24 08:49 UA pH 6.0 Last Edit by Namita Almazan, RMA on 12/25/24 08:49 UA Blood 10 Keo/uL Last Edit by Namita Almazan, RMA on 12/25/24 08:49 UA Specific Kirkman 1.010 Last Edit by Namita Almazan, RMA on 12/25/24 08: 49 UA Ketone Negative Last Edit by Namita Almazan, RMA on 12/25/24 08:49 UA Bilirubin 0 mg/dL Last Edit by Namita Almazan, RMA on 12/25/24 08:49 UA Glucose 0 mg/dL Last Edit by Namita Almazan, RMA on 12/25/24 08:49 Results Reviewed Results Reviewed: Laboratory Last Values Urine pH (Auto) 6.0 12/25/24 08:48 Specific Kirkman (Auto) 1.010 12/25/24 08:48 Urine Protein (Auto) 0 mg/dL 12/25/24 08:48 Glucose (UA)(Auto) 0 mg/dL 12/25/24 08:48 Urine Ketones (Auto) Negative 12/25/24 08:48 Urine Blood (Auto) 10 Keo/uL 12/25/24 08:48 Urine Nitrite (Auto) Negative 12/25/24 08:48 Urine Bilirubin (Auto) 0 mg/dL 12/25/24 08:48 Urine Urobilinogen (Auto) 0.2 mg/dL 12/25/24 08:48 Leukocyte Esterase (Auto) 0 Bakari/uL 12/25/24 08:48 Assessment & Plan Assessment & Plan (1) Urinary hesitancy: Code(s): R39.11 - Hesitancy of micturition Category: Medical (2) Urinary urgency: Code(s): R39.15 - Urgency of urination Category: Medical (3) Hematuria, microscopic: Code(s): R31.29 - Other microscopic hematuria Category: Medical (4) History of urinary hesitancy: Code(s): Z87.898 - Personal history of other specified conditions Category: Medical Plan In office urinalysis results reviewed the patient today; as noted above. PVR 0 mL. Continue VESIcare; however will increase to 10 mg daily We discussed further treatment options of urinary hesitancy; we discussed pelvic floor exercises versus pelvic floor therapy. She reports be happy with current voiding parameters. Discussed, educated, and stressed the importance of managing diabetes for improvement in lower urinary tract symptoms as well as overall health and well- being. Discussed importance of adequate hydration relation to lower urinary tract symptoms as well as overall health and well-being. Follow-up in 3 months with PVR; or sooner with any issues, concerns, and or questions. Orders: Orders AMB Post Void Residual by ultrasound Today R39.11 - Hesitancy of micturition AMB Urinalysis Automated Today Z13.9 - Encounter for screening, unspecified Medications: Changed From solifenacin (Vesicare) 5 mg PO DAILY 90 days 90 tabs 1RF To solifenacin (Vesicare) 10 mg (2 x 5 mg) PO DAILY 90 days 180 tabs 1RF Patient Instructions: The patient had an opportunity to ask questions regarding the treatment plan. All questions were answered. Physical exam, labs, and imaging were discussed and reviewed in detail. As well as risks, benefits, and discussion of treatment choices. No major barriers to understanding were identified. The patient expressed understanding and agreement with the above treatment plan. The patient was made aware they should contact our office by phone for worsening of their current condition, the appearance of new symptoms, or with any questions or concerns. Compliance is encouraged with any medications and follow up testing that is ordered. It is a privilege to be allowed the opportunity to participate in? your urological care.? Again, if you have any questions or concerns If you have any questions or concerns please do not hesitate to contact me. The office is [phone]. This note is constructed using voice recognition software. While every effort has been made to ensure accuracy nuclear licensing engineer errors may have been included. Yours sincerely, YUN Toscano Coding Level of Care Code Est Pt Level 3 (89831) Diagnoses Urinary hesitancy R39.11 Urinary urgency R39.15 Hematuria, microscopic R31.29 History of urinary hesitancy Z87.898 CPT Codes Post Residual Void - PVR CPT Code: 32330-Lpre Void Residual by ultrasound ([id number])
== END 2024-12-25 09:09 | disposition home or self-care (01) ==
PROVIDERS: PCP Internal Medicine; Visit Provider Nurse Practitioner Family
DX: R39.11 Hesitancy of micturition (principal); R39.15 Urgency of urination; R31.29 Other microscopic hematuria; Z87.898 Personal history of other specified conditions; Z13.9 Encounter for screening, unspecified
CPT/HCPCS: 99213

== ENCOUNTER → 2024-12-25 08:09 | Outpatient (BNVA) | payer MEDICARE, MEDICAID, SELFPAY | PROVIDERS: PCP Internal Medicine; Visit Provider Nurse Practitioner Family | DX: R39.11 Hesitancy of micturition (principal); R39.15 Urgency of urination; R31.29 Other microscopic hematuria; Z87.898 Personal history of other specified conditions | CPT/HCPCS: 51798; 81003; 99212 ==

== ENCOUNTER 2025-01-14 08:51 | Outpatient (AMB) | payer MEDICARE, MEDICAID, SELFPAY ==
--- NOTE | 2025-01-14 08:55 | MHC.OFFVIS ---
Vital Signs 01/14/25 09:08 Height 6 ft Weight 185 lb BMI 25.1 BP 110/58 L Blood Pressure Location Rt brachial Position Sitting Pulse 76 Pulse Source Pulse Oximeter Pulse Oximetry (%) 98 Oxygen Delivery Method Room Air Intake Visit Reasons: 3 month follow up Intake Note: ESTABLISHED PATIENT for mgmt of GERD + IBS. Chief Complaint; Pt states that her sx have greatly improved since last visit. Still experiencing occasional reflux but not nearly as significant as last visit. Temperature Regulator Pyrometer Required: No Allergies latex Allergy (Severe, Verified 01/14/25 09:03) Anaphylaxis Cephalosporins Allergy (Mild, Verified 01/14/25 09:03) Rash egg Allergy (Mild, Verified 01/14/25 09:03) Unknown Sulfa (Sulfonamide Antibiotics) Allergy (Mild, Verified 01/14/25 09:03) Rash ibuprofen [From Motrin] Adverse Reaction (Mild, Verified 01/14/25 09:03) Rash HPI HPI 3 month follow up: Details: LAST VISIT: Esophageal candidiasis Asthma GERD without esophagitis Tubular adenoma of colon Postprandial abdominal bloating Constipation Postprandial epigastric pain Dysphagia Plan Patient completed treatment with fluconazole and her symptoms have improved. She can continue taking Nexium as ordered and sucralfate at bedtime. Patient will start taking Linzess as she does have constipation and occasional abdominal cramping. Patient was encouraged to avoid dietary triggers and late night snacking. Staying upright for minimum 3 hours after meals discussed with patient. Two tubular adenoma found in transverse colon without high-grade dysplasia or carcinoma. Recommendation was made for patient to return for colorectal screening in 2-3 years due to TA and suboptimal prep to left side of her colon. Patient does report abdominal bloating occasionally which could be related to patient not emptying her bowels as well as diet. List of food recommended as well as list of food to avoid given to patient. Low FODMAP diet discussed with her. Simethicone order for her to take as needed for bloating. Patient will return in 3 months, sooner on as needed basis. She is agreeable to this plan and verbalizes understanding of instructions. She was given the opportunity to ask questions and all questions answered. ? Thank you for allowing me to participate in her care Medications New simethicone 125 mg PO BID-QID PRN 120 caps 3RF abdominal distention K21.9 linaclotide (Linzess) 145 mcg PO DAILY 30 caps 2RF Discontinued fluconazole Pt advised to hold Escitalopram while taking the Fluconazole Discontinued Reason: Patient Completed Course 200 mg PO DAILY 14 days 14 tabs 0RF B37.81 TODAY'S VISIT: Patient is here today for follow-up. Patient reports that she has been feeling quite well. Feels like the treatment with fluconazole was successful and she is feeling well. No longer she experiences trouble swallowing. Denies any acid reflux, however sometimes depending on what she eats she my experience mild epigastric burning. Patient is trying to avoid dietary triggers. States that Nexium works very well for her. Patient reports that she has good appetite denies any weight loss. Denies any abdominal pain or discomfort. Reports that she is moving her bowels without any issues. Denies dyspepsia, dysphagia odynophagia. Denies any melena, hematochezia, unintentional weight loss or ribbon like stools. [facility] Medical History Tubular adenoma of colon Pure hypercholesterolemia Vitamin D deficiency Vitamin B12 deficiency Allergic rhinitis GERD without esophagitis Pulmonary nodule, left Anxiety Neuropathy Asthma Diabetes mellitus Migraine Cyclical vomiting Surgical History History of lumpectomy of right breast (05/29/24) Hx of shoulder surgery Hx of shoulder surgery Hx of colonoscopy Status post laparoscopic assisted vaginal hysterectomy (LAVH) (~2016) Hx of gastric bypass (~2009) Hx of cholecystectomy Family History Other Diabetes Social History Housing: House Are you a primary gericare aide teacher to a significant other at home: No Do you presently have visiting nurse or other home services: No Alcohol intake: never Patient Tobacco Use Status: Former Tobacco user Tobacco use type: Cigarette Cigarette Packs Per Day: 1.5 Years Smoked: quit more than 15 years ago, started as a teen e-Cigarette/Vaping Use: Never Used Current occupational status: disabled Current occupation: Left hand dominant Cognitive needs: No Hearing needs: No Vision needs: Yes Review of Systems Const Denies weight gain and Denies weight loss ENT Reports no additional complaints, Denies dysphagia and Denies odynophagia Card Reports no additional complaints Resp Reports no additional complaints GI Denies abdominal pain, Denies belching, Denies melena, Denies bloating, Denies change in bowel habits, Denies dysphagia, Denies excessive flatus, Denies dyspepsia, Denies heartburn, Denies diarrhea, Denies loose stools, Denies nausea, Denies odynophagia and Denies vomiting Musc Reports no additional complaints Neuro Reports no additional complaints Psych Reports no additional complaints Endo Reports no additional complaints Physical Exam Vital Signs: Last Vital Signs Pulse 76 01/14/25 09:08 BP 110/58 L 01/14/25 09:08 Pulse Ox 98 01/14/25 09:08 Oxygen Delivery Method Room Air 01/14/25 09:08 BMI result Body Mass Index 25.1 Const General: healthy appearing, no acute distress and well developed Nutritional Appearance: well nourished Orientation/consciousness: patient oriented x3 Resp Effort & Inspection: normal respiratory effort, able to speak in complete sentences, no tracheal deviation and symmetric chest movement Auscultation: clear to auscultation bilaterally Cardio Rate: regular rate GI Inspection: Yes normal to inspection and No distended Palpation (GI): Soft to palpation, not firm, nontender and No hepatosplenomegaly present Auscultation: normal bowel sounds General: Yes no CVA tenderness Back/Spine/Pelvis Back: no CVA tenderness Skin General skin exam: elasticity normal, turgor normal and dry skin Neuro General: patient oriented x3 Psych Appearance: grossly normal Mental Status: mental status grossly normal Assessment & Plan Assessment & Plan (1) Esophageal candidiasis: Code(s): B37.81 - Candidal esophagitis Category: Medical (2) Asthma: Code(s): J45.909 - Unspecified asthma, uncomplicated Category: Medical Qualifiers: Asthma complication type: unspecified Asthma persistence: persistent Asthma severity: moderate Qualified Code(s): J45.40 - Moderate persistent asthma, uncomplicated (3) GERD without esophagitis: Code(s): K21.9 - Gastro-esophageal reflux disease without esophagitis Category: Medical (4) Tubular adenoma of colon: Code(s): D12.6 - Benign neoplasm of colon, unspecified Category: Medical (5) Postprandial abdominal bloating: Code(s): R14.0 - Abdominal distension (gaseous) (6) Constipation: Code(s): K59.00 - Constipation, unspecified Qualifiers: Constipation type: slow transit constipation Qualified Code(s): K59.01 - Slow transit constipation (7) Postprandial epigastric pain: Code(s): R10.13 - Epigastric pain (8) Dysphagia: Code(s): R13.10 - Dysphagia, unspecified Qualifiers: Dysphagia type: esophageal phase Qualified Code(s): R13.19 - Other dysphagia Plan Patient will continue taking Nexium. Avoid dietary triggers in late night snacking. Staying upright for minimum 3 hours after meals discussed with patient. Follow-up in 6 months, sooner on as needed basis. Patient is agreeable to this plan and verbalizes understanding of instructions. She was given the opportunity to ask questions and all questions answered. Thank you for allowing me to participate in her care Next visit will set up for upper endoscopy to re-evaluate Medications: Refilled esomeprazole magnesium (Nexium) 40 mg PO BID 180 caps 5RF K21.9 - Gastro-esophageal reflux disease without esophagitis Discontinued solifenacin please dispense 10mg tablets. patient to take one 10mg tablet per day or two 5 mg tablets. Thank you Discontinued Reason: Entered in error 10 mg (2 x 5 mg) PO DAILY 90 days 180 tabs 2RF Coding Level of Care Code Est Pt Level 4 (07666) Complex EM visit Add On G2211 Diagnoses Esophageal candidiasis B37.81 Moderate persistent asthma, unspecified whether complicated J45.40 Asthma complication type: unspecified Asthma persistence: persistent Asthma severity: moderate GERD without esophagitis K21.9 Tubular adenoma of colon D12.6 Postprandial abdominal bloating R14.0 Slow transit constipation K59.01 Constipation type: slow transit constipation Postprandial epigastric pain R10.13 Esophageal dysphagia R13.19 Dysphagia type: esophageal phase Time Spent (min) 35 Comment 25 minutes spent with patient and additional 10 minutes spent reviewing her records
[2025-01-14 09:08] VITALS: BP 110/58; PULSE 76; O2SAT 98; BMI 25.1
--- OUTSIDE RECORDS SUMMARY | 2025-01-14 09:32 | XMS_ITS | Encounter Summary ---
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 EFFECTIVE SINCE 07/06/2023 documented in this encounter Plan of Treatment Not on file documented as of this encounter Visit Diagnoses Not on filedocumented in this encounter
--- OUTSIDE RECORDS SUMMARY | 2025-01-14 09:32 | XMS_ITS | Clinical Summary ---
Author Organization [employer] Address [address] [place] [address] Care Team Providers Care Scenery Builder Name Role Phone Unavailable Primary Care Provider [...]
== END 2025-01-14 09:19 | disposition home or self-care (01) ==
PROVIDERS: PCP Internal Medicine; Visit Provider Nurse Practitioner Family
DX: B37.81 Candidal esophagitis (principal); J45.40 Moderate persistent asthma, uncomplicated; K21.9 Gastro-esophageal reflux disease without esophagitis; D12.6 Benign neoplasm of colon, unspecified; R14.0 Abdominal distension (gaseous); K59.01 Slow transit constipation; R10.13 Epigastric pain; R13.19 Other dysphagia
CPT/HCPCS: 99214; G2211

== ENCOUNTER → 2025-01-14 08:51 | Outpatient (BNVA) | payer MEDICARE, MEDICAID, SELFPAY | PROVIDERS: PCP Internal Medicine; Visit Provider Nurse Practitioner Family | DX: K59.01 Slow transit constipation (principal); K21.9 Gastro-esophageal reflux disease without esophagitis; R14.0 Abdominal distension (gaseous); R10.13 Epigastric pain; R13.19 Other dysphagia; D12.6 Benign neoplasm of colon, unspecified; J45.40 Moderate persistent asthma, uncomplicated; B37.81 Candidal esophagitis | CPT/HCPCS: 99212 ==

== ENCOUNTER 2025-01-23 08:56 | Outpatient (AMB) | payer MEDICARE, MEDICAID, SELFPAY ==
[2025-01-23 09:01] VITALS: BP 100/62; PULSE 74; O2SAT 94; BMI 25.1
--- NOTE | 2025-01-23 09:01 | MHC.OFFVIS ---
Vital Signs 01/23/25 09:01 Height 6 ft Weight 185 lb 3.013 oz BMI 25.1 BP 100/62 Blood Pressure Location Rt brachial Position Sitting Pulse 74 Pulse Source Doppler Pulse Oximetry (%) 94 Oxygen Delivery Method Room Air Intake Visit Reasons: Asthma Allergies latex Allergy (Severe, Verified 01/14/25 09:03) Anaphylaxis Cephalosporins Allergy (Mild, Verified 01/14/25 09:03) Rash egg Allergy (Mild, Verified 01/14/25 09:03) Unknown Sulfa (Sulfonamide Antibiotics) Allergy (Mild, Verified 01/14/25 09:03) Rash ibuprofen [From Motrin] Adverse Reaction (Mild, Verified 01/14/25 09:03) Rash HPI HPI Asthma: Details: 54-year-old lady, former approximately 10 pack-year smoker, quit over 20 years prior, followed for severe persistent asthma, environmental allergies, and pulmonary nodules. Patient has been using Xolair with significantly improved control of her underlying asthma symptoms, however she started to develop worsening hives after each subsequent injection. She denies any acute asthma exacerbations. She did complete her CT chest that shows underlying at mm pulmonary nodule with bilateral micro nodules. [facility]LY [facility], [facility] Medical History Tubular adenoma of colon Pure hypercholesterolemia Vitamin D deficiency Vitamin B12 deficiency Allergic rhinitis GERD without esophagitis Pulmonary nodule, left Anxiety Neuropathy Asthma Diabetes mellitus Migraine Cyclical vomiting Surgical History History of lumpectomy of right breast (05/29/24) Hx of shoulder surgery Hx of shoulder surgery Hx of colonoscopy Status post laparoscopic assisted vaginal hysterectomy (LAVH) (~2016) Hx of gastric bypass (~2009) Hx of cholecystectomy Family History Other Diabetes Social History Housing: House Are you a primary career advisor to a significant other at home: No Do you presently have visiting nurse or other home services: No Alcohol intake: never Patient Tobacco Use Status: Former Tobacco user Tobacco use type: Cigarette Cigarette Packs Per Day: 1.5 Years Smoked: quit more than 15 years ago, started as a teen e-Cigarette/Vaping Use: Never Used Current occupational status: disabled Current occupation: Left hand dominant Cognitive needs: No Hearing needs: No Vision needs: Yes Review of Systems Const Denies daytime sleepiness, Denies excessive sweating, Denies fatigue, Denies fever(s), Denies lethargy, Denies malaise, Denies night sweats, Denies snoring and Denies weight loss Eyes Denies blurry vision and Denies itchy eyes ENT Denies nasal congestion, Denies post nasal drip, Denies sinus pain, Denies sinus pressure and Denies other ( Thrush) Card Denies chest pain, Denies pedal edema, Denies dyspnea, Denies orthopnea and Denies paroxysmal nocturnal dyspnea Resp Denies cough, Denies hemoptysis, Denies excessive phlegm production, Denies dyspnea, Denies snoring and Denies wheezing GI Denies abdominal pain and Denies heartburn Musc Denies myalgias, Denies arthralgias and Denies joint swelling Skin/Breast Denies rash Neuro Denies memory loss and Denies seizure-like activity Psych Denies abnormal sleep pattern, Denies anxiety and Denies memory loss Endo Denies excessive sweating, Denies fatigue and Denies heat intolerance Melvin/Lymph Denies easy bruising Aller/Immun Denies itchy eyes, Denies seasonal rhinorrhea and Denies wheezing Physical Exam Vital Signs: Last Vital Signs Pulse 74 01/23/25 09:01 BP 100/62 01/23/25 09:01 Pulse Ox 94 01/23/25 09:01 Oxygen Delivery Method Room Air 01/23/25 09:01 BMI result Body Mass Index 25.1 Const General: no acute distress and alert Nutritional Appearance: not obese Orientation/consciousness: Other orientation findings ( oriented) HEENT Head: Yes atraumatic Eyes General: appearance normal, both eyes and all related structures Sclerae: sclerae normal EOM: EOMs intact bilaterally Neck Neck: Yes supple Lymphatic: no lymphadenopathy noted Resp Effort & Inspection: normal respiratory effort and no use of accessory muscles Auscultation: clear to auscultation bilaterally Cardio Rate: regular rate Rhythm: regular rhythm Heart sounds: no gallops, no murmurs and no rubs Skin General skin exam: other ( warm) Extrem General: No clubbing, No cyanosis and No edema Assessment & Plan Assessment & Plan (1) Severe persistent asthma: Code(s): J45.50 - Severe persistent asthma, uncomplicated Category: Medical Plan: Significantly improved control on Xolair, however with injection reaction, will switch to Dupixent. Continue baseline regimen of Anoro, Combivent, and albuterol MDI/nebs. (2) Pulmonary nodule, left: Code(s): R91.1 - Solitary pulmonary nodule Category: Medical Plan: Results of CT scan reviewed, 8 mm pulmonary nodule, will repeat CT chest in 6 months. (3) Environmental allergies: Code(s): Z91.09 - Other allergy status, other than to drugs and biological substances Category: Medical Plan: Significantly improved control on Xolair, however will require switching secondary to injection reaction. Will consider Dupixent. Continue Zyrtec. Orders: Orders CT chest wo IV con 05/26/25 R91.1 - Solitary pulmonary nodule Coding Level of Care Code Est Pt Level 4 (88447) Complex EM visit Add On G2211 Diagnoses Severe persistent asthma J45.50 Pulmonary nodule, left R91.1 Environmental allergies Z91.09
== END 2025-01-23 09:16 | disposition home or self-care (01) ==
LOC: HO.HPS 08:57
PROVIDERS: PCP Internal Medicine; Visit Provider Internal Medicine Pulmonary Disease
DX: J45.50 Severe persistent asthma, uncomplicated (principal); R91.1 Solitary pulmonary nodule; Z91.09 Other allergy status, other than to drugs and biological substances
CPT/HCPCS: 99214; G2211

== ENCOUNTER → 2025-01-23 08:56 | Outpatient (BNVA) | payer MEDICARE, MEDICAID, SELFPAY | PROVIDERS: PCP Internal Medicine; Visit Provider Internal Medicine Pulmonary Disease | DX: J45.50 Severe persistent asthma, uncomplicated (principal); R91.1 Solitary pulmonary nodule; Z91.09 Other allergy status, other than to drugs and biological substances | CPT/HCPCS: 99212 ==

== ENCOUNTER 2025-02-06 08:02 | Outpatient (REF) | payer MEDICARE, MEDICAID, SELFPAY ==
[2025-02-06 08:16] LABS: MANUAL DIFF FLAG NO
[2025-02-06 08:37] LABS: Basophils Absolute Auto 0.1 X10*3/uL (0.0-0.2); Basophils Percent Auto 1.6 % (0-2); Eosinophils Absolute Auto 0.1 X10*3/uL (0.0-0.4); Eosinophils Percent Auto 2.5 % (0-4); Hematocrit 39.5 % (37.0-47.0); Imm Gran Abs Auto 0.01 X10*3/uL (0.00-0.03); Imm Gran Pct Auto 0.2 % (0.0-0.4); Lymphocytes Absolute Auto 1.5 X10*3/uL (1.2-4.9); Lymphocytes Percent Auto 29.5 % (20-40); Mean Corpuscular HGB Conc 32.9 g/dl (31.0-35.0); Mean Corpuscular Hemoglobin 27.8 pg (27.0-33.0); Mean Corpuscular Volume 84.4 fL (80.0-98.0); Mean Platelet Volume 10.5 fL (9.4-12.3); Monocytes Absolute Auto 0.4 X10*3/uL (0.1-1.2); Monocytes Percent Auto 7.6 % (2-11); Neutrophils Percent Auto 58.6 % (45-73); Platelet Count 263 X10*3/uL (160-400); Red Blood Count 4.68 X10*6/uL (4.20-5.50); Red Cell Distribution Width 14.4 % (11.0-16.0); White Blood Count 5.1 X10*3/uL (4.8-10.8)
[2025-02-06 08:47] LABS: Estimated Average Glucose 100 mg/dL; Hemoglobin A1C 113.6444 umol/L; Hemoglobin A1c % 5.1 % (<6.0)
[2025-02-06 08:55] LABS: Appearance Urine Clear; Color Urine Yellow; Glucose Urine UA Negative (Negative); Leukocyte Esterase Urine Negative (Negative); Nitrite Urine Negative (Negative); PH 7.5 (5.0-9.0); Specific Gravity - Urine <= 1.005 (1.005-1.025); Urine Blood Negative (Negative); Urine Ketones Negative (Negative); Urine Protein Negative (Neg-Trace)
[2025-02-06 09:05] LABS: Alanine Aminotransferase 12 U/L (0-31); Albumin Level 3.9 g/dL (3.5-5.0); Alkaline Phosphatase 55 U/L (39-117); Anion Gap 9 (12-20); Aspartate Amino Transferase 17 U/L (5-31); Bilirubin Total 0.4 mg/dL (0.0-1.0); Blood Urea Nitrogen 8 mg/dL (9-16); Calcium 8.7 mg/dL (8.4-10.2); Carbon Dioxide 24 mmol/L (22-29); Chloride 111 mmol/L (96-108); Cholesterol 218 mg/dL (<200); Estimated Glomerular Filt Rate > 60; Glucose Fasting 87 mg/dL (60-99); HDL Cholesterol 57 mg/dL (>40); LDL Cholesterol Calculated 132 mg/dL (<100); Potassium 4.4 mmol/L (3.3-5.1); Sodium 140 mmol/L (135-145); Total Protein 6.5 g/dL (6.5-8.0); Triglycerides 146 mg/dL (<150)
[2025-02-06 09:24] LABS: Vitamin D 25-OH Total 44.2 ng/mL (>30)
[2025-02-06 09:33] LABS: Vitamin B12 512 pg/mL (200-900)
== END 2025-02-06 08:03 | disposition home or self-care (01) ==
LOC: HO.LAB 08:02
PROVIDERS: PCP Internal Medicine; Visit Provider Internal Medicine
DX: Z00.00 Encounter for general adult medical examination without abnormal findings (principal); R30.0 Dysuria; D64.9 Anemia, unspecified; E78.00 Pure hypercholesterolemia, unspecified; E11.9 Type 2 diabetes mellitus without complications; E55.9 Vitamin D deficiency, unspecified; E53.8 Deficiency of other specified B group vitamins; J45.50 Severe persistent asthma, uncomplicated
CPT/HCPCS: 36415; 80053; 80061; 81003; 82306; 82607; 82746; 83036; 84443; 85025; 99211

== ENCOUNTER → 2025-02-06 08:30 | Outpatient (AMB) | payer MEDICARE, MEDICAID, SELFPAY ==
[2025-02-06 08:49] VITALS: BP 106/58; PULSE 65; O2SAT 96
--- NOTE | 2025-02-06 08:49 | MHC.OFFVIS ---
Vital Signs 02/06/25 08:49 Height 6 ft BP 106/58 L Blood Pressure Location Rt brachial Position Sitting Pulse 65 Pulse Source Pulse Oximeter Pulse Oximetry (%) 96 Oxygen Delivery Method Room Air Intake Visit Reasons: Dupixent teach Allergies latex Allergy (Severe, Verified 02/06/25 08:50) Anaphylaxis Cephalosporins Allergy (Mild, Verified 02/06/25 08:50) Rash egg Allergy (Mild, Verified 02/06/25 08:50) Unknown Sulfa (Sulfonamide Antibiotics) Allergy (Mild, Verified 02/06/25 08:50) Rash ibuprofen [From Motrin] Adverse Reaction (Mild, Verified 02/06/25 08:50) Rash Medication List - Last Reconciled 02/06/25 by Sarah Collins LPN acarbose 100 mg PO TID albuterol sulfate 2.5 mg inhalation Q4-6H PRN albuterol sulfate 90 mcg/actuation 2 puffs inhalation Q4-6H PRN bupropion HCl XL 150 mg PO QAM 90 days cetirizine (Zyrtec) 10 mg PO DAILY PRN cholecalciferol (vitamin D3) 50 mcg PO DAILY 90 days cyanocobalamin (vitamin B-12) 1,000 mcg IM QWEEK dupilumab (Dupixent) 300 mg (2 mL) subcut Q2W escitalopram oxalate (Lexapro) 20 mg PO DAILY 90 days esomeprazole magnesium (Nexium) 40 mg PO BID estradiol 1 patch transdermal QWEEK 4 weeks gabapentin 600 mg PO DAILY 90 days insulin syringe-needle,dispos. (SafeSnap Insulin Syringe) As directed once a month for B12 injections ipratropium-albuterol 20-100 mcg/actuation (Combivent Respimat) 1 puff inhalation Q6H lorazepam (Ativan) 1 mg PO BEDTIME PRN ondansetron 4 mg PO Q8H ropinirole 1 to 2 tablets orally bedtime; 30 days simethicone 125 mg PO BID-QID PRN solifenacin 10 mg PO DAILY sumatriptan succinate (Imitrex) 50 mg PO Q2-4H PRN syringe-needle,safety,disp unt (SafeSnap Syringe) As directed- monthly with B12 umeclidinium-vilanterol 62.5-25 mcg/actuation (Anoro Ellipta) 1 inh inhalation DAILY HPI Comments Details: Emani is here for a Dupixent teach she was educated on hand washing, injection preparation, administration, and disposal.? Emani was able to return demonstrate proper technique for hand washing, injection preparation, administration and disposal of needle and states she has no questions at this time. Medication Dupixent 300mg/2mL pre-filled PENS (patient?s own meds) Loading dose of 600mg given by the patient in 2 SQ injections; injection #1 L abdomen ;? injection #2 R abdomen Lot# [id number] expires 07/13/2026. Patient aware her next injection is in 15 days. Nurse visit only.? [facility] Medical History Tubular adenoma of colon Pure hypercholesterolemia Vitamin D deficiency Vitamin B12 deficiency Allergic rhinitis GERD without esophagitis Pulmonary nodule, left Anxiety Neuropathy Asthma Diabetes mellitus Migraine Cyclical vomiting Surgical History History of lumpectomy of right breast (05/29/24) Hx of shoulder surgery Hx of shoulder surgery Hx of colonoscopy Status post laparoscopic assisted vaginal hysterectomy (LAVH) (~2016) Hx of gastric bypass (~2009) Hx of cholecystectomy Family History Other Diabetes Social History Housing: House Are you a primary director of career services to a significant other at home: No Do you presently have visiting nurse or other home services: No Alcohol intake: never Patient Tobacco Use Status: Former Tobacco user Tobacco use type: Cigarette Cigarette Packs Per Day: 1.5 Years Smoked: quit more than 15 years ago, started as a teen e-Cigarette/Vaping Use: Never Used Current occupational status: disabled Current occupation: Left hand dominant Cognitive needs: No Hearing needs: No Vision needs: Yes Physical Exam Vital Signs: Last Vital Signs Pulse 65 02/06/25 08:49 BP 106/58 L 02/06/25 08:49 Pulse Ox 96 02/06/25 08:49 Oxygen Delivery Method Room Air 02/06/25 08:49 Assessment & Plan Assessment & Plan (1) Severe persistent asthma: Code(s): J45.50 - Severe persistent asthma, uncomplicated Category: Medical Plan: Dupixent teaching Coding Level of Care Code Established Pt Est Pt Level 1 (46131) Patient Type Established Diagnoses Severe persistent asthma J45.50 Comment NURSE VISIT ONLY
== END ==
PROVIDERS: PCP Internal Medicine; Visit Provider Internal Medicine Pulmonary Disease
DX: J45.50 Severe persistent asthma, uncomplicated (principal)

== ENCOUNTER 2025-02-12 09:17 | Outpatient (AMB) | payer MEDICARE, MEDICAID, SELFPAY ==
[2025-02-12 09:21] VITALS: BP 120/78; PULSE 79; O2SAT 94; BMI 24.8
--- NOTE | 2025-02-12 09:21 | A.OFFPC_ITS ---
Vital Signs 02/12/25 09:21 Height 6 ft Weight 183 lb BMI 24.8 BP 120/78 Blood Pressure Location Lt brachial Position Sitting Pulse 79 Pulse Source Pulse Oximeter Pulse Oximetry (%) 94 Oxygen Delivery Method Room Air Intake Visit Reasons: asthma, migraine, hyperlipidemia, DM, anxiety Big Data Lead Required: No Accompanied by: Self / Same As Patient Allergies latex Allergy (Severe, Verified 02/12/25 09:50) Anaphylaxis Cephalosporins Allergy (Mild, Verified 02/12/25 09:50) Rash egg Allergy (Mild, Verified 02/12/25 09:50) Unknown Sulfa (Sulfonamide Antibiotics) Allergy (Mild, Verified 02/12/25 09:50) Rash omalizumab [From Xolair] Adverse Reaction (Severe, Verified 02/12/25 10:18) worsening SOB/asthma; hives; injection reaction ibuprofen [From Motrin] Adverse Reaction (Mild, Verified 02/12/25 09:50) Rash Medication List - Last Reconciled 02/12/25 by Mark Crane MD acarbose 100 mg PO TID albuterol sulfate 2.5 mg inhalation Q4-6H PRN albuterol sulfate 90 mcg/actuation 2 puffs inhalation Q4-6H PRN bupropion HCl XL 150 mg PO QAM 90 days cetirizine (Zyrtec) 10 mg PO DAILY PRN cholecalciferol (vitamin D3) 50 mcg PO DAILY 90 days cyanocobalamin (vitamin B-12) 1,000 mcg IM QWEEK dupilumab (Dupixent) 300 mg (2 mL) subcut Q2W escitalopram oxalate (Lexapro) 20 mg PO DAILY 90 days esomeprazole magnesium (Nexium) 40 mg PO BID estradiol 1 patch transdermal QWEEK 4 weeks gabapentin 600 mg PO DAILY 90 days insulin syringe-needle,dispos. (SafeSnap Insulin Syringe) As directed once a month for B12 injections ipratropium-albuterol 20-100 mcg/actuation (Combivent Respimat) 1 puff inhalation Q6H lorazepam (Ativan) 1 mg PO BEDTIME PRN ondansetron 4 mg PO Q8H ropinirole 1 to 2 tablets orally bedtime; 30 days simethicone 125 mg PO BID-QID PRN solifenacin 10 mg PO DAILY sumatriptan succinate (Imitrex) 50 mg PO Q2-4H PRN syringe-needle,safety,disp unt (SafeSnap Syringe) As directed- monthly with B12 umeclidinium-vilanterol 62.5-25 mcg/actuation (Anoro Ellipta) 1 inh inhalation DAILY Tobacco use date assessed: 02/12/25 Dental Screening Dental Screen Date: 02/12/25 Did you have a dental visit in the last 12 months?: No Did you have a dental problem in the last 6 months where you did not have access to dental care?: No Was dental information given to patient?: No HPI asthma, migraine, hyperlipidemia, DM, anxiety HPI Details Patient comes in today for her follow up visit States that she currently feels okay She denies any headaches or dizziness Denies any chest pains, no increased SOB - she continues to follow up with pulmonary (Dr. Levy) for her asthma and recently just received her 1st dose of Dupixent and has not had any problems or reactions so far (she could not tolerate Xolair due to side effects) No nausea/vomiting, no abdominal pain No change in bowel habits noted Needs a couple of her Rx refilled She had her follow up labs done last week - to discuss her results She is also requesting for a cardiology referral again for further evaluation States that she has a strong family history of SCD (father of sudden cardiac at age 52 and a couple of her brothers also from SCD in their 40's) Recalls having a cardiac cath done when she was around 47 y/o - states that her angiogram came out normal but she was advised to see cardiology and have this rechecked in a few years based on her family Hx PFSH Medical History (Updated 02/12/25 @ 10:08 by Mark Crane MD) Family history of sudden cardiac (SCD) Tubular adenoma of colon Pure hypercholesterolemia Vitamin D deficiency Vitamin B12 deficiency Allergic rhinitis GERD without esophagitis Pulmonary nodule, left Anxiety Neuropathy Asthma Diabetes mellitus Migraine Cyclical vomiting Surgical History (Updated 02/12/25 @ 10:04 by Mark Crane MD) History of lumpectomy of right breast (05/29/24) Hx of shoulder surgery Hx of shoulder surgery Hx of colonoscopy Status post laparoscopic assisted vaginal hysterectomy (LAVH) (~2016) Hx of gastric bypass (~2009) Hx of cholecystectomy Family History Other Diabetes Social History Housing: House Are you a primary direct care counselor to a significant other at home: No Do you presently have visiting nurse or other home services: No Alcohol intake: never Patient Tobacco Use Status: Former Tobacco user Tobacco use type: Cigarette Cigarette Packs Per Day: 1.5 Years Smoked: quit more than 15 years ago, started as a teen e-Cigarette/Vaping Use: Never Used Current occupational status: disabled Current occupation: Left hand dominant Cognitive needs: No Hearing needs: No Vision needs: Yes Questionnaire PHQ-9 Over the last 2 weeks, how often have you been bothered by any of the following problems? 1. Little interest or pleasure in doing things: not at all 2. Feeling down, depressed, or hopeless: not at all 3. Trouble falling or staying asleep, or sleeping too much: not at all 4. Feeling tired or having little energy: not at all 5. Poor appetite or overeating: not at all 6. Feeling bad about yourself - or that you are a failure or have let yourself or your family down: not at all 7. Trouble concentrating on things, such as reading the newspaper or watching television: not at all 8. Moving or speaking so slowly that other people could have noticed. Or the opposite - being so fidgety or restless that you have been moving around a lot more than usual: not at all 9. Thoughts that you would be better off or of hurting yourself in some way: not at all Total score: 0 Depression Screening Interpretation: Negative Depression Screening Done: Yes 37262 - PHQ-9 Billing: Yes Source: Developed by Drs. Gaston Zhang, Leigh Dupree, Prashant Haley and colleagues, with an educational jenny from [employer]. Thrive Questionnaire Date Thrive assessed: 02/12/25 I am a: Patient What is your living situation today?: I have a steady place to live Within the past 12 months, did the food you bought not last and you didn't have the money to get more?: Never true Within the past 12 months, did you worry whether your food would run out before you got money to buy more?: Never true Do you have trouble paying for medicines?: No Do you have trouble getting transportation to medical appointments?: No Do you have trouble paying your heating and electricity bill?: No Do you have trouble taking care of your child, family member or friend?: No Do you have trouble with day-to-day activities such as bathing, preparing meals, shopping, managing finances, etc.?: No Are you currently unemployed and looking for a job?: No Are you interested in more education?: No Please select the resources that you would like help with: None Currently or been in a relationship where the following occur: No concerns reported THRIVE Score: 0 AUDIT C Alcohol Use Questionnaire (AUDIT-C) 1. How often do you have a drink containing alcohol?: Never 3. How often do you have six or more drinks on one occasion?: Never Total Score: 0 Score Reviewed/Action Taken: Yes KAYLENE-7 AMB Questionnaire KAYLENE-7 Date KAYLENE - 7 assessed: 02/12/25 Feeling nervous, anxious, or on edge: 0 = Not at all Not being able to stop or control worryin = Not at all Worrying too much about different things: 0 = Not at all Trouble relaxin = Not at all Being so restless that it is hard to sit still: 0 = Not at all Becoming easily annoyed or irritable: 0 = Not at all Feeling afraid as if something awful might happen: 0 = Not at all Total KAYLENE-7 score (0-4 normal; 5-9 mild; 10-14 moderate; 15-21 severe): 0 Source: Developed by Drs. Gaston Zhang, Leigh Dupree, Prashant Haley and colleagues, with an educational jenny from [employer]. Review of Systems Const Denies chills, Reports difficulty sleeping, Denies fatigue, Denies fever(s) and Denies headache(s) ENT Denies dysphagia, Denies dizziness, Denies otalgia, Denies headache(s), Denies neck pain, Denies odynophagia and Denies sore throat Card Denies chest pain, Denies palpitations and Denies dyspnea Resp Denies chest congestion, Denies cough, Denies dyspnea and Denies wheezing GI Denies abdominal pain, Denies constipation, Denies dysphagia, Denies heartburn, Denies diarrhea, Denies nausea, Denies odynophagia and Denies vomiting Denies difficulty voiding, Denies nocturia, Denies dysuria and Denies urinary urgency Musc Denies back pain, Reports arthralgias (right shoulder) and Denies neck pain Skin/Breast Denies rash Neuro Denies dizziness and Denies headache(s) Psych Reports anxiety Endo Denies fatigue and Denies palpitations Aller/Immun Denies wheezing Physical exam (Primary Care) Vital Signs: Last Vital Signs Pulse 79 02/12/25 09:21 BP 120/78 02/12/25 09:21 Pulse Ox 94 02/12/25 09:21 Oxygen Delivery Method Room Air 02/12/25 09:21 BMI result Body Mass Index 24.8 Tobacco/Smoking Status: Tobacco use Status Tobacco use date assessed 02/12/25 02/12/25 09:28 Patient Tobacco Use Status Former Tobacco user 02/12/25 09:28 Tobacco use type Cigarette 02/12/25 09:28 e-Cigarette/Vaping Use Never Used 02/12/25 09:28 PHQ-9: PHQ-9 Score PHQ-9: Total score 0 02/12/25 09:28 Depression Screening Interpretation: Negative Thrive Assessment: Date of Thrive Assessment Date Thrive assessed 02/12/25 02/12/25 09:28 Currently or been in a relationship where the following occur: No concerns reported Const General: no acute distress and alert HENMT Ears: TM's normal bilaterally and EAC's normal Throat: Yes posterior oropharynx normal and Yes tonsils normal (no TP congestion) Neck Neck: Yes supple and No lymphadenopathy Thyroid: Thyroid normal Resp Auscultation: clear to auscultation bilaterally, no rales and no wheezes Cardio Rate: regular rate Rhythm: regular rhythm Heart sounds: no murmurs GI Palpation (GI): Soft to palpation and nontender Auscultation: normal bowel sounds General: Yes no CVA tenderness Back/Spine/Pelvis Back: no CVA tenderness Thoracic/Lumbar Spine: No lumbar spinal tenderness Skin Rashes: no rashes Extrem General: Yes no clubbing, cyanosis or edema Right upper extremity: shoulder/upper arm Details: tenderness Location: of the A-C joint Results Reviewed Results Reviewed: Laboratory Tests 02/06/25 02/06/25 08:10 08:15 WBC 5.1 Hgb 13.0 Hct 39.5 Plt Count 263 Sodium 140 Potassium 4.4 Creatinine 0.65 Estimated GFR > 60 Fasting Glucose 87 Hemoglobin A1c % 5.1 Calcium 8.7 D AST 17 ALT 12 Triglycerides 146 Cholesterol 218 H LDL Cholesterol, Calc 132 H HDL Cholesterol 57 Vitamin B12 512 25-OH Vitamin D Total 44.2 TSH 2.10 Urine pH 7.5 Ur Specific [place] <= 1.005 Urine Protein Negative Urine Glucose (UA) Negative Urine Blood Negative Urine Nitrite Negative Ur Leukocyte Esterase Negative Coding Level of Care Code Est Pt Level 4 (20015) Complex EM visit Add On G2211 Diagnoses Pure hypercholesterolemia E78.00 Type 2 diabetes mellitus without complication, without long-term current use of insulin E11.9 Diabetes mellitus type: type 2 Diabetes mellitus assisted insulin use: without exterminator termite use Diabetes mellitus complication status: without complication Moderate persistent asthma, unspecified whether complicated J45.40 Asthma severity: moderate Asthma persistence: persistent Asthma complication type: unspecified Migraine without status migrainosus, not intractable, unspecified migraine type G43.909 Migraine type: unspecified Status migrainosus presence: without status migrainosus Intractability: not intractable Family history of sudden cardiac (SCD) Z82.41 Non-seasonal allergic rhinitis, unspecified trigger J30.89 Allergic rhinitis trigger: unspecified Allergic rhinitis seasonality: non-seasonal Neuropathy G62.9 Vitamin B12 deficiency E53.8 Vitamin D deficiency E55.9 Cyclical vomiting R11.15 GERD without esophagitis K21.9 Menopausal symptoms N95.1 Anxiety F41.9 Additional Codes PHQ-9 - 96166 - PHQ-9 Billing: Yes ([id number]) Assessment & Plan Assessment & Plan (1) Pure hypercholesterolemia: Code(s): E78.00 - Pure hypercholesterolemia, unspecified Category: Medical Plan: Results of her labs done last week reviewed and discussed with patient - she is advised that her cholesterol levels have all improved slightly from previous Reinforced low cholesterol diet Will recheck her labs and fasting lipids in 4 months for follow up (2) Diabetes mellitus: Comment: no Rx at this time Code(s): E11.9 - Type 2 diabetes mellitus without complications Category: Medical Qualifiers: Diabetes mellitus type: type 2 Diabetes mellitus exterminator termite insulin use: without exterminator termite use Diabetes mellitus complication status: without complication Qualified Code(s): E11.9 - Type 2 diabetes mellitus without complications Plan: Reinforced diabetic diet She used to be on medications for her diabetes (including insulin) but she started experiencing hypoglycemic episodes after her gastric bypass surgery back in 2009 Her HgbA1c was normal at 5.1% on her recent labs; was previously at 5.2% a few months ago Continue Acarbose 100 mg TID with meals (3) Asthma: Code(s): J45.909 - Unspecified asthma, uncomplicated Category: Medical Qualifiers: Asthma severity: moderate Asthma persistence: persistent Asthma complication type: unspecified Qualified Code(s): J45.40 - Moderate persistent asthma, uncomplicated Plan: She was on Breztri Aerosphere 160-9-4.8 mcg 2 inhalations BID (was started on this by pulmonary) and Albuterol HFA 1 to 2 inhalations every 6 hours PRN but had to stop that recently when she was diagnosed with oral thrush Per request, she was switched over to steroid-free inhalers and she is currently on Combivent Respimat 1 inhalation Q 6 hours, Anoro Ellipta 62.5-25 mcg 1 inhalation QD and Albuterol HFA 1 to 2 inhalations Q 6 hours PRN She was also doing well on Xolair injections but eventually developed hives and injection reactions to the Rx She recently just started her Dupixent injections and has had no reactions so far to the injection Follow up with pulmonary (Dr. Levy) as scheduled (4) Migraine: Code(s): G43.909 - Migraine, unspecified, not intractable, without status migrainosus Category: Medical Qualifiers: Migraine type: unspecified Status migrainosus presence: without status migrainosus Intractability: not intractable Qualified Code(s): G43.909 - Migraine, unspecified, not intractable, without status migrainosus Plan: Reinforced again avoidance of any potential migraine triggers Continue Sumatriptan 50 mg PRN (5) Family history of sudden cardiac (SCD): Code(s): Z82.41 - Family history of sudden cardiac Category: Medical Plan: Patient states that she has a strong family history of SCD (father of sudden cardiac at age 52 and a couple of her brothers also from SCD in their 40's) She recalls having a cardiac cath done when she was around 47 y/o - states that her angiogram came out normal but she was advised to see cardiology and have this rechecked in a few years based on her family Hx Will refer her to [facility] [place] [place] further evaluation and management (6) Allergic rhinitis: Code(s): J30.9 - Allergic rhinitis, unspecified Category: Medical Qualifiers: Allergic rhinitis trigger: unspecified Allergic rhinitis seasonality: non-seasonal Qualified Code(s): J30.89 - Other allergic rhinitis Plan: Continue Cetirizine 10 mg QD PRN States that she recently tested positive for multiple allergies, including dairy products Follow up with allergy/immunology as scheduled (7) Neuropathy: Code(s): G62.9 - Polyneuropathy, unspecified Category: Medical Plan: Continue Gabapentin 600 mg QD (8) Vitamin B12 deficiency: Code(s): E53.8 - Deficiency of other specified B group vitamins Category: Medical Plan: States that this started after she had her gastric bypass done back in 2009 Continue Vitamin B12 injections 1000 mcg IM once a month Her Vitamin B12 level came back normal on her recent labs (9) Vitamin D deficiency: Code(s): E55.9 - Vitamin D deficiency, unspecified Category: Medical Plan: Continue Vitamin D3 2000 units QD (10) Cyclical vomiting: Code(s): R11.15 - Cyclical vomiting syndrome unrelated to migraine Category: Medical Plan: Patient believes that this started (was triggered?) by her gastric bypass surgery over 10 years ago Continue Ondansetron 4 mg Q 8 hours PRN (11) GERD without esophagitis: Code(s): K21.9 - Gastro-esophageal reflux disease without esophagitis Category: Medical Plan: Dietary restrictions reinforced Continue OTC Lansoprazole 15 mg QD PRN (12) Menopausal symptoms: Code(s): N95.1 - Menopausal and female climacteric states Category: Medical Plan: Continue Estradiol 0.075 mg patch once a week - Rx refilled (13) Anxiety: Code(s): F41.9 - Anxiety disorder, unspecified Category: Medical Plan: Continue Escitalopram 20 mg QD, Wellbutrin XL 150 mg Q AM and Lorazepam 1 mg Q HS PRN States that she is doing well so far on her current medication regimen Plan Follow up in 4 months Orders: Orders Lipid Panel 4 Months E78.00 - Pure hypercholesterolemia, unspecified Microalbumin, Random (w Creat) 4 Months E11.9 - Type 2 diabetes mellitus without complications UA CC w/rflx Micro + Cult 4 Months R30.0 - Dysuria Complete Blood Count Auto Diff 4 Months D64.9 - Anemia, unspecified Comprehensive [place]. Panel Fast 4 Months E78.00 - Pure hypercholesterolemia, unspecified Hemoglobin A1c 4 Months E11.9 - Type 2 diabetes mellitus without complications Referrals Cardiology Referral Z82.41 - Family history of sudden cardiac Medications: Refilled ropinirole 1 to 2 tablets orally bedtime; 30 days 60 tabs 1RF estradiol 1 patch transdermal QWEEK 4 weeks 4 ea 0RF
--- OUTSIDE RECORDS SUMMARY | 2025-02-12 10:17 | XMS_ITS | Clinical Summary ---
Author Organization [employer] Address [address] [place] [address] Care Team Providers Care Cutting Machine Offbearer Name Role Phone Unavailable Primary Care Provider [...] Vaccines (1 of 2) 2021 COVID-19 Vaccine ( - 2023- season) 2024 Influenza Vaccine (#1) [...]
--- OUTSIDE RECORDS SUMMARY | 2025-02-12 10:17 | XMS_ITS | Encounter Summary ---
Author Organization [employer] Address [address] [facility] [address] [facility] [address] [place] [address] Care Team Providers Care Lime Vat Tender Name Role Phone Unavailable Primary Care Provider Unavailabl e Reason for Visit * Reason Onset Date Comments New Patient 07/11/2023 Encounter Details Date Type Department Care Team (Late st Contact Info) Description 07/11/2023 Telephone [facility] [address] [place] [address] Pio Liu MD [address] [place] [address] New Patient Social History Tobacco Use Types [...] been transfer over to wait list for [employer]. EFFECTIVE SINCE 07/06/2023 documented in this encounter Plan of Treatment Not on file documented as of this encounter Visit Diagnoses Not on filedocumented in this encounter
== END 2025-02-12 10:01 | disposition home or self-care (01) ==
LOC: HO.HMCH 09:18
PROVIDERS: PCP Internal Medicine; Visit Provider Internal Medicine
DX: E78.00 Pure hypercholesterolemia, unspecified (principal); E11.42 Type 2 diabetes mellitus with diabetic polyneuropathy; J45.40 Moderate persistent asthma, uncomplicated; G43.909 Migraine, unspecified, not intractable, without status migrainosus; Z82.41 Family history of sudden cardiac death; J30.89 Other allergic rhinitis; G62.9 Polyneuropathy, unspecified; E53.8 Deficiency of other specified B group vitamins; E55.9 Vitamin D deficiency, unspecified; R11.15 Cyclical vomiting syndrome unrelated to migraine; K21.9 Gastro-esophageal reflux disease without esophagitis; N95.1 Menopausal and female climacteric states; F41.9 Anxiety disorder, unspecified

== ENCOUNTER → 2025-02-12 09:17 | Outpatient (BNVA) | payer MEDICARE, MEDICAID, SELFPAY | PROVIDERS: PCP Internal Medicine; Visit Provider Internal Medicine | DX: E78.00 Pure hypercholesterolemia, unspecified (principal); E11.9 Type 2 diabetes mellitus without complications; J45.40 Moderate persistent asthma, uncomplicated; G43.909 Migraine, unspecified, not intractable, without status migrainosus; J30.89 Other allergic rhinitis; G62.9 Polyneuropathy, unspecified; E53.8 Deficiency of other specified B group vitamins; E55.9 Vitamin D deficiency, unspecified; R11.15 Cyclical vomiting syndrome unrelated to migraine; K21.9 Gastro-esophageal reflux disease without esophagitis; N95.1 Menopausal and female climacteric states; F41.9 Anxiety disorder, unspecified; Z82.41 Family history of sudden cardiac death | CPT/HCPCS: 96127; 99212 ==

== ENCOUNTER 2025-03-26 07:43 | Outpatient (AMB) | payer MEDICARE, MEDICAID, SELFPAY ==
--- OUTSIDE RECORDS SUMMARY | 2025-03-26 07:45 | XMS_ITS | Continuity of Care Document ---
Author Organization [facility] Address [address] [place] [address] Phone Care Team Providers Care Housing Manager Name Role Phone Evette Mahoney PA-C Unavailable Unavailab le Allergies, Adverse Reactions, Alerts Substance Reaction Status Criticality No Known Allergies Active No Inform ation Medications Medication Instructions Dosage Effective Dates (start - stop) Status Comments Xanax 0.5 mg tablet take 1 tablet by ora l route every day prn only - Active Procedures Procedure Date NO Office Visit Code / NO EM Code Destruct B9 Lesion Or Warts, 11-26 NO Office Visit Code / NO EM Code Destruct B9 Lesion Or Warts, 11-26 NO Office Visit Code / NO EM Code Destruct B9 Lesion Or Warts, 11-26 NO Office Visit Code / NO EM Code Destruct B9 Lesion Or Warts, 11-26 OFFICE/OUTPATIENT VISIT, EST-Problem Foc used Destruct B9 Lesion Or Warts, 11-26 OFFICE/OUTPATIENT VISIT, NEW Admin Of Pt Focused [...] 2- Views Office/Outpatient Visit, Est OFFICE/OUTPATIENT VISIT, [facility] Electrocardiogram, Complete Immunization Admin Flu Vaccine, Quadrivalent, [...] Yes / No Effective Date File Name Resuscitation Not Answered N/A N/A Life Support Not Answered N/A N/A Intubation Not Answered N/A N/A Antibiotics Not Answered N/A N/A IV Fluid Support Not Answered N/A N/A Tube Feed Not Answered N/A N/A Other Directive N/A N/A WARNING:The information contained in this section is historical and is provided for information only and does not constitute a legal document or any assurance that the information is still accurate. Please verify the information with the nina of the legal document before using it for clinical purposes. Encounters Encounter Description Practice Location Reason(s) For Visit Diagnoses Date Provider Providers Copied on Encounter [facility] , [address] [place] [address], [address] [place] [address] tel:[phone] [facility] Wart (chief complaint) Other viral warts 5 Pakozdi Evette. [address] [place] [address], [facility], . tel:[phone] Referring Provider: Evette Mahoney, [address] [place] [address], [facility]. tel:[phone] [facility] , [address] [place] [address], [facility], tel:[phone] [facility] wart (chief complaint) Other viral warts 5 Pakozdi Evette. [address] [place] [address], [facility], . tel:[phone] Referring Provider: Evette Mahoney, [address] [place] [address], [facility]. tel:[phone] [facility] , [address] [place] [address], [facility], tel:[phone] [facility] lesions (chief complaint) Other viral warts 5 Pakozdi Evette. [address] [place] [address], [facility], . tel:[phone] Referring Provider: Evette Mahoney, [address] [place] [address], [facility]. tel:[phone] [facility] , [address] [place] [address], [facility], tel:[phone] [facility] Wart (chief complaint) Other viral warts 5 Maru Alas. [address] [place] [address], [address], [place]. tel:[phone] Referring Provider: Evette Mahoney, [address] [place] [address], [facility]. tel:[phone] OFFICE/OUTPAT IENT VISIT, EST-Problem Focused [facility] , [address] [place] [address], [facility], tel:[phone] [facility] lesions (chief complaint)w art (chief complaint) Neoplasm of uncertain behavior of skinOther viral warts 5 Maru Alas. [address] [place] [address], [facility], [place]. tel:[phone] Referring Provider: Evette Mahoney, [address] [place] [address], [facility]. tel:[phone] OFFICE/OUTPAT IENT VISIT, NEW [facility] , [address] [place] [address], [facility], tel:[phone] [facility] lesions (chief complaint) LentiginesMe lanocytic nevus of trunkSeborrh eic keratosis 4 Maru Alas. [address] [place] [address], [address], [place]. tel:[phone] Referring Provider: Evette Mahoney, [address] [place] [address], [facility]. tel:[phone] [facility], [address] [place] [address], [address], [place] tel:[phone] [facility] No Information 2 4 Johan Fabian. [facility] [address], [place], [place], [address], [place]. tel:[phone] Prev Visit, Est, Age 40-64 [facility], [address] [place] [address], [address], [place] tel:[phone] [facility] Nurse Comments (chief complaint) General medical examinationB jackie mass index [BMI] 25.0-25.9, adultChest tightnessMur murAnxietyMi xed hyperlipidem iaElevated BP without diagnosis of hypertension Encounter for screening for other disorder Sep- 4 Johan Fabian. [address] [facility] [address], [place], [place], [id number], . [phone] Referring Provider: Caren Prado, [address] [address], [place], [address]. tel:[phone] Office/Outpat ient Visit, Est [facility], [address], [place], [address], [place] tel:[phone] [facility] Nurse Comments (chief complaint)C hronic Conditions (chief complaint) AnxietyBody mass index (BMI) 25.0-25.9, adultVenous insufficienc y (chronic) (peripheral) Mixed hyperlipidem iaEffusion, right elbow Mar-0 4 Johan Fabian. [address] [address] [address], [place], [place], [id number], [place]. [phone] Referring Provider: Caren Prado, [address] [place] [address], [place], [address]. tel:[phone] [facility], [address] [place] [address], [address], [place], [address], tel:[phone] [facility] No Information Sep-2 2 Irma Amalia. [address], [place], [place], [address], [place]. tel:[phone] Referring Provider: Adonis Jordan, [facility] [address], [place], [address]. tel:[phone] Consultation Ve[facility] Clinic Self Referred [facility], [address] [place], [place] [address], [place], [address], tel:[phone] [facility] Office Vein Consult (chief complaint)V ein Note (chief complaint) Venous insufficienc y (chronic) (peripheral) Sep-0 2 Mehul Lamb. [address], [address], [place], [place], [address], [place]. [phone] Referring Provider: Adonis Jordan, [address], [place], [address]. [phone] Prev Visit, Est, Age 40-64 [facility], [facility] [address], [facility], tel:[phone] [facility] Nurse Comments (chief complaint)p reventive exam (chief complaint)B ack pain (chief complaint) General medical examinationM ixed hyperlipidem iaAnxietyEnc ounter for gynecologica l examination (general) (routine) without abnormal findingsBody mass index [BMI] 27.0-27.9, adultAcute left-sided low back pain without sciaticaNume lin moles 1 Viktor Galvan. [facility] [address], [address], [facility], . tel:[phone] Referring Provider: Malika Santa [address], [facility]. tel:[phone] Prev Visit, Est, Age 40-64 [facility], [facility] [address], [address], tel:[phone] [facility] Nurse Comments (chief complaint)p reventive exam (chief complaint)a nxiety (chief complaint)H x of URI (chief complaint) General medical examinationM ixed hyperlipidem iaAnxietyBod y mass index (BMI) 25.0-25.9, adultHistory of upper respiratory infection 0 Viktor Galvan. [address] [address], [place], [address], . tel:[phone] Referring Provider: Mandy Viktor, [address], [place], [address]. tel:[phone] Office/Outpat ient Visit, [facility], [facility] [address], [place], [address], [place] tel:[phone] [facility] Nurse Comments (chief complaint) Bacterial conjunctivit isBody mass index (BMI) 24.0-24.9, adultSore throat 0 Johan Fabian. [address] [facility] [address], [place], [place], [address], [place]. tel:[phone] Referring Provider: Caren Prado, [address] [place], [place] [address]e [address] , [place], [address]. tel:[phone] OFFICE/OUTPAT IENT VISIT, [facility], [address] [place], [place], [id number], [place] tel:[phone] [facility] eye problem (chief complaint) Acute conjunctivit is of right eye, unspecified acute conjunctivit is typeEncounte r for exam of eyes and vision w/o abnormal findings 0 Venkatesh Gordillo. [address] [place], [place], [address], [place]. tel:[phone] Referring Provider: Duy Riddle, [address] [place] [address], [address]. tel:[phone] Office/Outpat ient Visit, [facility], [address] [facility] [address], [place], [place], [address], [place] tel:[phone] [facility] Left hip pain (chief complaint) Pain in left hip 7 Newton Barrow. [address], [facility] [place], [address], [place]. tel:[phone] Referring Provider: Danial Prajapati, [address] [place], [facility]. tel:[phone] OFFICE/OUTPAT IENT VISIT, EST-[facility] , [address] [place] [address], [facility], tel:[phone] [facility] lesions (chief complaint) Epidermal cyst 6 Lorenzo Bell. [address] [facility] [address] [facility], [place], [place], [address], [place]. tel:[phone] Referring Provider: Bell Ventura, [address] [facility], [place], [address]. tel:[phone] Prev Visit, Est, Age 40-64 [facility], [address], [place], [place], [facility], tel:[phone] [facility] Nurse Comments (chief complaint) Encntr for general adult medical exam w/o abnormal findingsBody mass index (BMI) 22.0-22.9, adultOther fatigueVitam in D deficiency 5 Jason Tatum. [address] [facility] 6[address], [place], [address], [place]. tel:[phone] Referring Provider: Deepti Lee, [address] [facility] [address], [place], [address]. tel:[phone] OFFICE/OUTPAT IENT VISIT, [facility] , [address] [place] [address], [facility], tel:[phone] [facility] mole(s) (chief complaint) Other benign neoplasm of skin of trunkOther seborrheic keratosis 5 Lorenzo Bell. [address] [facility], [place], [place], [address], [place]. tel:[phone] Referring Provider: Bell Ventura, [address] [facility], [place], [address]. tel:[phone] [facility], [address] [place] [address], [facility], tel:[phone] [facility] No Information 4 Ashwin Oharae. [address], [address] [facility], [place], [place], [facility], . tel:[phone] Referring Provider: Juanita Ashwin, [address] [place] [address], [facility]. [phone] [facility], [address], [facility], [phone] [facility] No Information 4 Ashwinkenton Oharae. [address], [address] [facility], [place], [place], [facility], . tel:[phone] Prev Visit, Est, Age 40-64 [facility], [address], [facility], [phone] [facility] Nurse Comments (chief complaint) Routine general medical [facility] at a [facility] facilityRout ine gynecologica l examinationB jackie Mass Index 26.0-26.9, adult 4 Jason Tatum. [address] [facility] [address], [place], [place], [facility], [place]. tel:[phone] Referring Provider: Deepti Gomez H, [address] [facility] [address], [place], [place], [facility]. tel:[phone] Office/Outpat ient Visit, Est [facility], [address] [place] [address], [address], [phone] [facility] Nurse Comments (chief complaint) Chest TightnessChe st Tightness 4 No Information Office/Outpat ient Visit, Est [facility], [address], [place], [address], [phone] [facility] Nurse Comments (chief complaint) SEBACEOUS CYST 3 Jason Tatum. [address] [facility] 6, [address]. [address], [place], [facility], . [phone] Referring Provider: Deepti Lee, [address] [facility] 6, Johnny. [address] [place] [address], [facility]. [phone] Office/Outpat ient Visit, Est [facility], [address] [place] [address], [facility], tel:[phone] [facility] Nurse Comments (chief complaint) Chest Pain, UnspecifiedJ [employer] Ashu- 3 Jason Tatum. [address] [facility] 6, Johnny. [address] [place] [address], [facility], . tel:[phone] Referring Provider: Deepti Lee, [address] [facility] [address], [address], [facility]. tel:[phone] Office/Outpat ient Visit, Est [facility], [address] [place] [address], [facility], tel:[phone] [facility] Nurse Comments (chief complaint) Influenza VaccineANXIE TY DISORDER NOSInfluenza VaccineANXIE TY DISORDER NOSREASON FOR CONSULT NOS Sep-0 2 Jason Tatum. [address] [facility] 6, Johnny. [address] [place] [address], [facility], . [phone] Referring Provider: Deepti Lee, [address] [facility] 6, Johnny. [address] [place] [address], [facility]. [phone] Office/Outpat ient Visit, Est [facility], [address], [facility], tel:[phone] [facility] Nurse Comments (chief complaint) ACUTE CONJUNCTIVIT IS NOS Jan-2 2 No Information Family History Family Member [...] free, 30 mcg/0.3mL dose administered Source: Public Agewa y SARS-COV-2 (COVID-19) Pfizer vaccine, mRNA, spike protein, LNP, preservative free, 30 mcg/0.3mL dose administered Source: Public Agewa y Td (adult), adsorbed administered Source: New Immunization Record influenza, injectable, quadrivalent, MDCK, preservative free, 0.5mL administered Note: pharmacy ; Source: Public Agency Influenza, split virus, injectable, quadrivalent, 3 years or older Fluzone Quad [id number] administered Source: New Immuniza tion Record Fluzone (3years and up - 0.5ml) refused Source: New Immuniza tion Record Flu (split) (3 yrs or older) administered Source: New Immunization Record Tdap (Adacel ???) administered Source: Ne w Immunization Record Payers Payer name Insurance type Covered green party ID Authoriza tion(s) [facility] [id number] [facility] [id number] [facility] [id number] [facility] [id number] Social History Type Description Quantity Date Captured Comments Alcohol Use Details Unknown Caffeine Use Details Unknown Tobacco Use Status No Information Smoking Status No Information Sex Female Sexual Orientation Choose not to disclose Jul- Gender Identity Choose not to disclose 024 Chief Complaint And Reason For Visit From encounter dated '03/19/2025 10:45'. Wart (chief complaint). Description: Patient is here today for wart(s) follow up.Warts are on left foot. Last OV tx w/ [id number] stated warts have improved no new lesions to noteNo interval health changes since last visit. No new Medications. Feels well. Reason For Referral Reason For Referral No [...] Lifestyle educat ion regarding diet completed Goal HIV. Due on due Goal Hep C Ab. Due on due Goal Drug Abuse Scree joelle. Due on due Goal Diabetes Screeni ng. Due on due Goal Colonoscopy. Due on 021 due Goal Alcohol Misuse s creen. Due on due Goal PHQ9. Due on due Goal Lifestyle educat ion [...] Goal Mammogram. Due on 7 due Goal Breast exam. Due on 98 due Goal Influenza vaccin e. Due on due Goal [place] exam. Due on due Goal Tdap due Goal Lifestyle educat ion regarding diet completed Goal Mammogram. Due on due Goal Tdap due Goal Breast exam. Due on 98 due Goal Breast exam. Due on 98 due Goal [place] exam. Due on due Goal Tdap due Goal Mammogram. Due on 5 due Goal Dietary manageme nt education, guidance, and counseling completed Goal Tdap due Goal Breast exam. Due on 989 due Goal Mammogram. Due on 5 due Goal [place] exam. Due on due Goal Influenza vaccin e. Due on due Goal Influenza vaccin e. Due on due Goal Breast exam. Due on 014 due Goal PAP. Due on due Goal [place] exam. Due on due Goal Preventive Exam, 19yr - 64 yr. Due on due Goal Dietary manageme nt education, guidance, and counseling completed Goal Breast exam. Due on 014 due Goal PAP. Due on due Goal Influenza vaccin e. Due on due Goal [place] exam. Due on due Goal Preventive Exam, 19yr - 64 yr. Due on due Referral Ordered: Cardiology (related to Murmur) ordered Referral Ordered: Colon Screen (related to SCREEN MALIG NEOP-COLON) ordered Referral Referred To: [address] [place] [address]
[address] [place], [phone] Ordered: Referrals: Cardiology. Location: [facility]. Consult and Treat Appointment date/timeframe: 10/22/2024 ordered Referral Ordered: Colon Screen (related to SCREEN MALIG NEOP-COLON) ordered Referral Referred To: Walker Alonso [address] [place] [address], [phone] Ordered: Referrals: Dermatology. Walker Alonso Consult and Treat Appointment date/timeframe: 07/19/2021 ordered Referral Ordered: Referral for Colon Screening Appointment date/timeframe: 10/21/2021 ordered Future Order: Radiology Order Ma mmo Digital Screen w/Benjamín Bilat: Diag Mammo Or US As Needed (MAMTOMOBIL), Appointment on: Ordered Future Order: Lab Order COMP MET ABOLIC PANEL [14] ([id number]), Appointment on: , Sent on: Sent Future [...] Of Lower Extremity With Contrast Left hip (97940), Body Site: Left, Ordered on: Ordered Future Order: Radiology Order Ma mmo Digital Screen, Bilat: Diag Mammo Or Diag US As Needed ([id number]), Ordered on: Ordered History Of Present Illness Encounter Date Complaint History Of Prese nt Illness Wart Patient is here today for wart(s) follow up.Warts are on left foot. Last OV tx w/ [id number] stated warts have improved no new lesions to noteNo interval health changes since last visit. No new Medications. Feels well. wart Patient is prese nt today for wart follow up on left foot.Previously treated with LN2.Patient states no new lesions. lesions Patient is prese nt today for wart follow up on left foot.Previously treated with LN2.Patient states no new lesions. Wart Patient is prese nt today for [...] intake sheet. Nurse Comments CPE/FBW, no eye dr/cardio/gill box tender former smoker, no asthmaflu declinedno colonoscopy done recently Chronic Conditions 1) Anxiety (o nset 05/11/2020; Chronic.)2) Venous insufficiency (chronic) (peripheral) (onset 07/14/2022; Chronic.)3) Mixed hyperlipidemia (onset 10/24/2014; Chronic.) Nurse Comments Right side elbow swollen started last week , pt fell 6 months ago Flu shot UTD COVID vaccines X 2 Vein Note The patient pres ents with [...] than the right. 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 She has had 2 children. She has [...] with prolonged sitting - long car drives. Nurse Comments CPEnot fasting, wants lab slip to go for [facility] flu shot refusedCOVID shot UTD pt see's no eye dentist [facility] gill box tender LMP 78, needs order for MAMMO gi needs order for COLONOSCOPY no cardio, no cardiac sx former smoker, no h/o asthma/COPDmed ref needed pt would like to discuss lower back pain for months preventive exam Currently pregna nt: no. : [...] longer uses tobacco. She does drink alcohol. anxiety The patient repo rts functioning as [...] been Covid-19. Wants AB testing. Nurse Comments CPE, FBW does no t have regular eye, does not see lead database administrator but no BPP todayno htn, no asthma, [...] information: hot flashes at night (very mild). Nurse Comments new pt - reestab lishing care with us; right eye red and itchy; seen at urgent care on monday , started drops, not any better eye problem started with R alanis griffin redness, irritation, discharge and crusting. does not [...] shotFeels wellM/one son Jarad & one daughter JimSpends sandhu LBI, belongs to Productiv clubAdopted,no fam HxEating much healthier, followed lower [...] Nurse Comments Pt refused flu s hot. CPE/[place] FBWFeels well, no c/oEats healthy Functional Status Date Functional Assessmen t No Information Instructions Date Instruction Additional Infor ella ln2 for destruction Related to O ther viral warts ln2 for destruction Related to O ther viral warts ln2 for destruction Related to O ther viral warts ln2 for destruction Related to O ther viral warts ln2 for destruction Related to O ther viral warts advised removal with ortho Relat ed to Neoplasm of uncertain behavior of skin Educated. Explained that lesions are benign overgrowths of the skin that occur in 80% of individuals during normal aging process. Because they are benign and pose no medical harm no treatment is required. If lesions become inflamed or bothersome they can be treated with cryotherapy, shave removal, electrodesication/currette.few lesions treated out of courtesy to patient Related to Seborrheic keratosis The observed moles h ave a benign appearance and can be followed for any changes or symptoms. Remember to avoid excess sun exposure and tanning beds. Remember to use sunscreen and perform regular self skin exams. Related to Melanocytic nevus of trunk Educated. Explained that lesions are result of sun accumulated over time. Recommended regular use of sunscreen (SPF30 at least). Advised a full skin exam at the patient's convenience. Related to Lentigines cardiac dietexercise Related to Elevated BP without diagnosis of hypertension cardiology consult Related to Mu rmur -reconsider flu shot -pap odr-pgev-orbab utd-colonoscopy due-continue regular dental and vision exams-healthy [...] if persists Related to Effusion, right elbow Giving encouragement to exercise Related to Body mass index (BMI) 25.0-25.9, adult Lifestyle education regarding di et Related to Body mass index (BMI) 25.0-25.9, adult Healthy Lifestyle Care Plan -Refer derm Related to Numer ous moles [...] and exercise. Related to General medical examination Healthy Lifestyle Care Plan Lifestyle education regarding di et Related to Body mass index (BMI) 27.0-27.9, adult Giving encouragement to exercise Related to Body mass index (BMI) 27.0-27.9, adult -SARS Covid-19 antib jackie test ordered-Pt informed [...] 2 months for recheck Related to Anxiety -Ordered Lipid Panel and CMP today-Encouraged low fat diet and exercise-Further recommendations pending results Related to Mixed hyperlipidemia -Td given today-Rout ine lab work ordered including CBC, CMP, TSH, Lipids -Patient sees outside gill box tender, PAP UDT, mammogram rx given today-Family planning discussed - pt's had a vasectomy-Advised regular dental and vision exams-Advised healthy diet and exercise Related to General medical examination Depression and Anxiety Care Plan Mental health care education Rel ated to Adjustment disorder with depressed mood Lifestyle education regarding di et Related to Body mass index (BMI) 25.0-25.9, adult Healthy Lifestyle Care Plan warm salt water elaine lesrest, fluidscall office if s/s worsen change or do not resolve Related to Sore throat stop polymixin bstar t cipro eye drops as directedophthalmologist tomorrow if s/s do not improve with Cipro hand hygienewarm compresses Related to Bacterial conjunctivitis Depression and Anxiety Care Plan Giving encouragement to exercise Related to Body mass index (BMI) 24.0-24.9, adult Healthy Lifestyle Care Plan Lifestyle education regarding di et Related to [...] Index 26.0-26.9, adult Assessments Type Assessment Date assessment Other viral warts Patient Care Teams Name Effective Dates (start - stop) Status Members No Information
--- OUTSIDE RECORDS SUMMARY | 2025-03-26 07:45 | XMS_ITS | Encounter Summary ---
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 EFFECTIVE SINCE 07/06/2023 documented in this encounter Plan of Treatment Not on file documented as of this encounter Visit Diagnoses Not on filedocumented in this encounter
--- OUTSIDE RECORDS SUMMARY | 2025-03-26 07:45 | XMS_ITS | Clinical Summary ---
Author Organization [employer] Address [address] [facility] [place] [address] Care Team Providers Care Talent Associate Name Role Phone Unavailable Primary Care Provider [...]
--- NOTE | 2025-03-26 07:50 | A.OFFVIS_ITS ---
Intake Visit Reasons: 3m/PVR Intake Note: Patient presents today for follow up on: urgency and incontinence Urology Medication: Vesicare Antibiotic Allergies: Sulfa Blood Thinner: None PVR: 0ml's Twitchell Operator Required: No Accompanied by: Self / Same As Patient Allergies latex Allergy (Severe, Verified 03/26/25 08:12) Anaphylaxis Cephalosporins Allergy (Mild, Verified 03/26/25 08:12) Rash egg Allergy (Mild, Verified 03/26/25 08:12) Unknown Sulfa (Sulfonamide Antibiotics) Allergy (Mild, Verified 03/26/25 08:12) Rash omalizumab [From Xolair] Adverse Reaction (Severe, Verified 03/26/25 08:12) worsening SOB/asthma; hives; injection reaction ibuprofen [From Motrin] Adverse Reaction (Mild, Verified 03/26/25 08:12) Rash Medication List - Last Reconciled 03/26/25 by AMANDA Toscano- acarbose 100 mg PO TID albuterol sulfate 2.5 mg inhalation Q4-6H PRN albuterol sulfate 90 mcg/actuation 2 puffs inhalation Q4-6H PRN bupropion HCl XL 150 mg PO QAM 90 days cetirizine (Zyrtec) 10 mg PO DAILY PRN cholecalciferol (vitamin D3) 50 mcg PO DAILY 90 days cyanocobalamin (vitamin B-12) 1,000 mcg IM QWEEK dupilumab (Dupixent) 300 mg (2 mL) subcut Q2W escitalopram oxalate (Lexapro) 20 mg PO DAILY 90 days esomeprazole magnesium (Nexium) 40 mg PO BID estradiol 1 patch transdermal QWEEK 4 weeks gabapentin 600 mg PO DAILY 90 days insulin syringe-needle,dispos. (SafeSnap Insulin Syringe) As directed once a month for B12 injections ipratropium-albuterol 20-100 mcg/actuation (Combivent Respimat) 1 puff inhalation Q6H lorazepam (Ativan) 1 mg PO BEDTIME PRN ondansetron 4 mg PO Q8H ropinirole 1 to 2 tablets orally bedtime; 30 days simethicone 125 mg PO BID-QID PRN solifenacin 10 mg PO DAILY sumatriptan succinate (Imitrex) 50 mg PO Q2-4H PRN syringe-needle,safety,disp unt (SafeSnap Syringe) As directed- monthly with B12 HPI Comments Details: Emani a very pleasant 54-year-old female patient of Dr. Crane. She has a past medical history of hypercholesteremia, vitamin-D deficiency, vitamin B12 deficiency, allergic rhinitis, GERD, anxiety, neuropathy, asthma, diabetes, and migraines. She presents to the office today for follow-up of her ongoing lower urinary tract symptoms. In discussion with the patient today she reports to be doing and feeling well. She discusses having had no bothersome urinary issues or concerns being on VESIcare 10 mg daily as prescribed. In office urinalysis results reviewed with the patient today no microscopic hematuria noted. Previous workup has included an office cystoscopy 10/[address] Evelyne Leong. Cystoscopy findings: no suspicious bladder lesions, mild to moderate bladder wall thickening. CT urogram 09/05 noted normal kidneys, ureters, collecting system, and urinary bladder. No explanation for hematuria. No acute or suspicious findings in the abdomen or pelvis. Patient reports LUTS, hesitancy, and urinary urgency have significantly improved with VESIcare 10 mg daily. PVR 0ml's. She denies hematuria, dysuria, foul smelling urine, flank pain, fever, and or chills. She discusses also having had a colonoscopy since her last office visit here and feels she is doing significantly better with her bowels and feels this has also been helpful with lower urinary tract symptoms she had been experiencing. She otherwise offers no other issues or concerns at this time. Cytology 08/06: Negative for high-grade urothelial carcinoma. Plan Hematuria has since resolved, and the patient's symptoms have significantly improved after medication. We scheduled a follow-up appointment in six months, with consideration for extending to annual visits if the patient's condition remains stable. Alternative dosing strategies were discussed should future tapering be considered. Patient was informed and verbally consented to the use of an ambient scribe for clinic note documentation during this visit. Discussion Notes I discussed the patient's prior hematuria and medication issues, reaffirming the effectiveness of the current medication regimen. The importance of maintaining treatment continuity was emphasized. The patient inquired about continuing on the current medication, and I confirmed its necessity if symptoms persist. We reviewed the risks of non-adherence to treatment. The patient consented to regular monitoring, with a follow-up appointment planned in six months and the possibility of extending this to a year if her condition remains stable. [facility] Medical History Family history of sudden cardiac (SCD) Tubular adenoma of colon Pure hypercholesterolemia Vitamin D deficiency Vitamin B12 deficiency Allergic rhinitis GERD without esophagitis Pulmonary nodule, left Anxiety Neuropathy Asthma Diabetes mellitus Migraine Cyclical vomiting Surgical History History of lumpectomy of right breast (05/29/24) Hx of shoulder surgery Hx of shoulder surgery Hx of colonoscopy Status post laparoscopic assisted vaginal hysterectomy (LAVH) (~2016) Hx of gastric bypass (~2009) Hx of cholecystectomy Family History Other Diabetes Social History Housing: House Are you a primary pet care associate to a significant other at home: No Do you presently have visiting nurse or other home services: No Alcohol intake: never Patient Tobacco Use Status: Former Tobacco user Tobacco use type: Cigarette Cigarette Packs Per Day: 1.5 Years Smoked: quit more than 15 years ago, started as a teen e-Cigarette/Vaping Use: Never Used Current occupational status: disabled Current occupation: Left hand dominant Cognitive needs: No Hearing needs: No Vision needs: Yes Review of Systems Eyes Reports no additional complaints ENT Reports no additional complaints Card Reports as per HPI Resp Reports no additional complaints GI Reports as per HPI Reports as per HPI Musc Reports no additional complaints Neuro Reports as per HPI Psych Reports as per HPI Endo Reports as per HPI Melvin/Lymph Reports no additional complaints Aller/Immun Reports no additional complaints Physical Exam Const General: cooperative, healthy appearing, comfortable, no acute distress, well developed, alert and awake Orientation/consciousness: patient oriented x3 Limitations: no limitations HEENT Head: Yes normal to inspection, Yes normocephalic and Yes atraumatic Ears: hearing grossly normal bilaterally Eyes General: appearance normal, both eyes and all related structures Neck Neck: Yes normal visual inspection and Yes trachea midline Chest Chest palpation & inspection: normal inspection of the chest Resp Effort & Inspection: normal respiratory effort and able to speak in complete sentences Cardio Rate: regular rate GI Inspection: Yes normal to inspection General: Yes no CVA tenderness Back/Spine/Pelvis Back: no CVA tenderness Skin General skin exam: no rashes or lesions noted Neuro General: patient oriented x3 Extrem General: Yes normal to inspection Psych Appearance: grossly normal and well kempt Mental Status: mental status grossly normal Speech and movement: Normal speech and movement present and Clear speech present Affect: normal affect Attitude: cooperative Thought process: Normal thought process present Thought content: Normal thought content present Insight: Fair insight present (Psych) Judgement: Fair judgement present (Psych) Office Procedures Post Void Residual Post Residual Void Post Void Residual (PVR): 0 01553-Gapo Void Residual by ultrasound Results AMB Urinalysis, Automated UA Leukoctes 0 Bakari/uL Last Edit by CorkCRM on 03/26/25 08:09 UA Nitrite Last Edit by CorkCRM on 03/26/25 08:09 UA Urobilinogen 0.2 mg/dL Last Edit by CorkCRM on 03/26/25 08:09 UA Protein 0 mg/dL Last Edit by CorkCRM on 03/26/25 08:09 UA pH 7.0 Last Edit by CorkCRM on 03/26/25 08:09 UA Blood 0 Keo/uL Last Edit by CorkCRM on 03/26/25 08:09 UA Specific Merino 1.015 Last Edit by CorkCRM on 03/26/25 08:09 UA Ketone Last Edit by CorkCRM on 03/26/25 08:09 UA Bilirubin 1 mg/dL Last Edit by CorkCRM on 03/26/25 08:09 UA Glucose 0 mg/dL Last Edit by CorkCRM on 03/26/25 08:09 Results Reviewed Results Reviewed: Laboratory Last Values Urine pH (Auto) 7.0 03/26/25 08:08 Specific Merino (Auto) 1.015 03/26/25 08:08 Urine Protein (Auto) 0 mg/dL 03/26/25 08:08 Glucose (UA)(Auto) 0 mg/dL 03/26/25 08:08 Urine Blood (Auto) 0 Keo/uL 03/26/25 08:08 Urine Bilirubin (Auto) 1 mg/dL 03/26/25 08:08 Urine Urobilinogen (Auto) 0.2 mg/dL 03/26/25 08:08 Leukocyte Esterase (Auto) 0 Bakari/uL 03/26/25 08:08 Assessment & Plan Assessment & Plan (1) Urinary hesitancy: Code(s): R39.11 - Hesitancy of micturition Category: Medical (2) Urinary urgency: Code(s): R39.15 - Urgency of urination Category: Medical (3) Hematuria, microscopic: Code(s): R31.29 - Other microscopic hematuria Category: Medical (4) History of urinary hesitancy: Code(s): Z87.898 - Personal history of other specified conditions Category: Medical (5) Straining on urination: Code(s): R39.16 - Straining to void Category: Medical Plan In office urinalysis results with the patient today; as noted above. PVR 0 mL. Patient currently denies any bothersome urinary issues or concerns. She reports be happy current voiding parameters. We discussed importance of adequate hydration relation to lower urinary tract symptoms as well as overall health and well-being. Continue VESIcare as discussed and prescribed. Follow-up in 6 months with PVR; or sooner with any issues, concerns, and or questions. Orders: Orders AMB Urinalysis Automated Today Z13.9 - Encounter for screening, unspecified AMB Post Void Residual by ultrasound Today R39.15 - Urgency of urination Patient Instructions: The patient had an opportunity to ask questions regarding the treatment plan. All questions were answered. Physical exam, labs, and imaging were discussed and reviewed in detail. As well as risks, benefits, and discussion of treatment choices. No major barriers to understanding were identified. The patient expressed understanding and agreement with the above treatment plan. The patient was made aware they should contact our office by phone for worsening of their current condition, the appearance of new symptoms, or with any questions or concerns. Compliance is encouraged with any medications and follow up testing that is ordered. It is a privilege to be allowed the opportunity to participate in? your urological care.? Again, if you have any questions or concerns If you have any questions or concerns please do not hesitate to contact me. The office is [phone]. This note is constructed using voice recognition software. While every effort has been made to ensure accuracy technology risk intern errors may have been included. Yours sincerely, YUN Toscano Coding Level of Care Code Est Pt Level 3 (08498) Complex EM visit Add On G2211 Diagnoses Urinary hesitancy R39.11 Urinary urgency R39.15 Hematuria, microscopic R31.29 History of urinary hesitancy Z87.898 Straining on urination R39.16 CPT Codes Post Residual Void - PVR CPT Code: 10755-Oylk Void Residual by ultrasound ([id number])
== END 2025-03-26 08:13 | disposition home or self-care (01) ==
LOC: HO.HUSH 07:43
PROVIDERS: PCP Internal Medicine; Visit Provider Nurse Practitioner Family
DX: R39.11 Hesitancy of micturition (principal); R39.15 Urgency of urination; R31.29 Other microscopic hematuria; Z87.898 Personal history of other specified conditions; R39.16 Straining to void; Z13.9 Encounter for screening, unspecified
CPT/HCPCS: 99213; G2211

== ENCOUNTER → 2025-03-26 07:43 | Outpatient (BNVA) | payer MEDICARE, MEDICAID, SELFPAY | PROVIDERS: PCP Internal Medicine; Visit Provider Nurse Practitioner Family | DX: R39.11 Hesitancy of micturition (principal); R39.15 Urgency of urination; R31.29 Other microscopic hematuria; R39.16 Straining to void; Z87.898 Personal history of other specified conditions | CPT/HCPCS: 51798; 81003; 99212 ==

== ENCOUNTER 2025-05-27 08:46 | Outpatient (REF) | payer MEDICARE, MEDICAID, SELFPAY ==
--- NOTE | ~2025-05-27 | CT_ITS ---
CLINICAL HISTORY: R91.1 - Solitary pulmonary nodule Exam: CT chest without IV contrast Comparison: CT/SR - CT CHEST WO IV CON - 11/28/24 14:20 EST Findings: Suboptimal evaluation of the lung parenchyma especially lung bases due to motion blurring. Stable tree-in-bud micronodular interstitial thickening bilaterally, more conspicuous in the upper lobes. No acute infiltrates, pleural effusion or pneumothorax. Patent central airway. Stable bibasilar parenchymal scars. Stable 7 mm peripheral nodule right posterior lower lobe series 4, image 104. No new pulmonary nodule. Heart size is normal. Great vessels are normal in caliber. Minimal atherosclerotic calcification of the thoracic aorta. No bulky lymph nodes. Imaged lower neck, chest wall are unremarkable. Postsurgical changes from gastric bypass. Mild changes of the bilateral shoulders and thoracic spine. No acute osseous abnormality. Impression: 1. Stable 7 mm pulmonary nodule of the right lower lobe. Recommend CT follow-up 18-24 month from 11/28/2024 regardless of patient risk for lung cancer, per Fleischner Society 2017 Guidelines. 2. Stable upper lobe predominant tree-in-bud micronodularity, may reflect bronchiolitis, respiratory bronchiolitis can have this appearance if there is history of smoking, attention on follow-up exam. This document has been electronically signed by: Kailyn Koch MD on 05/27/2025 15:34:57
--- OUTSIDE RECORDS SUMMARY | 2025-05-27 08:54 | XMS_ITS | Clinical Summary ---
Author Organization [employer] Address [address] [place] [address] Care Team Providers Care Emergency Room Registered Nurse Name Role Phone Unavailable Primary Care Provider [...] 1971 FIT 1971 FOBT 1971 Sigmoidoscopy 1971 Disability Screening 1971 Alcohol/Substance Use Screening 1983 Tobacco Screening 1983 DTaP/Tdap/Td Vaccines (1 - Tdap) 1990 Hepatitis B Vaccines (1 of 3 - 19+ 3-dose series) 1990 Pap Smear 1992 Cervical Cancer Screening 2001 HPV/Cotest 2001 Pneumococcal Vaccine: 50+ Years (1 of 1 - PCV) 2021 Zoster Vaccines (1 of 2) 2021 COVID-19 Vaccine ( - 2023- season) 2024 Mammogram 12/29/2024 12/29/2022, 082 01/2022, 06/16/2022, Additional history exists Influenza Vaccine (#1) 2025 RSV Patients and Patients Aged 60 years [...] patient's age to complete this topic Meningococcal B Vaccine Aged Out No l onger eligible based on patient's age to complete [...]
== END 2025-05-27 08:47 | disposition home or self-care (01) ==
LOC: HO.CT 08:46
PROVIDERS: PCP Internal Medicine; Visit Provider Internal Medicine Pulmonary Disease
DX: R91.1 Solitary pulmonary nodule (principal)
CPT/HCPCS: 71250

== ENCOUNTER → 2025-05-27 08:47 | Outpatient (BNV) | payer MEDICARE, MEDICAID, SELFPAY | PROVIDERS: PCP Internal Medicine; Visit Provider Radiology Diagnostic Radiology | DX: R91.1 Solitary pulmonary nodule (principal) | CPT/HCPCS: 71250 ==

== ENCOUNTER 2025-06-02 12:51 | Outpatient (AMB) | payer MEDICARE, MEDICAID, SELFPAY ==
--- OUTSIDE RECORDS SUMMARY | 2025-05-14 06:45 | XMS_ITS | Continuity of Care Document ---
Author Organization [facility] Address [address] [place] [address] Phone Care Team Providers Care Manager Heart Failure Name Role Phone Evette Mahoney PA-C Unavailable [...] Views Office/Outpatient Visit, Est OFFICE/OUTPATIENT VISIT, EST-Expanded Electrocardiogram, Complete Immunization Admin Flu Vaccine, Quadrivalent, [...] Diagnoses Date Provider Providers Copied on Encounter [facility] , [address] [place] [address], [facility], tel:[phone] [facility] [place] lesions (chief complaint) Other viral warts 0 2- 5 Ernestoozshonda Alas. [address] [place] [address], [facility], . tel:[phone] Referring Provider: Evette Mahoney, [address] [place] [address], [facility]. tel:[phone] [facility] , [address] [place] [address], [facility], tel:[phone] [facility] [place] lesions (chief complaint) Other viral warts 0- 5 Ernestoozshonda Alas. [address] [place] [address], [facility], . tel:[phone] Referring Provider: Evette Mahoney, [address] [place] [address], [facility]. tel:[phone] [facility] , [address] [place] [address], [facility], tel:[phone] [facility] [place] Wart (chief complaint) Other viral warts 0 7- 5 Ernestoozdi Evette. [address] [place] [address], [facility], . tel:[phone] Referring Provider: Evette Mahoney, [address] [place] [address], [facility]. tel:[phone] [facility] , [address] [place] [address], [facility], tel:[phone] [facility] [place] wart (chief complaint) Other viral warts 5 Maru Alas. [address] [place] [address], [facility], . tel:[phone] Referring Provider: Evette Mahoney, [address] [place] [address], [facility]. tel:[phone] [facility] , [address] [place] [address], [facility], tel:[phone] [facility] [place] lesions (chief complaint) Other viral warts 5 Maru Alas. [address] [place] [address], [facility], . tel:[phone] Referring Provider: Evette Mahoney, [address] [place] [address], [facility]. tel:[phone] [facility] , [address] [place] [address], [facility], tel:[phone] [facility] [place] Wart (chief complaint) Other viral warts 5 Maru Alas. [address] [place] [address], [facility], . tel:[phone] Referring Provider: Evette Mahoney, [address] [place] [address], [facility]. tel:[phone] OFFICE/OUTPAT IENT VISIT, EST-Problem Focused [facility] , [address] [place] [address], [facility], tel:[phone] [facility] [place] lesions (chief complaint)w art (chief complaint) Neoplasm of uncertain behavior of skinOther viral warts 5 Maru Alas. [address] [place] [address], [facility], . tel:[phone] Referring Provider: Evette Mahoney, [address] [place] [address], [facility]. tel:[phone] OFFICE/OUTPAT IENT VISIT, NEW [facility] , [address] [place] [address], [facility], tel:[phone] [facility] [place] lesions (chief complaint) LentiginesMe lanocytic nevus of trunkSeborrh eic keratosis Oct-0 4 Maru Alas. [address] [place] [address], [facility], . tel:[phone] Referring Provider: Evette Mahoney, [address] [place] [address], [facility]. tel:[phone] [facility], [address] [place] [address], [facility], tel:[phone] [facility] No Information Sep-2 4 Johan Fabian. [address] [place] [address], [id number], . tel:[phone] Prev Visit, Est, Age 40-64 [facility], [address] [place] [address], [facility], tel:[phone] [facility] Nurse Comments (chief complaint) General medical examinationB jackie mass index [BMI] 25.0-25.9, adultChest tightnessMur murAnxietyMi xed hyperlipidem iaElevated BP without diagnosis of hypertension Encounter for screening for other disorder Sep-1 4 Johan Fabian. [address] [place] [address] [place] [address], [id number], [place]. tel:[phone] Referring Provider: Caren Prado, [address] [place] [address] [address] [place] [address], [address]. tel:[phone] Office/Outpat ient Visit, Est [facility], [address] [place] [address], [address], [place] tel:[phone] [facility] Nurse Comments (chief complaint)C hronic Conditions (chief complaint) AnxietyBody mass index (BMI) 25.0-25.9, adultVenous insufficienc y (chronic) (peripheral) Mixed hyperlipidem iaEffusion, right elbow Mar-0 4 Johan Fabian. [address] [facility] [address], [place], [place], [id number], [place]. tel:[phone] Referring Provider: Caren Prado, [address] [place] [address] [address], [place], [address]. tel:[phone] [facility], [address] [facility], [address], [place], [place], [facility], [place] tel:[phone] [facility] No Information Sep-2 2 Irma Holland. [address], [address] [facility], [place], [place], [id number], . tel:[phone] Referring Provider: Adonis Jordan, [address] [facility], [place], [address]. tel:[phone] Consultation Vein Clinic Self Referred [facility], [address] [facility] [address], [place], [address], tel:[phone] [facility] Office Vein Consult (chief complaint)V ein Note (chief complaint) Venous insufficienc y (chronic) (peripheral) Sep-0 2 Mehul Lamb. [address], [address] [facility], [place], [place], [id number], [place]. tel:[phone] Referring Provider: Adonis Jordan, [address] [facility], [place], [address]. tel:[phone] Prev Visit, Est, Age 40-64 [facility], [address], [place], [facility], tel:[phone] [facility] Nurse Comments (chief complaint)p reventive exam (chief complaint)B ack pain (chief complaint) General medical examinationM ixed hyperlipidem iaAnxietyEnc ounter for gynecologica l examination (general) (routine) without abnormal findingsBody mass index [BMI] 27.0-27.9, adultAcute left-sided low back pain without sciaticaNume linannabel juarez 1 Viktor Galvan. [facility] [address], [address], [address], . tel:[phone] Referring Provider: Mandy Hoang [address] [place] [address], [facility]. tel:[phone] Prev Visit, Est, Age 40-64 [facility], [address] [place] [address], [facility], tel:[phone] [facility] Nurse Comments (chief complaint)p reventive exam (chief complaint)a nxiety (chief complaint)H x of URI (chief complaint) General medical examinationM ixed hyperlipidem iaAnxietyBod y mass index (BMI) 25.0-25.9, adultHistory of upper respiratory infection 0 Viktor Galvan. [facility] Route , [address], [address], . tel:[phone] Referring Provider: Mandy Hoang [address] [place] [address] [address] [place] [address], [place], [facility]. tel:[phone] Office/Outpat ient Visit, [facility], [address] [place] [address], [address], tel:[phone] [facility] Nurse Comments (chief complaint) Bacterial conjunctivit isBody mass index (BMI) 24.0-24.9, adultSore throat 0 Johan Fabian. [address] [place] [address], [id number], [place]. tel:[phone] Referring Provider: Caren Prado, [address] [place] [address], [address]. tel:[phone] OFFICE/OUTPAT IENT VISIT, [facility], [address] [place], [place], [id number], [place] tel:[phone] [facility] eye problem (chief complaint) Acute conjunctivit is of right eye, unspecified acute conjunctivit is typeEncounte r for exam of eyes and vision w/o abnormal findings 0 Venkatesh Gordillo. [address] [place] [address], [place], [place], [id number], [place]. tel:[phone] Referring Provider: Duy Riddle, [address] [place] [address], [place], [address]. tel:[phone] Office/Outpat ient Visit, Est [facility], [address] [facility], [place], [place], [id number], [place] [phone] [facility] Left hip pain (chief complaint) Pain in left hip 7 [place] Barrow. [address] [facility], [facility] [place], [address], [place]. tel:[phone] Referring Provider: Danial Prajapati, [address] [facility], [place], [address]. tel:[phone] OFFICE/OUTPAT IENT VISIT, EST-[facility] , [address] [place] [address], [address], [place] tel:[phone] [facility] lesions (chief complaint) Epidermal cyst 6 Lorenzo Luu. [address] [facility] [address] [place] [address], [id number], [place]. tel:[phone] Referring Provider: Bell Ventura, [address] [facility] [address] [facility], [place], [address]. tel:[phone] Prev Visit, Est, Age 40-64 [facility], [address], [place], [address], [place] tel:[phone] [facility] Nurse Comments (chief complaint) Encntr for general adult medical exam w/o abnormal findingsBody mass index (BMI) 22.0-22.9, adultOther fatigueVitam in D deficiency 5 Mmiipete Tatum. [address] [facility] [address], [place], [address], [place]. tel:[phone] Referring Provider: Deepti Jason H, [address] [facility] [address], [place], [address]. tel:[phone] OFFICE/OUTPAT IENT VISIT, [facility] , [address] [place] [address], [facility], tel:[phone] [facility] [place] mole(s) (chief complaint) Other benign neoplasm of skin of trunkOther seborrheic keratosis 5 Lorenzo Luu. [address] [facility] [address] [place] [address], [id number], . tel:[phone] Referring Provider: Bell Ventura, [address] [facility] [address] [facility], [place], [address]. tel:[phone] [facility], [address], [facility], tel:[phone] [facility] No Information 4 Ashwin Grant. [address], [address], [facility], . tel:[phone] Referring Provider: Juanita Christopher, [address] [place] [address], [facility]. tel:[phone] [facility], [address], [facility], tel:[phone] [facility] No Information 4 Ashwin Grant. [address], [address] [place] [address], [facility], . tel:[phone] Prev Visit, Est, Age 40-64 [facility], [address] [place] [address], [address], [phone] [facility] Nurse Comments (chief complaint) Routine general medical examination at a [facility] care facilityRout ine gynecologica l examinationB jackie Mass Index 26.0-26.9, adult 4 Jason Tatum. [address] [facility] [address], [place], [address], [place]. tel:[phone] Referring Provider: Deepti Lee, [address] [facility] [address], Johnny. [address] [place] [address], [facility]. tel:[phone] Office/Outpat ient Visit, Est [facility], [address] [place] [address], [facility], tel:[phone] [facility] Nurse Comments (chief complaint) Chest TightnessChe st Tightness 4 No Information Office/Outpat ient Visit, Est [facility], [address] [place] [address], [address], tel:[phone] [facility] Nurse Comments (chief complaint) SEBACEOUS CYST 3 Jason Tatum. [address] [facility] [address], [address], [place], [address], [place]. tel:[phone] Referring Provider: Deepti Lee, [address] [facility] [address], [place], [place], [facility]. tel:[phone] Office/Outpat ient Visit, Est [facility], [address] [place] [address], [address], tel:[phone] [facility] Nurse Comments (chief complaint) Chest Pain, UnspecifiedJ OINT PAIN-FOREARM 3 Jason Tatum. [address] [facility] [address], [place], [address], [place]. tel:[phone] Referring Provider: Deepti Lee, [address] [facility] [address], [place], [address]. tel:[phone] Office/Outpat ient Visit, Est [facility], [address] [place] [address], [facility], tel:[phone] [facility] Nurse Comments (chief complaint) Influenza VaccineANXIE TY DISORDER NOSInfluenza VaccineANXIE TY DISORDER NOSREASON FOR CONSULT NOS 2 Jason Tatum. [address] [facility] [address], [place], [address], [place]. tel:[phone] Referring Provider: Deepti Lee, [address] [facility] [address], [place], [address]. tel:[phone] Office/Outpat ient Visit, Est [facility], [address], [place], [address], tel:[phone] [facility] Nurse Comments (chief complaint) ACUTE CONJUNCTIVIT IS NOS 2 No Information Family History Family Member [...] free, 30 mcg/0.3mL dose administered Source: Public Agen[employer] y SARS-COV-2 (COVID-19) Pfizer vaccine, mRNA, spike protein, LNP, preservative free, 30 mcg/0.3mL dose administered Source: [employer] Td (adult), adsorbed administered Source: New [...] administered Source: New Immunization Record Tdap (Adacel ) administered Source: New Immuniza tion Record Payers Payer name Insurance type Covered constitution party ID Authoriza tion(s) [employer] CI [id number] [facility] CI [id number] [employer] CI [id number] [employer] CI [id number] Social History Type Description Quantity Date Captured Comments Alcohol Use Details Unknown Caffeine Use Details Unknown Tobacco Use Status No Information Smoking Status No Information Sex Female Sexual Orientation Choose not to disclose Gender Identity Choose not to disclose 024 Chief Complaint And Reason For Visit From encounter dated '05/14/2025 10:45'. lesions (chief complaint). Description: patient is here today for wart(s) follow up.Warts are on left footLast OV tx w/ [id number] stated warts has not changedNo interval health changes since last visit. No new Medications. Feels well. Reason For Referral Reason For Referral No Information Plan Of Treatment Date Type Action Status Goal Alcohol Misuse s creen. Due on due Goal Drug Abuse Scree joelle. Due on due Goal Colonoscopy. Due on 016 due Goal Diabetes Screeni ng. Due on due Goal HIV. Due on due Goal Hep C Ab. Due on due Goal Lifestyle educat ion regarding diet completed Goal Alcohol Misuse s creen. Due on due Goal PHQ9. Due on due Goal Preventive Exam, 19 yr - 64 yr. Due on due Goal Colonoscopy. Due on 016 due Goal HIV. Due on due Goal Hep C Ab. Due on due Goal Depression scree joelle. Due on due Goal Drug Abuse Scree joelle. Due on due Goal Diabetes Screeni ng. Due on due Goal Lifestyle educat ion regarding diet completed Goal Colonoscopy. Due on 021 due Goal Drug Abuse Scree joelle. Due on due Goal Hep C Ab. Due on due Goal Diabetes Screeni ng. Due on due Goal HIV. Due on due Goal Alcohol Misuse s creen. Due on due Goal PHQ9. Due on due Goal Lifestyle educat ion regarding diet completed Goal Mammogram. Due on 7 due Goal Drug Abuse Scree joelle. Due on due Goal Intimate Partner Violence Scrn. Due on due Goal HIV. Due on due Goal Diabetes Screeni ng. Due on due Goal Alcohol Misuse s creen. Due on due Goal Hep C Ab. Due on due Goal Lifestyle educat ion regarding diet completed Goal HIV. Due on due Goal Diabetes Screeni ng. Due on due Goal Preventive Exam, 19 yr - 64 yr. Due on due Goal Alcohol Misuse s creen. Due on due Goal Intimate Partner Violence Scrn. Due on due Goal Lifestyle educat ion regarding diet completed Goal Breast exam. Due on 989 due Goal Influenza vaccin e. Due on due Goal STERILE TECHNICIAN exam. Due on due Goal Mammogram. Due on 7 due Goal Tdap due Goal Lifestyle educat ion regarding diet completed Goal Mammogram. Due on 5 due Goal Tdap due Goal Breast exam. Due on 989 due Goal Tdap due Goal Mammogram. Due on 5 due Goal Breast exam. Due on 989 due Goal STERILE TECHNICIAN exam. Due on due Goal Dietary manageme nt education, guidance, and counseling completed Goal Breast exam. Due on 98 due Goal Mammogram. Due on 5 due Goal Influenza vaccin e. Due on due Goal STERILE TECHNICIAN exam. Due on due Goal Tdap due Goal STERILE TECHNICIAN exam. Due on due Goal Preventive Exam, 19yr - 64 yr. Due on due Goal Breast exam. Due on 014 due Goal Influenza vaccin e. Due on due Goal PAP. Due on due Goal Dietary manageme nt education, guidance, and counseling completed Goal PAP. Due on due Goal Breast exam. Due on 014 due Goal Preventive Exam, 19yr - 64 yr. Due on due Goal STERILE TECHNICIAN exam. Due on due Goal Influenza vaccin e. Due on due Referral Ordered: Cardiology (related to Murmur) ordered Referral Ordered: Colon Screen (related to SCREEN MALIG NEOP-COLON) ordered Referral Referred To: [address] [place] [address]
[facility] [address] [place], [phone] Ordered: Referrals: Cardiology. Location: [facility]. Consult and Treat Appointment date/timeframe: 10/22/2024 ordered Referral Ordered: Colon Screen (related to SCREEN MALIG NEOP-COLON) ordered Referral Referred To: Walker Alonso [address] [place] [address], [id number] Ordered: Referrals: Dermatology. Walker Alonso Consult and Treat Appointment date/timeframe: 07/19/2021 ordered Referral Ordered: Referral for Colon Screening Appointment date/timeframe: 10/21/2021 ordered Appointment Emani Kim BOOKED Future Order: Radiology Order Ma mmo Digital Screen w/Benjamín Bilat: Diag Mammo Or US As Needed (MAMTOMOBIL), Appointment on: Ordered Future Order: Lab Order COMP MET ABOLIC PANEL [14] ([id number]), Appointment on: , Sent on: Sent Future Order: Lab Order CBC (inc ludes Diff/Plt) ([id number]), Appointment on: , Sent on: Sent Future Order: Lab Order LIPID PA IDANIA ([id number]), Appointment on: , Sent on: Sent Future [...] Of Lower Extremity With Contrast Left hip ([id number]), Body Site: Left, Ordered on: Ordered Future Order: Radiology Order Ma mmo Digital Screen, Bilat: Diag Mammo Or Diag US As Needed ([id number]), Ordered on: Ordered History Of Present Illness Encounter Date Complaint History Of Prese nt Illness lesions patient is here today for wart(s) follow up.Warts are on left footLast OV tx w/ [id number] stated warts has not changedNo interval health changes since last visit. No new Medications. Feels well. lesions patient is here today for wart(s) follow up.Warts are on left foot. Last OV tx w/ [id number] stated warts have not gone awayNo interval health changes since last visit. No new Medications. Feels well. Wart Patient is here today for wart(s) follow up.Warts are on left foot. Last OV tx w/ [id number] stated warts have improved no new lesions [...] no pain associated with fluid on elbow. wart Patient is prese nt today for wart on left foot. Previously treated with LN2. lesions Patient is here today for an evaluation of lesionsPatient stated nothing new to note about current lesionsNo personal hx of skin cancerNo family hx of skin cancerWears sunscreen, Hx of blistering sunburns, no hx of tanning bed use.No interval health changes in the last 6 months. No new medications. Feels well.PMSFhx see intake sheet. 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 The left leg is worse than the right. 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 She has had 2 children. She has [...] to our office after completing their ultrasound. Vein Note The patient pres ents with [...] VCSS is 4 Left VCSS is 4 preventive exam Currently pregna nt: no. : [...] longer uses tobacco. She does drink alcohol. Back pain Onset: 4 months ago. Location [...] pt see's no eye dentist Briana dental thermodynamics professor LMP 05/20, needs order for MAMMO gi needs order for COLONOSCOPY no cardio, no cardiac sx former smoker, no h/o asthma/COPDmed ref needed pt would like to discuss lower back pain for months preventive exam : 2. Christina ty: Term: [...] information: hot flashes at night (very mild). Hx of URI Patient states b ack in Nov 2019 she had cough, chest pain, fatigue and B/L conjunctivitis. She thinks that may have been Covid-19. Wants AB testing. anxiety The patient repo rts functioning as [...] start of Covid-19. Main sxs: highly emotional. Nurse Comments CPE, FBW does no t have regular eye, does not see colorist dyer but no BPP todayno htn, no asthma, former smokerdiscuss results of fbw from 2018 - scanned in Nurse Comments new pt - reestab lishing [...] wellM/one son Jarad & one daughter Kaseyends [facility], belongs to [employer] clubAdopted,no fam HxEating much healthier, followed lower [...] Nurse Comments Pt refused flu s hot. CPE/STERILE TECHNICIAN FBWFeels well, no c/oEats healthy Functional Status Date Functional Assessmen t No Information Instructions Date Instruction Additional Infor ella ln2 for destructionw ill start wart peel once daily for 6-8 weeks then return to office for follow up Related to Other viral warts ln2 for destruction Related to [...] to Mu rmur -reconsider flu shot -pap hnu-cvlw-wyjly utd-colonoscopy due-continue regular dental and vision exams-healthy diet and exercise.-derm for skin check- scheduled for next week-stop smoking Related to General medical examination Healthy Lifestyle Care Plan Giving encouragement to exercise Related to Body mass index (BMI) 25.0-25.9, adult Healthy Lifestyle Care Plan Healthy Lifestyle Care Plan Lifestyle education regarding di et Related to Body mass index (BMI) 25.0-25.9, adult avoid leaning on elb owf/u with ortho if persists Related to Effusion, right elbow Lifestyle education regarding di et Related to Body mass index (BMI) 25.0-25.9, adult Giving encouragement to exercise Related to [...] had no symptoms, maybe you had mild symptoms y our immune system made antibodies showing that you [...] CBC, CMP, TSH, Lipids -Patient sees outside thermodynamics professor, PAP UDT, mammogram rx given today-Family planning discussed - pt's had a vasectomy-Advised regular dental and vision exams-Advised healthy diet and exercise Related to General medical examination Lifestyle education regarding di et Related to Body mass index (BMI) 25.0-25.9, adult Mental health care education Rel ated to Adjustment disorder with depressed mood Healthy Lifestyle Care Plan Depression and Anxiety Care Plan warm salt water elaine lesreslamar fluidscall office if s/s worsen change or [...] Body mass index (BMI) 22.0-22.9, adult The lesions we obser oh have a safe appearance and treatment is not medically necessary. They can be observed for any changes, pain or bleeding.R 1 year Related to Other seborrheic keratosis The observed moles h ave a benign appearance and can be followed for any changes or symptoms. Remember to avoid excess sun exposure and tanning beds. Remember to use sunscreen and perform regular self skin exams. Related to Other benign neoplasm of skin of trunk Pap/hpv Related to Routi ne gynecological examination [...]
--- NOTE | 2025-06-02 12:58 | A.OFFVIS_ITS ---
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/Migraine/Hyperlipidemia Allergies latex Allergy (Severe, Verified 03/26/25 08:12) Anaphylaxis Cephalosporins Allergy (Mild, Verified 03/26/25 08:12) Rash egg Allergy (Mild, Verified 03/26/25 08:12) Unknown Sulfa (Sulfonamide Antibiotics) Allergy (Mild, Verified 03/26/25 08:12) Rash omalizumab (From Xolair) Adverse Reaction (Severe, Verified 03/26/25 08:12) worsening SOB/asthma; hives; injection reaction ibuprofen (From Motrin) Adverse Reaction (Mild, Verified 03/26/25 08:12) Rash Medication List - Last Reconciled 06/02/25 by Getachew Harmon MD acarbose 100 mg PO TID albuterol sulfate 2.5 mg inhalation Q4-6H PRN albuterol sulfate 90 mcg/actuation 2 puffs inhalation Q4-6H PRN bupropion HCl XL 150 mg PO QAM 90 days cetirizine (Zyrtec) 10 mg PO DAILY PRN cholecalciferol (vitamin D3) 50 mcg PO DAILY 90 days cyanocobalamin (vitamin B-12) 1,000 mcg IM QWEEK dupilumab (Dupixent) 300 mg (2 mL) subcut Q2W escitalopram oxalate (Lexapro) 20 mg PO DAILY 90 days esomeprazole magnesium (Nexium) 40 mg PO BID estradiol 1 patch transdermal QWEEK 4 weeks gabapentin 600 mg PO DAILY 90 days insulin syringe-needle,dispos. (SafeSnap Insulin Syringe) As directed once a month for B12 injections ipratropium-albuterol 20-100 mcg/actuation (Combivent Respimat) 1 puff inhalation Q6H lorazepam (Ativan) 1 mg PO BEDTIME PRN ondansetron 4 mg PO Q8H ropinirole 1 to 2 tablets orally bedtime; 30 days simethicone 125 mg PO BID-QID PRN solifenacin 10 mg PO DAILY sumatriptan succinate (Imitrex) 50 mg PO Q2-4H PRN syringe-needle,safety,disp unt (SafeSnap Syringe) As directed- monthly with B12 HPI Comments Details: The patient is a 55-year-old female presenting for a cardiovascular checkup due to a strong family history of heart disease. Her father at 52 from a heart attack, and two brothers in their 40s from sudden cardiac events, both having atrial fibrillation. A comprehensive cardiac evaluation nine years ago, including a stress test and catheterization, showed no abnormalities (per patient history). The patient has asthma, leading to shortness of breath during activities, but denies chest pain. She has a history of type 2 diabetes and sleep apnea, both improved post-gastric bypass surgery. Exercise The patient reports being fairly active, able to walk and perform daily activities, though she experiences shortness of breath due to asthma. [facility] Medical History Family history of sudden cardiac (SCD) Tubular adenoma of colon Pure hypercholesterolemia Vitamin D deficiency Vitamin B12 deficiency Allergic rhinitis GERD without esophagitis Pulmonary nodule, left Anxiety Neuropathy Asthma Diabetes mellitus Migraine Cyclical vomiting Surgical History History of lumpectomy of right breast (05/29/24) Hx of shoulder surgery Hx of shoulder surgery Hx of colonoscopy Status post laparoscopic assisted vaginal hysterectomy (LAVH) (~2016) Hx of gastric bypass (~2009) Hx of cholecystectomy Family History (Updated 06/02/25 @ 13:10 by Mariza Zuñiga) Mother Lung cancer Father Cardiac arrest Brother Chronic a-fib Cardiac arrest Daughter Long QT interval Paternal Grandfather Cardiac arrest Paternal Aunt Cardiac arrest Other Diabetes Social History Housing: House Are you a primary manager medicare to a significant other at home: No Do you presently have visiting nurse or other home services: No Alcohol intake: never Patient Tobacco Use Status: Former Tobacco user Tobacco use type: Cigarette Cigarette Packs Per Day: 1.5 Years Smoked: quit more than 15 years ago, started as a teen e-Cigarette/Vaping Use: Never Used Current occupational status: disabled Current occupation: Left hand dominant Cognitive needs: No Hearing needs: No Vision needs: Yes Review of Systems Const Denies weakness ENT Denies dizziness Card Denies chest pain, Denies chest pain with activity, Denies syncope, Denies rapid heart rate, Denies pedal edema, Denies edema, Denies leg edema, Denies lightheadedness, Denies palpitations, Denies dyspnea, Denies dyspnea on exertion and Denies orthopnea Resp Denies cough, Denies dyspnea and Denies dyspnea on exertion GI Denies hematochezia and Denies change in stool character Musc Denies abnormal gait, Denies muscle cramps, Denies muscle weakness, Denies numbness, Denies radiating pain into limb and Denies tingling Neuro Denies abnormal gait, Denies dizziness, Denies syncope, Denies numbness, Denies tingling and Denies weakness Endo Denies palpitations Physical Exam Vital Signs: Last Vital Signs Pulse 71 06/02/25 12:59 BP 100/60 06/02/25 12:59 BMI result Body Mass Index 24.5 Const General: comfortable and no acute distress Orientation/consciousness: patient oriented x3 HEENT Other: Unremarkable Head: Yes normal to inspection Neck Neck: Yes normal visual inspection Chest Chest palpation & inspection: normal inspection of the chest Resp Auscultation: clear to auscultation bilaterally Cardio Palpation: normal PMI Heart sounds: S1 normal heart sound present, S2 normal heart sound present, no gallops, no murmurs and no rubs GI Palpation (GI): Soft to palpation Back/Spine/Pelvis Other: unremarkable Skin General skin exam: no rashes or lesions noted Neuro General: patient oriented x3 Extrem General: Yes normal to inspection Psych Mental Status: mental status grossly normal Office Procedures EKG Details: EKG with underlying sinus rhythm at 71/Min; no ischemic changes; [place] [id number], Complete Assessment & Plan Assessment & Plan (1) Family history of sudden cardiac (SCD): Code(s): Z82.41 - Family history of sudden cardiac Category: Medical Plan Due to the patient's family history of cardiovascular disease, a comprehensive cardiac evaluation is warranted. An echocardiogram and cardiac CT scan have been ordered to evaluate her cardiac health. We will also request records from prior bladder cleaner in regards to her previous testing. Discussion Notes I discussed with the patient the importance of evaluating her cardiac health due to her family history of heart disease. We talked about the echocardiogram and cardiac CT scan as diagnostic tools to assess her heart function and structure. I explained that these tests are crucial. Patient was informed and verbally consented to the use of an ambient scribe for clinic note documentation during this visit. Orders: Orders CA echo transthoracic complete Today R06.02 - Shortness of breath CT Cardiac Coronary Angio Today I25.10 - Atherosclerotic heart disease of [place] coronary artery without angina pectoris Basic Metabolic Panel Today I25.10 - Atherosclerotic heart disease of [place] coronary artery without angina pectoris Patient Instructions: - Follow up with the bladder cleaner for scheduled echocardiogram and cardiac CT scan. - Monitor for any new symptoms such as chest pain or shortness of breath and report them immediately. - Maintain regular physical activity as tolerated, considering asthma limitations. Coding Level of Care Code New Pt Level 4 (23839) Complex EM visit Add On G2211 Diagnoses Family history of sudden cardiac (SCD) Z82.41 CPT Codes EKG - CPT: 67571-[id number], Complete ([id number])
[2025-06-02 12:59] VITALS: BP 100/60; PULSE 71; BMI 24.5
--- OUTSIDE RECORDS SUMMARY | 2025-06-02 13:33 | XMS_ITS | Clinical Summary ---
Author Organization [employer] Address [address] [place] [address] Care Team Providers Care Bench Scientist Name Role Phone Unavailable Primary Care Provider [...]
--- OUTSIDE RECORDS SUMMARY | 2025-06-02 13:34 | XMS_ITS | Encounter Summary ---
Author Organization [facility] Address [address] [place] [address] Care Team Providers Care Thread Laster Name Role Phone Anthony Andujar MD Primary Care Provider [phone] Reason for Visit * Reason Comments Med Refill Encounter Details Date Type Department Care Team (Late st Contact Info) Description 01/13/2024 Refill [facility] Neurology [address] [place] [id number] Charlotte Varela MD [address] [place] [address] Abnormal movement Social History Tobacco Use Types Packs/Day Years Used Date Smoking Tobacco: Never Assessed Comments Unknown Sex and Gender Information Value Date Recorded Sex Assigned at Not on file Legal Sex Female 11:08 PM EST Gender Identity Not on file Sexual Orientation Not on file documented as of this encounter Plan of Treatment Not on file documented as of this encounter Visit Diagnoses Diagnosis Abnormal movement documented in this encounter Care Teams Thread Laster Relationship Specialty Start Date End Date Anthony Andujar MD [address] [address] PCP - General 12/17/21 documented as of this encounter
== END 2025-06-02 13:30 | disposition home or self-care (01) ==
LOC: HO.HCS 12:52
PROVIDERS: PCP Internal Medicine; Visit Provider Internal Medicine
DX: Z82.41 Family history of sudden cardiac death (principal)
CPT/HCPCS: 93010; 99204; G2211

== ENCOUNTER → 2025-06-02 12:51 | Outpatient (BNVA) | payer MEDICARE, MEDICAID, SELFPAY | PROVIDERS: PCP Internal Medicine; Visit Provider Internal Medicine | DX: R06.02 Shortness of breath (principal); Z82.41 Family history of sudden cardiac death | CPT/HCPCS: 93005; 99202 ==

== ENCOUNTER 2025-06-18 10:55 | Outpatient (AMB) | payer MEDICARE, MEDICAID, SELFPAY ==
--- NOTE | 2025-06-18 10:58 | A.OFFPC_ITS ---
Vital Signs 06/18/25 11:01 Height 6 ft Weight 185 lb 8 oz BMI 25.2 BP 92/60 Blood Pressure Location Lt brachial Position Sitting Pulse 75 Pulse Source Pulse Oximeter Pulse Oximetry (%) 96 Oxygen Delivery Method Room Air Intake Visit Reasons: Follow Up Heat Treater Head Required: No Accompanied by: Self / Same As Patient Allergies latex Allergy (Severe, Verified 06/18/25 11:18) Anaphylaxis Cephalosporins Allergy (Mild, Verified 06/18/25 11:18) Rash egg Allergy (Mild, Verified 06/18/25 11:18) Unknown Sulfa (Sulfonamide Antibiotics) Allergy (Mild, Verified 06/18/25 11:18) Rash omalizumab (From Xolair) Adverse Reaction (Severe, Verified 06/18/25 11:18) worsening SOB/asthma; hives; injection reaction ibuprofen (From Motrin) Adverse Reaction (Mild, Verified 06/18/25 11:18) Rash Medication List - Last Reconciled 06/18/25 by Mark Crane MD acarbose 100 mg PO TID albuterol sulfate 2.5 mg inhalation Q4-6H PRN albuterol sulfate 90 mcg/actuation 2 puffs inhalation Q4-6H PRN bupropion HCl XL 150 mg PO QAM 90 days cetirizine (Zyrtec) 10 mg PO DAILY PRN cholecalciferol (vitamin D3) 50 mcg PO DAILY 90 days cyanocobalamin (vitamin B-12) 1,000 mcg IM QWEEK dupilumab (Dupixent) 300 mg (2 mL) subcut Q2W escitalopram oxalate (Lexapro) 20 mg PO DAILY 90 days esomeprazole magnesium (Nexium) 40 mg PO BID estradiol 1 patch transdermal QWEEK 4 weeks gabapentin 600 mg PO DAILY 90 days insulin syringe-needle,dispos. (SafeSnap Insulin Syringe) As directed once a month for B12 injections ipratropium-albuterol 20-100 mcg/actuation (Combivent Respimat) 1 puff inhalation Q6H lorazepam (Ativan) 1 mg PO BEDTIME PRN ondansetron 4 mg PO Q8H ropinirole 1 to 2 tablets orally bedtime; 30 days simethicone 125 mg PO BID-QID PRN solifenacin 10 mg PO DAILY sumatriptan succinate (Imitrex) 50 mg PO Q2-4H PRN syringe-needle,safety,disp unt (SafeSnap Syringe) As directed- monthly with B12 Tobacco use date assessed: 06/18/25 Dental Screening Dental Screen Date: 06/18/25 Did you have a dental visit in the last 12 months?: No Did you have a dental problem in the last 6 months where you did not have access to dental care?: No Was dental information given to patient?: No HPI Follow Up HPI Details Patient comes in today for her follow up visit States that she feels okay except for increased pain and stiffness in her fingers on both hands often lately - feels that she is now getting arthritis in both of her hands She denies any headaches or dizziness Denies any chest pains, no increased SOB No nausea/vomiting, no abdominal pain No change in bowel habits noted She did not get her follow up labs done prior to her appointment today [facility] Medical History Family history of sudden cardiac (SCD) Tubular adenoma of colon Pure hypercholesterolemia Vitamin D deficiency Vitamin B12 deficiency Allergic rhinitis GERD without esophagitis Pulmonary nodule, left Anxiety Neuropathy Asthma Diabetes mellitus Migraine Cyclical vomiting Surgical History History of lumpectomy of right breast (05/29/24) Hx of shoulder surgery Hx of shoulder surgery Hx of colonoscopy Status post laparoscopic assisted vaginal hysterectomy (LAVH) (~2016) Hx of gastric bypass (~2009) Hx of cholecystectomy Family History Mother Lung cancer Father Cardiac arrest Brother Chronic a-fib Cardiac arrest Daughter Long QT interval Paternal Grandfather Cardiac arrest Paternal Aunt Cardiac arrest Other Diabetes Social History Housing: House Are you a primary reservoir caretaker to a significant other at home: No Do you presently have visiting nurse or other home services: No Alcohol intake: never Patient Tobacco Use Status: Former Tobacco user Tobacco use type: Cigarette Cigarette Packs Per Day: 1.5 Years Smoked: quit more than 15 years ago, started as a teen e-Cigarette/Vaping Use: Never Used service: No Current occupational status: disabled Current occupation: Left hand dominant Current occupational exposures/hazards: No Cognitive needs: No Hearing needs: No Vision needs: Yes Questionnaire PHQ-9 Over the last 2 weeks, how often have you been bothered by any of the following problems? 1. Little interest or pleasure in doing things: more than half the days 2. Feeling down, depressed, or hopeless: several days 3. Trouble falling or staying asleep, or sleeping too much: several days 4. Feeling tired or having little energy: several days 5. Poor appetite or overeating: several days 6. Feeling bad about yourself - or that you are a failure or have let yourself or your family down: several days 7. Trouble concentrating on things, such as reading the newspaper or watching television: several days 8. Moving or speaking so slowly that other people could have noticed. Or the opposite - being so fidgety or restless that you have been moving around a lot more than usual: several days 9. Thoughts that you would be better off or of hurting yourself in some way: several days Total score: 10 Depression Screening Interpretation: Positive Depression Screening Follow-up: Existing condition and In treatment Depression Screening Done: Yes 08090 - PHQ-9 Billing: Yes Source: Developed by Drs. Gaston Zhang, Leigh Dpuree, Prashant Haley and colleagues, with an educational jenny from [employer]. Thrive Questionnaire Date Thrive assessed: 06/18/25 I am a: Patient What is your living situation today?: I have a steady place to live Within the past 12 months, did the food you bought not last and you didn't have the money to get more?: I choose not to answer this question Within the past 12 months, did you worry whether your food would run out before you got money to buy more?: I choose not to answer this question Do you have trouble paying for medicines?: I choose not to answer this question Do you have trouble getting transportation to medical appointments?: I choose not to answer this question Do you have trouble paying your heating and electricity bill?: I choose not to answer this question Do you have trouble taking care of your child, family member or friend?: I choose not to answer this question Do you have trouble with day-to-day activities such as bathing, preparing meals, shopping, managing finances, etc.?: I choose not to answer this question Are you currently unemployed and looking for a job?: I choose not to answer this question Are you interested in more education?: I choose not to answer this question Please select the resources that you would like help with: None Currently or been in a relationship where the following occur: No concerns reported THRIVE Score: 0 AUDIT C Alcohol Use Questionnaire (AUDIT-C) 1. How often do you have a drink containing alcohol?: Never 3. How often do you have six or more drinks on one occasion?: Never Total Score: 0 Score Reviewed/Action Taken: Yes KAYLENE-7 AMB Questionnaire KAYLENE-7 Date KAYLENE - 7 assessed: 06/18/25 Feeling nervous, anxious, or on edge: 1 = Several days Not being able to stop or control worryin = Several days Worrying too much about different things: 1 = Several days Trouble relaxin = Several days Being so restless that it is hard to sit still: 1 = Several days Becoming easily annoyed or irritable: 1 = Several days Feeling afraid as if something awful might happen: 1 = Several days Total KAYLENE-7 score (0-4 normal; 5-9 mild; 10-14 moderate; 15-21 severe): 7 Source: Developed by Drs. Gaston Zhang, Leigh Dupree, Prashant Haley and colleagues, with an educational jenny from [employer]. Review of Systems Const Denies chills, Reports difficulty sleeping, Denies fatigue, Denies fever(s) and Denies headache(s) ENT Denies dysphagia, Denies dizziness, Denies otalgia, Denies headache(s), Denies neck pain, Denies odynophagia and Denies sore throat Card Denies chest pain, Denies palpitations and Denies dyspnea Resp Denies chest congestion, Denies cough and Denies dyspnea GI Denies abdominal pain, Denies constipation, Denies dysphagia, Denies heartburn, Denies diarrhea, Denies nausea, Denies odynophagia and Denies vomiting Denies difficulty voiding, Denies nocturia, Denies dysuria and Denies urinary urgency Musc Denies back pain, Reports arthralgias (right shoulder; more recently involving the fingers on both hands) and Denies neck pain Skin/Breast Denies rash Neuro Denies dizziness and Denies headache(s) Psych Reports anxiety Endo Denies fatigue and Denies palpitations Physical exam (Primary Care) Vital Signs: Last Vital Signs Pulse 75 06/18/25 11:01 BP 92/60 06/18/25 11:01 Pulse Ox 96 06/18/25 11:01 Oxygen Delivery Method Room Air 06/18/25 11:01 BMI result Body Mass Index 25.2 Tobacco/Smoking Status: Tobacco use Status Tobacco use date assessed 06/18/25 06/18/25 11:05 Patient Tobacco Use Status Former Tobacco user 06/18/25 11:05 Tobacco use type Cigarette 06/18/25 11:05 e-Cigarette/Vaping Use Never Used 06/18/25 11:05 PHQ-9: PHQ-9 Score PHQ-9: Total score 10 06/18/25 11:05 Depression Screening Interpretation: Positive Depression Screening Follow-up: Existing condition and In treatment Thrive Assessment: Date of Thrive Assessment Date Thrive assessed 06/18/25 06/18/25 11:05 Currently or been in a relationship where the following occur: No concerns reported Const General: no acute distress and alert HENMT Ears: TM's normal bilaterally and EAC's normal Throat: Yes posterior oropharynx normal and Yes tonsils normal (no TP congestion) Neck Neck: Yes supple and No lymphadenopathy Thyroid: Thyroid normal Resp Auscultation: clear to auscultation bilaterally, no rales and no wheezes Cardio Rate: regular rate Rhythm: regular rhythm Heart sounds: no murmurs GI Palpation (GI): Soft to palpation and nontender Auscultation: normal bowel sounds General: Yes no CVA tenderness Back/Spine/Pelvis Back: no CVA tenderness Thoracic/Lumbar Spine: No lumbar spinal tenderness Skin Rashes: no rashes Extrem Other: (+) tenderness of the interphalangeal joints on a few fingers on both hands; (+) mild swelling/prominent nodules on a few IP joints noted General: Yes no clubbing, cyanosis or edema Right upper extremity: shoulder/upper arm Details: tenderness Location: of the A-C joint Coding Level of Care Code Est Pt Level 4 (70352) Diagnoses Pure hypercholesterolemia E78.00 Type 2 diabetes mellitus without complication, without long-term current use of insulin E11.9 Diabetes mellitus type: type 2 Diabetes mellitus mcfp insulin use: without mcfp use Diabetes mellitus complication status: without complication Moderate persistent asthma, unspecified whether complicated J45.40 Asthma severity: moderate Asthma persistence: persistent Asthma complication type: unspecified Migraine without status migrainosus, not intractable, unspecified migraine type G43.909 Migraine type: unspecified Status migrainosus presence: without status migrainosus Intractability: not intractable Family history of sudden cardiac (SCD) Z82.41 Non-seasonal allergic rhinitis, unspecified trigger J30.89 Allergic rhinitis trigger: unspecified Allergic rhinitis seasonality: non-seasonal Neuropathy G62.9 Vitamin B12 deficiency E53.8 Vitamin D deficiency E55.9 Cyclical vomiting R11.15 GERD without esophagitis K21.9 Pain in finger of both hands M79.645; M79.644 Menopausal symptoms N95.1 Anxiety F41.9 Additional Codes PHQ-9 - 88507 - PHQ-9 Billing: Yes ([id number]) Assessment & Plan Assessment & Plan (1) Pure hypercholesterolemia: Code(s): E78.00 - Pure hypercholesterolemia, unspecified Category: Medical Plan: Patient did not get her follow up labs done prior to coming in for her appointment today Reinforced low cholesterol diet Will just have her recheck her labs and fasting lipids in 4 months for follow up - will have her use her current orders (updated) for her next lab draw (2) Diabetes mellitus: Comment: no Rx at this time Code(s): E11.9 - Type 2 diabetes mellitus without complications Category: Medical Qualifiers: Diabetes mellitus type: type 2 Diabetes mellitus mcfp insulin use: without mcfp use Diabetes mellitus complication status: without complication Qualified Code(s): E11.9 - Type 2 diabetes mellitus without complications Plan: Reinforced diabetic diet She used to be on medications for her diabetes (including insulin) but she started experiencing hypoglycemic episodes after her gastric bypass surgery back in 2009 Her HgbA1c was normal at 5.1% when last checked a few months ago; was previously at 5.2% earlier this year Continue Acarbose 100 mg TID with meals (3) Asthma: Code(s): J45.909 - Unspecified asthma, uncomplicated Category: Medical Qualifiers: Asthma severity: moderate Asthma persistence: persistent Asthma complication type: unspecified Qualified Code(s): J45.40 - Moderate persistent asthma, uncomplicated Plan: She was on Breztri Aerosphere 160-9-4.8 mcg 2 inhalations BID (was started on this by pulmonary) and Albuterol HFA 1 to 2 inhalations every 6 hours PRN but had to stop that recently when she was diagnosed with oral thrush Per request, she was switched over to steroid-free inhalers and she is currently on Combivent Respimat 1 inhalation Q 6 hours, Anoro Ellipta 62.5-25 mcg 1 inhalation QD and Albuterol HFA 1 to 2 inhalations Q 6 hours PRN She was also doing well on Xolair injections but eventually developed hives and injection reactions to the Rx; is now on Dupixent injections and appears to be doing well on them so far Follow up with pulmonary (Dr. Levy) as scheduled (4) Migraine: Code(s): G43.909 - Migraine, unspecified, not intractable, without status migrainosus Category: Medical Qualifiers: Migraine type: unspecified Status migrainosus presence: without status migrainosus Intractability: not intractable Qualified Code(s): G43.909 - Migraine, unspecified, not intractable, without status migrainosus Plan: Reinforced again avoidance of any potential migraine triggers Continue Sumatriptan 50 mg PRN (5) Family history of sudden cardiac (SCD): Code(s): Z82.41 - Family history of sudden cardiac Category: Medical Plan: Patient states that she has a strong family history of SCD (father of sudden cardiac at age 52 and a couple of her brothers also from SCD in their 40's) She recalls having a cardiac cath done when she was around 47 y/o - states that her angiogram came out normal but she was advised to see cardiology and have this rechecked in a few years based on her family Hx She was referred to [facility] for further evaluation and management - she was seen by cardiology here a couple of weeks ago and is now scheduled for echocardiogram as well as a coronary CT sometime in the next few months for further evaluation (6) Allergic rhinitis: Code(s): J30.9 - Allergic rhinitis, unspecified Category: Medical Qualifiers: Allergic rhinitis trigger: unspecified Allergic rhinitis seasonality: non-seasonal Qualified Code(s): J30.89 - Other allergic rhinitis Plan: Continue Cetirizine 10 mg QD PRN States that she recently tested positive for multiple allergies, including dairy products Follow up with allergy/immunology as scheduled (7) Neuropathy: Code(s): G62.9 - Polyneuropathy, unspecified Category: Medical Plan: Continue Gabapentin 600 mg QD (8) Vitamin B12 deficiency: Code(s): E53.8 - Deficiency of other specified B group vitamins Category: Medical Plan: States that this started after she had her gastric bypass done back in 2009 Continue Vitamin B12 injections 1000 mcg IM once a month Her Vitamin B12 level came back normal on her recent labs (9) Vitamin D deficiency: Code(s): E55.9 - Vitamin D deficiency, unspecified Category: Medical Plan: Continue Vitamin D3 2000 units QD (10) Cyclical vomiting: Code(s): R11.15 - Cyclical vomiting syndrome unrelated to migraine Category: Medical Plan: Patient believes that this started (was triggered?) by her gastric bypass surgery over 10 years ago Continue Ondansetron 4 mg Q 8 hours PRN (11) GERD without esophagitis: Code(s): K21.9 - Gastro-esophageal reflux disease without esophagitis Category: Medical Plan: Dietary restrictions reinforced Continue OTC Lansoprazole 15 mg QD PRN (12) Pain in finger of both hands: Code(s): M79.645 - Pain in left finger(s); M79.644 - Pain in right finger(s) Category: Medical Plan: Involving a few fingers on both hands Discussed with patient that this is most likely due to 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, as she uses her hands a lot in her line of work Will send her for x-rays of both hands for further evaluation Have also discussed with patient about doing some hand/finger exercises regularly, which can help her better manage her hands/fingers symptoms (13) Menopausal symptoms: Code(s): N95.1 - Menopausal and female climacteric states Category: Medical Plan: Continue Estradiol 0.075 mg patch once a week (14) Anxiety: Code(s): F41.9 - Anxiety disorder, unspecified Category: Medical Plan: Continue Escitalopram 20 mg QD, Wellbutrin XL 150 mg Q AM and Lorazepam 1 mg Q HS PRN States that she is doing well so far on her current medication regimen Plan Follow up in 4 months Orders: Orders XR Hand Bilat min 3v Today M79.641 - Pain in right hand, M79.642 - Pain in left hand
[2025-06-18 11:01] VITALS: BP 92/60; PULSE 75; O2SAT 96; BMI 25.2
--- OUTSIDE RECORDS SUMMARY | 2025-06-18 11:38 | XMS_ITS | Encounter Summary ---
Author Organization [facility] Address [address] [facility] [address] [place] [address] Care Team Providers Care Can Top Setter Name Role Phone Anthony Andujar MD Primary Care Provider [phone] Reason for Visit * Reason Comments Med Refill Encounter Details Date Type Department Care Team (Late st Contact Info) Description 01/13/2024 Refill [facility] Neurology [address] [place] [phone] Charlotte Varela MD [address] [place] [address] Abnormal movement Social History Tobacco Use Types [...] movement documented in this encounter Care Teams Can Top Setter Relationship Specialty Start Date End Date Anthony Andujar MD [address] [address] PCP - General 12/17/21 documented as of this encounter
--- OUTSIDE RECORDS SUMMARY | 2025-06-18 11:38 | XMS_ITS | Clinical Summary ---
Author Organization [employer] Address [address] [facility] [address] [place] [address] Care Team Providers Care Fruit Receiver Name Role Phone Unavailable Primary Care Provider [...]
== END 2025-06-18 11:27 | disposition home or self-care (01) ==
LOC: HO.HMCH 10:56
PROVIDERS: PCP Internal Medicine; Visit Provider Internal Medicine
DX: E78.00 Pure hypercholesterolemia, unspecified (principal); E11.9 Type 2 diabetes mellitus without complications; J45.40 Moderate persistent asthma, uncomplicated; G43.909 Migraine, unspecified, not intractable, without status migrainosus; Z82.41 Family history of sudden cardiac death; J30.89 Other allergic rhinitis; G62.9 Polyneuropathy, unspecified; E53.8 Deficiency of other specified B group vitamins; E55.9 Vitamin D deficiency, unspecified; R11.15 Cyclical vomiting syndrome unrelated to migraine; K21.9 Gastro-esophageal reflux disease without esophagitis; M79.645 Pain in left finger(s); M79.644 Pain in right finger(s); N95.1 Menopausal and female climacteric states; F41.9 Anxiety disorder, unspecified

== ENCOUNTER → 2025-06-18 10:55 | Outpatient (BNVA) | payer MEDICARE, MEDICAID, SELFPAY | PROVIDERS: PCP Internal Medicine; Visit Provider Internal Medicine | DX: E78.00 Pure hypercholesterolemia, unspecified (principal); E11.9 Type 2 diabetes mellitus without complications; G43.909 Migraine, unspecified, not intractable, without status migrainosus; J30.89 Other allergic rhinitis; G62.9 Polyneuropathy, unspecified; E53.8 Deficiency of other specified B group vitamins; E55.9 Vitamin D deficiency, unspecified; R11.15 Cyclical vomiting syndrome unrelated to migraine; K21.9 Gastro-esophageal reflux disease without esophagitis; M79.645 Pain in left finger(s); M79.644 Pain in right finger(s); N95.1 Menopausal and female climacteric states; Z82.41 Family history of sudden cardiac death | CPT/HCPCS: 96127; 99212 ==

== ENCOUNTER 2025-06-19 14:49 | Outpatient (REF) | payer MEDICARE, MEDICAID, SELFPAY ==
--- OUTSIDE RECORDS SUMMARY | 2025-06-19 14:52 | XMS_ITS | Encounter Summary ---
Author Organization [facility] Address [address] [facility] [address] [place] [address] Care Team Providers Care Micro Paleontologist Name Role Phone Anthony Andujar MD Primary Care Provider [phone] Reason for Visit * Reason Comments Med Refill Encounter Details Date Type Department Care Team (Late st Contact Info) Description 01/13/2024 Refill [facility] Neurology [address] [place] [phone] Charlotte Varela MD [address] [place] [address] Abnormal movement Social History Tobacco Use Types [...] movement documented in this encounter Care Teams Micro Paleontologist Relationship Specialty Start Date End Date Anthony Andujar MD [address] [address] PCP - General 12/17/21 documented as of this encounter
--- OUTSIDE RECORDS SUMMARY | 2025-06-19 14:52 | XMS_ITS | Clinical Summary ---
Author Organization [employer] Address [address] [facility] [address] [place] [address] Care Team Providers Care Insurance Underwriter Sales Name Role Phone Unavailable Primary Care Provider [...]
== END 2025-06-19 14:50 | disposition home or self-care (01) ==
LOC: HO.MAMMO 14:49
PROVIDERS: PCP Internal Medicine; Visit Provider Internal Medicine
DX: Z12.31 Encounter for screening mammogram for malignant neoplasm of breast (principal)
CPT/HCPCS: 77063; 77067

== ENCOUNTER → 2025-06-19 15:15 | Outpatient (BNV) | payer MEDICARE, MEDICAID, SELFPAY | PROVIDERS: PCP Internal Medicine; Visit Provider Radiology Body Imaging | DX: Z12.31 Encounter for screening mammogram for malignant neoplasm of breast (principal) | CPT/HCPCS: 77063; 77067 ==

== ENCOUNTER 2025-06-23 10:53 | Outpatient (REF) | payer MEDICARE, MEDICAID, SELFPAY ==
--- NOTE | ~2025-06-23 | XR_ITS ---
EXAMINATION: XR HAND 3 VIEWS BILATERAL HISTORY: M79.641 - Pain in right hand COMPARISON: There are no prior studies available for comparison. FINDINGS: Six views of the bilateral hands are submitted. Osseous mineralization is normal. There is no fracture or dislocation. The joint spaces are preserved. The soft tissues are unremarkable. XR/XR Hand Bilat min 3v IMPRESSION: Unremarkable examination of the bilateral hands. Electronically signed by: Gaston Berry MD 06/23/2025 03:51 PM EDT
--- OUTSIDE RECORDS SUMMARY | 2025-06-23 11:37 | XMS_ITS | Clinical Summary ---
Author Organization [employer] Address [address] [facility] [address] [place] [address] Care Team Providers Care Outside Sales Engineer Name Role Phone Unavailable Primary Care Provider [...]
--- OUTSIDE RECORDS SUMMARY | 2025-06-23 11:37 | XMS_ITS | Encounter Summary ---
Author Organization [facility] Address [address] [facility] [address] [place] [address] Care Team Providers Care Hardboard Panel Printer Name Role Phone Anthony Andujar MD Primary Care Provider [phone] Reason for Visit * Reason Comments Med Refill Encounter Details Date Type Department Care Team (Late st Contact Info) Description 01/13/2024 Refill [facility] Neurology [address] [place] [phone] Charlotte Varela MD [address] [place] [address] Abnormal movement Social History Tobacco Use Types [...] movement documented in this encounter Care Teams Hardboard Panel Printer Relationship Specialty Start Date End Date Anthony Andujar MD [address] [address] PCP - General 12/17/21 documented as of this encounter
== END 2025-06-23 10:54 | disposition home or self-care (01) ==
LOC: HO.XRAY 10:53
PROVIDERS: PCP Internal Medicine; Visit Provider Internal Medicine
DX: M79.641 Pain in right hand (principal); M79.642 Pain in left hand
CPT/HCPCS: 73130

== ENCOUNTER → 2025-06-23 10:58 | Outpatient (BNV) | payer MEDICARE, MEDICAID, SELFPAY | PROVIDERS: PCP Internal Medicine; Visit Provider Radiology Diagnostic Radiology | DX: M79.641 Pain in right hand (principal) | CPT/HCPCS: 73130 ==

== ENCOUNTER → 2025-07-08 10:50 | Outpatient (REF) | payer MEDICARE, MEDICAID, SELFPAY ==
--- NOTE | 2025-07-08 10:52 | CA_ITS ---
Transthoracic Echocardiogram Patient (Last, First, Middle): Emani Kim, Gender: F Date of : 1970 Age: 55 Procedure Date: 07/08/2025 Procedure Type: Transthoracic Echocardiogram Location: OP Height: 182.88 cm Weight: 83.92 kg BSA: 2.06 m2 Heart Rate: bpm BP: 92 / 60 mmHg Figure Clerk: STEPHEN Referring MD: Getachew Harmon MD Symptoms: R06.02 - Shortness of breath Study Quality: Adequate ECG Rhythm: Sinus Conclusions: - The left ventricular systolic function is normal. The calculated ejection fraction is 57% by biplane method. - No obvious valvular pathology seen on this study. Findings Left Ventricle Normal left ventricular cavity size. There is normal left ventricular wall thickness. The left ventricular systolic function is normal. The calculated ejection fraction is 57% by biplane method. There is no evidence of regional wall motion abnormalities. Diastolic function is normal for age. Right Ventricle Normal right ventricular cavity size and systolic function. Atria Both atria are normal in size. Aortic Valve There is a normal trileaflet aortic valve. There is no aortic valve stenosis. There is no aortic valve regurgitation. Mitral Valve The mitral valve appears normal. There is trace mitral valve regurgitation. There is no mitral valve stenosis. Pulmonic Valve The pulmonic valve is likely normal. Tricuspid Valve There is trace tricuspid valve regurgitation. There is no evidence of pulmonary hypertension. Great Vessels The aorta was not well visualized. The sinuses of valsalva and sino tubular ridge are normal in size. Venous The inferior vena cava is normal in size and collapses greater than 50% with inspiration. Pericardium/Pleural There is no evidence of pericardial effusion. Prior Study Comparison No prior study available for comparison. Recommendations, Care & Conclusions No obvious valvular pathology seen on this study. Measurements 2D Linear Measurements IVSd: 0.89 0.6-0.9/0.6-1.0 cm LVIDd: 5.15 3.9-5.3/4.2-5.9 cm LVIDd Index: 2.50 2.4-3.2/2.2-3.1 cm/m2 LVIDs: 3.80 2.0-3.6 cm LVPWd: 0.85 0.7-1.1 cm LA Diam: 3.10 2.7-3.8/3.0-4.0 cm LAIDs Index: 1.50 1.5-2.3 cm/m2 LV Mass: 198.41 67-162/88-224 g LV Mass Index: 96.31 43-95/49-115 g/m2 LVOT Diam: 2.30 3.0+(-)1.3 cm 2D Systolic Function EF 4C: 55.30 >55% EF 2C: 57.00 >55% EF BiP: 56.60 >55% Mitral Valve MV Pk E: 0.52 MV PK A: 0.48 MV Decel Time: 236.00 E/A: 1.10 E'Lateral: 12.00 E'Medial: 9.03 E/E' Med: 5.80 E/E' Lat: 4.40 PHT: 69.00 MVA PHT: 3.19 Decel Cotton: 2.21 Aortic Valve AoV Pk Eduard: 1.21 AoV Mn Eduard: 0.83 AoV VTI: 0.28 AoV Pk Grad: 6.00 Aov Mn Grad: 3.00 FRANCISCO Cont.VTI: 2.62 LVOT LVOT Pk Eduard: 0.88 LVOT Mn Eduard: 0.55 LVOT VTI: 0.18 LVOT Pk Grad: 3.00 LVOT Mn Grad: 1.00 LVOT Diam: 2.30 LVOT Area: 4.15 Diastolic Function MV Pk E: 0.52 MV Pk A: 0.48 E/A: 1.10 E'Medial: 9.03 E/E' Med: 5.80 E' Laterial: 12.00 E/E' Lat: 4.40 Right Ventricle TAPSE (mm): 26.50 TVS' Eduard: 10.80 Tricuspid Valve TR Pk Eduard: 1.89 TR Pk Grad: 14.00 RA Press: 3.00 RVSP: 17.00 Great Vessels Aorta Sinus of Valsalva: 3.38 2.0-3.[address] Ridge: 2.61 1.7-3.4 cm Updated in Other Vendor System with Status of Final Getachew Harmon MD electronically signed on 07/09/2025 3:17:04 PM with status of Final
--- OUTSIDE RECORDS SUMMARY | 2025-07-08 11:41 | XMS_ITS | Clinical Summary ---
Author Organization [facility] Address [address] [address] Care Team Providers Care Transition Rn Name Role Phone Anthony Andujar MD Primary Care Provider [phone] Allergies No known active allergies Medications gabapentin (Neurontin) 300 mg capsuleIndicati ons:Abnormal movement TAKE 1 CAPSULE(300 MG) BY MOUTH IN THE MORNING AND AT BEDTIME 60 capsule 3 02/09/2024 Active Social History Tobacco Use Types Packs/Day Years Used Date Smoking Tobacco: Never Assessed Comments Unknown Sex and Gender Information Value Date Recorded Sex Assigned at Not on file Legal Sex Female 11:08 PM EST Gender Identity Not on file Sexual Orientation Not on file Last Filed Vital Signs Vital Sign Reading Time Taken Comments Blood Pressure 103/66 09/23/2022 8:58 AM EST Pulse 71 09/23/2022 8:58 AM EST Temperature - - Respiratory Rate 16 04/05/2018 3:45 PM EDT Oxygen Saturation 95% 04/05/2018 3:45 PM EDT Inhaled Oxygen Concentration - - Weight 74.4 kg (164 lb) 09/23/2022 8:58 AM EST Height 182.9 cm (6') 09/23/2022 8:58 AM EST Body Mass Index 22.24 09/23/2022 8:58 AM EST Plan of Treatment Health Maintenance Due Date Last Done Comments CT Colonography 1970 Colonoscopy 1970 Colorectal Cancer Screening 1970 FIT-DNA 1970 FIT 1970 FOBT 1970 HIV Screening 1970 Sigmoidoscopy 1971 MMR Vaccines (1 of 1 - Standard series) 1972 Hepatitis C Screening 1989 DTaP/Tdap/Td Vaccines (1 - Tdap) 1990 Hepatitis B Vaccines (1 of 3 - 19+ 3-dose series) 1990 Pap Smear 1992 Cervical Cancer Screening 2001 HPV/Cotest 2001 Pneumococcal Vaccine: 50+ Years (1 of 1 - PCV) 2021 Zoster Vaccines (1 of 2) 2021 Medicare Annual Wellness (AWV) 05/13/2023 Mammogram 06/16/2024 06/16/2022 COVID-19 Vaccine (3 - 2023-2 5 season) 2024 09/17/2021, 08/20/2021 Depression Screening 11/13/2024 Influenza Vaccine (#1) 2025 Lipid Panel 09/23/2027 09/23/2022 HIB Vaccines Aged Out No longer eligi [...] on patient's age to complete this topic Procedures Procedure Name Priority Date/Time Associated Diagnosis Comments LIPID PANEL Routine 09/23/2022 11:05 AM EST Abnormal movement Restless leg syndrome from Last 3 Months or Most Recently Relevant to Health Maintenance Results * (ABNORMAL) Lipid panel (09/23/2022 11:05 AM EST) Triglycerides 94 <=150 mg/dL 09/23/2022 12:23 PM EST [facility] Cholesterol 211(H) <=200 mg/dL 09/23/2022 12:23 PM EST [facility] HDL cholesterol 59 >=40 mg/dL 12:23 PM EST [facility] LDL cholesterol, calculated 133(H) 0 - 130 mg/dL 09/23/2022 12:23 PM EST [facility] Cholesterol/HDL Ratio 3.6 09/23/2022 12:23 PM EST [facility] Blood Venous blood specimen / Unknown Venipuncture / Unknown 09/23/2022 11:05 AM EST 09/23/2022 11:32 AM EST us Armand Brandt MD LAB BLOOD ORDERABLES Final Resul t [facility] [address] [place] [address], from Last 3 Months or Most Recently Relevant to Health Maintenance Insurance MEDICARE PART A AND B MEDICAID STANDARD Care Teams Transition Rn Relationship Specialty Start Date End Date Anthony Andujar MD [address] [address] PCP - General 12/17/21
--- OUTSIDE RECORDS SUMMARY | 2025-07-08 11:41 | XMS_ITS | Encounter Summary ---
Author Organization [facility] Address [address] [facility] [address] [place] [address] Care Team Providers Care Fruit Loader Machine Operator Name Role Phone Anthony Andujar MD Primary Care Provider [phone] Reason for Visit * Reason Comments Med Refill Encounter Details Date Type Department Care Team (Late st Contact Info) Description 01/13/2024 Refill [facility] Neurology [address] [place] [phone] Charlotte Varela MD [address] [place] [address] Abnormal movement Social History Tobacco Use Types [...] movement documented in this encounter Care Teams Fruit Loader Machine Operator Relationship Specialty Start Date End Date Anthony Andujar MD [address] [address] PCP - General 12/17/21 documented as of this encounter
--- OUTSIDE RECORDS SUMMARY | 2025-07-08 11:41 | XMS_ITS | Clinical Summary ---
Author Organization [employer] Address 75 [facility] 7[address] [place] [address] Care Team Providers Care Supervisor Gate Services Name Role Phone Unavailable Primary Care Provider [...]
--- OUTSIDE RECORDS SUMMARY | 2025-07-08 11:41 | XMS_ITS | Encounter Summary ---
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 EFFECTIVE SINCE 07/06/2023 documented in this encounter Plan of Treatment Not on file documented as of this encounter Visit Diagnoses Not on filedocumented in this encounter
== END ==
LOC: HO.CARD 10:50
PROVIDERS: PCP Internal Medicine; Visit Provider Internal Medicine
DX: R06.02 Shortness of breath (principal)
CPT/HCPCS: 93306

== ENCOUNTER → 2025-07-08 10:52 | Outpatient (BNV) | payer MEDICARE, MEDICAID, SELFPAY | PROVIDERS: PCP Internal Medicine; Visit Provider Internal Medicine | DX: R06.02 Shortness of breath (principal) | CPT/HCPCS: 93306 ==

== ENCOUNTER 2025-07-25 11:13 | Outpatient (AMB) | payer MEDICARE, MEDICAID, SELFPAY ==
[2025-07-25 11:37] VITALS: BP 90/52; PULSE 74; O2SAT 96; BMI 25.1
--- NOTE | 2025-07-25 11:37 | MHC.OFFVIS ---
Vital Signs 07/25/25 11:37 Height 6 ft Weight 185 lb BMI 25.1 BP 90/52 L Blood Pressure Location Rt brachial Position Sitting Pulse 74 Pulse Source Pulse Oximeter Pulse Oximetry (%) 96 Oxygen Delivery Method Room Air Intake Visit Reasons: discuss endo Intake Note: ESTABLISHED PATIENT for mgmt of GERD + IBS. Chief Complaint; C.O. increased abd pain, most painful to palpation, increased bloating. Pt does report having less GERD sx. Field Crop Farm Worker Required: No Accompanied by: Self / Same As Patient Allergies latex Allergy (Severe, Verified 07/25/25 11:38) Anaphylaxis Cephalosporins Allergy (Mild, Verified 07/25/25 11:38) Rash egg Allergy (Mild, Verified 07/25/25 11:38) Unknown Sulfa (Sulfonamide Antibiotics) Allergy (Mild, Verified 07/25/25 11:38) Rash omalizumab (From Xolair) Adverse Reaction (Severe, Verified 07/25/25 11:38) worsening SOB/asthma; hives; injection reaction ibuprofen (From Motrin) Adverse Reaction (Mild, Verified 07/25/25 11:38) Rash HPI HPI discuss endo: Details: LAST VISIT Esophageal candidiasis Asthma GERD without esophagitis Tubular adenoma of colon Postprandial abdominal bloating Constipation Postprandial epigastric pain Dysphagia Plan Patient will continue taking Nexium. Avoid dietary triggers in late night snacking. Staying upright for minimum 3 hours after meals discussed with patient. Follow-up in 6 months, sooner on as needed basis. Patient is agreeable to this plan and verbalizes understanding of instructions. She was given the opportunity to ask questions and all questions answered. ? Thank you for allowing me to participate in her care ? Next visit will set up for upper endoscopy to re-evaluate Refilled esomeprazole magnesium (Nexium) 40 mg PO BID 180 caps 5RF K21.9 Discontinued solifenacin please dispense 10mg tablets. patient to take one 10mg tablet per day or two 5 mg tablets. Thank you Discontinued Reason: Entered in error 10 mg (2 x 5 mg) PO DAILY 90 days 180 tabs 2RF TODAY'S VISIT Patient is here today for follow-up. Patient reports that she has been feeling well. However she reports increased abdominal bloating. States that she is moving her bowels daily. Abdominal pain in the lower part of her abdomen. Patient tried [id number] simethicone without any results. Patient is not following any particular diet. Veodia has been working for her. Patient denies having any epigastric pain or acid reflux. Denies dysphagia, dyspepsia or odynophagia. Denies melena, hematochezia, unintentional weight loss or ribbon like stools. Patient feels like bloating is most likely liver related to Lexapro. [facility] Medical History (Updated 07/25/25 @ 19:47 by Nora Davis [facility]) GERD (gastroesophageal reflux disease) Family history of sudden cardiac (SCD) Tubular adenoma of colon Pure hypercholesterolemia Vitamin D deficiency Vitamin B12 deficiency Allergic rhinitis Pulmonary nodule, left Anxiety Neuropathy Asthma Diabetes mellitus Migraine Cyclical vomiting Surgical History History of lumpectomy of right breast (05/29/24) Hx of shoulder surgery Hx of shoulder surgery Hx of colonoscopy Status post laparoscopic assisted vaginal hysterectomy (LAVH) (~2016) Hx of gastric bypass (~2009) Hx of cholecystectomy Family History Mother Lung cancer Father Cardiac arrest Brother Chronic a-fib Cardiac arrest Daughter Long QT interval Paternal Grandfather Cardiac arrest Paternal Aunt Cardiac arrest Other Diabetes Social History Housing: House Are you a primary healthcare network pricing consultant to a significant other at home: No Do you presently have visiting nurse or other home services: No Alcohol intake: never Patient Tobacco Use Status: Former Tobacco user Tobacco use type: Cigarette Cigarette Packs Per Day: 1.5 Years Smoked: quit more than 15 years ago, started as a teen e-Cigarette/Vaping Use: Never Used service: No Current occupational status: disabled Current occupation: Left hand dominant Current occupational exposures/hazards: No Cognitive needs: No Hearing needs: No Vision needs: Yes Review of Systems Const Denies weight gain and Denies weight loss ENT Reports no additional complaints, Denies dysphagia and Denies odynophagia Card Reports no additional complaints Resp Reports no additional complaints GI Denies abdominal pain, Denies belching, Denies melena, Denies bloating, Denies change in bowel habits, Denies dysphagia, Denies excessive flatus, Denies dyspepsia, Denies heartburn, Denies diarrhea, Denies loose stools, Denies nausea, Denies odynophagia and Denies vomiting Reports no additional complaints Musc Reports no additional complaints Neuro Reports no additional complaints Psych Reports no additional complaints Endo Reports no additional complaints Physical Exam Vital Signs: Last Vital Signs Pulse 74 07/25/25 11:37 BP 90/52 L 07/25/25 11:37 Pulse Ox 96 07/25/25 11:37 Oxygen Delivery Method Room Air 07/25/25 11:37 BMI result Body Mass Index 25.1 Const General: healthy appearing, no acute distress and well developed Nutritional Appearance: well nourished Orientation/consciousness: patient oriented x3 Resp Effort & Inspection: normal respiratory effort, able to speak in complete sentences, no tracheal deviation and symmetric chest movement Auscultation: clear to auscultation bilaterally Cardio Rate: regular rate GI Inspection: Yes normal to inspection and No distended Palpation (GI): Soft to palpation, not firm, nontender and No hepatosplenomegaly present Auscultation: normal bowel sounds General: Yes no CVA tenderness Back/Spine/Pelvis Back: no CVA tenderness Skin General skin exam: elasticity normal, turgor normal and dry skin Neuro General: patient oriented x3 Psych Appearance: grossly normal Mental Status: mental status grossly normal Assessment & Plan Assessment & Plan (1) Esophageal candidiasis: Code(s): B37.81 - Candidal esophagitis Category: Medical (2) Asthma: Code(s): J45.909 - Unspecified asthma, uncomplicated Category: Medical Qualifiers: Asthma severity: moderate Asthma persistence: persistent Asthma complication type: unspecified Qualified Code(s): J45.40 - Moderate persistent asthma, uncomplicated (3) Tubular adenoma of colon: Code(s): D12.6 - Benign neoplasm of colon, unspecified Category: Medical (4) Postprandial abdominal bloating: Code(s): R14.0 - Abdominal distension (gaseous) (5) Constipation: Code(s): K59.00 - Constipation, unspecified (6) Postprandial epigastric pain: Code(s): R10.13 - Epigastric pain (7) Dysphagia: Code(s): R13.10 - Dysphagia, unspecified (8) GERD (gastroesophageal reflux disease): Code(s): K21.9 - Gastro-esophageal reflux disease without esophagitis Category: Medical Qualifiers: Esophagitis presence: with esophagitis Esophagitis bleeding: without hemorrhage Qualified Code(s): K21.00 - Gastro-esophageal reflux disease with esophagitis, without bleeding Plan Patient will continue Nexium daily. Avoid dietary triggers in late night snacking. Staying upright for minimal 3 hours after meals discussed with patient. Patient can start taking simethicone twice a day. Continue low FODMAP diet. May take [id number]-[id number]-[id number] laxatives if needed. Increase fluid intake and activity to promote better bowel motility. Patient will follow-up in 6 months. She currently is not having any epigastric pain or dysphagia. Will hold off on sending patient for endoscopy. Patient was encouraged to call our office if her symptoms return we will set up endoscopy for her to check for recurrence of esophagitis. Patient is agreeable to this plan and verbalizes understanding of instructions. She was given the opportunity to ask questions and all questions answered. Thank you for allowing me to participate in her care Medications: New simethicone (Gas Relief (simethicone)) 180 mg PO BID PRN 180 caps 3RF abdominal distention Discontinued simethicone Discontinued Reason: Duplicate 125 mg PO BID-QID PRN 120 caps 3RF abdominal distention K21.9 - Gastro-esophageal reflux disease without esophagitis Coding Level of Care Code Est Pt Level 4 (82137) Complex EM visit Add On G2211 Diagnoses Esophageal candidiasis B37.81 Moderate persistent asthma, unspecified whether complicated J45.40 Asthma severity: moderate Asthma persistence: persistent Asthma complication type: unspecified Tubular adenoma of colon D12.6 Postprandial abdominal bloating R14.0 Constipation K59.00 Postprandial epigastric pain R10.13 Dysphagia R13.10 Gastroesophageal reflux disease with esophagitis without hemorrhage K21.00 Esophagitis presence: with esophagitis Esophagitis bleeding: without hemorrhage Time Spent (min) 35 Comment 25 minutes spent with patient and additional 10 minutes spent reviewing her records
--- OUTSIDE RECORDS SUMMARY | 2025-07-25 13:18 | XMS_ITS | Encounter Summary ---
Author Organization [facility] Address 800 [facility] [address] [place] [address] Care Team Providers Care Armament Installer Name Role Phone Anthony Andujar MD Primary Care Provider [phone] Reason for Visit * Reason Comments Med Refill Encounter Details Date Type Department Care Team (Late st Contact Info) Description 01/13/2024 Refill [facility] Neurology [address] [place] [phone] Charlotte Varela MD [address] [place] [address] Abnormal movement Social History Tobacco Use Types [...] movement documented in this encounter Care Teams Armament Installer Relationship Specialty Start Date End Date Anthony Andujar MD [address] [address] PCP - General 12/17/21 documented as of this encounter
--- OUTSIDE RECORDS SUMMARY | 2025-07-25 13:18 | XMS_ITS | Clinical Summary ---
Author Organization [employer] Address 75 [facility] 7t [place] [address] Care Team Providers Care [employer] Name Role Phone Unavailable Primary Care Provider [...] 2021 Zoster Vaccines (1 of 2) 2021 Mammogram 12/29/2024 12/29/2022, 08/01/2022, 07/05/2022, Additional history exists COVID-19 Vaccine ( - 2023- season) 2025 Influenza Vaccine (#1) 2025 RSV Patients and [...]
--- OUTSIDE RECORDS SUMMARY | 2025-07-25 13:18 | XMS_ITS | Clinical Summary ---
Author Organization [facility] Address [address] [address] Care Team Providers Care Rehabilitation Services Director Name Role Phone Anthony Andujar MD Primary Care Provider [phone] Allergies No known active allergies Medications gabapentin [...] Annual Wellness (AWV) 05/13/2023 Mammogram 06/16/2024 06/16/2022 Depression Screening 11/13/2024 COVID-19 Vaccine (3 - 2024-2 6 season) 2025 09/17/2021, 08/20/2021 Influenza Vaccine (#1) 2025 Lipid Panel 09/23/2027 [...] 94 <=150 mg/dL 09/23/2022 12:23 PM EST [facility] Cholesterol 211(H) <=200 mg/dL 09/23/2022 12:23 PM EST [facility] HDL cholesterol 59 >=40 mg/dL 2 12:23 PM EST [facility] LDL cholesterol, calculated 133(H) 0 - 130 mg/dL 09/23/2022 12:23 PM EST [facility] Cholesterol/HDL Ratio 3.6 09/23/2022 12:23 PM EST [facility] Blood Venous blood specimen / Unknown Venipuncture / Unknown 09/23/2022 11:05 AM EST 09/23/2022 11:32 AM EST us Armand Brandt MD LAB BLOOD ORDERABLES Final Resul t [facility] [address] [place] [address], from Last 3 Months or Most Recently Relevant to Health Maintenance Insurance MEDICARE PART A AND B MEDICAID STANDARD Care Teams Rehabilitation Services Director Relationship Specialty Start Date End Date Anthony Andujar MD [address] [address] PCP - General 12/17/21
--- OUTSIDE RECORDS SUMMARY | 2025-07-25 13:18 | XMS_ITS | Encounter Summary ---
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 EFFECTIVE SINCE 07/06/2023 documented in this encounter Plan of Treatment Not on file documented as of this encounter Visit Diagnoses Not on filedocumented in this encounter
== END 2025-07-25 12:07 | disposition home or self-care (01) ==
LOC: HO.HGI 11:14
PROVIDERS: PCP Internal Medicine; Visit Provider Nurse Practitioner Family
DX: B37.81 Candidal esophagitis (principal); J45.40 Moderate persistent asthma, uncomplicated; D12.6 Benign neoplasm of colon, unspecified; R14.0 Abdominal distension (gaseous); K59.00 Constipation, unspecified; R10.13 Epigastric pain; R13.10 Dysphagia, unspecified; K21.00 Gastro-esophageal reflux disease with esophagitis, without bleeding
CPT/HCPCS: 99214; G2211

== ENCOUNTER → 2025-07-25 11:13 | Outpatient (BNVA) | payer MEDICARE, MEDICAID, SELFPAY | PROVIDERS: PCP Internal Medicine; Visit Provider Nurse Practitioner Family | DX: K21.9 Gastro-esophageal reflux disease without esophagitis (principal); B37.81 Candidal esophagitis; J45.40 Moderate persistent asthma, uncomplicated; D12.6 Benign neoplasm of colon, unspecified; R14.0 Abdominal distension (gaseous); R10.13 Epigastric pain; K21.00 Gastro-esophageal reflux disease with esophagitis, without bleeding | CPT/HCPCS: 99212 ==

== ENCOUNTER 2025-09-29 07:43 | Outpatient (AMB) | payer MEDICARE, MEDICAID, SELFPAY ==
--- OUTSIDE RECORDS SUMMARY | 2025-08-14 09:07 | XMS_ITS | Continuity of Care Document ---
Author Organization [facility] Address [address] [place] [address] Phone Care Team Providers Care Physician Vice President Name Role Phone Johan MSN, DIAL BUFFER-CCaren Unavailable Un available Allergies, Adverse Reactions, Alerts Substance Reaction Status Criticality No Known Allergies Active No Inform ation Medications Medication Instructions Dosage Effective Dates (start - stop) Status Comments Vitamin D2 1,250 mcg (50,000 unit) capsule take 1 capsule by oral route every week for 12 weeks 72627 UNITS - Active valacyclovir 1 gram tablet take 2 tablet by oral route every 12 hours for ONE day for herpes outbreak - Active multivitamin tablet - Active Caltrate plus D 600 mg (carbonate)-20 mcg (800 unit) chewable tablet - Active Wegovy 0.25 mg/0.5 mL subcutaneous pen injector inject (0.25MG) by subcutaneous route every week on the same day of each week for r73.01, e78.2 0.25 MG - Active Xanax 0.5 mg tablet take 1 tablet by oral route every day prn only - Active Procedures Procedure Date Admin Of Pt Focused Health Risk Assessme nt Instr Prev Visit, Est, Age 40-64 OFFICE/OUTPATIENT VISIT EST Combo Routine Venipuncture Immunization Admin IIV3 VACC NO PRSV 0.5 ML IM NO Office Visit Code / NO EM Code Destruct B9 Lesion Or Warts, - NO Office Visit Code / NO EM Code Destruct B9 Lesion Or Warts, - NO Office Visit Code / NO EM [...] Diagnoses Date Provider Providers Copied on Encounter [facility], [address] [place] [address], [facility], tel:[phone] [facility] Macrocytic anemia Oct-0 5 [facility] Fabian. [address] [place] [address] [place] [address], [id number], [place]. tel:[phone] [facility], [address], [address], tel:[phone] [facility] Cold sore Sep-2 5 [facility] Caren. [address] [place] [address], [id number], . tel:[phone] Prev Visit, Est, Age 40-64 [facility], [address] [place] [address], [facility], tel:[phone] [facility] Nurse Comments (chief complaint) General medical examinationE ncounter for screening for other disorderAsym ptomatic menopausal stateMixed hyperlipidem iaBody mass index [BMI] 24.0-24.9, adultImpaire d fasting glucoseVitam in D deficiency Sep-2 5 Johan Fabian. [address] [place] [address] [address], [place], [id number], [place]. tel:[phone] Referring Provider: Caren Prado, [address] [place] [address] [address], [place], [address]. tel:[phone] [facility] , [address] [place] [address], [facility], tel:[phone] [facility] lesions (chief complaint) Other viral warts 3 0 5 Maru Alas. [address] [place] [address], [facility], . tel:[phone] Referring Provider: Evette Mahoney, [address] [place] [address], [facility]. tel:[phone] [facility] , [address] [place] [address], [facility], tel:[phone] [facility] lesions (chief complaint) Other viral warts 0 2 5 Maru Alas. [address] [place] [address], [facility], . tel:[phone] Referring Provider: Evette Mahoney, [address] [place] [address], [facility]. tel:[phone] [facility] , [address] [place] [address], [facility], tel:[phone] [facility] lesions (chief complaint) Other viral warts 0-202 5 Maru Alas. [address] [place] [address], [facility], . tel:[phone] Referring Provider: Evette Mahoney, [address] [place] [address], [address]. tel:[phone] [facility] , [address] [place] [address], [address], tel:[phone] [facility] Wart (chief complaint) Other viral warts March- 5 Ernestoozshonda Alas. [address] [place] [address], [address], . tel:[phone] Referring Provider: Evette Mahoney, [address] [place] [address], [address]. tel:[phone] [facility] , [address] [place] [address], [facility], tel:[phone] [facility] wart (chief complaint) Other viral warts 0 5 Ernestoozshonda Alas. [address] [place] [address], [facility], . tel:[phone] Referring Provider: Evette Mahoney, [address] [place] [address], [facility]. tel:[phone] [facility] , [address] [place] [address], [facility], tel:[phone] [facility] lesions (chief complaint) Other viral warts 5 Ernestoozshonda Alas. [address] [place] [address], [facility], . tel:[phone] Referring Provider: Evette Mahoney, [address] [place] [address], [address]. tel:[phone] [facility] , [address] [place] [address], tel:[phone] [facility] Wart (chief complaint) Other viral warts 5 Ernestoozshonda Penae. [address] [place] [address], [address], . tel:[phone] Referring Provider: Evette Mahoney, [address] [place] [address], [facility]. tel:[phone] OFFICE/OUTPAT IENT VISIT, EST-Problem Focused [facility] , [address] [place] [address], [facility], tel:[phone] [facility] lesions (chief complaint)w art (chief complaint) Neoplasm of uncertain behavior of skinOther viral warts 5 Maru Alas. [address] [place] [address], [facility], . tel:[phone] Referring Provider: Evette Mahoney, [address] [place] [address], [facility]. tel:[phone] OFFICE/OUTPAT IENT VISIT, NEW [facility] , [address] [place] [address], [facility], tel:[phone] [facility] lesions (chief complaint) LentiginesMe lanocytic nevus of trunkSeborrh eic keratosis 4 Maru Alas. [address] [place] [address], [facility], . tel:[phone] Referring Provider: Evette Mahoney, [address] [place] [address], [facility]. tel:[phone] [facility], [address] [place] [address], [facility], tel:[phone] [facility] No Information Jul- 4 Johan Fabian. [address] [place] [address] [address], [place], [place], [id number], . tel:[phone] Prev Visit, Est, Age 40-64 [facility], [address] [place] [address], [address], tel:[phone] [facility] Nurse Comments (chief complaint) General medical examinationB jackie mass index [BMI] 25.0-25.9, adultChest tightnessMur murAnxietyMi xed hyperlipidem iaElevated BP without diagnosis of hypertension Encounter for screening for other disorder Sep- 4 Johan Fabian. [address] [place] [address] [facility] [address] , [place], [place], [id number], [place]. tel:[phone] Referring Provider: Caren Prado, [address] [address] [address] , [place], [address]. tel:[phone] Office/Outpat ient Visit, Est [facility], [address] [facility], [place], [place], [facility], tel:[phone] [facility] Nurse Comments (chief complaint)C hronic Conditions (chief complaint) AnxietyBody mass index (BMI) 25.0-25.9, adultVenous insufficienc y (chronic) (peripheral) Mixed hyperlipidem iaEffusion, right elbow Mar-0 4 [facility]. [address] [place] [address], [place], [place], [id number], . tel:[phone] Referring Provider: Caren Prado, [address] [place] [address] [address] , [place], [address]. tel:[phone] [facility], [address] [place] [address], [address], [place], [address], [place] tel:[phone] [facility] No Information Sep-2 2 Irma Holland. [address], [address], [place], [place], [id number], [place]. tel:[phone] Referring Provider: Adonis Jordan, [facility] [address], [place], [address]. tel:[phone] Consultation Vein Clinic Self Referred [facility] CardioJD [facility], [facility] [facility], [place], [address], [place] tel:[phone] [facility] Office Vein Consult (chief complaint)V ein Note (chief complaint) Venous insufficienc y (chronic) (peripheral) Sep-0 2 Mehul Lamb. [address], [address] n [place], [id number], [place]. tel:[phone] Referring Provider: Adonis Jordan, [address], [place], [address]. tel:[phone] Prev Visit, Est, Age 40-64 [facility], [address] [place] [address], [facility], tel:[phone] [facility] Nurse Comments (chief complaint)p reventive exam (chief complaint)B ack pain (chief complaint) General medical examinationM ixed hyperlipidem iaAnxietyEnc ounter for gynecologica l examination (general) (routine) without abnormal findingsBody mass index [BMI] 27.0-27.9, adultAcute left-sided low back pain without sciaticaNume lin moles 0 1 Viktor Galvan. [facility] Route , [address], [facility], . tel:[phone] Referring Provider: Mandy Hoang, [address] [place] [address], [facility]. tel:[phone] Prev Visit, Est, Age 40-64 [facility], [facility] [address] [place] [address], [facility], tel:[phone] [facility] Nurse Comments (chief complaint)p reventive exam (chief complaint)a nxiety (chief complaint)H x of URI (chief complaint) General medical examinationM ixed hyperlipidem iaAnxietyBod y mass index (BMI) 25.0-25.9, adultHistory of upper respiratory infection 0 Viktor Galvan. [facility] [address], [address], [facility], . tel:[phone] Referring Provider: Mandy Hoang [address] [facility] [address], [facility]. tel:[phone] Office/Outpat ient Visit, New [facility], [address], [place], [address], [place] tel:[phone] [facility] Nurse Comments (chief complaint) Bacterial conjunctivit isBody mass index (BMI) 24.0-24.9, adultSore throat 0 Mariseljerardo Caren. [address] [facility] [address] , [place], [place], [id number], [place]. tel:[phone] Referring Provider: Caren Prado, [address] [facility] [address] , [place], [address]. tel:[phone] OFFICE/OUTPAT IENT VISIT, [facility] , [address] [place] [address], [id number], [place] tel:[phone] [facility] eye problem (chief complaint) Acute conjunctivit is of right eye, unspecified acute conjunctivit is typeEncounte r for exam of eyes and vision w/o abnormal findings 0 Venkatesh Gordillo. [address] [place] [address], [id number], [place]. tel:[phone] Referring Provider: Duy Riddle, [address] [place] [address], [address]. tel:[phone] Office/Outpat ient Visit, [facility], [address] [facility] [address], [place], [place], [id number], [place] tel:[phone] [facility] Left hip pain (chief complaint) Pain in left hip 7 Newton Barrow. [address] [employer], [facility] [place], [address], [place]. tel:[phone] Referring Provider: Danial Prajapati, [address] [employer] [facility] [place], [address]. tel:[phone] OFFICE/OUTPAT IENT VISIT, [facility] , [address] [place] [address], [facility], tel:[phone] [facility] lesions (chief complaint) Epidermal cyst 6 Lorenzo Bell. 1 [facility] [address] [place] [address], [id number], [place]. tel:[phone] Referring Provider: Bell Ventura, [address], [address]. tel:[phone] Prev Visit, Est, Age 40-64 [facility], [address] [place] [address], [facility], tel:[phone] [facility] Nurse Comments (chief complaint) Encntr for general adult medical exam w/o abnormal findingsBody mass index (BMI) 22.0-22.9, adultOther fatigueVitam in D deficiency 5 Jason Tatum. [address] [facility] 6, Johnny. [address] [place] [address], [facility], [place]. tel:[phone] Referring Provider: Deepti Gomez H, [address] [facility] 6, [address], [place], [address]. tel:[phone] OFFICE/OUTPAT IENT VISIT, [facility] , [address] [place] [address], [facility], tel:[phone] [facility] mole(s) (chief complaint) Other benign neoplasm of skin of trunkOther seborrheic keratosis 5 Lorenzo Bell. 1 [facility] [address] [place] [address], [id number], [place]. tel:[phone] Referring Provider: Bell Ventura, [address], [address]. tel:[phone] [facility], [address], [facility], tel:[phone] [facility] No Information 4 Ashwin Grant. [address] Suite [facility], [place], [address], . [phone] Referring Provider: Juanita Ashwin, [address] [facility], [place], [address]. tel:[phone] [facility], [address], [address], tel:[phone] [facility] No Information 4 Ashwin Grant. [address], [place], [address], [place]. [phone] Prev Visit, Est, Age 40-64 [facility], [address], [address], [phone] [facility] Nurse Comments (chief complaint) Routine general medical examination at a [facility] care facilityRout ine gynecologica l examinationB jackie Mass Index 26.0-26.9, adult 4 Jason Tatum. [address] [facility] 6, [address], [place], [address], [place]. tel:[phone] Referring Provider: Deepti Lee, [address] [facility] 6, [address], [place], [address]. tel:[phone] Office/Outpat ient Visit, Est [facility], [address], [facility], tel:[phone] [facility] Nurse Comments (chief complaint) Chest TightnessChe st Tightness 4 No Information Office/Outpat ient Visit, Est [facility], [address], [address], tel:[phone] [facility] Nurse Comments (chief complaint) SEBACEOUS CYST 3 Jason Tatum. [address] [facility] 6, [address], [place], [address], [place]. tel:[phone] Referring Provider: Deepti Lee, [address] [facility] 6, Johnny. [address] [place] [address], [facility]. tel:[phone] Office/Outpat ient Visit, [facility], [address] [place] [address], [facility], tel:[phone] [facility] Nurse Comments (chief complaint) Chest Pain, UnspecifiedJ OINT PAIN-FOREARM 3 Jason Tatum. [address] [facility] 6, Johnny. [address], [place], [facility], . tel:[phone] Referring Provider: Deepti Lee, [address] [facility] 6, Johnny [address] [place] [address], [facility]. tel:[phone] Office/Outpat ient Visit, [facility], [address] [place] [address], [facility], tel:[phone] [facility] Nurse Comments (chief complaint) Influenza VaccineANXIE TY DISORDER NOSInfluenza VaccineANXIE TY DISORDER NOSREASON FOR CONSULT NOS 2 Jason Tatum. [address] [facility] 6, Johnny. [address] [place] [address], [facility], . tel:[phone] Referring Provider: Deepti Lee, [address] [address], [facility]. [address] [place] [address], [facility]. tel:[phone] Office/Outpat ient Visit, [facility], [address] [place] [address], [facility], tel:[phone] [facility] Nurse Comments (chief complaint) ACUTE CONJUNCTIVIT IS NOS 2 No Information Family History Family Member Type Diagnosis Age At Onset No Information Immunizations Vaccine Date Status Comments Influenza virus vaccine, trivalent (IIV3), split virus, preservative free, 0.5 mL administered Source: New Im munization Record influenza, injectable, quadrivalent, MDCK, preservative free, [...] quadrivalent, 3 years or older Fluzone Quad [id number] administered Source: New Immuniza tion Record Fluzone (3years and up - 0.5ml) refused Source: New Immuniza tion Record Flu (split) (3 yrs or older) administered Source: New Immunization Record Tdap (Adacel ) administered Source: New Immuniza tion Record Payers Payer name Insurance type Covered libertarian ID Authoriza tion(s) [employer] CI [id number] A[employer] CI [id number] [employer] CI [id number] [employer] CI [id number] [employer] CI [id number] Social History Type Description Quantity Date Captured Comments Alcohol Use Details Unknown Caffeine Use Details Unknown Tobacco Use Status No Information Smoking Status No Information Sex Female Sexual Orientation Choose not to disclose Gender Identity Choose not to disclose 024 Chief Complaint And Reason For Visit No Information Reason For Referral Reason For Referral No Information Plan Of Treatment Date Type Action Status Goal Colonoscopy. Due on due Goal Lipid Panel. Due on 025 due Goal HIV. Due on due Goal Alcohol Misuse s creen. Due on due Goal Hep C Ab. Due on due Goal Drug Abuse Scree joelle. Due on due Goal Lifestyle educat ion regarding diet completed Goal Hep C Ab. Due on due Goal HIV. Due on due Goal Diabetes Screeni ng. Due on due Goal Colonoscopy. Due on due Goal Drug Abuse Scree joelle. Due on due Goal Alcohol Misuse s creen. Due on due Goal Lifestyle educat ion regarding diet completed Goal Diabetes Screeni ng. Due on due Goal Drug Abuse Scree joelle. Due on due Goal Depression scree joelle. Due on due Goal Hep C Ab. Due on due Goal HIV. Due on due Goal Colonoscopy. Due on due Goal Preventive Exam, 19 yr - 64 yr. Due on due Goal PHQ9. Due on due Goal Alcohol Misuse s creen. Due on due Goal Lifestyle educat ion regarding diet completed Goal PHQ9. Due on due Goal Alcohol Misuse s creen. Due on due Goal HIV. Due on due Goal Diabetes Screeni ng. Due on due Goal Hep C Ab. Due on due Goal Drug Abuse Scree joelle. Due on due Goal Colonoscopy. Due on 021 due Goal Lifestyle educat ion regarding diet completed Goal Hep C Ab. Due on due Goal Alcohol Misuse s creen. Due on due Goal Diabetes Screeni ng. Due on due Goal HIV. Due on due Goal Intimate Partner Violence Scrn. Due on due Goal Drug Abuse Scree joelle. Due on due Goal Mammogram. Due on 7 due Goal Lifestyle educat ion regarding diet completed Goal Intimate Partner Violence Scrn. Due on due Goal Alcohol Misuse s creen. Due on due Goal Preventive Exam, 19 yr - 64 yr. Due on due Goal Diabetes Screeni ng. Due on due Goal HIV. Due on due Goal Lifestyle educat ion regarding diet completed Goal Tdap due Goal Mammogram. Due on 7 due Goal SCREEN CLEANER exam. Due on due Goal Influenza vaccin e. Due on due Goal Breast exam. Due on 98 due Goal Lifestyle educat ion regarding diet completed Goal Breast exam. Due on 989 due Goal Tdap due Goal Mammogram. Due on 5 due Goal SCREEN CLEANER exam. Due on due Goal Breast exam. Due on 989 due Goal Mammogram. Due on 5 due Goal Tdap due Goal Dietary manageme nt education, guidance, and counseling completed Goal Tdap due Goal SCREEN CLEANER exam. Due on due Goal Influenza vaccin e. Due on due Goal Mammogram. Due on 5 due Goal Breast exam. Due on 989 due Goal PAP. Due on due Goal Influenza vaccin e. Due on due Goal Breast exam. Due on 014 due Goal Preventive Exam, 19yr - 64 yr. Due on due Goal SCREEN CLEANER exam. Due on due Goal Dietary manageme nt education, guidance, and counseling completed Goal Influenza vaccin e. Due on due Goal SCREEN CLEANER exam. Due on due Goal Preventive Exam, 19yr - 64 yr. Due on due Goal Breast exam. Due on 014 due Goal PAP. Due on due Referral Ordered: Direct Access Colon Screen (related to SCREEN MALIG NEOP-COLON) ordered Referral Ordered: Referral for Direct Access Colon Screening Appointment date/timeframe: 12/05/2025 ordered Referral Ordered: Cardiology (related to Murmur) ordered Referral Ordered: Colon Screen (related to SCREEN MALIG NEOP-COLON) ordered Referral Referred To: [address] [place] [address]
[address] [place], [phone] Ordered: Referrals: Cardiology. Location: [facility]. Consult and Treat Appointment date/timeframe: 10/22/2024 ordered Referral Ordered: Colon Screen (related to SCREEN MALIG NEOP-COLON) ordered Referral Referred To: Walker Alonso [address] [place] [address], [id number] [phone] Ordered: Referrals: Dermatology. Walker Alonso Consult and Treat Appointment date/timeframe: 07/19/2021 ordered Referral Ordered: Referral for Colon Screening Appointment date/timeframe: 10/21/2021 ordered Future Order: Lab Order Iron and TIBC ([id number]), Appointment on: , Sent on: Sent Future Order: Lab Order Vitamin B12 ([id number]), Appointment on: , Sent on: Sent Future Order: Lab Order Folates (Folic Acid), Serum ([id number]), Appointment on: , Sent on: Sent Future Order: Lab Order Ferritin , Serum ([id number]), Appointment on: , Sent on: Sent Future Order: Lab Order CBC With Differential/Platelet ([id number]), Appointment on: , Sent on: Sent Future Order: Lab Order Pt Servi Center ([id number]), Sent on: Sent Future Order: Radiology Order [place], Bone Density ([id number]), Appointment on: Ordered Future Order: Lab Order COMP MET ABOLIC PANEL [14] ([id number]), Appointment on: , Sent on: Sent Future [...] Of Lower Extremity With Contrast Left hip ([id number]), Body Site: Left, Ordered on: Ordered Future Order: Radiology Order Ma mmo Digital Screen, Bilat: Diag Mammo Or Diag US As Needed ([id number]), Ordered on: Ordered History Of Present Illness Encounter Date Complaint History Of Prese nt Illness Nurse Comments CPE - FBWMed lis t UTD, refill x 1 neededSees no specialists but will schedule eye dr applamar.Non-smoker, no hx of Asthma.Wants flu vacc lesions patient is here today for wart(s) follow up.Warts are on left footLast OV tx w/ [id number] stated warts has not changedNo interval health changes since last visit. No new Medications. Feels well. lesions patient is here today for wart(s) follow up.Warts are on left footLast OV tx w/ [id number] stated warts has not changedNo interval health changes since last visit. No new Medications. Feels well. lesions patient is here today for wart(s) follow up.Warts are on left foot. Last OV tx w/ [id number] stated warts have not gone awayNo interval health changes since last visit. No new Medications. Feels well. Wart Patient is here today for wart(s) follow up.Warts are on left foot. Last OV tx w/ [id number] stated warts have improved no new lesions [...] intake sheet. Nurse Comments CPE/FBW, no eye dr/cardio/physician gynecologist former smoker, no asthmaflu declinedno colonoscopy done [...] than the right. 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 She has had 2 children. She [...] pt see's no eye dentist [facility] physician gynecologist LMP 05/20, needs order for MAMMO gi [...] t have regular eye, does not see inside sales person but no BPP todayno htn, no asthma, former smokerdiscuss results of fbw from 2018 - scanned in Nurse Comments new pt - reestab lishing care with us; right eye red and itchy; seen at urgent care on monday , started drops, not any better eye problem (comments) no contac ts trauma or fb sensation eye problem started with R alanis griffin redness, irritation, discharge and crusting. does not wear contacts Left hip pain Onset 6 weeks. S [...] non smoker, wants flu shotFeels wellM/one son aJrad & one daughter RyanSpends sandhu LBI, belongs to [employer] clubAdopted,no fam HxEating much healthier, followed lower [...] Nurse Comments Pt refused flu s hot. CPE/SCREEN CLEANER FBWFeels well, no c/oEats healthy Functional Status Date Functional Assessmen t No Information Instructions Date Instruction Additional Infor ella initiate wegovy 0.25 mg dose maintain adequate protein intake well balanced dietat least 10,000 steps per datestrength trainingf/u one month or sooner if needed drink plenty of watermonitor for constipation and side effects as discussed. Related to Mixed hyperlipidemia - flu shot-pap utd-l abs-mammo utd-colonoscopy duebone density due-continue regular dental and vision exams-healthy diet and exercise.-derm for skin check- scheduled for next week Related to General medical examination Healthy Lifestyle Care Plan Giving encouragement to exercise Related to Body mass index (BMI) 24.0-24.9, adult Lifestyle education regarding di et Related to Body mass index (BMI) 24.0-24.9, adult ln2 for destruciton Related to O ther viral warts ln2 for destructionw ill start wart peel [...] to Mu rmur -reconsider flu shot -pap [id number] utd-colonoscopy due-continue regular dental and vision exams-healthy [...] CBC, CMP, TSH, Lipids -Patient sees outside physician gynecologist, PAP UDT, mammogram rx given today-Family planning [...] 26.0-26.9, adult Assessments Type Assessment Date assessment Macrocytic anemia Patient Care Teams Name Effective Dates (start - stop) Status Members No Information
--- OUTSIDE RECORDS SUMMARY | 2025-08-14 09:07 | XMS_ITS | Continuity of Care Document ---
Author Organization [facility] Address [address] [place] [address] Phone Care Team Providers Care Mounter Name Role Phone Johan MSN, WORKCELL OPERATOR-CCaren Unavailable Un available Allergies, Adverse Reactions, Alerts Substance Reaction Status Criticality No Known Allergies Active No Inform ation Medications Medication Instructions Dosage Effective Dates (start - stop) Status Comments Vitamin D2 1,250 mcg (50,000 unit) capsule take 1 capsule by oral route every week for 12 weeks 94645 UNITS - Active valacyclovir 1 gram tablet [...] on Encounter [facility], [address] [place] [address], [facility], tel:[phone] [facility] Macrocytic anemia Oct-0 5 [facility] Fab[facility]. [address] [place] [address] [place] [address], [id number], [place]. tel:[phone] [facility], [address], [address], tel:[phone] [facility] Cold sore Sep-2 5 [facility] Ca[facility]. [address] [place] [address], [id number], . tel:[phone] Prev Visit, Est, Age 40-64 [facility], [address] [place] [address], [facility], tel:[phone] [facility] Nurse Comments (chief complaint) General medical examinationE ncounter for screening for other disorderAsym ptomatic menopausal stateMixed hyperlipidem iaBody mass index [BMI] 24.0-24.9, adultImpaire d fasting glucoseVitam in D deficiency Sep-2 5 Johan Fabian. [address] [place] [address] [address], [place], [id number], [place]. tel:[phone] Referring Provider: Caren Prado, [address] [place] [address] [address], [place], [address]. tel:[phone] [facility] , [address] [place] [address], [facility], tel:[phone] [facility] lesions (chief complaint) Other viral warts 3 0 5 Maru Alas. [address] [place] [address], [facility], . tel:[phone] Referring Provider: Evette Mahoney, [address] [place] [address], [facility]. tel:[phone] [facility] , [address] [place] [address], [facility], tel:[phone] [facility] lesions (chief complaint) Other viral warts 0 2 5 Maru Alas. [address] [place] [address], [facility], . tel:[phone] Referring Provider: Evette Mahoney, [address] [place] [address], [facility]. tel:[phone] [facility] , [address] [place] [address], [facility], tel:[phone] [facility] lesions (chief complaint) Other viral warts 0-202 5 Maru Alas. [address] [place] [address], [facility], . tel:[phone] Referring Provider: Evette Mahoney, [address] [place] [address], [address]. tel:[phone] [facility] , [address] [place] [address], [address], tel:[phone] [facility] Wart (chief complaint) Other viral warts March- 5 Ernestoozshonda Alas. [address] [place] [address], [address], . tel:[phone] Referring Provider: Evette Mahoney, [address] [place] [address], [address]. tel:[phone] [facility] , [address] [place] [address], [facility], tel:[phone] [facility] wart (chief complaint) Other viral warts 0 5 Ernestoozshonda Alas. [address] [place] [address], [facility], . tel:[phone] Referring Provider: Evette Mahoney, [address] [place] [address], [facility]. tel:[phone] [facility] , [address] [place] [address], [facility], tel:[phone] [facility] lesions (chief complaint) Other viral warts 5 Ernestoozshonda Alas. [address] [place] [address], [facility], . tel:[phone] Referring Provider: Evette Mahoney, [address] [place] [address], [address]. tel:[phone] [facility] , [address] [place] [address], [address], tel:[phone] [facility] Wart (chief complaint) Other viral warts 5 Ernestoozshonda Penae. [address] [place] [address], [address], . tel:[phone] Referring Provider: Evette Mahoney, [address] [place] [address], [facility]. tel:[phone] OFFICE/OUTPAT IENT VISIT, EST-Problem Focused [facility] , [address] [place] [address], [facility], tel:[phone] [facility] lesions (chief complaint)w art (chief complaint) Neoplasm of uncertain behavior of skinOther viral warts 5 Maru Alas. [address] [place] [address], [facility], . tel:[phone] Referring Provider: Evette Mahoney, [address] [place] [address], [facility]. tel:[phone] OFFICE/OUTPAT IENT VISIT, NEW [facility] , [address] [place] [address], [facility], tel:[phone] [facility] lesions (chief complaint) LentiginesMe lanocytic nevus of trunkSeborrh eic keratosis 4 Maru Alas. [address] [place] [address], [facility], . tel:[phone] Referring Provider: Evette Mahoney, [address] [place] [address], [facility]. tel:[phone] [facility], [address] [place] [address], [facility], tel:[phone] [facility] No Information Jul- 4 Johan Fabian. [address] [place] [address] [address], [place], [place], [id number], . tel:[phone] Prev Visit, Est, Age 40-64 [facility], [address] [place] [address], [address], tel:[phone] [facility] Nurse Comments (chief complaint) General medical examinationB jackie mass index [BMI] 25.0-25.9, adultChest tightnessMur murAnxietyMi xed hyperlipidem iaElevated BP without diagnosis of hypertension Encounter for screening for other disorder Sep- 4 Johan Fabian. [address] [place] [address] [facility] [address] , [place], [place], [id number], [place]. tel:[phone] Referring Provider: Caren Prado, [address] [address] [address] , [place], [address]. tel:[phone] Office/Outpat ient Visit, Est [facility], [address] [facility], [place], [place], [facility], tel:[phone] [facility] Nurse Comments (chief complaint)C hronic Conditions (chief complaint) AnxietyBody mass index (BMI) 25.0-25.9, adultVenous insufficienc y (chronic) (peripheral) Mixed hyperlipidem iaEffusion, right elbow Mar-0 4 [facility] Fab[facility]. [address] [place] [address], [place], [place], [id number], . tel:[phone] Referring Provider: Caren Prado, [address] [place] [address] [address] , [place], [address]. tel:[phone] [facility], [address] [place] [address], [address], [place], [address], [place] tel:[phone] [facility] No Information Sep-2 2 Irma Holland. [address], [address]3] [facility], [place], [place], [id number], [place]. tel:[phone] Referring Provider: Adonis Jordan, [facility] [address]3] [facility], [place], [address]. tel:[phone] Consultation Vein Clinic Self Referred [facility] Sam[address] [facility] [address], [place], [address], [place] tel:[phone] [facility] Office Vein Consult (chief complaint)V ein Note (chief complaint) Venous insufficienc y (chronic) (peripheral) Sep-0 2 Mehul Lamb. [address], [address]3] n CardiovasIm[place], [place], [id number], [place]. tel:[phone] Referring Provider: Adonis Jordan, [address]3] [facility], [place], [address]. tel:[phone] Prev Visit, Est, Age 40-64 [facility], [address] [place] [address], [facility], tel:[phone] [facility] Nurse Comments (chief complaint)p reventive exam (chief complaint)B ack pain (chief complaint) General medical examinationM ixed hyperlipidem iaAnxietyEnc ounter for gynecologica l examination (general) (routine) without abnormal findingsBody mass index [BMI] 27.0-27.9, adultAcute left-sided low back pain without sciaticaNume lin moles 0 1 Viktor Galvan. [facility] Route , [address], [facility], . tel:[phone] Referring Provider: Mandy Hoang, [address] [place] [address], [facility]. tel:[phone] Prev Visit, Est, Age 40-64 [facility], [facility] [address] [place] [address], [facility], tel:[phone] [facility] Nurse Comments (chief complaint)p reventive exam (chief complaint)a nxiety (chief complaint)H x of URI (chief complaint) General medical examinationM ixed hyperlipidem iaAnxietyBod y mass index (BMI) 25.0-25.9, adultHistory of upper respiratory infection 0 Viktor Galvan. [facility] [address], [address], [facility], . tel:[phone] Referring Provider: Mandy Hoang 111 [facility] [address], [facility]. tel:[phone] Office/Outpat ient Visit, New [facility], [address], [place], [address], [place] tel:[phone] [facility] Nurse Comments (chief complaint) Bacterial conjunctivit isBody mass index (BMI) 24.0-24.9, adultSore throat 0 Mariseljerardo Caren. [address] [facility] [address] , [place], [place], [id number], [place]. tel:[phone] Referring Provider: Caren Prado, [address] [facility] [address] , [place], [address]. tel:[phone] OFFICE/OUTPAT IENT VISIT, [facility] , [address] [place] [address], [id number], [place] tel:[phone] [facility] eye problem (chief complaint) Acute conjunctivit is of right eye, unspecified acute conjunctivit is typeEncounte r for exam of eyes and vision w/o abnormal findings 0 Venkatesh Gordillo. [address] [place] [address], [id number], [place]. tel:[phone] Referring Provider: Duy Riddle, [address] [place] [address], [address]. tel:[phone] Office/Outpat ient Visit, [facility], [address] [facility] [address], [place], [place], [id number], [place] tel:[phone] [facility] Left hip pain (chief complaint) Pain in left hip 7 Newton Barrow. [address] [employer], [facility] [place], [address], [place]. tel:[phone] Referring Provider: Danial Prajapati, [address] [employer] [facility] [place], [address]. tel:[phone] OFFICE/OUTPAT IENT VISIT, [facility] , [address] [place] [address], [facility], tel:[phone] [facility] lesions (chief complaint) Epidermal cyst 6 Lorenzo Bell. 1 [facility] [address] [place] [address], [id number], [place]. tel:[phone] Referring Provider: Bell Ventura, [address], [address]. tel:[phone] Prev Visit, Est, Age 40-64 [facility], [address] [place] [address], [facility], tel:[phone] [facility] Nurse Comments (chief complaint) Encntr for general adult medical exam w/o abnormal findingsBody mass index (BMI) 22.0-22.9, adultOther fatigueVitam in D deficiency 5 Jason Tatum. [address] [facility] 6, Johnny. [address] [place] [address], [facility], [place]. tel:[phone] Referring Provider: Deepti Gomez H, [address] [facility] 6, [address], [place], [address]. tel:[phone] OFFICE/OUTPAT IENT VISIT, [facility] , [address] [place] [address], [facility], tel:[phone] [facility] mole(s) (chief complaint) Other benign neoplasm of skin of trunkOther seborrheic keratosis 5 Lorenzo Bell. 1 [facility] [address] [place] [address], [id number], [place]. tel:[phone] Referring Provider: Bell Ventura, [address], [address]. tel:[phone] [facility], [address], [facility], tel:[phone] [facility] No Information 4 Ashwin Grant. [address] Suite [facility], [place], [address], . [phone] Referring Provider: Juanita Ashwin, [address] [facility], [place], [address]. tel:[phone] [facility], [address], [address], tel:[phone] [facility] No Information 4 Ashwin Grant. [address], [place], [address], [place]. tel:[phone] Prev Visit, Est, Age 40-64 [facility], [address], [address], [phone] [facility] Nurse Comments (chief complaint) Routine [facility] care facilityRout ine gynecologica l examinationB jackie Mass Index 26.0-26.9, adult 4 Jason Tatum. [address] [facility] 6, [address], [place], [address], [place]. tel:[phone] Referring Provider: Deepti Lee, [address] [facility] 6, [address], [place], [address]. tel:[phone] Office/Outpat ient Visit, Est [facility], [address], [facility], tel:[phone] [facility] Nurse Comments (chief complaint) Chest TightnessChe st Tightness 4 No Information Office/Outpat ient Visit, Est [facility], [address], [address], tel:[phone] [facility] Nurse Comments (chief complaint) SEBACEOUS CYST 3 Jason Tatum. [address] [facility] 6, [address], [place], [address], [place]. tel:[phone] Referring Provider: Deepti Lee, [address] [facility] 6, Johnny. [address] [place] [address], [facility]. tel:[phone] Office/Outpat ient Visit, [facility], [address] [place] [address], [facility], tel:[phone] [facility] Nurse Comments (chief complaint) Chest Pain, UnspecifiedJ OINT PAIN-FOREARM 3 Jason Tatum. [address] [facility] 6, Johnny. [address], [place], [facility], . tel:[phone] Referring Provider: Deepti Lee, [address] [facility] 6, Johnny [address] [place] [address], [facility]. tel:[phone] Office/Outpat ient Visit, [facility], [address] [place] [address], [facility], tel:[phone] [facility] Nurse Comments (chief complaint) Influenza VaccineANXIE TY DISORDER NOSInfluenza VaccineANXIE TY DISORDER NOSREASON FOR CONSULT NOS 2 Jason Tatum. [address] [facility] 6, Johnny. [address] [place] [address], [facility], . tel:[phone] Referring Provider: Deepti Lee, [address] [address], [facility]. [address] [place] [address], [facility]. tel:[phone] Office/Outpat ient Visit, [facility], [address] [place] [address], [facility], tel:[phone] [facility] Nurse Comments (chief complaint) ACUTE CONJUNCTIVIT [...] quadrivalent, 3 years or older Fluzone Quad [id number] administered Source: New Immuniza tion Record Fluzone (3years and up - 0.5ml) refused Source: New Immuniza tion Record Flu (split) (3 yrs or older) administered Source: New Immunization Record Tdap (Adacel ) administered Source: New Immuniza tion Record Payers Payer name Insurance type Covered libertarian ID Authoriza tion(s) [employer] CI [id number] [employer] CI [id number] [facility] CI [id number] [employer] CI [id number] [employer] CI [id number] Social History Type Description Quantity Date Captured [...] Goal Mammogram. Due on 7 due Goal PURCHASING ADMINISTRATOR exam. Due on due Goal Influenza vaccin e. Due on due Goal Breast exam. Due on 98 due Goal Lifestyle educat ion regarding diet completed Goal Breast exam. Due on 989 due Goal Tdap due Goal Mammogram. Due on 5 due Goal PURCHASING ADMINISTRATOR exam. Due on due Goal Breast exam. Due on 989 due Goal Mammogram. Due on 5 due Goal Tdap due Goal Dietary manageme nt education, guidance, and counseling completed Goal Tdap due Goal PURCHASING ADMINISTRATOR exam. Due on due Goal Influenza vaccin e. Due on due Goal Mammogram. Due on 5 due Goal Breast exam. Due on 989 due Goal PAP. Due on due Goal Influenza vaccin e. Due on due Goal Breast exam. Due on 014 due Goal Preventive Exam, 19yr - 64 yr. Due on due Goal PURCHASING ADMINISTRATOR exam. Due on due Goal Dietary manageme nt education, guidance, and counseling completed Goal Influenza vaccin e. Due on due Goal PURCHASING ADMINISTRATOR exam. Due on due Goal Preventive Exam, [...] SCREEN MALIG NEOP-COLON) ordered Referral Referred To: [address] [place] [address]
[address] [place], [phone] Ordered: Referrals: Cardiology. Location: [facility]. Consult and Treat Appointment date/timeframe: 10/22/2024 ordered Referral Ordered: Colon Screen (related to SCREEN MALIG NEOP-COLON) ordered Referral Referred To: Walker Alonso [address] [place] [address], [phone] Ordered: Referrals: Dermatology. Walker Alonso Consult and Treat Appointment date/timeframe: 07/19/2021 ordered Referral Ordered: Referral for Colon Screening Appointment date/timeframe: 10/21/2021 ordered Future Order: Lab Order Iron and TIBC ([id number]), Appointment on: , Sent on: Sent Future Order: Lab Order Vitamin B12 ([id number]), Appointment on: , Sent on: Sent Future Order: Lab Order Folates (Folic Acid), Serum ([id number]), Appointment on: , Sent on: Sent Future Order: Lab Order Ferritin , Serum ([id number]), Appointment on: , Sent on: Sent Future Order: Lab Order CBC With Differential/Platelet ([id number]), Appointment on: , Sent on: Sent Future Order: Lab Order Pt Servi Center ([id number]), Sent on: Sent Future Order: Radiology Order [place], Bone Density ([id number]), Appointment on: Ordered Future Order: Lab Order COMP MET ABOLIC PANEL [14] ([id number]), Appointment on: , Sent on: Sent Future [...] Of Lower Extremity With Contrast Left hip ([id number]), Body Site: Left, Ordered on: Ordered Future Order: Radiology Order Ma mmo Digital Screen, Bilat: Diag Mammo Or Diag US As Needed ([id number]), Ordered on: Ordered History Of Present Illness Encounter Date Complaint History Of Prese nt Illness Nurse Comments CPE - FBWMed lis t UTD, refill x 1 neededSees no specialists but will schedule eye dr applamar.Non-smoker, no hx of Asthma.Wants flu vacc lesions patient is here today for wart(s) follow up.Warts are on left footLast OV tx w/ [id number] stated warts has not changedNo interval health changes since last visit. No new Medications. Feels well. lesions patient is here today for wart(s) follow up.Warts are on left footLast OV tx w/ [id number] stated warts has not changedNo interval health changes since last visit. No new Medications. Feels well. lesions patient is here today for wart(s) follow up.Warts are on left foot. Last OV tx w/ [id number] stated warts have not gone awayNo interval health changes since last visit. No new Medications. Feels well. Wart Patient is here today for wart(s) follow up.Warts are on left foot. Last OV tx w/ [id number] stated warts have improved no new lesions [...] intake sheet. 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 She has had 2 children. She [...] pt see's no eye dentist [facility] solar sales assessor LMP 05/20, needs order for MAMMO gi [...] t have regular eye, does not see snuff drier but no BPP todayno htn, no asthma, [...] one daughter RyanSpends sandhu LBI, belongs to [employer] clubAdopted,no fam HxEating much healthier, followed lower [...] Nurse Comments Pt refused flu s hot. CPE/PURCHASING ADMINISTRATOR FBWFeels well, no c/oEats healthy Functional Status [...] to Mu rmur -reconsider flu shot -pap plw-rnqg-wbsit utd-colonoscopy due-continue regular dental and vision exams-healthy [...] CBC, CMP, TSH, Lipids -Patient sees outside solar sales assessor, PAP UDT, mammogram rx given today-Family planning [...]
--- OUTSIDE RECORDS SUMMARY | 2025-08-14 09:07 | XMS_ITS | Continuity of Care Document ---
Author Organization [facility] Address [address] [place] [address] Phone Care Team Providers Care Butt Presser Name Role Phone Johan MSN, CLINICAL INTERVIEWER-CCaren Unavailable Un available Allergies, Adverse Reactions, Alerts Substance Reaction Status Criticality No Known Allergies Active No Inform ation Medications Medication Instructions Dosage Effective Dates (start - stop) Status Comments Vitamin D2 1,250 mcg (50,000 unit) capsule take 1 capsule by oral route every week for 12 weeks 72182 UNITS - Active valacyclovir 1 gram tablet [...] on Encounter [facility], [address] [place] [address], [facility], tel:[phone] [facility] Macrocytic anemia Oct-0 5 [facility]. [address] [place] [address] [place] [address], [id number], [place]. tel:[phone] [facility], [address], [address], tel:[phone] [facility] Cold sore Sep-2 5 [facility] [address] [place] [address], [id number], . tel:[phone] Prev Visit, Est, Age 40-64 [facility], [address] [place] [address], [facility], tel:[phone] [facility] Nurse Comments (chief complaint) General medical examinationE ncounter for screening for other disorderAsym ptomatic menopausal stateMixed hyperlipidem iaBody mass index [BMI] 24.0-24.9, adultImpaire d fasting glucoseVitam in D deficiency Sep-2 5 Johan Fabian. [address] [place] [address] [address], [place], [id number], [place]. tel:[phone] Referring Provider: Caren Prado, [address] [place] [address] [address], [place], [address]. tel:[phone] [facility] , [address] [place] [address], [facility], tel:[phone] [facility] lesions (chief complaint) Other viral warts 3 0 5 Maru Alas. [address] [place] [address], [facility], . tel:[phone] Referring Provider: Evette Mahoney, [address] [place] [address], [facility]. tel:[phone] [facility] , [address] [place] [address], [facility], tel:[phone] [facility] lesions (chief complaint) Other viral warts 0 2 5 Maru Alas. [address] [place] [address], [facility], . tel:[phone] Referring Provider: Evette Mahoney, [address] [place] [address], [facility]. tel:[phone] [facility] , [address] [place] [address], [facility], tel:[phone] [facility] lesions (chief complaint) Other viral warts 0-202 5 Maru Alas. [address] [place] [address], [facility], . tel:[phone] Referring Provider: Evette Mahoney, [address] [place] [address], [address]. tel:[phone] [facility] , [address] [place] [address], [address], tel:[phone] [facility] Wart (chief complaint) Other viral warts March- 5 Ernestoozshonda Alas. [address] [place] [address], [address], . tel:[phone] Referring Provider: Evette Mahoney, [address] [place] [address], [address]. tel:[phone] [facility] , [address] [place] [address], [facility], tel:[phone] [facility] wart (chief complaint) Other viral warts 0 5 Ernestoozshonda Alas. [address] [place] [address], [facility], . tel:[phone] Referring Provider: Evette Mahoney, [address] [place] [address], [facility]. tel:[phone] [facility] , [address] [place] [address], [facility], tel:[phone] [facility] lesions (chief complaint) Other viral warts 5 Ernestoozshonda Alas. [address] [place] [address], [facility], . tel:[phone] Referring Provider: Evette Mahoney, [address] [place] [address], [address]. tel:[phone] [facility] , [address] [place] [address], [address], tel:[phone] [facility] Wart (chief complaint) Other viral warts 5 Ernestoozshonda Penae. [address] [place] [address], [address], . tel:[phone] Referring Provider: Evette Mahoney, [address] [place] [address], [facility]. tel:[phone] OFFICE/OUTPAT IENT VISIT, EST-Problem Focused [facility] , [address] [place] [address], [facility], tel:[phone] [facility] lesions (chief complaint)w art (chief complaint) Neoplasm of uncertain behavior of skinOther viral warts 5 Maru Alas. [address] [place] [address], [facility], . tel:[phone] Referring Provider: Evette Mahoney, [address] [place] [address], [facility]. tel:[phone] OFFICE/OUTPAT IENT VISIT, NEW [facility] , [address] [place] [address], [facility], tel:[phone] [facility] lesions (chief complaint) LentiginesMe lanocytic nevus of trunkSeborrh eic keratosis 4 Maru Alas. [address] [place] [address], [facility], . tel:[phone] Referring Provider: Evette Mahoney, [address] [place] [address], [facility]. tel:[phone] [facility], [address] [place] [address], [facility], tel:[phone] [facility] No Information Jul- 4 Johan Fabian. [address] [place] [address] [address], [place], [place], [id number], . tel:[phone] Prev Visit, Est, Age 40-64 [facility], [address] [place] [address], [address], tel:[phone] [facility] Nurse Comments (chief complaint) General medical examinationB jackie mass index [BMI] 25.0-25.9, adultChest tightnessMur murAnxietyMi xed hyperlipidem iaElevated BP without diagnosis of hypertension Encounter for screening for other disorder Sep- 4 Johan Fabian. [address] [place] [address] [facility] [address] , [place], [place], [id number], [place]. tel:[phone] Referring Provider: Caren Prado, [address] [address] [address] , [place], [address]. tel:[phone] Office/Outpat ient Visit, Est [facility], [address] [facility], [place], [place], [facility], tel:[phone] [facility] Nurse Comments (chief complaint)C hronic Conditions (chief complaint) AnxietyBody mass index (BMI) 25.0-25.9, adultVenous insufficienc y (chronic) (peripheral) Mixed hyperlipidem iaEffusion, right elbow Mar-0 4 [facility]. [address] [place] [address], [place], [place], [id number], . tel:[phone] Referring Provider: Caren Prado, [address] [place] [address] [address] , [place], [address]. tel:[phone] [facility], [address] [place] [address], [address], [place], [address], [place] tel:[phone] [facility] No Information Sep-2 2 Irma Holland. [address], [address] mary [facility], [place], [place], [id number], [place]. tel:[phone] Referring Provider: Adonis Jordan, [facility] [address] mary [facility], [place], [address]. tel:[phone] Consultation Vein Clinic Self Referred [facility], [facility] Samira [facility] [address], [place], [address], [place] tel:[phone] [facility] Office Vein Consult (chief complaint)V ein Note (chief complaint) Venous insufficienc y (chronic) (peripheral) Sep-0 2 Mehul Lamb. [address], [address] n [place], [id number], [place]. tel:[phone] Referring Provider: Adonis Jordan, [address], [place], [address]. tel:[phone] Prev Visit, Est, Age 40-64 [facility], [address] [place] [address], [facility], tel:[phone] [facility] Nurse Comments (chief complaint)p reventive exam (chief complaint)B ack pain (chief complaint) General medical examinationM ixed hyperlipidem iaAnxietyEnc ounter for gynecologica l examination (general) (routine) without abnormal findingsBody mass index [BMI] 27.0-27.9, adultAcute left-sided low back pain without sciaticaNume lin moles 0 1 Viktor Galvan. [facility] Route , [address], [facility], . tel:[phone] Referring Provider: Mandy Hoang, [address] [place] [address], [facility]. tel:[phone] Prev Visit, Est, Age 40-64 [facility], [facility] [address] [place] [address], [facility], tel:[phone] [facility] Nurse Comments (chief complaint)p reventive exam (chief complaint)a nxiety (chief complaint)H x of URI (chief complaint) General medical examinationM ixed hyperlipidem iaAnxietyBod y mass index (BMI) 25.0-25.9, adultHistory of upper respiratory infection 0 Viktor Galvan. [facility] [address], [address], [facility], . tel:[phone] Referring Provider: Mandy Hoang 111 [facility] [address], [facility]. tel:[phone] Office/Outpat ient Visit, New [facility], [address], [place], [address], [place] tel:[phone] [facility] Nurse Comments (chief complaint) Bacterial conjunctivit isBody mass index (BMI) 24.0-24.9, adultSore throat 0 Mariseljerardo Caren. [address] [facility] [address] , [place], [place], [id number], [place]. tel:[phone] Referring Provider: Caren Prado, [address] [facility] [address] , [place], [address]. tel:[phone] OFFICE/OUTPAT IENT VISIT, [facility] , [address] [place] [address], [id number], [place] tel:[phone] [facility] eye problem (chief complaint) Acute conjunctivit is of right eye, unspecified acute conjunctivit is typeEncounte r for exam of eyes and vision w/o abnormal findings 0 Venkatesh Gordillo. [address] [place] [address], [id number], [place]. tel:[phone] Referring Provider: Duy Riddle, [address] [place] [address], [address]. tel:[phone] Office/Outpat ient Visit, [facility], [address] [facility] [address], [place], [place], [id number], [place] tel:[phone] [facility] Left hip pain (chief complaint) Pain in left hip 7 Newton Barrow. [address], [facility] [place], [address], [place]. tel:[phone] Referring Provider: Danial Praajpati, [address] [facility] [place], [address]. tel:[phone] OFFICE/OUTPAT IENT VISIT, [facility] , [address] [place] [address], [facility], tel:[phone] [facility] lesions (chief complaint) Epidermal cyst 6 Lorenzo Bell. 1 [facility] [address] [place] [address], [id number], [place]. tel:[phone] Referring Provider: Bell Ventura, [address], [address]. tel:[phone] Prev Visit, Est, Age 40-65 [facility], [address] [place] [address], [facility], tel:[phone] [facility] Nurse Comments (chief complaint) Encntr for general adult medical exam w/o abnormal findingsBody mass index (BMI) 22.0-22.9, adultOther fatigueVitam in D deficiency 5 Jason Tatum. [address] [facility] 6, Johnny. [address] [place] [address], [facility], [place]. tel:[phone] Referring Provider: Deepti Gomez H, [address] [facility] 6, [address], [place], [address]. tel:[phone] OFFICE/OUTPAT IENT VISIT, [facility] , [address] [place] [address], [facility], tel:[phone] [facility] mole(s) (chief complaint) Other benign neoplasm of skin of trunkOther seborrheic keratosis 5 Lorenzo Bell. 1 [facility] [address] [place] [address], [id number], [place]. tel:[phone] Referring Provider: Bell Ventura, [address], [address]. tel:[phone] [facility], [address], [facility], tel:[phone] [facility] No Information 4 Ashwin Grant. [address] [facility], [place], [address], . [phone] Referring Provider: Juanita Ashwin, [address] [facility], [place], [address]. tel:[phone] [facility], [address], [address], tel:[phone] [facility] No Information 4 Ashwin Grant. [address], [place], [address], [place]. tel:[phone] Prev Visit, Est, Age 40-64 [facility], [address], [address], [phone] [facility] Nurse Comments (chief complaint) Routine general medical examination at a premier health care facilityRout ine gynecologica l examinationB jackie Mass Index 26.0-26.9, adult 4 Jason Tatum. [address] [facility] 6, [address], [place], [address], [place]. tel:[phone] Referring Provider: Deepti Lee, [address] [facility] 6, [address], [place], [address]. tel:[phone] Office/Outpat ient Visit, Est [facility], [address], [facility], tel:[phone] [facility] Nurse Comments (chief complaint) Chest TightnessChe st Tightness 4 No Information Office/Outpat ient Visit, Est [facility], [address], [address], tel:[phone] [facility] Nurse Comments (chief complaint) SEBACEOUS CYST 3 Jason Tatum. [address] [facility] 6, [address], [place], [address], [place]. tel:[phone] Referring Provider: Deepti Lee, [address] [facility] 6, Johnny. [address] [place] [address], [facility]. tel:[phone] Office/Outpat ient Visit, [facility], [address] [place] [address], [facility], tel:[phone] [facility] Nurse Comments (chief complaint) Chest Pain, UnspecifiedJ OINT PAIN-FOREARM 3 Jason Tatum. [address] [facility] 6, Johnny. [address], [place], [facility], . tel:[phone] Referring Provider: Deepti Lee, [address] [facility] 6, Johnny [address] [place] [address], [facility]. tel:[phone] Office/Outpat ient Visit, [facility], [address] [place] [address], [facility], tel:[phone] [facility] Nurse Comments (chief complaint) Influenza VaccineANXIE TY DISORDER NOSInfluenza VaccineANXIE TY DISORDER NOSREASON FOR CONSULT NOS 2 Jason Tatum. [address] [facility] 6, Johnny. [address] [place] [address], [facility], . tel:[phone] Referring Provider: Deepti Lee, [address] [address], [facility]. [address] [place] [address], [facility]. tel:[phone] Office/Outpat ient Visit, [facility], [address] [place] [address], [facility], tel:[phone] [facility] Nurse Comments (chief complaint) ACUTE CONJUNCTIVIT [...] quadrivalent, 3 years or older Fluzone Quad [id number] administered Source: New Immuniza tion Record Fluzone (3years and up - 0.5ml) refused Source: New Immuniza tion Record Flu (split) (3 yrs or older) administered Source: New Immunization Record Tdap (Adacel ) administered Source: New Immuniza tion Record Payers Payer name Insurance type Covered constitution party ID Authoriza tion(s) [employer] CI [id number] [employer] CI [id number] [facility] CI [id number] [employer] CI [id number] [employer] CI [id number] Social History Type Description Quantity Date Captured [...] Of Treatment Date Type Action Status Goal Drug Abuse Scree joelle. Due on due Goal Hep C Ab. Due on due Goal Alcohol Misuse s creen. Due on due Goal HIV. Due on due Goal Lipid Panel. Due on due Goal Colonoscopy. Due on due Goal Lifestyle educat ion regarding diet completed Goal Alcohol Misuse s creen. Due on due Goal Drug Abuse Scree joelle. Due on due Goal Colonoscopy. Due on due Goal Diabetes Screeni ng. Due on due Goal HIV. Due on due Goal Hep C Ab. Due on due Goal Lifestyle educat ion regarding diet completed Goal Alcohol Misuse s creen. Due on due Goal PHQ9. Due on due Goal Preventive Exam, 19 yr - 64 yr. Due on due Goal Colonoscopy. Due on due Goal HIV. Due on due Goal Hep C Ab. Due on due Goal Depression scree joelle. Due on due Goal Drug Abuse Scree joelle. Due on due Goal Diabetes Screeni ng. Due on due Goal Lifestyle educat ion regarding diet completed Goal Colonoscopy. Due on due Goal Drug [...] Influenza vaccin e. Due on due Goal MILITARY TECHNICIAN exam. Due on due Goal Mammogram. Due on 7 due Goal Tdap due Goal Lifestyle educat ion regarding diet completed Goal Mammogram. Due on 5 due Goal Tdap due Goal Breast exam. Due on 989 due Goal Tdap due Goal Mammogram. Due on 5 due Goal Breast exam. Due on 98 due Goal MILITARY TECHNICIAN exam. Due on due Goal Dietary manageme nt education, guidance, and counseling completed Goal Breast exam. Due on 989 due Goal Mammogram. Due on 5 due Goal Influenza vaccin e. Due on due Goal MILITARY TECHNICIAN exam. Due on due Goal Tdap due Goal MILITARY TECHNICIAN exam. Due on due Goal Preventive [...] - 65 yr. Due on due Goal MILITARY TECHNICIAN exam. Due on due Goal Influenza vaccin e. Due on due Referral Ordered: Direct Access Colon Screen (related to SCREEN MALIG NEOP-COLON) ordered Referral Ordered: Referral for Direct Access Colon Screening Appointment date/timeframe: 12/05/2025 ordered Referral Ordered: Cardiology (related to Murmur) ordered Referral Ordered: Colon Screen (related to SCREEN MALIG NEOP-COLON) ordered Referral Referred To: [address] [place] [address]
[address] [place], [phone] Ordered: Referrals: Cardiology. Location: [facility]. Consult and Treat Appointment date/timeframe: 10/22/2024 ordered Referral Ordered: Colon Screen (related to SCREEN MALIG NEOP-COLON) ordered Referral Referred To: Walker Alonso [address] [place] [address], [phone] Ordered: Referrals: Dermatology. Walker Alonso Consult and Treat Appointment date/timeframe: 07/19/2021 ordered Referral Ordered: Referral for Colon Screening Appointment date/timeframe: 10/21/2021 ordered Future Order: Lab Order Iron and TIBC ([id number]), Appointment on: , Sent on: Sent Future Order: Lab Order Vitamin B12 ([id number]), Appointment on: , Sent on: Sent Future Order: Lab Order Folates (Folic Acid), Serum ([id number]), Appointment on: , Sent on: Sent Future Order: Lab Order Ferritin , Serum ([id number]), Appointment on: , Sent on: Sent Future Order: Lab Order CBC With Differential/Platelet ([id number]), Appointment on: , Sent on: Sent Future Order: Lab Order Pt Servi Center ([id number]), Sent on: Sent Future Order: Radiology Order De xa, Bone Density ([id number]), Appointment on: Ordered Future Order: Lab Order COMP MET ABOLIC PANEL [14] ([id number]), Appointment on: , Sent on: Sent Future [...] Of Lower Extremity With Contrast Left hip ([id number]), Body Site: Left, Ordered on: Ordered Future Order: Radiology Order Ma mmo Digital Screen, Bilat: Diag Mammo Or Diag US As Needed ([id number]), Ordered on: Ordered History Of Present Illness Encounter Date Complaint History Of Prese nt Illness Nurse Comments CPE - FBWMed lis t UTD, refill x 1 neededSees no specialists but will schedule eye dr applamar.Non-smoker, no hx of Asthma.Wants flu vacc lesions patient is here today for wart(s) follow up.Warts are on left footLast OV tx w/ [id number] stated warts has not changedNo interval health changes since last visit. No new Medications. Feels well. lesions patient is here today for wart(s) follow up.Warts are on left footLast OV tx w/ [id number] stated warts has not changedNo interval health changes since last visit. No new Medications. Feels well. lesions patient is here today for wart(s) follow up.Warts are on left foot. Last OV tx w/ IT3Eiabplc stated warts have not gone awayNo interval health changes since last visit. No new Medications. Feels well. Wart Patient is here today for wart(s) follow up.Warts are on left foot. Last OV tx w/ [id number] stated warts have improved no new lesions [...] intake sheet. Nurse Comments CPE/FBW, no eye dr/cardio/obgyn nurse former smoker, no asthmaflu declinedno colonoscopy done [...] than the right. 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 She has had 2 children. She has [...] to our office after completing their ultrasound. Nurse Comments CPEnot fasting, wants lab slip to go for [facility] flu shot refusedCOVID shot UTD pt see's no eye dentist [facility] obg[facility] nurse LMP 8, needs order for MAMMO gi needs order for COLONOSCOPY no cardio, no cardiac sx former smoker, no h/o asthma/COPDmed ref needed pt would like to discuss lower back pain for months Back pain Onset: 4 months ago. Location [...] longer uses tobacco. She does drink alcohol. preventive exam : 2. Christina ty: Term: [...] flashes at night (very mild). Nurse Comments CPE, FBW does no t have regular eye, does not see form setter steel forms but no BPP todayno htn, no asthma, former smokerdiscuss results of fbw from 2018 - scanned in anxiety The patient repo rts functioning as [...] one daughter RyanSpends sandhu LBI, belongs to [employer] Information[employer] clubAdopted,no fam HxEating much healthier, followed lower [...] Nurse Comments Pt refused flu s hot. CPE/MILITARY TECHNICIAN FBWFeels well, no c/oEats healthy Functional [...] next week Related to General medical examination Lifestyle education regarding di et Related to Body mass index (BMI) 24.0-24.9, adult Giving encouragement to exercise Related to Body mass index (BMI) 24.0-24.9, adult Healthy Lifestyle Care Plan ln2 for destruciton Related to O ther [...] to Mu rmur -reconsider flu shot -pap tah-kcib-aysty utd-colonoscopy due-continue regular dental and vision exams-healthy diet and exercise.-derm for skin check- scheduled for next week-stop smoking Related to General medical examination Healthy Lifestyle Care Plan Healthy Lifestyle Care [...] (BMI) 25.0-25.9, adult Healthy Lifestyle Care Plan Lifestyle education [...] CBC, CMP, TSH, Lipids -Patient sees outside obgyn nurse, PAP UDT, mammogram rx given today-Family planning [...] hand hygienewarm compresses Related to Bacterial conjunctivitis Healthy Lifestyle Care Plan Depression and Anxiety Care Plan Lifestyle education regarding di et Related to Body mass index (BMI) 24.0-24.9, adult Giving encouragement to exercise Related to [...]
--- OUTSIDE RECORDS SUMMARY | 2025-08-14 09:07 | XMS_ITS | Continuity of Care Document ---
Author Organization [facility] Address [address] [place] [address] Phone Care Team Providers Care Cisco Network Engineer Name Role Phone Johan MSN, RN CHEMICAL DEPENDENCY-CCaren Unavailable Un available Allergies, Adverse Reactions, Alerts Substance Reaction Status Criticality No Known Allergies Active No Inform ation Medications Medication Instructions Dosage Effective Dates (start - stop) Status Comments Vitamin D2 1,250 mcg (50,000 unit) capsule take 1 capsule by oral route every week for 12 weeks 42023 UNITS - Active valacyclovir 1 gram tablet [...] on Encounter [facility], [address] [place] [address], [facility], tel:[phone] [facility] Macrocytic anemia Oct-0 5 [facility]. [address] [place] [address] [place] [address], [id number], [place]. tel:[phone] [facility], [address], [address], tel:[phone] [facility] Cold sore Sep-2 5 [facility]. [address] [place] [address], [id number], . tel:[phone] Prev Visit, Est, Age 40-64 [facility], [address] [place] [address], [facility], tel:[phone] [facility] Nurse Comments (chief complaint) General medical examinationE ncounter for screening for other disorderAsym ptomatic menopausal stateMixed hyperlipidem iaBody mass index [BMI] 24.0-24.9, adultImpaire d fasting glucoseVitam in D deficiency Sep-2 5 Johan Fabian. [address] [place] [address] [address], [place], [id number], [place]. tel:[phone] Referring Provider: Caren Prado, [address] [place] [address] [address], [place], [address]. tel:[phone] [facility] , [address] [place] [address], [facility], tel:[phone] [facility] lesions (chief complaint) Other viral warts 3 0 5 Maru Alas. [address] [place] [address], [facility], . tel:[phone] Referring Provider: Evette Mahoney, [address] [place] [address], [facility]. tel:[phone] [facility] , [address] [place] [address], [facility], tel:[phone] [facility] lesions (chief complaint) Other viral warts 0 2 5 Maru Alas. [address] [place] [address], [facility], . tel:[phone] Referring Provider: Evette Mahoney, [address] [place] [address], [facility]. tel:[phone] [facility] , [address] [place] [address], [facility], tel:[phone] [facility] lesions (chief complaint) Other viral warts 0-202 5 Maru Alas. [address] [place] [address], [facility], . tel:[phone] Referring Provider: Evette Mahoney, [address] [place] [address], [address]. tel:[phone] [facility] , [address] [place] [address], [address], tel:[phone] [facility] Wart (chief complaint) Other viral warts March- 5 Ernestoozshonda Alas. [address] [place] [address], [address], . tel:[phone] Referring Provider: Evette Mahoney, [address] [place] [address], [address]. tel:[phone] [facility] , [address] [place] [address], [facility], tel:[phone] [facility] wart (chief complaint) Other viral warts 0 5 Ernestoozshonda Alas. [address] [place] [address], [facility], . tel:[phone] Referring Provider: Evette Mahoney, [address] [place] [address], [facility]. tel:[phone] [facility] , [address] [place] [address], [facility], tel:[phone] [facility] lesions (chief complaint) Other viral warts 5 Ernesotozshonda Alas. [address] [place] [address], [facility], . tel:[phone] Referring Provider: Evette Mahoney, [address] [place] [address], [address]. tel:[phone] [facility] , [address] [place] [address], [address], tel:[phone] [facility] Wart (chief complaint) Other viral warts 5 Ernestoozshonda Penae. [address] [place] [address], [address], . tel:[phone] Referring Provider: Evette Mahoney, [address] [place] [address], [facility]. tel:[phone] OFFICE/OUTPAT IENT VISIT, EST-Problem Focused [facility] , [address] [place] [address], [facility], tel:[phone] [facility] lesions (chief complaint)w art (chief complaint) Neoplasm of uncertain behavior of skinOther viral warts 5 Maru Alas. [address] [place] [address], [facility], . tel:[phone] Referring Provider: Evette Mahoney, [address] [place] [address], [facility]. tel:[phone] OFFICE/OUTPAT IENT VISIT, NEW [facility] , [address] [place] [address], [facility], tel:[phone] [facility] lesions (chief complaint) LentiginesMe lanocytic nevus of trunkSeborrh eic keratosis 4 Maru Alas. [address] [place] [address], [facility], . tel:[phone] Referring Provider: Evette Mahoney, [address] [place] [address], [facility]. tel:[phone] [facility], [address] [place] [address], [facility], tel:[phone] [facility] No Information Jul- 4 Johan Fabian. [address] [place] [address] [address], [place], [place], [id number], . tel:[phone] Prev Visit, Est, Age 40-64 [facility], [address] [place] [address], [address], tel:[phone] [facility] Nurse Comments (chief complaint) General medical examinationB jackie mass index [BMI] 25.0-25.9, adultChest tightnessMur murAnxietyMi xed hyperlipidem iaElevated BP without diagnosis of hypertension Encounter for screening for other disorder Sep- 4 Johan Fabian. [address] [place] [address] [facility] [address] , [place], [place], [id number], [place]. tel:[phone] Referring Provider: Caren Prado, [address] [address] [address] , [place], [address]. tel:[phone] Office/Outpat ient Visit, Est [facility], [address] [facility], [place], [place], [facility], tel:[phone] [facility] Nurse Comments (chief complaint)C hronic Conditions (chief complaint) AnxietyBody mass index (BMI) 25.0-25.9, adultVenous insufficienc y (chronic) (peripheral) Mixed hyperlipidem iaEffusion, right elbow Mar-0 4 [facility] Fab[facility]. [address] [place] [address], [place], [place], [id number], . tel:[phone] Referring Provider: Caren Prado, [address] [place] [address] [address] , [place], [address]. tel:[phone] [facility], [address] [place] [address], [address], [place], [address], [place] tel:[phone] [facility] No Information Sep-2 2 Irma Holland. [address], [address] mary Cardiovascu [facility], [place], [place], [id number], [place]. tel:[phone] Referring Provider: Adonis Jordan, [facility] [address] mary Cardiovascu [facility], [place], [address]. tel:[phone] Consultation Vein Clinic Self Referred [facility], [facility], [place], [address], [place] tel:[phone] [facility] Office Vein Consult (chief complaint)V ein Note (chief complaint) Venous insufficienc y (chronic) (peripheral) Sep-0 2 Mehul Lamb. [address], [address] n Cardi[place], [id number], [place]. tel:[phone] Referring Provider: Adonis Jordan, [address], [place], [address]. tel:[phone] Prev Visit, Est, Age 40-64 [facility], [address] [place] [address], [facility], tel:[phone] [facility] Nurse Comments (chief complaint)p reventive exam (chief complaint)B ack pain (chief complaint) General medical examinationM ixed hyperlipidem iaAnxietyEnc ounter for gynecologica l examination (general) (routine) without abnormal findingsBody mass index [BMI] 27.0-27.9, adultAcute left-sided low back pain without sciaticaNume lin moles 0 1 Viktor Galvan. [facility] Route , [address], [facility], . tel:[phone] Referring Provider: Mandy Hoang, [address] [place] [address], [facility]. tel:[phone] Prev Visit, Est, Age 40-64 [facility], [facility] [address] [place] [address], [facility], tel:[phone] [facility] Nurse Comments (chief complaint)p reventive exam (chief complaint)a nxiety (chief complaint)H x of URI (chief complaint) General medical examinationM ixed hyperlipidem iaAnxietyBod y mass index (BMI) 25.0-25.9, adultHistory of upper respiratory infection 0 Viktor Galvan. [facility] [address], [address], [facility], . tel:[phone] Referring Provider: Mandy Hoang 111 [facility] [address], [facility]. tel:[phone] Office/Outpat ient Visit, New [facility], [address], [place], [address], [place] tel:[phone] [facility] Nurse Comments (chief complaint) Bacterial conjunctivit isBody mass index (BMI) 24.0-24.9, adultSore throat 0 Mariseljerardo Caren. [address] [facility] [address] , [place], [place], [id number], [place]. tel:[phone] Referring Provider: Caren Prado, [address] [facility] [address] , [place], [address]. tel:[phone] OFFICE/OUTPAT IENT VISIT, [facility] , [address] [place] [address], [id number], [place] tel:[phone] [facility] eye problem (chief complaint) Acute conjunctivit is of right eye, unspecified acute conjunctivit is typeEncounte r for exam of eyes and vision w/o abnormal findings 0 Venkatesh Gordillo. [address] [place] [address], [id number], [place]. tel:[phone] Referring Provider: Duy Riddle, [address] [place] [address], [address]. tel:[phone] Office/Outpat ient Visit, [facility], [address] [facility] [address], [place], [place], [id number], [place] tel:[phone] [facility] Left hip pain (chief complaint) Pain in left hip 7 Newton Barrow. [address], [facility] [place], [address], [place]. tel:[phone] Referring Provider: Danial Prajapati, [address] [facility] [place], [address]. tel:[phone] OFFICE/OUTPAT IENT VISIT, [facility] , [address] [place] [address], [facility], tel:[phone] [facility] lesions (chief complaint) Epidermal cyst 6 Lorenzo Bell. [address] [facility] [address] [place] [address], [id number], [place]. tel:[phone] Referring Provider: Bell Ventura, [address], [address]. tel:[phone] Prev Visit, Est, Age 40-64 [facility], [address] [place] [address], [facility], tel:[phone] [facility] Nurse Comments (chief complaint) Encntr for general adult medical exam w/o abnormal findingsBody mass index (BMI) 22.0-22.9, adultOther fatigueVitam in D deficiency 5 Jason Tatum. [address] [facility], Johnny. [address] [place] [address], [facility], [place]. tel:[phone] Referring Provider: Deepti Gomez H, [address] [facility] 6, [address], [place], [address]. tel:[phone] OFFICE/OUTPAT IENT VISIT, [facility] , [address] [place] [address], [facility], tel:[phone] [facility] mole(s) (chief complaint) Other benign neoplasm of skin of trunkOther seborrheic keratosis 5 Lorenzo Bell. [address] [facility] [address] [place] [address], [id number], [place]. tel:[phone] Referring Provider: Bell Ventura, [address], [address]. tel:[phone] [facility], [address], [facility], tel:[phone] [facility] No Information 4 Ashwin Grant. [address] Suite [facility], [place], [address], . [phone] Referring Provider: Juanita Ashwin, [address] [facility], [place], [address]. [phone] [facility], [address], [address], tel:[phone] [facility] No Information 4 Ashwin Grant. [address], [place], [address], [place]. tel:[phone] Prev Visit, Est, Age 40-64 [facility], [address], [address], [phone] [facility] Nurse Comments (chief complaint) Routine general medical examination at a [facility] care facilityRout ine gynecologica l examinationB jackie Mass Index 26.0-26.9, adult 4 Jason Tatum. [address] [facility] 6, [address], [place], [address], [place]. tel:[phone] Referring Provider: Deepti Lee, [address] [facility], [address], [place], [address]. tel:[phone] Office/Outpat ient Visit, Est [facility], [address], [facility], [phone] [facility] Nurse Comments (chief complaint) Chest TightnessChe st Tightness 4 No Information Office/Outpat ient Visit, Est [facility], [address], [address], tel:[phone] [facility] Nurse Comments (chief complaint) SEBACEOUS CYST 3 Jason Tatum. [address] [facility] 6, [address], [place], [address], [place]. tel:[phone] Referring Provider: Deepti Lee, [address] [facility] 6, Johnny. [address] [place] [address], [facility]. tel:[phone] Office/Outpat ient Visit, [facility], [address] [place] [address], [facility], tel:[phone] [facility] Nurse Comments (chief complaint) Chest Pain, UnspecifiedJ [employer]INT [employer]-FOREARM 3 Jason Tatum. [address] [facility] 6, Johnny. [address], [place], [facility], . tel:[phone] Referring Provider: Deepti Lee, [address] [facility] 6, Johnny [address] [place] [address], [facility]. tel:[phone] Office/Outpat ient Visit, [facility], [address] [place] [address], [facility], tel:[phone] [facility] Nurse Comments (chief complaint) Influenza VaccineANXIE TY DISORDER NOSInfluenza VaccineANXIE TY DISORDER NOSREASON FOR CONSULT NOS 2 Jason Tatum. [address] [facility] 6, Johnny. [address] [place] [address], [facility], . tel:[phone] Referring Provider: Deepti Lee, [address] [address], [facility]. [address] [place] [address], [facility]. tel:[phone] Office/Outpat ient Visit, [facility], [address] [place] [address], [facility], tel:[phone] [facility] Nurse Comments (chief complaint) ACUTE CONJUNCTIVIT [...] quadrivalent, 3 years or older Fluzone Quad [id number] administered Source: New Immuniza tion Record Fluzone (3years and up - 0.5ml) refused Source: New Immuniza tion Record Flu (split) (3 yrs or older) administered Source: New Immunization Record Tdap (Adacel ) administered Source: New Immuniza tion Record Payers Payer name Insurance type Covered republican ID Authoriza tion(s) [employer] CI [id number] A[employer] CI [id number] [facility] CI [id number] [employer] CI [id number] [employer] CI [id number] Social History Type Description Quantity Date Captured [...] Goal Mammogram. Due on 7 due Goal KENO ATTENDANT exam. Due on due Goal Influenza vaccin e. Due on due Goal Breast exam. Due on 98 due Goal Lifestyle educat ion regarding diet completed Goal Breast exam. Due on 989 due Goal Tdap due Goal Mammogram. Due on 5 due Goal KENO ATTENDANT exam. Due on due Goal Breast exam. Due on 989 due Goal Mammogram. Due on 5 due Goal Tdap due Goal Dietary manageme nt education, guidance, and counseling completed Goal Tdap due Goal KENO ATTENDANT exam. Due on due Goal Influenza vaccin e. Due on due Goal Mammogram. Due on 5 due Goal Breast exam. Due on 989 due Goal PAP. Due on due Goal Influenza vaccin e. Due on due Goal Breast exam. Due on 014 due Goal Preventive Exam, 19yr - 64 yr. Due on due Goal KENO ATTENDANT exam. Due on due Goal Dietary manageme nt education, guidance, and counseling completed Goal Influenza vaccin e. Due on due Goal KENO ATTENDANT exam. Due on due Goal Preventive Exam, [...] SCREEN MALIG NEOP-COLON) ordered Referral Referred To: [address] [place] [address]
[address] [place], [phone] Ordered: Referrals: Cardiology. Location: [facility]. Consult and Treat Appointment date/timeframe: 10/22/2024 ordered Referral Ordered: Colon Screen (related to SCREEN MALIG NEOP-COLON) ordered Referral Referred To: Walker Alonso [address] [place] [address], [phone] Ordered: Referrals: Dermatology. Walker Alonso Consult and Treat Appointment date/timeframe: 07/19/2021 ordered Referral Ordered: Referral for Colon Screening Appointment date/timeframe: 10/21/2021 ordered Future Order: Lab Order Iron and TIBC ([id number]), Appointment on: , Sent on: Sent Future Order: Lab Order Vitamin B12 ([id number]), Appointment on: , Sent on: Sent Future Order: Lab Order Folates (Folic Acid), Serum ([id number]), Appointment on: , Sent on: Sent Future Order: Lab Order Ferritin , Serum ([id number]), Appointment on: , Sent on: Sent Future Order: Lab Order CBC With Differential/Platelet ([id number]), Appointment on: , Sent on: Sent Future Order: Lab Order Pt Servi Center ([id number]), Sent on: Sent Future Order: Radiology Order [place] x[place], Bone Density ([id number]), Appointment on: Ordered Future Order: Lab Order COMP MET ABOLIC PANEL [14] ([id number]), Appointment on: , Sent on: Sent Future [...] Of Lower Extremity With Contrast Left hip ([id number]), Body Site: Left, Ordered on: Ordered Future Order: Radiology Order Ma mmo Digital Screen, Bilat: Diag Mammo Or Diag US As Needed ([id number]), Ordered on: Ordered History Of Present Illness Encounter Date Complaint History Of Prese nt Illness Nurse Comments CPE - FBWMed lis t UTD, refill x 1 neededSees no specialists but will schedule eye dr applamar.Non-smoker, no hx of Asthma.Wants flu vacc lesions patient is here today for wart(s) follow up.Warts are on left footLast OV tx w/ [id number] stated warts has not changedNo interval health changes since last visit. No new Medications. Feels well. lesions patient is here today for wart(s) follow up.Warts are on left footLast OV tx w/ CH4Auccbor stated warts has not changedNo interval health changes since last visit. No new Medications. Feels well. lesions patient is here today for wart(s) follow up.Warts are on left foot. Last OV tx w/ [id number] stated warts have not gone awayNo interval health changes since last visit. No new Medications. Feels well. Wart Patient is here today for wart(s) follow up.Warts are on left foot. Last OV tx w/ [id number] stated warts have improved no new lesions [...] intake sheet. 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 She has had 2 children. She has [...] pt see's no eye dentist Briana dental millroom supervisor LMP 05/20, needs order for MAMMO gi [...] t have regular eye, does not see rehabilitation tech but no BPP todayno htn, no asthma, [...] one daughter RyanSpends sandhu LBI, belongs to [employer] clubAdopted,no fam HxEating much healthier, followed lower [...] Nurse Comments Pt refused flu s hot. CPE/KENO ATTENDANT FBWFeels well, no c/oEats healthy Functional Status [...] to Mu rmur -reconsider flu shot -pap [id number] utd-colonoscopy due-continue regular dental and vision exams-healthy [...] CBC, CMP, TSH, Lipids -Patient sees outside millroom supervisor, PAP UDT, mammogram rx given today-Family planning [...]
--- NOTE | 2025-09-29 07:47 | A.OFFVIS_ITS ---
Intake Visit Reasons: 6m/PVR Intake Note: Patient is Present for Follow Up PVR Urology Medication:Solifenacin, Estradiol Antibiotic Allergies: Sulfa Blood Thinners: None PVR: 0ml Patient denies any issues or concerns. Spanish Literature Professor Required: No Accompanied by: Self / Same As Patient Allergies latex Allergy (Severe, Verified 09/29/25 08:23) Anaphylaxis Cephalosporins Allergy (Mild, Verified 09/29/25 08:23) Rash egg Allergy (Mild, Verified 09/29/25 08:23) Unknown Sulfa (Sulfonamide Antibiotics) Allergy (Mild, Verified 09/29/25 08:23) Rash omalizumab (From Xolair) Adverse Reaction (Severe, Verified 09/29/25 08:23) worsening SOB/asthma; hives; injection reaction ibuprofen (From Motrin) Adverse Reaction (Mild, Verified 09/29/25 08:23) Rash Medication List - Last Reconciled 09/29/25 by AMANDA Toscano-BC acarbose 100 mg PO TID albuterol sulfate 2.5 mg inhalation Q4-6H PRN albuterol sulfate 90 mcg/actuation 2 puffs inhalation Q4-6H PRN bupropion HCl XL 150 mg PO QAM 90 days cetirizine (Zyrtec) 10 mg PO DAILY PRN cholecalciferol (vitamin D3) 50 mcg PO DAILY 90 days cyanocobalamin (vitamin B-12) 1,000 mcg IM QMONTH escitalopram oxalate (Lexapro) 20 mg PO DAILY 90 days esomeprazole magnesium (Nexium) 40 mg PO BID estradiol 1 patch transdermal QWEEK 4 weeks gabapentin 600 mg PO DAILY 90 days insulin syringe-needle,dispos. (SafeSnap Insulin Syringe) As directed once a month for B12 injections ipratropium-albuterol 20-100 mcg/actuation (Combivent Respimat) 1 puff inhalation Q6H lorazepam (Ativan) 1 mg PO BEDTIME PRN ondansetron 4 mg PO Q8H ropinirole 0.5 - 1 mg (1 - 2 x 0.5 mg) PO BEDTIME simethicone (Gas Relief (simethicone)) 180 mg PO BID PRN solifenacin 10 mg PO DAILY sumatriptan succinate (Imitrex) 50 mg PO Q2-4H PRN syringe-needle,safety,disp unt (SafeSnap Syringe) As directed- monthly with B12 HPI Comments Details: Emani a very pleasant 55-year-old female patient of Dr. Crane. She has a past medical history of hypercholesteremia, vitamin-D deficiency, vitamin B12 deficiency, allergic rhinitis, GERD, anxiety, neuropathy, asthma, diabetes, and migraines. She presents to the office today for follow-up of her ongoing lower urinary tract symptoms and microscopic hematuria. In discussion with the patient today she reports to be doing and feeling well. She discusses how helpful VESIcare 10 mg daily has been with episodes of urinary urgency and frequency she had been experiencing. She does continue to report straining with urination. She otherwise denies urinary urgency, urinary frequency, incontinence, nocturia, hematuria, dysuria, foul smelling urine, flank pain, fever, and or chills. She is happy with her current voiding parameters. In office urinalysis results reviewed with the patient today. No microscopic hematuria noted. PVR 0 mL. Previous workup has included an office cystoscopy 10/[address] Hall that noted: Cystoscopy findings: no suspicious bladder lesions, mild to moderate bladder wall thickening. CT urogram 09/05 noted normal kidneys, ureters, collecting system, and urinary bladder. No explanation for hematuria. No acute or suspicious findings in the abdomen or pelvis. We did discussed potential causes and treatment options of straining with urination as well as healthy bathroom behaviors. All questions were answered. She otherwise offers no other issues or concerns at this time. Cytology 08/06: Negative for high-grade urothelial carcinoma. [facility] Medical History GERD (gastroesophageal reflux disease) Family history of sudden cardiac (SCD) Tubular adenoma of colon Pure hypercholesterolemia Vitamin D deficiency Vitamin B12 deficiency Allergic rhinitis Pulmonary nodule, left Anxiety Neuropathy Asthma Diabetes mellitus Migraine Cyclical vomiting Surgical History History of lumpectomy of right breast (05/29/24) Hx of shoulder surgery Hx of shoulder surgery Hx of colonoscopy Status post laparoscopic assisted vaginal hysterectomy (LAVH) (~2016) Hx of gastric bypass (~2009) Hx of cholecystectomy Family History Mother Lung cancer Father Cardiac arrest Brother Chronic a-fib Cardiac arrest Daughter Long QT interval Paternal Grandfather Cardiac arrest Paternal Aunt Cardiac arrest Other Diabetes Social History Housing: House Are you a primary gericare aide to a significant other at home: No Do you presently have visiting nurse or other home services: No Alcohol intake: never Patient Tobacco Use Status: Former Tobacco user Tobacco use type: Cigarette Cigarette Packs Per Day: 1.5 Years Smoked: quit more than 15 years ago, started as a teen e-Cigarette/Vaping Use: Never Used service: No Current occupational status: disabled Current occupation: Left hand dominant Current occupational exposures/hazards: No Cognitive needs: No Hearing needs: No Vision needs: Yes Review of Systems Eyes Reports no additional complaints ENT Reports no additional complaints Card Reports as per HPI Resp Reports no additional complaints GI Reports as per HPI Reports as per HPI Musc Reports no additional complaints Neuro Reports as per HPI Psych Reports as per HPI Endo Reports as per HPI Melvin/Lymph Reports no additional complaints Aller/Immun Reports no additional complaints Physical Exam Const General: cooperative, healthy appearing, comfortable, no acute distress, well developed, alert and awake Orientation/consciousness: patient oriented x3 Limitations: no limitations HEENT Head: Yes normal to inspection, Yes normocephalic and Yes atraumatic Ears: hearing grossly normal bilaterally Eyes General: appearance normal, both eyes and all related structures Neck Neck: Yes normal visual inspection and Yes trachea midline Chest Chest palpation & inspection: normal inspection of the chest Resp Effort & Inspection: normal respiratory effort and able to speak in complete sentences Cardio Rate: regular rate GI Inspection: Yes normal to inspection General: Yes no CVA tenderness Back/Spine/Pelvis Back: no CVA tenderness Skin General skin exam: no rashes or lesions noted Neuro General: patient oriented x3 Extrem General: Yes normal to inspection Psych Appearance: grossly normal and well kempt Mental Status: mental status grossly normal Speech and movement: Normal speech and movement present and Clear speech present Affect: normal affect Attitude: cooperative Thought process: Normal thought process present Thought content: Normal thought content present Insight: Fair insight present (Psych) Judgement: Fair judgement present (Psych) Office Procedures Post Void Residual Post Residual Void Post Void Residual (PVR): 0 [id number]-[id number] Void Residual by ultrasound Results AMB Urinalysis, Automated UA Leukoctes 0 Bakari/uL Last Edit by Namita Almazan, A on 09/29/25 08:00 UA Nitrite Negative Last Edit by Namita Almazan, RMA on 09/29/25 08:00 UA Urobilinogen 0.2 mg/dL Last Edit by Namita Almazan, RMA on 09/29/25 08:0 0 UA Protein 0 mg/dL Last Edit by Namita Almazan, RMA on 09/29/25 08:00 UA pH 8.0 Last Edit by Namita Almazan, RMA on 09/29/25 08:00 UA Blood 0 Keo/uL Last Edit by Namita Almazan, RMA on 09/29/25 08:00 UA Specific Cicero 1.005 Last Edit by Namita Almazan, RMA on 09/29/25 08: 00 UA Ketone Negative Last Edit by Namita Almazan, A on 09/29/25 08:00 UA Bilirubin 0 mg/dL Last Edit by Namita Almazan, RMA on 09/29/25 08:00 UA Glucose 0 mg/dL Last Edit by Namita Almazan, A on 09/29/25 08:00 Results Reviewed Results Reviewed: Laboratory Last Values Urine pH (Auto) 8.0 09/29/25 07:59 Specific Cicero (Auto) 1.005 09/29/25 07:59 Urine Protein (Auto) 0 mg/dL 09/29/25 07:59 Glucose (UA)(Auto) 0 mg/dL 09/29/25 07:59 Urine Ketones (Auto) Negative 09/29/25 07:59 Urine Blood (Auto) 0 Keo/uL 09/29/25 07:59 Urine Nitrite (Auto) Negative 09/29/25 07:59 Urine Bilirubin (Auto) 0 mg/dL 09/29/25 07:59 Urine Urobilinogen (Auto) 0.2 mg/dL 09/29/25 07:59 Leukocyte Esterase (Auto) 0 Bakari/uL 09/29/25 07:59 Assessment & Plan Assessment & Plan (1) Straining on urination: Code(s): R39.16 - Straining to void Category: Medical (2) Hematuria, microscopic: Code(s): R31.29 - Other microscopic hematuria Category: Medical (3) Urine incontinence: Code(s): R32 - Unspecified urinary incontinence Category: Medical (4) History of urinary hesitancy: Code(s): Z87.898 - Personal history of other specified conditions Category: Medical (5) Urinary urgency: Code(s): R39.15 - Urgency of urination Category: Medical (6) Urinary hesitancy: Code(s): R39.11 - Hesitancy of micturition Category: Medical Plan In office urinalysis results reviewed with the patient today; as noted above. PVR 0 mL. Will refer to pelvic floor therapy for further assessment evaluation. We did discuss healthy bathroom habits and behaviors. Continue VESIcare as discussed and prescribed. She reports be happy with current voiding parameters. We did discuss affects of straining with urination as well as further treatment options and risks and benefits of these treatment options. All questions were answered. Follow-up in 6-9 months with PVR; or sooner with any issues, concerns, and or questions. Orders: Orders AMB Post Void Residual by ultrasound Today Clinton Mccord MD R39.15 - Urgency of urination AMB Urinalysis Automated Today YUN Toscano Z13.9 - Encounter for screening, unspecified PT Pelvic Floor Evaluation Today YUN Toscano R39.16 - Straining to void Medications: Refilled solifenacin Take one tablet (10mg) by mouth daily. 10 mg PO DAILY 90 tabs 3RF YUN Toscano Coding Level of Care Code Est Pt Level 3 (90165) Diagnoses Straining on urination R39.16 Hematuria, microscopic R31.29 Urine incontinence R32 History of urinary hesitancy Z87.898 Urinary urgency R39.15 Urinary hesitancy R39.11 CPT Codes Post Residual Void - PVR CPT Code: 27314-Koto Void Residual by ultrasound ([id number])
--- OUTSIDE RECORDS SUMMARY | 2025-09-29 08:07 | XMS_ITS | Encounter Summary ---
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 EFFECTIVE SINCE 07/06/2023 documented in this encounter Plan of Treatment Not on file documented as of this encounter Visit Diagnoses Not on filedocumented in this encounter
--- OUTSIDE RECORDS SUMMARY | 2025-09-29 08:07 | XMS_ITS | Clinical Summary ---
Author Organization [employer] Address [address] [facility] [address] [place] [address] Care Team Providers Care Station Gateman Name Role Phone Unavailable Primary Care Provider [...] Additional history exists COVID-19 Vaccine ( - 2024- season) 2025 Influenza Vaccine (#1) 2025 RSV [...]
--- OUTSIDE RECORDS SUMMARY | 2025-09-29 08:08 | XMS_ITS | Clinical Summary ---
Author Organization [facility] Address [address] [address] Care Team Providers Care Head Custodian Name Role Phone Anthony Andujar MD Primary Care Provider [phone] Allergies No known active allergies Medications gabapentin [...] 94 <=150 mg/dL 09/23/2022 12:23 PM EST [facility] Cholesterol 211(H) <=200 mg/dL 09/23/2022 12:23 PM EST [facility] HDL cholesterol 59 >=40 mg/dL 2 12:23 PM EST [facility] LDL cholesterol, calculated 133(H) 0 - 130 mg/dL 09/23/2022 12:23 PM EST [facility] Cholesterol/HDL Ratio 3.6 09/23/2022 12:23 PM EST [facility] Blood Venous blood specimen / Unknown Venipuncture / Unknown 09/23/2022 11:05 AM EST 09/23/2022 11:32 AM EST us Armand Brandt MD LAB BLOOD ORDERABLES Final Resul t [facility] [address] [place] [address], from Last 3 Months or Most Recently Relevant to Health Maintenance Insurance MEDICARE PART A AND B MEDICAID STANDARD Care Teams Head Custodian Relationship Specialty Start Date End Date Anthony Andujar MD [address] [address] PCP - General 12/17/21
--- OUTSIDE RECORDS SUMMARY | 2025-09-29 08:08 | XMS_ITS | Encounter Summary ---
Author Organization [facility] Address [address] [facility] [address] [place] [address] Care Team Providers Care Melter Clerk Name Role Phone Anthony Andujar MD Primary Care Provider [phone] Reason for Visit * Reason Comments Med Refill Encounter Details Date Type Department Care Team (Late st Contact Info) Description 01/13/2024 Refill [facility] Neurology [address] [place] [id number] Charlotte Varela MD [address] [place] [address] Abnormal movement Social History Tobacco Use Types [...] movement documented in this encounter Care Teams Melter Clerk Relationship Specialty Start Date End Date Anthony Andujar MD [address] [address] PCP - General 12/17/21 documented as of this encounter
== END 2025-09-29 08:19 | disposition home or self-care (01) ==
LOC: HO.HUSH 07:44
PROVIDERS: PCP Internal Medicine; Visit Provider Nurse Practitioner Family
DX: R39.16 Straining to void (principal); R31.29 Other microscopic hematuria; R32 Unspecified urinary incontinence; Z87.898 Personal history of other specified conditions; R39.15 Urgency of urination; R39.11 Hesitancy of micturition; Z13.9 Encounter for screening, unspecified
CPT/HCPCS: 99213

== ENCOUNTER → 2025-09-29 07:43 | Outpatient (BNVA) | payer MEDICARE, MEDICAID, SELFPAY | PROVIDERS: PCP Internal Medicine; Visit Provider Nurse Practitioner Family | DX: R31.29 Other microscopic hematuria (principal); R39.16 Straining to void; R32 Unspecified urinary incontinence; R39.15 Urgency of urination; R39.11 Hesitancy of micturition; Z87.898 Personal history of other specified conditions; Z13.9 Encounter for screening, unspecified | CPT/HCPCS: 51798; 81003; 99212 ==

== ENCOUNTER 2025-10-01 11:09 | Emergency (ER) | payer MEDICARE, MEDICAID, SELFPAY ==
--- OUTSIDE RECORDS SUMMARY | 2025-08-14 09:07 | XMS_ITS | Continuity of Care Document ---
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 EXAMINER-CCaren Unavailable Un available Allergies, Adverse Reactions, Alerts Substance Reaction Status Criticality No Known Allergies Active No Inform ation Medications Medication Instructions Dosage Effective Dates (start - stop) Status Comments Vitamin D2 1,250 mcg (50,000 unit) capsule take 1 capsule by oral route every week for 12 weeks 38701 UNITS - Active valacyclovir 1 gram tablet [...] on Encounter [facility], [address] [place] [address], [facility], tel:[phone] [facility] Macrocytic anemia Oct-0 5 [facility] Fabian. [address] [place] [address] [place] [address], [id number], [place]. tel:[phone] [facility], [address], [address], tel:[phone] [facility] Cold sore Sep-2 5 [facility]. [address] [place] [address], [id number], . tel:[phone] Prev Visit, Est, Age 40-64 [facility], [address] [place] [address], [facility], tel:[phone] [facility] Nurse Comments (chief complaint) General medical examinationE ncounter for screening for other disorderAsym ptomatic menopausal stateMixed hyperlipidem iaBody mass index [BMI] 24.0-24.9, adultImpaire d fasting glucoseVitam in D deficiency Sep-2 5 Johan Fabian. [address] [place] [address] [address], [place], [id number], [place]. tel:[phone] Referring Provider: Caren Prado, [address] [place] [address] [address], [place], [address]. tel:[phone] [facility] , [address] [place] [address], [facility], tel:[phone] [facility] lesions (chief complaint) Other viral warts 3 0 5 Maru Alas. [address] [place] [address], [facility], . tel:[phone] Referring Provider: Evette Mahoney, [address] [place] [address], [facility]. tel:[phone] [facility] , [address] [place] [address], [facility], tel:[phone] [facility] lesions (chief complaint) Other viral warts 0 2 5 Maru Alas. [address] [place] [address], [facility], . tel:[phone] Referring Provider: Evette Mahoney, [address] [place] [address], [facility]. tel:[phone] [facility] , [address] [place] [address], [facility], tel:[phone] [facility] lesions (chief complaint) Other viral warts 0-202 5 Maru Alas. [address] [place] [address], [facility], . tel:[phone] Referring Provider: Evette Mahoney, [address] [place] [address], [address]. tel:[phone] [facility] , [address] [place] [address], [address], tel:[phone] [facility] Wart (chief complaint) Other viral warts March- 5 Ernestoozshonda Alas. [address] [place] [address], [address], . tel:[phone] Referring Provider: Evette Maohney, [address] [place] [address], [address]. tel:[phone] [facility] , [address] [place] [address], [facility], tel:[phone] [facility] wart (chief complaint) Other viral warts 0 5 Ernestoozshonda Alas. [address] [place] [address], [facility], . tel:[phone] Referring Provider: Evette Mahoney, [address] [place] [address], [facility]. tel:[phone] [facility] , [address] [place] [address], [facility], tel:[phone] [facility] lesions (chief complaint) Other viral warts 5 Ernestoozshonda Alas. [address] [place] [address], [facility], . tel:[phone] Referring Provider: Evette Mahoney, [address] [place] [address], [address]. tel:[phone] [facility] , [address] [place] [address], [address], tel:[phone] [facility] Wart (chief complaint) Other viral warts 5 Ernestoozshonda Penae. [address] [place] [address], [address], . tel:[phone] Referring Provider: Evette Mahoney, [address] [place] [address], [facility]. tel:[phone] OFFICE/OUTPAT IENT VISIT, EST-Problem Focused [facility] , [address] [place] [address], [facility], tel:[phone] [facility] lesions (chief complaint)w art (chief complaint) Neoplasm of uncertain behavior of skinOther viral warts 5 Maru Alas. [address] [place] [address], [facility], . tel:[phone] Referring Provider: Evette Mahoney, [address] [place] [address], [facility]. tel:[phone] OFFICE/OUTPAT IENT VISIT, NEW [facility] , [address] [place] [address], [facility], tel:[phone] [facility] lesions (chief complaint) LentiginesMe lanocytic nevus of trunkSeborrh eic keratosis 4 Maru Alas. [address] [place] [address], [facility], . tel:[phone] Referring Provider: Evette Mahoney, [address] [place] [address], [facility]. tel:[phone] [facility], [address] [place] [address], [facility], tel:[phone] [facility] No Information Jul- 4 Johan Fabian. [address] [place] [address] [address], [place], [place], [id number], . tel:[phone] Prev Visit, Est, Age 40-64 [facility], [address] [place] [address], [address], tel:[phone] [facility] Nurse Comments (chief complaint) General medical examinationB jackie mass index [BMI] 25.0-25.9, adultChest tightnessMur murAnxietyMi xed hyperlipidem iaElevated BP without diagnosis of hypertension Encounter for screening for other disorder Sep- 4 Johan Fabian. [address] [place] [address] [facility] [address] , [place], [place], [id number], [place]. tel:[phone] Referring Provider: Caren Prado, [address] [address] [address] , [place], [address]. tel:[phone] Office/Outpat ient Visit, Est [facility], [address] [facility], [place], [place], [facility], tel:[phone] [facility] Nurse Comments (chief complaint)C hronic Conditions (chief complaint) AnxietyBody mass index (BMI) 25.0-25.9, adultVenous insufficienc y (chronic) (peripheral) Mixed hyperlipidem iaEffusion, right elbow Mar-0 4 [facility]. [address] [place] [address], [place], [place], [id number], . tel:[phone] Referring Provider: Caren Prado, [address] [place] [address] [address] , [place], [address]. tel:[phone] [facility], [address] [place] [address], [address], [place], [address], [place] tel:[phone] [facility] No Information Sep-2 2 Irma Holland. [address], [address] mary [facility]ov[facility], [place], [place], [id number], [place]. tel:[phone] Referring Provider: Adonis Jordan, [facility] [address] mary Cardiov[facility], [place], [address]. tel:[phone] Consultation Vein Clinic Self Referred [facility] Samira [facility], [place], [address], [place] tel:[phone] [facility] Office Vein Consult (chief complaint)V ein Note (chief complaint) Venous insufficienc y (chronic) (peripheral) Sep-0 2 Mehul Lamb. [address], [address] n [place], [id number], [place]. tel:[phone] Referring Provider: Adonis Jordan, [address], [place], [address]. tel:[phone] Prev Visit, Est, Age 40-64 [facility], [address] [place] [address], [facility], tel:[phone] [facility] Nurse Comments (chief complaint)p reventive exam (chief complaint)B ack pain (chief complaint) General medical examinationM ixed hyperlipidem iaAnxietyEnc ounter for gynecologica l examination (general) (routine) without abnormal findingsBody mass index [BMI] 27.0-27.9, adultAcute left-sided low back pain without sciaticaNume lin moles 0 1 Viktor Galvan. [facility] Route , [address], [facility], . tel:[phone] Referring Provider: Mandy Hoang, [address] [place] [address], [facility]. tel:[phone] Prev Visit, Est, Age 40-64 [facility], [facility] [address] [place] [address], [facility], tel:[phone] [facility] Nurse Comments (chief complaint)p reventive exam (chief complaint)a nxiety (chief complaint)H x of URI (chief complaint) General medical examinationM ixed hyperlipidem iaAnxietyBod y mass index (BMI) 25.0-25.9, adultHistory of upper respiratory infection 0 Viktor Galvan. [facility] [address], [address], [facility], . tel:[phone] Referring Provider: Mandy Hoang [address] [facility] [address], [facility]. tel:[phone] Office/Outpat ient Visit, New [facility], [address], [place], [address], [place] tel:[phone] [facility] Nurse Comments (chief complaint) Bacterial conjunctivit isBody mass index (BMI) 24.0-24.9, adultSore throat 0 Mariseljerardo Caren. [address] [facility] [address] , [place], [place], [id number], [place]. tel:[phone] Referring Provider: Caren Prado, [address] [facility] [address] , [place], [address]. tel:[phone] OFFICE/OUTPAT IENT VISIT, [facility] , [address] [place] [address], [id number], [place] tel:[phone] [facility] eye problem (chief complaint) Acute conjunctivit is of right eye, unspecified acute conjunctivit is typeEncounte r for exam of eyes and vision w/o abnormal findings 0 Venkatesh Gordillo. [address] [place] [address], [id number], [place]. tel:[phone] Referring Provider: Duy Riddle, [address] [place] [address], [address]. tel:[phone] Office/Outpat ient Visit, [facility], [address] [facility] [address], [place], [place], [id number], [place] tel:[phone] [facility] Left hip pain (chief complaint) Pain in left hip 7 Newton Barrow. [address], [facility] [place], [address], [place]. tel:[phone] Referring Provider: Danial Prajapati, [address] [facility] [place], [address]. tel:[phone] OFFICE/OUTPAT IENT VISIT, [facility] , [address] [place] [address], [facility], tel:[phone] [facility] lesions (chief complaint) Epidermal cyst 6 Lorenzo Bell. 1 [facility] [address] [place] [address], [id number], [place]. tel:[phone] Referring Provider: Bell Ventura, [address], [address]. tel:[phone] Prev Visit, Est, Age 40-64 [facility], [address] [place] [address], [facility], tel:[phone] [facility] Nurse Comments (chief complaint) Encntr for general adult medical exam w/o abnormal findingsBody mass index (BMI) 22.0-22.9, adultOther fatigueVitam in D deficiency 5 Jason Tatum. [address] [facility] 6, Johnny. [address] [place] [address], [facility], [place]. tel:[phone] Referring Provider: Deepti Gomez H, [address] [facility] 6, [address], [place], [address]. tel:[phone] OFFICE/OUTPAT IENT VISIT, [facility] , [address] [place] [address], [facility], tel:[phone] [facility] mole(s) (chief complaint) Other benign neoplasm of skin of trunkOther seborrheic keratosis 5 Lorenzo Bell. 1 [facility] [address] [place] [address], [id number], [place]. tel:[phone] Referring Provider: Bell Ventura, [address], [address]. tel:[phone] [facility], [address], [facility], tel:[phone] [facility] No Information 4 Ashwin Grant. [address] Suite [facility], [place], [address], . [phone] Referring Provider: Juanita Ashwin, [address] [facility], [place], [address]. tel:[phone] [facility], [address], [address], tel:[phone] [facility] No Information 4 Ashwin Grant. [address], [place], [address], [place]. tel:[phone] Prev Visit, Est, Age 40-64 [facility], [address], [address], [phone] [facility] Nurse Comments (chief complaint) Routine general medical examination at a [facility] facilityRout ine gynecologica l examinationB jackie Mass Index 26.0-26.9, adult 4 Jason Tatum. [address] [facility] 6, [address], [place], [address], [place]. tel:[phone] Referring Provider: Deepti Lee, [address] [facility] 6, [address], [place], [address]. tel:[phone] Office/Outpat ient Visit, Est [facility], [address], [facility], tel:[phone] [facility] Nurse Comments (chief complaint) Chest TightnessChe st Tightness 4 No Information Office/Outpat ient Visit, Est [facility], [address], [address], tel:[phone] [facility] Nurse Comments (chief complaint) SEBACEOUS CYST 3 Jason Tatum. [address] [facility] 6, [address], [place], [address], [place]. tel:[phone] Referring Provider: Deepti Lee, [address] [facility] 6, Johnny. [address] [place] [address], [facility]. tel:[phone] Office/Outpat ient Visit, [facility], [address] [place] [address], [facility], tel:[phone] [facility] Nurse Comments (chief complaint) Chest Pain, UnspecifiedJ [employer] 3 Jason Tatum. [address] [facility] 6, Johnny. [address], [place], [facility], . tel:[phone] Referring Provider: Deepti Lee, [address] [facility] 6, Johnny [address] [place] [address], [facility]. tel:[phone] Office/Outpat ient Visit, [facility], [address] [place] [address], [facility], tel:[phone] [facility] Nurse Comments (chief complaint) Influenza VaccineANXIE TY DISORDER NOSInfluenza VaccineANXIE TY DISORDER NOSREASON FOR CONSULT NOS 2 Jason Tatum. [address] [facility] 6, Johnny. [address] [place] [address], [facility], . tel:[phone] Referring Provider: Deepti Lee, [address] [address], [facility]. [address] [place] [address], [facility]. tel:[phone] Office/Outpat ient Visit, [facility], [address] [place] [address], [facility], tel:[phone] [facility] Nurse Comments (chief complaint) ACUTE [...] quadrivalent, 3 years or older Fluzone Quad [id number] administered Source: New Immuniza tion Record Fluzone (3years and up - 0.5ml) refused Source: New Immuniza tion Record Flu (split) (3 yrs or older) administered Source: New Immunization Record Tdap (Adacel ) administered Source: New Immuniza tion Record Payers Payer name Insurance type Covered democrat ID Authoriza tion(s) [employer] CI [id number] A[employer] CI [id number] [facility] CI [id number] [employer] CI [id number] [employer] CI [id number] Social History Type Description Quantity Date Captured [...] Goal Mammogram. Due on 7 due Goal MIRROR INSPECTOR exam. Due on due Goal Influenza vaccin e. Due on due Goal Breast exam. Due on 98 due Goal Lifestyle educat ion regarding diet completed Goal Breast exam. Due on 989 due Goal Tdap due Goal Mammogram. Due on 5 due Goal MIRROR INSPECTOR exam. Due on due Goal Breast exam. Due on 989 due Goal Mammogram. Due on 5 due Goal Tdap due Goal Dietary manageme nt education, guidance, and counseling completed Goal Tdap due Goal MIRROR INSPECTOR exam. Due on due Goal Influenza vaccin e. Due on due Goal Mammogram. Due on 5 due Goal Breast exam. Due on 989 due Goal PAP. Due on due Goal Influenza vaccin e. Due on due Goal Breast exam. Due on 014 due Goal Preventive Exam, 19yr - 64 yr. Due on due Goal MIRROR INSPECTOR exam. Due on due Goal Dietary manageme nt education, guidance, and counseling completed Goal Influenza vaccin e. Due on due Goal MIRROR INSPECTOR exam. Due on due Goal Preventive Exam, [...] SCREEN MALIG NEOP-COLON) ordered Referral Referred To: [address] [place] [address]
[address] [place], [phone] Ordered: Referrals: Cardiology. Location: [facility]. Consult and Treat Appointment date/timeframe: 10/22/2024 ordered Referral Ordered: Colon Screen (related to SCREEN MALIG NEOP-COLON) ordered Referral Referred To: Walker Alonso [address] [place] [address], [phone] Ordered: Referrals: Dermatology. Walker Alonso Consult and Treat Appointment date/timeframe: 07/19/2021 ordered Referral Ordered: Referral for Colon Screening Appointment date/timeframe: 10/21/2021 ordered Future Order: Lab Order Iron and TIBC ([id number]), Appointment on: , Sent on: Sent Future Order: Lab Order Vitamin B12 ([id number]), Appointment on: , Sent on: Sent Future Order: Lab Order Folates (Folic Acid), Serum ([id number]), Appointment on: , Sent on: Sent Future Order: Lab Order Ferritin , Serum ([id number]), Appointment on: , Sent on: Sent Future Order: Lab Order CBC With Differential/Platelet ([id number]), Appointment on: , Sent on: Sent Future Order: Lab Order Pt Servi Center ([id number]), Sent on: Sent Future Order: Radiology Order [place], Bone Density ([id number]), Appointment on: Ordered Future Order: Lab Order COMP MET ABOLIC PANEL [14] ([id number]), Appointment on: , Sent on: Sent Future [...] Of Lower Extremity With Contrast Left hip ([id number]), Body Site: Left, Ordered on: Ordered Future Order: Radiology Order Ma mmo Digital Screen, Bilat: Diag Mammo Or Diag US As Needed ([id number]), Ordered on: Ordered History Of Present Illness Encounter Date Complaint History Of Prese nt Illness Nurse Comments CPE - FBWMed lis t UTD, refill x 1 neededSees no specialists but will schedule eye dr applamar.Non-smoker, no hx of Asthma.Wants flu vacc lesions patient is here today for wart(s) follow up.Warts are on left footLast OV tx w/ [id number] stated warts has not changedNo interval health changes since last visit. No new Medications. Feels well. lesions patient is here today for wart(s) follow up.Warts are on left footLast OV tx w/ OW9Plmjnpp stated warts has not changedNo interval health changes since last visit. No new Medications. Feels well. lesions patient is here today for wart(s) follow up.Warts are on left foot. Last OV tx w/ PW2Adpbxoa stated warts have not gone awayNo interval health changes since last visit. No new Medications. Feels well. Wart Patient is here today for wart(s) follow up.Warts are on left foot. Last OV tx w/ OR3Sqmlomk stated warts have improved no new lesions [...] intake sheet. 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 She has had 2 children. She [...] pt see's no eye dentist Briana dental assistant professor of surgery LMP 05/20, needs order for MAMMO gi [...] t have regular eye, does not see horse farm manager but no BPP todayno htn, no asthma, [...] shotFeels wellM/one son Jarad & one daughter RyanSpends sandhu LBI, belongs to [employer] clubAdopted,no fam HxEating much healthier, followed lower [...] Nurse Comments Pt refused flu s hot. CPE/MIRROR INSPECTOR FBWFeels well, no c/oEats healthy Functional Status [...] to Mu rmur -reconsider flu shot -pap eam-evws-zblip utd-colonoscopy due-continue regular dental and vision exams-healthy [...] CBC, CMP, TSH, Lipids -Patient sees outside assistant professor of surgery, PAP UDT, mammogram rx given today-Family planning [...]
--- OUTSIDE RECORDS SUMMARY | 2025-08-14 09:07 | XMS_ITS | Continuity of Care Document ---
Author Organization [facility] Address [address] [place] [address] Phone Care Team Providers Care Rnp Name Role Phone Johan MSN, SCRIPT GIRL-CCaren Unavailable Un available Allergies, Adverse Reactions, Alerts Substance Reaction Status Criticality No Known Allergies Active No Inform ation Medications Medication Instructions Dosage Effective Dates (start - stop) Status Comments Vitamin D2 1,250 mcg (50,000 unit) capsule take 1 capsule by oral route every week for 12 weeks 54077 UNITS - Active valacyclovir 1 gram tablet [...] on Encounter [facility], [address] [place] [address], [facility], tel:[phone] [facility] Macrocytic anemia Oct-0 5 [facility] [place]. [address] [place] [address] [place] [address], [id number], [place]. tel:[phone] [facility], [address], [address], tel:[phone] [facility] Cold sore Sep-2 5 [facility]. [address] [place] [address], [id number], . tel:[phone] Prev Visit, Est, Age 40-64 [facility], [address] [place] [address], [facility], tel:[phone] [facility] Nurse Comments (chief complaint) General medical examinationE ncounter for screening for other disorderAsym ptomatic menopausal stateMixed hyperlipidem iaBody mass index [BMI] 24.0-24.9, adultImpaire d fasting glucoseVitam in D deficiency Sep-2 5 Johan Fabian. [address] [place] [address] [address], [place], [id number], [place]. tel:[phone] Referring Provider: Caren Prado, [address] [place] [address] [address], [place], [address]. tel:[phone] [facility] , [address] [place] [address], [facility], tel:[phone] [facility] lesions (chief complaint) Other viral warts 3 0 5 Maru Alas. [address] [place] [address], [facility], . tel:[phone] Referring Provider: Evette Mahoney, [address] [place] [address], [facility]. tel:[phone] [facility] , [address] [place] [address], [facility], tel:[phone] [facility] lesions (chief complaint) Other viral warts 0 2 5 Maru Alas. [address] [place] [address], [facility], . tel:[phone] Referring Provider: Evette Mahoney, [address] [place] [address], [facility]. tel:[phone] [facility] , [address] [place] [address], [facility], tel:[phone] [facility] lesions (chief complaint) Other viral warts 0-202 5 Maru Alas. [address] [place] [address], [facility], . tel:[phone] Referring Provider: Evette Mahoney, [address] [place] [address], [address]. tel:[phone] [facility] , [address] [place] [address], [address], tel:[phone] [facility] Wart (chief complaint) Other viral warts March- 5 Ernestoozshonda Alas. [address] [place] [address], [address], . tel:[phone] Referring Provider: Evette Mahoney, [address] [place] [address], [address]. tel:[phone] [facility] , [address] [place] [address], [facility], tel:[phone] [facility] wart (chief complaint) Other viral warts 0 5 Ernestoozshonda Alas. [address] [place] [address], [facility], . tel:[phone] Referring Provider: Evette Mahoney, [address] [place] [address], [facility]. tel:[phone] [facility] , [address] [place] [address], [facility], tel:[phone] [facility] lesions (chief complaint) Other viral warts 5 Ernestoozshonda Alas. [address] [place] [address], [facility], . tel:[phone] Referring Provider: Evette Mahoney, [address] [place] [address], [address]. tel:[phone] [facility] , [address] [place] [address], [address], tel:[phone] [facility] Wart (chief complaint) Other viral warts 5 Ernestoozshonda Penae. [address] [place] [address], [address], . tel:[phone] Referring Provider: Evette Mahoney, [address] [place] [address], [facility]. tel:[phone] OFFICE/OUTPAT IENT VISIT, EST-Problem Focused [facility] , [address] [place] [address], [facility], tel:[phone] [facility] lesions (chief complaint)w art (chief complaint) Neoplasm of uncertain behavior of skinOther viral warts 5 Maru Alas. [address] [place] [address], [facility], . tel:[phone] Referring Provider: Evette Mahoney, [address] [place] [address], [facility]. tel:[phone] OFFICE/OUTPAT IENT VISIT, NEW [facility] , [address] [place] [address], [facility], tel:[phone] [facility] lesions (chief complaint) LentiginesMe lanocytic nevus of trunkSeborrh eic keratosis 4 Maru Alas. [address] [place] [address], [facility], . tel:[phone] Referring Provider: Evette Mahoney, [address] [place] [address], [facility]. tel:[phone] [facility], [address] [place] [address], [facility], tel:[phone] [facility] No Information Jul- 4 Johan Fabian. [address] [place] [address] [address], [place], [place], [id number], . tel:[phone] Prev Visit, Est, Age 40-64 [facility], [address] [place] [address], [address], tel:[phone] [facility] Nurse Comments (chief complaint) General medical examinationB jackie mass index [BMI] 25.0-25.9, adultChest tightnessMur murAnxietyMi xed hyperlipidem iaElevated BP without diagnosis of hypertension Encounter for screening for other disorder Sep- 4 Johan Fabian. [address] [place] [address] [facility] [address] , [place], [place], [id number], [place]. tel:[phone] Referring Provider: Caren Prado, [address] [address] [address] , [place], [address]. tel:[phone] Office/Outpat ient Visit, Est [facility], [address] [facility], [place], [place], [facility], tel:[phone] [facility] Nurse Comments (chief complaint)C hronic Conditions (chief complaint) AnxietyBody mass index (BMI) 25.0-25.9, adultVenous insufficienc y (chronic) (peripheral) Mixed hyperlipidem iaEffusion, right elbow Mar-0 4 [facility]. [address] [place] [address], [place], [place], [id number], . tel:[phone] Referring Provider: Caren Prado, [address] [place] [address] [address] , [place], [address]. tel:[phone] [facility], [address] [place] [address], [address], [place], [address], [place] tel:[phone] [facility] No Information Sep-2 2 Irma Holland. [address], [address] mary Cardiov[facility]u [facility], [place], [place], [id number], [place]. tel:[phone] Referring Provider: Adonis Jordan, [facility] [address] mary Cardiov[facility]u [facility], [place], [address]. tel:[phone] Consultation Vein Clinic Self Referred [facility], [facility] Samira [facility], [place], [address], [place] tel:[phone] [facility] Office Vein Consult (chief complaint)V ein Note (chief complaint) Venous insufficienc y (chronic) (peripheral) Sep-0 2 Mehul Lamb. [address], [address] n [place], [id number], [place]. tel:[phone] Referring Provider: Adonis Jordan, [address] n [facility], [place], [address]. tel:[phone] Prev Visit, Est, Age 40-64 [facility], [address] [place] [address], [facility], tel:[phone] [facility] Nurse Comments (chief complaint)p reventive exam (chief complaint)B ack pain (chief complaint) General medical examinationM ixed hyperlipidem iaAnxietyEnc ounter for gynecologica l examination (general) (routine) without abnormal findingsBody mass index [BMI] 27.0-27.9, adultAcute left-sided low back pain without sciaticaNume lin moles 0 1 Viktor Galvan. [facility] Route , [address], [facility], . tel:[phone] Referring Provider: Mandy Hoang, [address] [place] [address], [facility]. tel:[phone] Prev Visit, Est, Age 40-64 [facility], [facility] [address] [place] [address], [facility], tel:[phone] [facility] Nurse Comments (chief complaint)p reventive exam (chief complaint)a nxiety (chief complaint)H x of URI (chief complaint) General medical examinationM ixed hyperlipidem iaAnxietyBod y mass index (BMI) 25.0-25.9, adultHistory of upper respiratory infection 0 Viktor Galvan. [facility] [address], [address], [facility], . tel:[phone] Referring Provider: Mandy Hoang [address] [facility] [address], [facility]. tel:[phone] Office/Outpat ient Visit, New [facility], [address], [place], [address], [place] tel:[phone] [facility] Nurse Comments (chief complaint) Bacterial conjunctivit isBody mass index (BMI) 24.0-24.9, adultSore throat 0 Mariseljerardo Caren. [address] [facility] [address] , [place], [place], [id number], [place]. tel:[phone] Referring Provider: Caren Prado, [address] [facility] [address] , [place], [address]. tel:[phone] OFFICE/OUTPAT IENT VISIT, [facility] , [address] [place] [address], [id number], [place] tel:[phone] [facility] eye problem (chief complaint) Acute conjunctivit is of right eye, unspecified acute conjunctivit is typeEncounte r for exam of eyes and vision w/o abnormal findings 0 Venkatesh Gordillo. [address] [place] [address], [id number], [place]. tel:[phone] Referring Provider: Duy Riddle, [address] [place] [address], [address]. tel:[phone] Office/Outpat ient Visit, [facility], [address] [facility] [address], [place], [place], [id number], [place] tel:[phone] [facility] Left hip pain (chief complaint) Pain in left hip 7 Newton Barrow. [address], [facility] [place], [address], [place]. tel:[phone] Referring Provider: Danial Prajapati, [address] [facility] [place], [address]. tel:[phone] OFFICE/OUTPAT IENT VISIT, [facility] , [address] [place] [address], [facility], tel:[phone] [facility] lesions (chief complaint) Epidermal cyst 6 Lorenzo Bell. 1 [facility] [address] [place] [address], [id number], [place]. tel:[phone] Referring Provider: Bell Ventura, [address], [address]. tel:[phone] Prev Visit, Est, Age 40-64 [facility], [address] [place] [address], [facility], tel:[phone] [facility] Nurse Comments (chief complaint) Encntr for general adult medical exam w/o abnormal findingsBody mass index (BMI) 22.0-22.9, adultOther fatigueVitam in D deficiency 5 Jason Tatum. [address] [facility] 6, Johnny. [address] [place] [address], [employer], [place]. tel:[phone] Referring Provider: Deepti Gomez H, [address] [facility] 6, [address], [place], [address]. tel:[phone] OFFICE/OUTPAT IENT VISIT, [facility] , [address] [place] [address], [facility], tel:[phone] [facility] mole(s) (chief complaint) Other benign neoplasm of skin of trunkOther seborrheic keratosis 5 Lorenzo Bell. 1 [facility] [address] [place] [address], [id number], [place]. tel:[phone] Referring Provider: Bell Ventura, [address], [address]. tel:[phone] [facility], [address], [facility], tel:[phone] [facility] No Information 4 Ashwin Grant. [address] Suite [facility], [place], [address], . [phone] Referring Provider: Juanita Ashwin, [address] [facility], [place], [address]. tel:[phone] [facility], [address], [address], tel:[phone] [facility] No Information 4 Ashwin Grant. [address], [place], [address], [place]. tel:[phone] Prev Visit, Est, Age 40-64 [facility], [address], [address], [phone] [facility] Nurse Comments (chief complaint) Routine general medical [facility] care facilityRout ine gynecologica l examinationB jackie Mass Index 26.0-26.9, adult 4 Jason Tatum. [address] [facility] 6, [address], [place], [address], [place]. tel:[phone] Referring Provider: Deepti Lee, [address] [facility] 6, [address], [place], [address]. tel:[phone] Office/Outpat ient Visit, Est [facility], [address], [facility], tel:[phone] [facility] Nurse Comments (chief complaint) Chest TightnessChe st Tightness 4 No Information Office/Outpat ient Visit, Est [facility], [address], [address], tel:[phone] [facility] Nurse Comments (chief complaint) SEBACEOUS CYST 3 Jason Tatum. [address] [facility] 6, [address], [place], [address], [place]. tel:[phone] Referring Provider: Deepti Lee, [address] [facility] 6, Johnny. [address] [place] [address], [employer]. tel:[phone] Office/Outpat ient Visit, [facility], [address] [place] [address], [facility], tel:[phone] [facility] Nurse Comments (chief complaint) Chest Pain, UnspecifiedJ OINT PAIN-FOREARM 3 Jason Tatum. [address] [facility] 6, Johnny. [address], [place], [employer], . tel:[phone] Referring Provider: Deepti Lee, [address] [facility] 6, Johnny [address] [place] [address], [employer]. tel:[phone] Office/Outpat ient Visit, [facility], [address] [place] [address], [facility], tel:[phone] [facility] Nurse Comments (chief complaint) Influenza VaccineANXIE TY DISORDER NOSInfluenza VaccineANXIE TY DISORDER NOSREASON FOR CONSULT NOS 2 Jason Tatum. [address] [facility] 6, Johnny. [address] [place] [address], [employer], . tel:[phone] Referring Provider: Deepti Lee, [address] [address], [place]. [address] [place] [address], [employer]. tel:[phone] Office/Outpat ient Visit, [facility], [address] [place] [address], [facility], tel:[phone] [facility] Nurse Comments (chief complaint) [...] quadrivalent, 3 years or older Fluzone Quad [id number] administered Source: New Immuniza tion Record Fluzone (3years and up - 0.5ml) refused Source: New Immuniza tion Record Flu (split) (3 yrs or older) administered Source: New Immunization Record Tdap (Adacel ) administered Source: New Immuniza tion Record Payers Payer name Insurance type Covered democrat ID Authoriza tion(s) [employer] CI [id number] A[employer] CI [id number] [facility] CI [id number] [employer] CI [id number] [employer] CI [id number] Social History Type Description Quantity Date Captured [...] Influenza vaccin e. Due on due Goal QUALITY LAB TECHNICIAN exam. Due on due Goal Mammogram. Due on 7 due Goal Tdap due Goal Lifestyle educat ion regarding diet completed Goal Mammogram. Due on 5 due Goal Tdap due Goal Breast exam. Due on 989 due Goal Tdap due Goal Mammogram. Due on 5 due Goal Breast exam. Due on 98 due Goal QUALITY LAB TECHNICIAN exam. Due on due Goal Dietary manageme nt education, guidance, and counseling completed Goal Breast exam. Due on 989 due Goal Mammogram. Due on 5 due Goal Influenza vaccin e. Due on due Goal QUALITY LAB TECHNICIAN exam. Due on due Goal Tdap due Goal QUALITY LAB TECHNICIAN exam. Due on due Goal Preventive [...] - 65 yr. Due on due Goal QUALITY LAB TECHNICIAN exam. Due on due Goal Influenza vaccin e. Due on due Referral Ordered: Direct Access Colon Screen (related to SCREEN MALIG NEOP-COLON) ordered Referral Ordered: Referral for Direct Access Colon Screening Appointment date/timeframe: 12/05/2025 ordered Referral Ordered: Cardiology (related to Murmur) ordered Referral Ordered: Colon Screen (related to SCREEN MALIG NEOP-COLON) ordered Referral Referred To: [address] [place] [address]
[address] [place], [phone] Ordered: Referrals: Cardiology. Location: [facility]. Consult and Treat Appointment date/timeframe: 10/22/2024 ordered Referral Ordered: Colon Screen (related to SCREEN MALIG NEOP-COLON) ordered Referral Referred To: Walker Alonso [address] [place] [address], [id number] Ordered: Referrals: Dermatology. Walker Alonso Consult and Treat Appointment date/timeframe: 07/19/2021 ordered Referral Ordered: Referral for Colon Screening Appointment date/timeframe: 10/21/2021 ordered Future Order: Lab Order Iron and TIBC ([id number]), Appointment on: , Sent on: Sent Future Order: Lab Order Vitamin B12 ([id number]), Appointment on: , Sent on: Sent Future Order: Lab Order Folates (Folic Acid), Serum ([id number]), Appointment on: , Sent on: Sent Future Order: Lab Order Ferritin , Serum ([id number]), Appointment on: , Sent on: Sent Future Order: Lab Order CBC With Differential/Platelet ([id number]), Appointment on: , Sent on: Sent Future Order: Lab Order Pt Servi Center ([id number]), Sent on: Sent Future Order: Radiology Order De xa, Bone Density ([id number]), Appointment on: Ordered Future Order: Lab Order COMP MET ABOLIC PANEL [14] ([id number]), Appointment on: , Sent on: Sent Future [...] Of Lower Extremity With Contrast Left hip ([id number]), Body Site: Left, Ordered on: Ordered Future Order: Radiology Order Ma mmo Digital Screen, Bilat: Diag Mammo Or Diag US As Needed ([id number]), Ordered on: Ordered History Of Present Illness Encounter Date Complaint History Of Prese nt Illness Nurse Comments CPE - FBWMed lis t UTD, refill x 1 neededSees no specialists but will schedule eye dr applamar.Non-smoker, no hx of Asthma.Wants flu vacc lesions patient is here today for wart(s) follow up.Warts are on left footLast OV tx w/ YY2Rluhhhb stated warts has not changedNo interval health changes since last visit. No new Medications. Feels well. lesions patient is here today for wart(s) follow up.Warts are on left footLast OV tx w/ VR1Lofluoh stated warts has not changedNo interval health changes since last visit. No new Medications. Feels well. lesions patient is here today for wart(s) follow up.Warts are on left foot. Last OV tx w/ AR2Yxwiihe stated warts have not gone awayNo interval health changes since last visit. No new Medications. Feels well. Wart Patient is here today for wart(s) follow up.Warts are on left foot. Last OV tx w/ KM4Ryslcaf stated warts have improved no new lesions [...] intake sheet. Nurse Comments CPE/FBW, no eye dr/cardio/director motion picture former smoker, no asthmaflu declinedno colonoscopy done [...] than the right. 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 She has had 2 children. She [...] pt see's no eye dentist Briana dental director motion picture LMP 05/20, needs order for MAMMO gi [...] t have regular eye, does not see workforce services representative but no BPP todayno htn, no asthma, former smokerdiscuss results of fbw from 2018 - scanned in Nurse Comments new pt - reestab lishing care with us; right eye red and itchy; seen at urgent care on monday , started drops, not any better eye problem started with R alanis ye redness, irritation, discharge and crusting. does [...] one daughter RyanSpends sandhu LBI, belongs to [employer] clubAdopted,no fam HxEating much healthier, followed lower [...] Nurse Comments Pt refused flu s hot. CPE/QUALITY LAB TECHNICIAN FBWFeels well, no c/oEats healthy Functional [...] to Mu rmur -reconsider flu shot -pap [id number] utd-colonoscopy due-continue regular dental and vision exams-healthy [...] CBC, CMP, TSH, Lipids -Patient sees outside director motion picture, PAP UDT, mammogram rx given today-Family planning [...] hand hygienewarm compresses Related to Bacterial conjunctivitis Lifestyle education regarding di et Related to Body mass index (BMI) 24.0-24.9, adult Giving encouragement to exercise Related to Body mass index (BMI) 24.0-24.9, adult Healthy Lifestyle Care Plan Depression and Anxiety Care Plan rx eye drops We exam ined and [...]
--- OUTSIDE RECORDS SUMMARY | 2025-08-14 09:07 | XMS_ITS | Continuity of Care Document ---
Author Organization [facility] Address [address] [place] [address] Phone Care Team Providers Care Traffic Rate Analyst Name Role Phone Johan MSN, PAINT PREPPER-CCaren Unavailable Un available Allergies, Adverse Reactions, Alerts Substance Reaction Status Criticality No Known Allergies Active No Inform ation Medications Medication Instructions Dosage Effective Dates (start - stop) Status Comments Vitamin D2 1,250 mcg (50,000 unit) capsule take 1 capsule by oral route every week for 12 weeks 12665 UNITS - Active valacyclovir 1 gram tablet [...] on Encounter [facility], [address] [place] [address], [facility], tel:[phone] [facility] Macrocytic anemia Oct-0 5 [facility] Fabian. [address] [place] [address] [place] [address], [id number], [place]. tel:[phone] [facility], [address], [address], tel:[phone] [facility] Cold sore Sep-2 5 [facility]. [address] [place] [address], [id number], . tel:[phone] Prev Visit, Est, Age 40-64 [facility], [address] [place] [address], [facility], tel:[phone] [facility] Nurse Comments (chief complaint) General medical examinationE ncounter for screening for other disorderAsym ptomatic menopausal stateMixed hyperlipidem iaBody mass index [BMI] 24.0-24.9, adultImpaire d fasting glucoseVitam in D deficiency Sep-2 5 Johan Fabian. [address] [place] [address] [address], [place], [id number], [place]. tel:[phone] Referring Provider: Caren Prado, [address] [place] [address] [address], [place], [address]. tel:[phone] [facility] , [address] [place] [address], [facility], tel:[phone] [facility] lesions (chief complaint) Other viral warts 3 0 5 Maru Alas. [address] [place] [address], [facility], . tel:[phone] Referring Provider: Evette Mahoney, [address] [place] [address], [facility]. tel:[phone] [facility] , [address] [place] [address], [facility], tel:[phone] [facility] lesions (chief complaint) Other viral warts 0 2 5 Maru Alas. [address] [place] [address], [facility], . tel:[phone] Referring Provider: Evette Mahoney, [address] [place] [address], [facility]. tel:[phone] [facility] , [address] [place] [address], [facility], tel:[phone] [facility] lesions (chief complaint) Other viral warts 0-202 5 Maru Alas. [address] [place] [address], [facility], . tel:[phone] Referring Provider: Evette Mahoney, [address] [place] [address], [address]. tel:[phone] [facility] , [address] [place] [address], [address], tel:[phone] [facility] Wart (chief complaint) Other viral warts March- 5 Ernestoozshonda Alas. [address] [place] [address], [address], . tel:[phone] Referring Provider: Evette Mahoney, [address] [place] [address], [address]. tel:[phone] [facility] , [address] [place] [address], [facility], tel:[phone] [facility] wart (chief complaint) Other viral warts 0 5 Ernestoozshonda Alas. [address] [place] [address], [facility], . tel:[phone] Referring Provider: Evette Mahoney, [address] [place] [address], [facility]. tel:[phone] [facility] , [address] [place] [address], [facility], tel:[phone] [facility] lesions (chief complaint) Other viral warts 5 Ernestoozshonda Alas. [address] [place] [address], [facility], . tel:[phone] Referring Provider: Evette Mahoney, [address] [place] [address], [address]. tel:[phone] [facility] , [address] [place] [address], [address], tel:[phone] [facility] Wart (chief complaint) Other viral warts 5 Ernestoozshonda Penae. [address] [place] [address], [address], . tel:[phone] Referring Provider: Evette Mahoney, [address] [place] [address], [facility]. tel:[phone] OFFICE/OUTPAT IENT VISIT, EST-Problem Focused [facility] , [address] [place] [address], [facility], tel:[phone] [facility] lesions (chief complaint)w art (chief complaint) Neoplasm of uncertain behavior of skinOther viral warts 5 Maru Alas. [address] [place] [address], [facility], . tel:[phone] Referring Provider: Evette Mahoney, [address] [place] [address], [facility]. tel:[phone] OFFICE/OUTPAT IENT VISIT, NEW [facility] , [address] [place] [address], [facility], tel:[phone] [facility] lesions (chief complaint) LentiginesMe lanocytic nevus of trunkSeborrh eic keratosis 4 Maru Alas. [address] [place] [address], [facility], . tel:[phone] Referring Provider: Evette Mahoney, [address] [place] [address], [facility]. tel:[phone] [facility], [address] [place] [address], [facility], tel:[phone] [facility] No Information Jul- 4 Johan Fabian. [address] [place] [address] [address], [place], [place], [id number], . tel:[phone] Prev Visit, Est, Age 40-64 [facility], [address] [place] [address], [address], tel:[phone] [facility] Nurse Comments (chief complaint) General medical examinationB jackie mass index [BMI] 25.0-25.9, adultChest tightnessMur murAnxietyMi xed hyperlipidem iaElevated BP without diagnosis of hypertension Encounter for screening for other disorder Sep- 4 Johan Fabian. [address] [place] [address] [facility] [address] , [place], [place], [id number], [place]. tel:[phone] Referring Provider: Caren Prado, [address] [address] [address] , [place], [address]. tel:[phone] Office/Outpat ient Visit, Est [facility], [address] [facility], [place], [facility], tel:[phone] [facility] Nurse Comments (chief complaint)C hronic Conditions (chief complaint) AnxietyBody mass index (BMI) 25.0-25.9, adultVenous insufficienc y (chronic) (peripheral) Mixed hyperlipidem iaEffusion, right elbow Mar-0 4 [facility]. [address] [place] [address], [place], [place], [id number], . tel:[phone] Referring Provider: Caren Prado, [address] [place] [address] [address] , [place], [address]. tel:[phone] [facility], [address] [place] [address], [address], [place], [address], [place] tel:[phone] [facility] No Information Sep-2 2 Irma Holland. [address], [address] mary [facility], [place], [place], [id number], [place]. tel:[phone] Referring Provider: Adonis Jordan, [facility] [address] mary [facility], [place], [address]. tel:[phone] Consultation Vein Clinic Self Referred [facility], [facility] [facility], [place], [address], [place] tel:[phone] [facility] Office Vein Consult (chief complaint)V ein Note (chief complaint) Venous insufficienc y (chronic) (peripheral) Sep-0 2 Mehul Lamb. [address], [address] [place], [id number], [place]. tel:[phone] Referring Provider: Adonis Jordan, [address] n [facility], [place], [address]. tel:[phone] Prev Visit, Est, Age 40-64 [facility], [address] [place] [address], [facility], tel:[phone] [facility] Nurse Comments (chief complaint)p reventive exam (chief complaint)B ack pain (chief complaint) General medical examinationM ixed hyperlipidem iaAnxietyEnc ounter for gynecologica l examination (general) (routine) without abnormal findingsBody mass index [BMI] 27.0-27.9, adultAcute left-sided low back pain without sciaticaNume lin moles 0 1 Viktor Galvan. [facility] Route , [address], [facility], . tel:[phone] Referring Provider: Mandy Hoang, [address] [place] [address], [facility]. tel:[phone] Prev Visit, Est, Age 40-64 [facility], [facility] [address] [place] [address], [facility], tel:[phone] [facility] Nurse Comments (chief complaint)p reventive exam (chief complaint)a nxiety (chief complaint)H x of URI (chief complaint) General medical examinationM ixed hyperlipidem iaAnxietyBod y mass index (BMI) 25.0-25.9, adultHistory of upper respiratory infection 0 Viktor Galvan. [facility] [address], [address], [facility], . tel:[phone] Referring Provider: Mandy Hoang 111 [facility] [address], [facility]. tel:[phone] Office/Outpat ient Visit, New [facility], [address], [place], [address], [place] tel:[phone] [facility] Nurse Comments (chief complaint) Bacterial conjunctivit isBody mass index (BMI) 24.0-24.9, adultSore throat 0 Mariseljerardo Caren. [address] [facility] [address] , [place], [place], [id number], [place]. tel:[phone] Referring Provider: Caren Prado, [address] [facility] [address] , [place], [address]. tel:[phone] OFFICE/OUTPAT IENT VISIT, [facility] , [address] [place] [address], [id number], [place] tel:[phone] [facility] eye problem (chief complaint) Acute conjunctivit is of right eye, unspecified acute conjunctivit is typeEncounte r for exam of eyes and vision w/o abnormal findings 0 Venkatesh Gordillo. [address] [place] [address], [id number], [place]. tel:[phone] Referring Provider: Duy Riddle, [address] [place] [address], [address]. tel:[phone] Office/Outpat ient Visit, [facility], [address] [employer] [employer] [facility] [address], [place], [place], [id number], [place] tel:[phone] Psychiatric Left hip pain (chief complaint) Pain in left hip 7 Newton Barrow. [address] [employer], [facility] [place], [address], [place]. tel:[phone] Referring Provider: Danial Prajapati, [address] [employer] [facility] [place], [address]. tel:[phone] OFFICE/OUTPAT IENT VISIT, [facility] , [address] [place] [address], [facility], tel:[phone] [facility] lesions (chief complaint) Epidermal cyst 6 Lorenzo Bell. 1 [facility] [address] [place] [address], [id number], [place]. tel:[phone] Referring Provider: Bell Ventura, [address], [address]. tel:[phone] Prev Visit, Est, Age 40-64 [facility], [address] [place] [address], [facility], tel:[phone] [facility] Nurse Comments (chief complaint) Encntr for general adult medical exam w/o abnormal findingsBody mass index (BMI) 22.0-22.9, adultOther fatigueVitam in D deficiency 5 Jason Tatum. [address] [facility] 6, Johnny. [address] [place] [address], [facility], [place]. tel:[phone] Referring Provider: Deepti Gomez H, [address] [facility] 6, [address], [place], [address]. tel:[phone] OFFICE/OUTPAT IENT VISIT, [facility] , [address] [place] [address], [facility], tel:[phone] [facility] mole(s) (chief complaint) Other benign neoplasm of skin of trunkOther seborrheic keratosis 5 Lorenzo Bell. 1 [facility] [address] [place] [address], [id number], [place]. tel:[phone] Referring Provider: Bell Ventura, [address], [address]. tel:[phone] [facility], [address], [facility], tel:[phone] [facility] No Information 4 Ashwin Grant. [address] Suite [facility], [place], [address], . [phone] Referring Provider: Juanita Ashwin, [address] [facility], [place], [address]. tel:[phone] [facility], [address], [address], tel:[phone] [facility] No Information 4 Ashwin Grant. [address], [place], [address], [place]. tel:[phone] Prev Visit, Est, Age 40-64 [facility], [address], [address], [phone] [facility] Nurse Comments (chief complaint) Routine general medical examination at a [facility] care facilityRout ine gynecologica l examinationB jackie Mass Index 26.0-26.9, adult 4 Jason Tatum. [address] [facility] 6, [address], [place], [address], [place]. tel:[phone] Referring Provider: Deepti Lee, [address] [facility] 6, [address], [place], [address]. tel:[phone] Office/Outpat ient Visit, Est [facility], [address], [facility], tel:[phone] [facility] Nurse Comments (chief complaint) Chest TightnessChe st Tightness 4 No Information Office/Outpat ient Visit, Est [facility], [address], [address], tel:[phone] [facility] Nurse Comments (chief complaint) SEBACEOUS CYST 3 Jason Tatum. [address] [facility] 6, [address], [place], [address], [place]. tel:[phone] Referring Provider: Deepti Lee, [address] [facility] 6, Johnny. [address] [place] [address], [facility]. tel:[phone] Office/Outpat ient Visit, [facility], [address] [place] [address], [facility], tel:[phone] [facility] Nurse Comments (chief complaint) Chest Pain, UnspecifiedJ OINT PAIN-FOREARM 3 Jason Tatum. [address] [facility] 6, Johnny. [address], [place], [facility], . tel:[phone] Referring Provider: Deepti Lee, [address] [facility] 6, Johnny [address] [place] [address], [facility]. tel:[phone] Office/Outpat ient Visit, [facility], [address] [place] [address], [facility], tel:[phone] [facility] Nurse Comments (chief complaint) Influenza VaccineANXIE TY DISORDER NOSInfluenza VaccineANXIE TY DISORDER NOSREASON FOR CONSULT NOS 2 Jason Tatum. [address] [facility] 6, Johnny. [address] [place] [address], [facility], . tel:[phone] Referring Provider: Deepti Lee, [address] [address], [facility]. [address] [place] [address], [facility]. tel:[phone] Office/Outpat ient Visit, [facility], [address] [place] [address], [facility], tel:[phone] [facility] Nurse Comments (chief complaint) ACUTE CONJUNCTIVIT [...] quadrivalent, 3 years or older Fluzone Quad [id number] administered Source: New Immuniza tion Record Fluzone (3years and up - 0.5ml) refused Source: New Immuniza tion Record Flu (split) (3 yrs or older) administered Source: New Immunization Record Tdap (Adacel ) administered Source: New Immuniza tion Record Payers Payer name Insurance type Covered republican ID Authoriza tion(s) [employer] CI [id number] [employer] CI [id number] [facility]ly [facility] CI [id number] [employer] CI [id number] [employer] CI [id number] Social History Type Description Quantity Date Captured [...] Goal Mammogram. Due on 7 due Goal GEOLOGY PROFESSOR exam. Due on due Goal Influenza vaccin e. Due on due Goal Breast exam. Due on 98 due Goal Lifestyle educat ion regarding diet completed Goal Breast exam. Due on 989 due Goal Tdap due Goal Mammogram. Due on 5 due Goal GEOLOGY PROFESSOR exam. Due on due Goal Breast exam. Due on 989 due Goal Mammogram. Due on 5 due Goal Tdap due Goal Dietary manageme nt education, guidance, and counseling completed Goal Tdap due Goal GEOLOGY PROFESSOR exam. Due on due Goal Influenza vaccin e. Due on due Goal Mammogram. Due on 5 due Goal Breast exam. Due on 989 due Goal PAP. Due on due Goal Influenza vaccin e. Due on due Goal Breast exam. Due on 014 due Goal Preventive Exam, 19yr - 64 yr. Due on due Goal GEOLOGY PROFESSOR exam. Due on due Goal Dietary manageme nt education, guidance, and counseling completed Goal Influenza vaccin e. Due on due Goal GEOLOGY PROFESSOR exam. Due on due Goal Preventive Exam, [...] SCREEN MALIG NEOP-COLON) ordered Referral Referred To: [address] [place] [address]
[address] [place], [phone] Ordered: Referrals: Cardiology. Location: [facility]. Consult and Treat Appointment date/timeframe: 10/22/2024 ordered Referral Ordered: Colon Screen (related to SCREEN MALIG NEOP-COLON) ordered Referral Referred To: Walker Alonso [address] [place] [address], [id number] Ordered: Referrals: Dermatology. Walker Alonso Consult and Treat Appointment date/timeframe: 07/19/2021 ordered Referral Ordered: Referral for Colon Screening Appointment date/timeframe: 10/21/2021 ordered Future Order: Lab Order Iron and TIBC ([id number]), Appointment on: , Sent on: Sent Future Order: Lab Order Vitamin B12 ([id number]), Appointment on: , Sent on: Sent Future Order: Lab Order Folates (Folic Acid), Serum ([id number]), Appointment on: , Sent on: Sent Future Order: Lab Order Ferritin , Serum ([id number]), Appointment on: , Sent on: Sent Future Order: Lab Order CBC With Differential/Platelet ([id number]), Appointment on: , Sent on: Sent Future Order: Lab Order Pt Servi Center ([id number]), Sent on: Sent Future Order: Radiology Order [place], Bone Density ([id number]), Appointment on: Ordered Future Order: Lab Order COMP MET ABOLIC PANEL [14] ([id number]), Appointment on: , Sent on: Sent Future [...] Of Lower Extremity With Contrast Left hip ([id number]), Body Site: Left, Ordered on: Ordered Future Order: Radiology Order Ma mmo Digital Screen, Bilat: Diag Mammo Or Diag US As Needed ([id number]), Ordered on: Ordered History Of Present Illness Encounter Date Complaint History Of Prese nt Illness Nurse Comments CPE - FBWMed lis t UTD, refill x 1 neededSees no specialists but will schedule eye dr applamar.Non-smoker, no hx of Asthma.Wants flu vacc lesions patient is here today for wart(s) follow up.Warts are on left footLast OV tx w/ [id number] stated warts has not changedNo interval health changes since last visit. No new Medications. Feels well. lesions patient is here today for wart(s) follow up.Warts are on left footLast OV tx w/ CY3Cpevbwq stated warts has not changedNo interval health changes since last visit. No new Medications. Feels well. lesions patient is here today for wart(s) follow up.Warts are on left foot. Last OV tx w/ BK6Laxrich stated warts have not gone awayNo interval health changes since last visit. No new Medications. Feels well. Wart Patient is here today for wart(s) follow up.Warts are on left foot. Last OV tx w/ IS6Octchut stated warts have improved no new lesions [...] intake sheet. Nurse Comments CPE/FBW, no eye dr/cardio/tank stave assembler former smoker, no asthmaflu declinedno colonoscopy done [...] than the right. 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 She has had 2 children. She has [...] pt see's no eye dentist Briana dental tank stave assembler LMP 05/20, needs order for MAMMO gi [...] t have regular eye, does not see supervisor stave cutting but no BPP todayno htn, no asthma, [...] one daughter RyanSpends sandhu LBI, belongs to [employer] clubAdopted,no fam HxEating much healthier, followed lower [...] Nurse Comments Pt refused flu s hot. CPE/GEOLOGY PROFESSOR FBWFeels well, no c/oEats healthy Functional Status [...] to Mu rmur -reconsider flu shot -pap [id number] utd-colonoscopy due-continue regular dental and vision exams-healthy [...] CBC, CMP, TSH, Lipids -Patient sees outside tank stave assembler, PAP UDT, mammogram rx given today-Family planning [...]
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
[2025-10-01 11:20] VITALS: BP 111/65; BP 150/100; PULSE 71; RESP 18; TEMP 36.7; O2SAT 98; O2SAT 99; BMI 25.1
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
[2025-10-01 14:13] VITALS: BP 111/65; PULSE 71; RESP 18; TEMP 36.7; O2SAT 99
--- OUTSIDE RECORDS SUMMARY | 2025-10-01 22:52 | XMS_ITS | Clinical Summary ---
Author Organization [employer] Address [address] [place] [address] Care Team Providers Care Shipping Assistant Name Role Phone Unavailable Primary Care Provider [...]
--- OUTSIDE RECORDS SUMMARY | 2025-10-01 22:52 | XMS_ITS | Encounter Summary ---
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 EFFECTIVE SINCE 07/06/2023 documented in this encounter Plan of Treatment Not on file documented as of this encounter Visit Diagnoses Not on filedocumented in this encounter
== END 2025-10-01 14:14 | disposition home or self-care (01) ==
PROVIDERS: Emergency Provider Student in an Organized Health Care Education/Training Program; PCP Internal Medicine
DX: S09.90XA Unspecified injury of head, initial encounter (principal); V49.49XA Driver injured in collision with other motor vehicles in traffic accident, initial encounter; Y93.9 Activity, unspecified; Y92.9 Unspecified place or not applicable; M54.2 Cervicalgia
CPT/HCPCS: 70450; 72125; 99283; 99284

== ENCOUNTER → 2025-10-01 12:01 | Outpatient (BNV) | payer MEDICARE, MEDICAID, SELFPAY | PROVIDERS: Emergency Provider Student in an Organized Health Care Education/Training Program; PCP Internal Medicine; Visit Provider Radiology Diagnostic Radiology | DX: S09.90XA Unspecified injury of head, initial encounter (principal); M47.812 Spondylosis without myelopathy or radiculopathy, cervical region; M48.02 Spinal stenosis, cervical region; V89.2XXA Person injured in unspecified motor-vehicle accident, traffic, initial encounter | CPT/HCPCS: 70450; 72125 ==

== ENCOUNTER 2025-10-20 10:44 | Outpatient (REF) | payer MEDICARE, MEDICAID, SELFPAY ==
[2025-10-20 11:05] LABS: MANUAL DIFF FLAG NO
[2025-10-20 11:59] LABS: Hematocrit 37.4 % (37.0-47.0); Hemoglobin 12.2 g/dl (12.0-16.0); Imm Gran Abs Auto 0.02 X10*3/uL (0.00-0.03); Imm Gran Pct Auto 0.3 % (0.0-0.4); Lymphocytes Absolute Auto 2.0 X10*3/uL (1.2-4.9); Mean Corpuscular HGB Conc 32.6 g/dl (31.0-35.0); Mean Corpuscular Hemoglobin 26.5 pg (27.0-33.0); Mean Corpuscular Volume 81.1 fL (80.0-98.0); NRBC Abs Auto 0.000 X10*3/uL (0.0-0.012); NRBC Pct Auto 0.0 /100WBC (0.0-0.2); Platelet Count 307 X10*3/uL (160-400); Red Blood Count 4.61 X10*6/uL (4.20-5.50); White Blood Count 6.4 X10*3/uL (4.8-10.8)
[2025-10-20 12:14] LABS: Appearance Urine Clear; Glucose Urine UA Negative (Negative); PH 8.5 (5.0-9.0); Specific Gravity - Urine 1.015 (1.005-1.025)
[2025-10-20 12:47] LABS: Alanine Aminotransferase 11 U/L (0-31); Albumin Level 4.1 g/dL (3.5-5.0); Alkaline Phosphatase 57 U/L (39-117); Anion Gap 10 (12-20); Aspartate Amino Transferase 76 U/L (5-31); Blood Urea Nitrogen 13 mg/dL (9-16); Calcium 8.6 mg/dL (8.4-10.2); Carbon Dioxide 25 mmol/L (22-29); Chloride 108 mmol/L (96-108); Cholesterol 213 mg/dL (<200); Estimated Glomerular Filt Rate > 60; HDL Cholesterol 74 mg/dL (>40); Potassium 4.9 mmol/L (3.3-5.1); Sodium 138 mmol/L (135-145); Total Protein 6.7 g/dL (6.5-8.0); Triglycerides 145 mg/dL (<150)
== END 2025-10-20 10:45 | disposition home or self-care (01) ==
LOC: HO.LAB 10:44
PROVIDERS: PCP Internal Medicine; Visit Provider Internal Medicine
DX: E11.9 Type 2 diabetes mellitus without complications (principal); E78.00 Pure hypercholesterolemia, unspecified; D64.9 Anemia, unspecified; R30.0 Dysuria
CPT/HCPCS: 36415; 80053; 80061; 81003; 82043; 82570; 83036; 85025

== ENCOUNTER 2025-10-22 09:41 | Outpatient (AMB) | payer MEDICARE, MEDICAID, SELFPAY ==
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
[2025-10-22 09:45] VITALS: BP 100/60; PULSE 72; O2SAT 95; BMI 26.9
== END 2025-10-22 10:30 | disposition home or self-care (01) ==
LOC: HO.HMCH 09:42
PROVIDERS: PCP Internal Medicine; Visit Provider Internal Medicine
DX: E11.42 Type 2 diabetes mellitus with diabetic polyneuropathy (principal); E78.00 Pure hypercholesterolemia, unspecified; J45.40 Moderate persistent asthma, uncomplicated; G43.909 Migraine, unspecified, not intractable, without status migrainosus; Z82.41 Family history of sudden cardiac death; J30.89 Other allergic rhinitis; G62.9 Polyneuropathy, unspecified; E53.8 Deficiency of other specified B group vitamins; E55.9 Vitamin D deficiency, unspecified; R11.15 Cyclical vomiting syndrome unrelated to migraine; K21.9 Gastro-esophageal reflux disease without esophagitis; M79.645 Pain in left finger(s); M79.644 Pain in right finger(s); N95.1 Menopausal and female climacteric states; F41.9 Anxiety disorder, unspecified

== ENCOUNTER → 2025-10-22 09:41 | Outpatient (BNVA) | payer MEDICARE, MEDICAID, SELFPAY | PROVIDERS: PCP Internal Medicine; Visit Provider Internal Medicine | DX: E11.9 Type 2 diabetes mellitus without complications (principal); E78.00 Pure hypercholesterolemia, unspecified; J45.40 Moderate persistent asthma, uncomplicated; G43.909 Migraine, unspecified, not intractable, without status migrainosus; J30.89 Other allergic rhinitis; G62.9 Polyneuropathy, unspecified; E53.8 Deficiency of other specified B group vitamins; E55.9 Vitamin D deficiency, unspecified; R11.15 Cyclical vomiting syndrome unrelated to migraine; K21.9 Gastro-esophageal reflux disease without esophagitis; M79.675 Pain in left toe(s); M79.644 Pain in right finger(s); N95.1 Menopausal and female climacteric states; F41.9 Anxiety disorder, unspecified; Z82.41 Family history of sudden cardiac death; Z13.31 Encounter for screening for depression; Z13.39 Encounter for screening examination for other mental health and behavioral disorders | CPT/HCPCS: 96127; 99212 ==

== ENCOUNTER 2025-11-07 14:14 | Outpatient (AMB) | payer MEDICARE, MEDICAID, SELFPAY ==
--- OUTSIDE RECORDS SUMMARY | 2025-11-07 14:18 | XMS_ITS | Encounter Summary ---
Author Organization [employer] Address [address] [facility] [address] [place] [address] Care Team Providers Care Density Control Puncher Name Role Phone Unavailable Primary Care Provider Unavailabl e Reason for Visit * Reason Onset Date Comments New Patient 07/11/2023 Encounter Details Date Type Department Care Team (Late st Contact Info) Description 07/11/2023 Telephone [facility] [address] [place] [address] Pio Liu MD [address] [place] [address] New Patient Social History Tobacco Use Types [...] been transfer over to wait list for MAT PUNCHER. EFFECTIVE SINCE 07/06/2023 documented in this encounter Plan of Treatment Not on file documented as of this encounter Visit Diagnoses Not on filedocumented in this encounter
--- OUTSIDE RECORDS SUMMARY | 2025-11-07 14:18 | XMS_ITS | Clinical Summary ---
Author Organization [employer] Address [address] [facility] [address] [place] [address] Care Team Providers Care Econometrician Name Role Phone Unavailable Primary Care Provider [...]
--- OUTSIDE RECORDS SUMMARY | 2025-11-07 14:18 | XMS_ITS | Clinical Summary ---
Author Organization [facility] Address [address] [facility] [address] [place] [address] Care Team Providers Care Commercial Administrator Name Role Phone Anthony Andujar MD Primary Care Provider Allergies No known active allergies Medications gabapentin [...] age to complete this topic HPV Vaccines (No Doses Required) Completed Hepatitis A Vaccines Aged Out No long [...] 94 <=150 mg/dL 09/23/2022 12:23 PM EST [facility] Cholesterol 211(H) <=200 mg/dL 09/23/2022 12:23 PM EST [facility] HDL cholesterol 59 >=40 mg/dL 2 12:23 PM EST [facility] LDL cholesterol, calculated 133(H) 0 - 130 mg/dL 09/23/2022 12:23 PM EST [facility] Cholesterol/HDL Ratio 3.6 09/23/2022 12:23 PM EST [facility] Blood Venous blood specimen / Unknown Venipuncture / Unknown 09/23/2022 11:05 AM EST 09/23/2022 11:32 AM EST us Armand Brandt MD LAB BLOOD ORDERABLES Final Resul t [facility] [address] [place] [address], from Last 3 Months or Most Recently Relevant to Health Maintenance Insurance MEDICARE PART A AND B MEDICAID STANDARD Care Teams Commercial Administrator Relationship Specialty Start Date End Date Anthony Andujar MD [address] [address] PCP - General 12/17/21
--- OUTSIDE RECORDS SUMMARY | 2025-11-07 14:18 | XMS_ITS | Encounter Summary ---
Author Organization [facility] Address [address] [facility] [address] [place] [address] Care Team Providers Care Adult Care Manager Name Role Phone Anthony Andujar MD Primary Care Provider [phone] Reason for Visit * Reason Comments Med Refill Encounter Details Date Type Department Care Team (Late st Contact Info) Description 01/13/2024 Refill [facility] [address] [place] [id number] Charlotte Varela MD [address] [place] [address] Abnormal movement Social History Tobacco Use Types [...] movement documented in this encounter Care Teams Adult Care Manager Relationship Specialty Start Date End Date Anthony Andujar MD [address] [facility] [address] [place] [address] PCP - General 12/17/21 documented as of this encounter
[2025-11-07 14:27] VITALS: BP 106/60; PULSE 72; BMI 26.6
--- NOTE | 2025-11-07 14:27 | A.OFFVIS_ITS ---
Vital Signs 11/07/25 14:27 Height 6 ft Weight 196 lb 3.382 oz BMI 26.6 BP 106/60 Blood Pressure Location Lt brachial Position Sitting Pulse 72 Pulse Source Pulse Oximeter Intake Visit Reasons: f/up cta. echo HS r/s 10-16-25 Allergies latex Allergy (Severe, Verified 10/22/25 10:21) Anaphylaxis Cephalosporins Allergy (Mild, Verified 10/22/25 10:21) Rash egg Allergy (Mild, Verified 10/22/25 10:21) Unknown Sulfa (Sulfonamide Antibiotics) Allergy (Mild, Verified 10/22/25 10:21) Rash omalizumab (From Xolair) Adverse Reaction (Severe, Verified 10/22/25 10:21) worsening SOB/asthma; hives; injection reaction ibuprofen (From Motrin) Adverse Reaction (Mild, Verified 10/22/25 10:21) Rash Medication List - Last Reconciled 11/07/25 by Sergey Chavez NP acarbose 100 mg PO TID albuterol sulfate 2.5 mg inhalation Q4-6H PRN albuterol sulfate 90 mcg/actuation 2 puffs inhalation Q4-6H PRN bupropion HCl XL 150 mg PO QAM 90 days cetirizine (Zyrtec) 10 mg PO DAILY PRN cholecalciferol (vitamin D3) 50 mcg PO DAILY 90 days cyanocobalamin (vitamin B-12) 1,000 mcg IM QMONTH cyclobenzaprine 5 mg PO TID PRN 3 days escitalopram oxalate (Lexapro) 20 mg PO DAILY 90 days esomeprazole magnesium (Nexium) 40 mg PO BID estradiol 1 patch transdermal QWEEK 4 weeks gabapentin 600 mg PO DAILY 90 days insulin syringe-needle,dispos. (SafeSnap Insulin Syringe) As directed once a month for B12 injections ipratropium-albuterol 20-100 mcg/actuation (Combivent Respimat) 1 puff inhalation Q6H lidocaine 5% leave on most painful area for up to 12 hrs lorazepam (Ativan) 1 mg PO BEDTIME PRN methocarbamol 500 mg PO TID PRN 30 days ondansetron 4 mg PO Q8H ropinirole 0.5 - 1 mg (1 - 2 x 0.5 mg) PO BEDTIME simethicone (Gas Relief (simethicone)) 180 mg PO BID PRN solifenacin 10 mg PO DAILY sumatriptan succinate (Imitrex) 50 mg PO Q2-4H PRN syringe-needle,safety,disp unt (SafeSnap Syringe) As directed- monthly with B12 HPI Comments Details: This is a 55-year-old female patient coming in for a follow-up visit. Patient with history of asthma and significant family history of cardiovascular disease where her father at 52 from heart attack and 2 brothers with a history of AFib in their sleep from started cardiac event. Per patient, she had undergone a cardiac evaluation about almost 10 years ago which was negative. Most recently with reports of shortness of breath, patient underwent an echocardiogram and a coronary CTA. Today, patient is reporting feeling well overall without any cardiac symptoms of exertional chest pain, shortness of breath, palpitations, dizziness, orthopnea, PND, leg edema, presyncope or syncope. Most recently patient underwent labs with primary care provider showing elevated cholesterol and LDL. [facility] Medical History GERD (gastroesophageal reflux disease) Family history of sudden cardiac (SCD) Tubular adenoma of colon Pure hypercholesterolemia Vitamin D deficiency Vitamin B12 deficiency Allergic rhinitis Pulmonary nodule, left Anxiety Neuropathy Asthma Diabetes mellitus Migraine Cyclical vomiting Surgical History History of lumpectomy of right breast (05/29/24) Hx of shoulder surgery Hx of shoulder surgery Hx of colonoscopy Status post laparoscopic assisted vaginal hysterectomy (LAVH) (~2016) Hx of gastric bypass (~2009) Hx of cholecystectomy Family History Mother Lung cancer Father Cardiac arrest Brother Chronic a-fib Cardiac arrest Daughter Long QT interval Paternal Grandfather Cardiac arrest Paternal Aunt Cardiac arrest Other Diabetes Social History Housing: House Are you a primary health care analyst to a significant other at home: No Do you presently have visiting nurse or other home services: No Alcohol intake: never Patient Tobacco Use Status: Former Tobacco user Tobacco use type: Cigarette Cigarette Packs Per Day: 1.5 Years Smoked: quit more than 15 years ago, started as a teen e-Cigarette/Vaping Use: Never Used service: No Current occupational status: disabled Current occupation: Left hand dominant Current occupational exposures/hazards: No Cognitive needs: No Hearing needs: No Vision needs: Yes Review of Systems Const Denies weakness ENT Denies dizziness Card Reports no additional complaints, Denies chest pain, Denies chest pain with activity, Denies syncope, Denies rapid heart rate, Denies pedal edema, Denies edema, Denies leg edema, Denies lightheadedness, Denies palpitations, Denies dyspnea, Denies dyspnea on exertion and Denies orthopnea Resp Denies cough, Denies dyspnea and Denies dyspnea on exertion GI Denies hematochezia and Denies change in stool character Musc Denies abnormal gait, Denies muscle cramps, Denies muscle weakness, Denies numbness, Denies radiating pain into limb and Denies tingling Neuro Denies abnormal gait, Denies dizziness, Denies syncope, Denies numbness, Denies tingling and Denies weakness Endo Denies palpitations Physical Exam Vital Signs: Last Vital Signs Pulse 72 11/07/25 14:27 BP 106/60 11/07/25 14:27 BMI result Body Mass Index 26.6 Const General: cooperative, healthy appearing, comfortable and no acute distress Orientation/consciousness: patient oriented x3 HEENT Head: Yes normal to inspection Neck Neck: Yes normal visual inspection, Yes trachea midline and Yes supple Chest Chest palpation & inspection: normal inspection of the chest Resp Effort & Inspection: normal respiratory effort Auscultation: clear to auscultation bilaterally, no crackles, no rales, no rhonchi and no wheezes Cardio Jugular venous distension: no JVD Palpation: normal PMI Rate: regular rate Rhythm: regular rhythm Heart sounds: S1 normal heart sound present, S2 normal heart sound present, no click, no gallops, no murmurs and no rubs Peripheral pulses: Peripheral pulses 2+ throughout GI Inspection: Yes normal to inspection Palpation (GI): Soft to palpation Auscultation: normal bowel sounds Skin General skin exam: no rashes or lesions noted Neuro General: patient oriented x3 Extrem General: Yes normal to inspection, No no pedal edema and No calf tenderness Psych Appearance: grossly normal Mental Status: mental status grossly normal Speech and movement: Normal speech and movement present Assessment & Plan Assessment & Plan (1) Family history of sudden cardiac (SCD): Code(s): Z82.41 - Family history of sudden cardiac Category: Medical (2) Pure hypercholesterolemia: Code(s): E78.00 - Pure hypercholesterolemia, unspecified Category: Medical Plan 07/08/2025-echo study showed a normal LV systolic function with an ejection fraction at 57% with no wall motion abnormalities, or valvular pathology. Normal biatrial size. 08/06/2025-patient underwent a coronary CTA that showed no evidence of coronary artery disease. Given above findings, no further testing indicated at this time. Patient without any cardiac symptoms at this time. Most recently LDL at 110 not within goal of LDL closer to 70 given her sig nificant family history of cardiovascular disease, followed by PCP. Patient states that she is planning for lifestyle modifications prior to starting any statins. Advised on heart healthy diet, regular exercise, med compliance, and aggressive management of vascular risk factors. Follow up on an as-needed basis. In the interim, patient will call the office with any concerns or change in symptoms. This note was generated using voice recognition software. While every effort has been made to ensure accuracy and proper emergency medical technician/driver, there may be occasional errors that could affect the content or meaning of the described symptoms. Coding Level of Care Code Est Pt Level 4 (68253) Add On Problem Visit Only Diagnoses Family history of sudden cardiac (SCD) Z82.41 Pure hypercholesterolemia E78.00 Time Spent (min) 31 Comment Time spent in reviewing the chart, test results, assessment, counseling and documentation.
== END 2025-11-07 14:40 | disposition home or self-care (01) ==
LOC: HO.HCS 14:15
PROVIDERS: PCP Internal Medicine
DX: Z82.41 Family history of sudden cardiac death (principal); E78.00 Pure hypercholesterolemia, unspecified
CPT/HCPCS: 99214; G2211

== ENCOUNTER → 2025-11-07 14:14 | Outpatient (BNVA) | payer MEDICARE, MEDICAID, SELFPAY | PROVIDERS: PCP Internal Medicine | DX: E78.00 Pure hypercholesterolemia, unspecified (principal); Z82.41 Family history of sudden cardiac death | CPT/HCPCS: 99212 ==